=== PATIENT | female | born 1990 ===

== ENCOUNTER 2020-12-21 13:05 | Outpatient (REF) | payer OTHER, SELFPAY ==
[2020-12-21 13:54] LABS: MANUAL DIFF FLAG NO
[2020-12-21 14:05] LABS: Basophils Absolute Auto 0.1 X10*3/uL (0.0-0.2); Basophils Percent Auto 0.6 % (0-2); Eosinophils Absolute Auto 0.1 X10*3/uL (0.0-0.4); Eosinophils Percent Auto 0.5 % (0-4); Hematocrit 39.7 % (37-47); Hemoglobin 12.6 g/dl (12.0-16.0); Imm Gran Abs Auto 0.03 X10*3/uL (0.00-0.03); Imm Gran Pct Auto 0.3 % (0.0-0.4); Lymphocytes Absolute Auto 2.8 X10*3/uL (1.2-4.9); Lymphocytes Percent Auto 28.7 % (20-40); Mean Corpuscular HGB Conc 31.7 g/dl (31.0-35.0); Mean Corpuscular Hemoglobin 26.9 pg (27.0-33.0); Mean Corpuscular Volume 84.6 fL (80-98); Mean Platelet Volume 10.7 fL (9.4-12.3); Monocytes Absolute Auto 0.9 X10*3/uL (0.1-1.2); Monocytes Percent Auto 8.8 % (2-11); Neutrophils Absolute Auto 5.9 X10*3/uL (2.0-8.3); Neutrophils Percent Auto 61.1 % (45-73); Platelet Count 277 X10*3/uL (160-400); Red Blood Count 4.69 X10*6/uL (4.20-5.50); Red Cell Distribution Width 12.7 % (11.0-16.0); White Blood Count 9.6 X10*3/uL (4.8-10.8)
[2020-12-21 14:13] LABS: Estimated Average Glucose 94 mg/dL; Hemoglobin A1c % 4.9 %
[2020-12-21 14:39] LABS: Alanine Aminotransferase 14 U/L (0-31); Albumin Level 4.1 g/dL (3.5-5.0); Alkaline Phosphatase 96 U/L (39-117); Anion Gap 13 (12-20); Aspartate Amino Transferase 23 U/L (5-31); Bilirubin Direct < 0.2 mg/dL (0.0-0.5); Bilirubin Total 0.4 mg/dL (0.0-1.0); Blood Urea Nitrogen 12 mg/dL (9-16); Calcium 9.1 mg/dL (8.4-10.2); Carbon Dioxide 27 mmol/L (22-29); Chloride 104 mmol/L (96-108); Estimated Glomerular Filt Rate > 60; Glucose Random 84 mg/dL (60-115); Potassium 3.9 mmol/L (3.3-5.1); Sodium 140 mmol/L (135-145); Total Protein 7.6 g/dL (6.5-8.0)
[2020-12-21 14:46] LABS: TSH reflex Free T4 0.77 uIU/mL (0.32-4.0)
== END 2020-12-21 13:06 | disposition home or self-care (01) ==
LOC: HO.HMGCLDS 13:05
PROVIDERS: PCP Internal Medicine; Visit Provider Internal Medicine
DX: G44.89 Other headache syndrome (principal); R53.83 Other fatigue; R63.1 Polydipsia
CPT/HCPCS: 36415; 80048; 80076; 83036; 84443; 85025

== ENCOUNTER → 2021-02-23 10:54 | Outpatient (BNVA) | payer OTHER, SELFPAY | PROVIDERS: PCP Internal Medicine; Visit Provider Physician Assistant ==

== ENCOUNTER → 2021-02-24 08:12 | Outpatient (BNVA) | payer OTHER, SELFPAY | PROVIDERS: PCP Internal Medicine; Visit Provider Surgery ==

== ENCOUNTER 2021-02-25 10:37 | Outpatient (REF) | payer OTHER, SELFPAY ==
--- NOTE | ~2021-02-25 | XR_ITS ---
EXAMINATION: XR CHEST CLINICAL INFORMATION: Obesity COMPARISON: None TECHNIQUE: 2 views of the chest were obtained. FINDINGS: No significant abnormality is noted involving the heart, lungs, mediastinum, bony thorax or soft tissues. XR/XR chest 2V IMPRESSION: Unremarkable examination.
--- NOTE | 2021-02-25 10:53 | ECG_ITS ---
Test Reason : E66.01 Blood Pressure : / mmHG Vent. Rate : 080 BPM Atrial Rate : 080 BPM P-R Int : 120 ms QRS Dur : 086 ms QT Int : 374 ms P-R-T Axes : 025 060 027 degrees QTc Int : 431 ms Normal sinus rhythm Normal ECG No previous ECGs available Referred By: Winston Mcmahan Electronically Signed By:NOAH TALAVERA
[2021-02-25 11:39] LABS: MANUAL DIFF FLAG NO
[2021-02-25 11:50] LABS: Basophils Percent Auto 0.5 % (0-2); Eosinophils Absolute Auto 0.1 X10*3/uL (0.0-0.4); Eosinophils Percent Auto 1.2 % (0-4); Hemoglobin 13.1 g/dl (12.0-16.0); Imm Gran Abs Auto 0.01 X10*3/uL (0.00-0.03); Imm Gran Pct Auto 0.2 % (0.0-0.4); Lymphocytes Absolute Auto 1.2 X10*3/uL (1.2-4.9); Lymphocytes Percent Auto 19.9 % (20-40); Mean Corpuscular Hemoglobin 26.8 pg (27.0-33.0); Mean Platelet Volume 10.8 fL (9.4-12.3); Monocytes Absolute Auto 0.7 X10*3/uL (0.1-1.2); Monocytes Percent Auto 12.1 % (2-11); Neutrophils Absolute Auto 3.9 X10*3/uL (2.0-8.3); Neutrophils Percent Auto 66.1 % (45-73); Platelet Count 222 X10*3/uL (160-400); Red Blood Count 4.88 X10*6/uL (4.20-5.50); Red Cell Distribution Width 12.8 % (11.0-16.0); White Blood Count 5.9 X10*3/uL (4.8-10.8)
[2021-02-25 12:09] LABS: Estimated Average Glucose 94 mg/dL; Hemoglobin A1c % 4.9 %
[2021-02-25 12:10] LABS: Alanine Aminotransferase 11 U/L (0-31); Albumin Level 4.3 g/dL (3.5-5.0); Alkaline Phosphatase 85 U/L (39-117); Anion Gap 12 (12-20); Aspartate Amino Transferase 19 U/L (5-31); Bilirubin Total 0.5 mg/dL (0.0-1.0); Blood Urea Nitrogen 12 mg/dL (9-16); C Reactive Protein 1.28 mg/dL (< or = 0.50); Calcium 9.2 mg/dL (8.4-10.2); Carbon Dioxide 27 mmol/L (22-29); Chloride 104 mmol/L (96-108); Cholesterol 171 mg/dL; Estimated Glomerular Filt Rate > 60; Glucose Random 76 mg/dL (60-115); HDL Cholesterol 43 mg/dL; LDL Cholesterol Calculated 117 mg/dl; Potassium 4.2 mmol/L (3.3-5.1); Sodium 139 mmol/L (135-145); Total Protein 7.7 g/dL (6.5-8.0); Triglycerides 56 mg/dL
[2021-02-25 12:34] LABS: Ferritin 31 ng/mL (10-122); TSH reflex Free T4 0.35 uIU/mL (0.32-4.0); Vitamin D 25-OH Total 19.4 ng/mL (>30)
[2021-02-25 12:57] LABS: Vitamin B12 600 pg/mL (200-900)
[2021-02-26 09:52] LABS: Insulin Level Total 6.5 uIU/mL
[2021-02-26 12:16] LABS: H Pylori Breath Test NOT DETECTED (NOT DETECTED)
[2021-02-28 13:43] LABS: Calcium (PTHI) 9.3 mg/dL (8.6-10.2); PTHI 68 pg/mL (14-64)
[2021-03-01 02:21] LABS: Zinc 86 mcg/dL (60-130)
[2021-03-01 09:56] LABS: Vitamin B1 <6 nmol/L (8-30)
[2021-03-01 21:36] LABS: Vitamin A 26 mcg/dL (38-98)
== END 2021-02-25 10:38 | disposition home or self-care (01) ==
LOC: HO.LAB 10:37
PROVIDERS: Physician Assistant; PCP Internal Medicine; Visit Provider Surgery
DX: Z01.818 Encounter for other preprocedural examination (principal); E66.01 Morbid (severe) obesity due to excess calories
CPT/HCPCS: 36415; 71046; 80053; 80061; 82306; 82607; 82728; 82746; 83013; 83036; 83525; 83970; 84425; 84443; 84590; 84630; 85025; 86140; 93005; 99211

== ENCOUNTER 2021-02-28 10:25 | Outpatient (REF) | payer OTHER, SELFPAY ==
--- NOTE | ~2021-02-28 | FL_ITS ---
EXAMINATION: FL XR GI SERIES CLINICAL INFORMATION: Morbid obesity. COMPARISON: None TECHNIQUE: Air contrast upper GI examination. FINDINGS: There is normal apposition of the focal cords while saying E. There is normal elevation of the soft palate while saying candy. No nasopharyngeal reflux or tracheal aspiration was identified. There is normal esophageal motility without ulceration or persistent stricture. No gastroesophageal reflux was elicited including with water siphon test. The stomach demonstrated normal distensibility without abnormal mass or ulceration. There was no delay in gastric emptying. The duodenal bulb and sweep appeared unremarkable. FLUOROSCOPY TIME: 1.3 minutes. DOSE AREA PRODUCT: 17.342 Gy-cm2 (norma centimeter squared. FL/FL upper GI series IMPRESSION: Normal air contrast upper GI examination.
== END 2021-02-28 10:26 | disposition home or self-care (01) ==
LOC: HO.XRAY 10:25
PROVIDERS: PCP Internal Medicine; Visit Provider Surgery
DX: Z01.818 Encounter for other preprocedural examination (principal); E66.01 Morbid (severe) obesity due to excess calories; K21.9 Gastro-esophageal reflux disease without esophagitis
CPT/HCPCS: 74240

== ENCOUNTER → 2021-03-03 11:25 | Outpatient (BNVA) | payer OTHER, SELFPAY | PROVIDERS: PCP Internal Medicine; Visit Provider Physician Assistant ==

== ENCOUNTER → 2021-03-10 11:32 | Outpatient (BNVA) | payer OTHER, SELFPAY | PROVIDERS: PCP Internal Medicine; Visit Provider Physician Assistant ==

== ENCOUNTER 2021-03-14 08:47 | Outpatient (REF) | payer OTHER, SELFPAY ==
--- NOTE | ~2021-03-14 | US_ITS ---
EXAMINATION: US COMPLETE ABDOMEN WITH LIVER ELASTOGRAPHY CLINICAL INFORMATION: Obesity. COMPARISON: None. TECHNIQUE: Real-time imaging of the abdominal viscera. Noninvasive ultrasound liver fibrosis assessment is performed using Ever ElastPQ point quantification shear wave elastography (pSWE) with a C5-2 MHz transducer. Multiple elastography samples are obtained. FINDINGS: PANCREAS: Normal. The visualized pancreatic head and body are normal in appearance. The remainder of the pancreas is obscured from visualization by the overlying bowel gas. ABDOMINAL AORTA: The proximal, middle, and distal aortic segments are normal in caliber. INFERIOR VENA CAVA: Visualized portions are normal. LIVER: Echogenicity is within normal limits. No focal lesion or intrahepatic biliary duct dilatation. The right lobe measures 17.4 cm in length. The left lobe measures 13.1 cm in length. Portal flow is hepatopedal. Shear wave liver elastography median stiffness is 1.1 m/s (reference: normal median stiffness is 1.3 m/s or less). IQR/median stiffness to assess sampling precision is 0.12 (reference: good quality data set is IQR/median stiffness of 0.15 or less). GALLBLADDER: Normal. The gallbladder is physiologically distended without evidence of stones, sludge, polyps, wall thickening or pericholecystic fluid. COMMON BILE DUCT: Normal in caliber measuring 0.1 cm in diameter. RIGHT KIDNEY: Normal. No hydronephrosis. No renal calculi or focal parenchymal lesions. The kidney measures 10.8 cm in maximum dimension. LEFT KIDNEY: Normal. No hydronephrosis. No renal calculi or focal parenchymal lesions. The kidney measures 9 cm in maximum dimension. SPLEEN: Normal. The spleen measures 10.5 cm in maximum dimension. FREE FLUID: None. US/US abdomen comp w elastography IMPRESSION: 1. Hepatic parenchymal echogenicity is within normal limits. No focal lesions. No intrahepatic biliary duct dilatation. 2. Liver elastography: Median stiffness 1.1 m/s. Based on the liver stiffness thresholds, this is in range of high probability of being normal. REFERENCE: Society of Radiologists in Ultrasound Liver Stiffness Thresholds (2020): LIVER STIFFNESS THRESHOLDS: *Liver Stiffness equal or less than 1.3 m/s: High probability of being normal. *Liver Stiffness less than 1.7 m/s: In the absence of other known clinical signs, rules out compensated advanced chronic liver disease. *Liver Stiffness 1.7-2.1 m/s: Suggestive of compensated advanced chronic liver disease but need further test for confirmation. *Liver Stiffness over 2.1 m/s: Rules in compensated advanced chronic liver disease. *Liver Stiffness over 2.4 m/s: Suggestive of clinically significant portal hypertension. QUALITY OF DATA SET: *IQR/Median value equal or less than 0.15 implies a quality data set. *IQR/Median value over 0.15 implies a poor quality data set. SIGNIFICANT CHANGE FROM PRIOR EXAM: Significant change if liver stiffness measurement is 10% or greater from prior exam. OTHER CONSIDERATIONS: The stage of liver fibrosis may be overestimated in the setting of acute hepatitis, liver inflammation, elevated liver function tests, hepatic vascular congestion, obstructive cholestasis, non-fasting state, and infiltrative diseases such as amyloidosis and lymphoma. In some patients with NAFLD, the liver stiffness thresholds for compensated advanced chronic liver disease may be lower. In causes other than viral hepatitis and NAFLD, liver stiffness thresholds are not well established.
== END 2021-03-14 08:48 | disposition home or self-care (01) ==
LOC: HO.US 08:47
PROVIDERS: PCP Internal Medicine; Visit Provider Surgery
DX: Z01.818 Encounter for other preprocedural examination (principal); E66.01 Morbid (severe) obesity due to excess calories; K21.9 Gastro-esophageal reflux disease without esophagitis
CPT/HCPCS: 76705; 76981

== ENCOUNTER → 2021-03-16 14:14 | Outpatient (BNVA) | payer OTHER, SELFPAY | PROVIDERS: PCP Internal Medicine; Visit Provider Dietitian, Registered | DX: E66.01 Morbid (severe) obesity due to excess calories (principal); Z68.39 Body mass index [BMI] 39.0-39.9, adult | CPT/HCPCS: 97802 ==

== ENCOUNTER → 2021-03-17 11:18 | Outpatient (BNVA) | payer OTHER, SELFPAY | PROVIDERS: PCP Internal Medicine; Visit Provider Physician Assistant ==

== ENCOUNTER → 2021-03-21 08:21 | Outpatient (BNVA) | payer OTHER, SELFPAY | PROVIDERS: PCP Internal Medicine; Visit Provider Surgery ==

== ENCOUNTER → 2021-03-24 11:25 | Outpatient (BNVA) | payer OTHER, SELFPAY | PROVIDERS: PCP Internal Medicine; Visit Provider Physician Assistant ==

== ENCOUNTER → 2021-04-01 12:30 | Outpatient (BNVA) | payer OTHER, SELFPAY | PROVIDERS: PCP Internal Medicine; Referring Provider Internal Medicine; Visit Provider Physician Assistant ==

== ENCOUNTER → 2021-04-08 11:54 | Outpatient (BNVA) | payer OTHER, SELFPAY | PROVIDERS: PCP Internal Medicine; Visit Provider Physician Assistant ==

== ENCOUNTER → 2021-04-11 08:13 | Outpatient (BNVA) | payer OTHER, SELFPAY | PROVIDERS: PCP Internal Medicine; Visit Provider Surgery ==

== ENCOUNTER → 2021-04-14 09:48 | Outpatient (BNVA) | payer OTHER, SELFPAY | PROVIDERS: PCP Internal Medicine; Visit Provider Physician Assistant ==

== ENCOUNTER → 2021-04-22 10:36 | Outpatient (BNVA) | payer OTHER, SELFPAY | PROVIDERS: PCP Internal Medicine; Visit Provider Physician Assistant ==

== ENCOUNTER 2021-04-28 11:00 | Outpatient (RCR) | payer OTHER, SELFPAY ==
--- NOTE | 2021-03-09 18:48 | MHC.PT.EP ---
[facility] [place] Office [place] Office [place] Office [address] Eileen Saavedra [address] [phone] F: [phone] F: [phone] F: [phone] F: [phone] Physical Therapy Plan of Care Date of Evaluation: Date of Surgery: Diagnosis: LOW BACK PAIN- STRAIN OF MUSCLE, FASCIA, AND TENDON OF LB/ RIGHT SI Jt STRAIN Assessment: 30 YO FEMALE REF TO PT W LBP- SHE HAS (+) RIGHT SI Jt DYSFUNCTION, (+) DIASTASIS RECTI, ? PUBIC SYMPH SEP/ ALSO IRRIT DUE TO ASYMM PELVIS- SHE HAS A 6 MONTH OLD AND 4.5 YO CHILDREN- URINARY INCONTINENCE , WEAK ABDOMINAL/ TRUNK MM, W COMPENSATORY LUMBAR HYPERLORDOSIS WITH FULCRUM OF MOTION IN UPPER LUMBAR SPINE W HYPOMOB IN LOWER LUMB AND LS JUNCTION- GENERAL DECR POSTURE, WEAKNESS IN CORE AND PROX LEs AND Pt NOTES STRESSFUL/ BUSY HOME ENVIRONMENT Frequency and Duration: The patient will be seen 2x WK x 5 WKS Short Term Goals: Pt INDEP W PROPER DONNING AND DOFFING LS SUPPORT IN 1 WK Pt DEMON INDEP SELF CORRECT W POSTURE AND POSITIONING ( SIMUL CHILDCARE TASKS/ ) IN 2 WKS Pt'S PAIN DECR TO 3-4/10 IN 2 WKS Pt DEMON PROPER ABDOMINAL ACTIV/ NEUTRAL SPINE W THERE EXER W/O VALSALVA/ PELVIC FLOOR STRAIN / LS SUPPORT IN 2 WKS [place] Goals: Pt INDEP W HEP FOR STRENGTH AND STAB AND SELF-SX MGMT TECHN ADDRESSING HER LS REGION IN 5 WKS Pt RESUME REG ADLs W/O EXACERB OF SXS EVIDENT W IMPROVED OSWESTRY SCORE BY AT LEAST 10 POINTS (AT EVAL 25/50) IN 5 WKS Treatment Plan: Modalities to reduce pain, spasms and effusion. Manual therapy to restore motion and function. Therapeutic exercise to improve strength and flexibility. Neuromuscular re-education for posture and balance. Therapeutic activities to return to functional activities of daily living. Electronically signed by: Kirsten Ramos,PT Please sign and return to therapist. Thank you for your referral.
--- NOTE | 2021-05-19 07:25 | MHC.PT.DC ---
[facility] [place] Office [place] Office [place] Office [address] Eileen Saavedra [address] [phone] F: [phone] F: [phone] F: [phone] F: [phone] Physical Therapy Discharge Report Diagnosis: LOW BACK PAIN- STRAIN OF MUSCLE, FASCIA, AND TENDON OF LB/ RIGHT SI Jt STRAIN Date of Surgery: Date of Evaluation: 03/09/21 Date of Discharge: 05/18/21 Treatments to Date: 7 Cancellations to Date: 0 No Shows to Date: 0 Discharge Status: Improved Function Independent with HEP Visit Non-compliance Discharge Summary: Pt has responded well to PT intervention for her LBP/ SI Jt pain/ post- course. She demon improved postural correction and body mechanics awareness, w daily tasks and childcare concerns. She benefitted from frequent verbal cues and education on abdominal/pelvic floor activation. She has a thorough HEP to address strength and stability- She had decr attendance w sched appts. Electronically signed by: Kirsten Ramos,PT Please sign and return to therapist. Thank you for your referral.
== END 2021-05-19 07:27 | disposition home or self-care (01) ==
LOC: HO.PTCHIC 11:00
PROVIDERS: PCP Internal Medicine; Visit Provider Internal Medicine
DX: S39.012A Strain of muscle, fascia and tendon of lower back, initial encounter (principal)
CPT/HCPCS: 97110; 97163; 97530

== ENCOUNTER → 2021-04-29 13:03 | Outpatient (BNVA) | payer OTHER, SELFPAY | PROVIDERS: PCP Internal Medicine; Visit Provider Physician Assistant ==

== ENCOUNTER → 2021-05-04 07:59 | Outpatient (BNVA) | payer OTHER, SELFPAY | PROVIDERS: PCP Internal Medicine; Visit Provider Surgery | DX: E66.9 Obesity, unspecified (principal); Z68.35 Body mass index [BMI] 35.0-35.9, adult | CPT/HCPCS: 99212 ==

== ENCOUNTER → 2021-05-20 11:54 | Outpatient (BNVA) | payer OTHER, SELFPAY | PROVIDERS: PCP Internal Medicine; Visit Provider Physician Assistant ==

== ENCOUNTER 2021-05-25 23:48 | Inpatient (IN) | payer OTHER, SELFPAY ==
[2021-04-22 11:06] VITALS: BMI 37.3
[2021-05-20 12:36] LABS: MANUAL DIFF FLAG NO
[2021-05-20 12:47] LABS: Basophils Percent Auto 0.6 % (0-2); Eosinophils Absolute Auto 0.1 X10*3/uL (0.0-0.4); Eosinophils Percent Auto 0.9 % (0-4); Hemoglobin 12.9 g/dl (12.0-16.0); Imm Gran Abs Auto 0.02 X10*3/uL (0.00-0.03); Imm Gran Pct Auto 0.3 % (0.0-0.4); Lymphocytes Absolute Auto 1.8 X10*3/uL (1.2-4.9); Lymphocytes Percent Auto 26.7 % (20-40); Mean Corpuscular HGB Conc 32.3 g/dl (31.0-35.0); Mean Corpuscular Hemoglobin 27.4 pg (27.0-33.0); Mean Corpuscular Volume 85.1 fL (80-98); Mean Platelet Volume 11.3 fL (9.4-12.3); Monocytes Absolute Auto 0.5 X10*3/uL (0.1-1.2); Monocytes Percent Auto 8.1 % (2-11); Neutrophils Absolute Auto 4.2 X10*3/uL (2.0-8.3); Neutrophils Percent Auto 63.4 % (45-73); Platelet Count 226 X10*3/uL (160-400); Red Cell Distribution Width 13.1 % (11.0-16.0); White Blood Count 6.6 X10*3/uL (4.8-10.8)
[2021-05-20 13:01] LABS: Alanine Aminotransferase 6 U/L (0-31); Albumin Level 4.4 g/dL (3.5-5.0); Alkaline Phosphatase 67 U/L (39-117); Anion Gap 11 (12-20); Aspartate Amino Transferase 17 U/L (5-31); Bilirubin Total 0.6 mg/dL (0.0-1.0); Blood Urea Nitrogen 10 mg/dL (9-16); C Reactive Protein 0.61 mg/dL (< or = 0.50); Calcium 9.7 mg/dL (8.4-10.2); Carbon Dioxide 25 mmol/L (22-29); Chloride 107 mmol/L (96-108); Cholesterol 179 mg/dL; Estimated Glomerular Filt Rate > 60; Glucose Random 87 mg/dL (60-115); HDL Cholesterol 41 mg/dL; LDL Cholesterol Calculated 125 mg/dl; Potassium 4.2 mmol/L (3.3-5.1); Sodium 139 mmol/L (135-145); Total Protein 7.6 g/dL (6.5-8.0); Triglycerides 65 mg/dL
[2021-05-20 13:03] LABS: Estimated Average Glucose 88 mg/dL; Hemoglobin A1c % 4.7 %
[2021-05-20 13:14] LABS: INTERNATIONAL NORM RATIO 1.1 (0.9-1.1)
[2021-05-20 13:16] LABS: Partial Thromboplastin Time 36.9 SEC (24.1-38.0)
[2021-05-20 13:24] LABS: TSH reflex Free T4 0.27 uIU/mL (0.32-4.0)
[2021-05-20 14:30] LABS: Free T4 (Free Thyroxine) 0.98 ng/dL (0.71-1.85)
--- NOTE | 2021-05-25 08:40 | HO.ANESPROP2 ---
Documented by User: Stacy Angelic 05/25/21 08:42 HPI - Anesthesia Eval Consult details Narrative: 30yo F for Gastrectomy Sleeve, EGD, Poss Diaphragmatic Hernia, Poss Ventral Hernia, Poss open PMFSH Active Problems Active Problems: All Active Problems (Updated 05/04/21 @ 08:39 by Winston Mcmahan MD) BMI over 35 (Acute) BMI 37.0-37.9, adult (Acute) Large breasts (Acute) BMI 38.0-38.9,adult (Acute) Obesity (Acute) Post depression (Acute) Vitamin D deficiency (Acute) Vitamin B1 deficiency (Acute) Vitamin A deficiency (Acute) Preoperative testing (Acute) Knee pain (Acute) Depression (Acute) Low back strain (Acute) Encounter for general adult medical examination with abnormal findings (Acute) Diastasis recti (Acute) Gynecomastia, female (Acute) Morbid obesity (Acute) Tired (Acute) Excessive thirst (Acute) Difficulty concentrating (Acute) Lack of adequate sleep (Acute) Headache syndrome (Acute) Past Medical History Medical History Depression Knee pain Family History Family History Father No problems noted. 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 If so, by whom?: No Are you DNR?: No Advance Directives: No Advance Directives Information Provided: No Advance Directives on File: No Recently lost weight without trying: No How much weight loss: 2-13 pounds Nutrition Risks: No Nutritional Risk Patient : No (Periods Irreg, childbirth 5 mos ago) FDLMP: 04/16/29 - : Yes (weaning off now) Meds Allergies Allergy/AdvReac Type Severity Reaction Status Date / Time diclofenac [Voltaren] Allergy Unknown Hives/itchi Verified 05/04/21 08:08 ness lactose Allergy Diarrhea Verified 05/26/21 10:15 Exam Exam Date and Time: May 25, 2021 0840 Height,Weight and Vital Signs: Height 5 ft 5 in Weight 101.605 kg Pertinent Lab Results Pertinent Lab Results: Laboratory Tests 05/20/21 05/20/21 05/20/21 11:40 11:40 11:40 WBC 6.6 RBC 4.70 Hgb 12.9 Hct 40.0 MCV 85.1 MCH 27.4 MCHC 32.3 RDW 13.1 Plt Count 226 MPV 11.3 Immature Gran % (Auto) 0.3 Neut % (Auto) 63.4 Lymph % (Auto) 26.7 [place] % (Auto) 8.1 Eos % (Auto) 0.9 Baso % (Auto) 0.6 Lymph # (Auto) 1.8 [place] # (Auto) 0.5 Eos # (Auto) 0.1 Baso # (Auto) 0.0 Abs Immat Gran (auto) 0.02 Absolute Neuts (auto) 4.2 Absolute Nucleated RBC 0.000 Nucleated RBC % (auto) 0.0 PT 12.0 INR 1.1 APTT 36.9 Sodium 139 Potassium 4.2 Chloride 107 Carbon Dioxide 25 Anion Gap 11 L BUN 10 Creatinine 0.83 Estim Creat Clear Calc 116.0 Estimated GFR > 60 Random Glucose 87 Estimat Average Glucose Hemoglobin A1c % Calcium 9.7 Total Bilirubin 0.6 AST 17 ALT 6 Alkaline Phosphatase 67 D C-Reactive Protein 0.61 H Total Protein 7.6 Albumin 4.4 Triglycerides 65 Cholesterol 179 LDL Cholesterol, Calc 125 HDL Cholesterol 41 TSH 0.27 L Free T4 0.98 Blood Type Antibody Screen 05/20/21 05/20/21 11:40 11:40 WBC RBC Hgb Hct MCV MCH MCHC RDW Plt Count MPV Immature Gran % (Auto) Neut % (Auto) Lymph % (Auto) [place] % (Auto) Eos % (Auto) Baso % (Auto) Lymph # (Auto) [place] # (Auto) Eos # (Auto) Baso # (Auto) Abs Immat Gran (auto) Absolute Neuts (auto) Absolute Nucleated RBC Nucleated RBC % (auto) PT INR APTT Sodium Potassium Chloride Carbon Dioxide Anion Gap BUN Creatinine Estim Creat Clear Calc Estimated GFR Random Glucose Estimat Average Glucose 88 Hemoglobin A1c % 4.7 Calcium Total Bilirubin AST ALT Alkaline Phosphatase C-Reactive Protein Total Protein Albumin Triglycerides Cholesterol LDL Cholesterol, Calc HDL Cholesterol TSH Free T4 Blood Type A Positive Antibody Screen NEGATIVE Narrative Narrative: EKG 02/2021 Vent. Rate : 080 BPM Atrial Rate : 080 BPM P-R Int : 120 ms QRS Dur : 086 ms QT Int : 374 ms P-R-T Axes : 025 060 027 degrees QTc Int : 431 ms Normal sinus rhythm Normal ECG No previous ECGs available Assessment and Plan Assessment Anesthesia Assessment: Chart Reviewed Documented by User: Amy Patton 05/26/21 10:56 PMFSH Past Medical History Medical History Depression Knee pain Family History Family History Father No problems noted. 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 If so, by whom?: No Are you DNR?: No Advance Directives: No Advance Directives Information Provided: No Advance Directives on File: No Recently lost weight without trying: No How much weight loss: 2-13 pounds Nutrition Risks: No Nutritional Risk Patient : No (Periods Irreg, childbirth 5 mos ago) FDLMP: 04/16/29 - : Yes (weaning off now) Meds Allergies Allergy/AdvReac Type Severity Reaction Status Date / Time diclofenac [Voltaren] Allergy Unknown Hives/itchi Verified 05/04/21 08:08 ness lactose Allergy Diarrhea Verified 05/26/21 10:15 Exam Airway Mallampati Class: II TM Dist: >3cm Neck ROM: Full Loose/Missing/Broken Teeth: No Heart: RRR Lungs: CTA Assessment and Plan Assessment Anesthesia Assessment: Anesthesia Plan Discussed and Chart Reviewed Final Anesthetic Review NPO: Yes ASA Class: II Final Preanesthetic Review: Meds/Allgs Chart Reviewed, Consent Obtained/Reviewed and Anes Risks/Benef Reviewed Patient Risk: Low Procedure Risk: Intermediate Anesthetic Plan Anesthetic Plan: GA Disposition: Standard PACU
--- NOTE | 2021-05-25 23:46 | MHC.SHP ---
Pre-Procedural Eval Section A Date of Service: 05/25/21 The patient is an INPATIENT: Yes The History & Physical has been completed within 30 days and I have reviewed it.: Yes Section B Chief Complaint: obesity Details of Present Illness: obesity Relevant Family History (Specify if Yes): No Relevant Social History: None Present Medications: None Medical History: No relevant PMH History of Previous Operations: No relevant previous surgery Allergies: Allergies Allergy/AdvReac Type Severity Reaction Status Date / Time diclofenac [Voltaren] Allergy Unknown Hives/itchi Verified 05/04/21 08:08 ness Review of Systems Sugical H&P ROS: Negative: Constitution, Cardiovascular, Respiratory, Neurological, Psychiatric, Hem-Onc, Allergic/Immunologic, Gastrointestinal, Genitourinary, Musculoskeletal, Integumentary, Endocrine and Eyes/Ears/Nose/Throat Exam Surgical H&P Exam: Normal: HEENT, Normal: Heart, Normal: Lungs, Normal: Extremities, Normal: Abdomen, Normal: Skin and Normal: Neurological Plan Diagnosis/Plan: Unchanged I have reviewed the history and physical and performed a pertinent physical examination on my patient. No changes have occurred unless specified.
[2021-05-26] VITALS (12 sets, daily range): BP systolic 118–159; BP diastolic 78–96; PULSE 77–93; RESP 13–20; TEMP 36–36.6; O2SAT 97–100
[2021-05-26 10:43] LABS: UPreg QC Valid YES; Urine Pregnancy NEGATIVE (NEGATIVE)
[2021-05-26 11:00] LABS: COVID-19 Test Negative (Negative)
[2021-05-26] MEDS: Lactated Ringers 1,000 ML 999 ML IV (11:03)
[2021-05-26] MEDS: Lactated Ringers 1,000 ML 100 ML IVCONT (11:04)
--- NOTE | 2021-05-26 12:29 | PM.OP ---
Brief Operative Note Date of Service: 05/26/21 Pre-op diagnosis: obesity Post-op diagnosis: same Procedure: INITIAL PATIENT BMI ON PRESENTATION AT OUR OFFICE: 42.2 kg/m2 LAST BMI BEFORE SURGERY: 34.5 kg/m2 COMORBIDITIES: Depression, DJD The patient participated in an intensive weekly lifestyle intervention and exercise program during which the patient has lost between the initial office visit and the last preoperative visit 46.3lbs, or 18.24% of initial actual body weight. The patient met the BMI-criteria for bariatric surgery based on the BMI on initial presentation. The patient should not be penalized for achieving such weight loss because it is not sustainable long-term without surgical intervention and it was achieved in preparation for bariatric surgery under my direction and based on my published research ([email or web address]:/[email or web address]/Downloads/[email or web address]%20ACS%20([email or web address]).pdf and [email or web address]/article/[email or web address](53)18930-X/pdf) that a 10% preoperative weight loss improves long-term weight loss after surgery and reduces perioperative complications. Insurance carriers such as [facility] have endorsed my recommendations and have included in their policies criteria to include a 10% preoperative weight loss requirement. PROCEDURE: Esophago-gastroscopy, laparoscopic repair of incarcerated diaphragmatic hernia, laparoscopic sleeve gastrectomy and laparoscopic gastropexy INDICATIONS: This is a 30 year-old female who was electively scheduled for laparoscopic, possibly open sleeve gastrectomy. The risks and complications of the procedure were discussed with the patient in advance, particularly the possibility of ; pulmonary embolism; staple line leak; bleeding; GERD; cardiac, pulmonary, or renal complications; as well as long-term problems such as insufficient weight loss, vitamin deficiency, strictures, or ulcers. The patient understood all the risks, and was in agreement to proceed with surgery. DESCRIPTION OF PROCEDURE: After informed consent was obtained from the patient, the patient was given preoperative antibiotics, and was transferred to the operating room. After successful induction of general anesthesia, pneumatic compressive devices were placed on both lower extremities. An upper endoscopy was performed next. The oropharynx and esophagus appeared to be within normal limits. There was a diaphragmatic hernia that was not reported at the preoperative upper GI. The stomach was entered. Then after all fluid and air were suctioned and the stomach was fully decompressed, the scope was withdrawn and secured in the mid esophagus. The patient was then prepped and draped in the usual sterile manner, and abdominal access was established at the right upper quadrant with the Reuben technique. A 12 mm blunt port was inserted, and the abdomen was insufflated with CO2 to a pressure of 15 mmHg. Under direct visualization, additional ports were placed, specifically two 5 mm Versi-step ports to the left upper quadrant, and a 5 mm Versi-Step port to the right upper quadrant. 1% lidocained plan was used to infiltrate all port sites as well as all fascia defects. Following that, the patient was placed in a steep reverse Trendelenburg position. An additional 5 mm port was placed to the right flank for the Mediflex retractor that was used to retract the left lobe of the liver. The gastro-esophageal fat pad was opened with the ultrasonic device (Thunderbeat, Olympus) and the anterior esophagus and hiatus were exposed. The angle of His was opened with the ultrasonic device the fundus of the stomach from any diaphragmatic and splenic attachments. I then opened the gastrocolic ligament between the transverse colon and the greater curvature of the stomach with the ultrasonic device to enter the lesser sac and facilitate the ligation of the short gastric vessels. I started at a mid-point along the greater curvature and using the Thunderbeat, all short gastric vessels were divided all the way to the angle of His until the left beatriz was completely dissected at its entirety. I then divided the gastro-colic ligament distally to a distance of about 3-4 cm proximal to the esophagus. There was an obvious significant-sized hiatal hernia. I continued dissecting along the hiatus toward the left beatriz and the angle of His. I fully mobilized the fat pad that was incarcerated in the hernia. I then continued by dissecting even further into the posterior retro-esophageal space all the way to the angle of His. I continued to mobilize the esophagus into the mediastinum circumferentially. Both vagal nerves were seen and preserved. At that point, I was able to have at least 3 to 5 cm of esophagus into the abdomen. After I completely mobilized the esophagus from both the left and right beatriz and I had a good mobilization of the esophagus circumferentially, I closed the hernia defect with three interrupted #0 Surgidac sutures using the Endo Stitch device, two of which were placed posterior and one anterior to the esophagus. The stomach was then divided transversely with one Endo BETHANIE-45 purple and five BETHANIE-60 articulating orange loads using the AEON stapler and loads. Every effort was made that the gastric sleeve had a tubular shape and an even caliber throughout. Once the sleeve resection was completed, the staple line of the gastric sleeve was reinforced with Hemoclips. The resected stomach was retrieved without difficulty from the Reuben port. A gastropexy was then performed in order to prevent postoperative GERD and partial gastric volvulus. Several interrupted 2.0 Surgidac sutures were placed between the sleeve's staple line and the previously divided greater omentum and gastro-colic ligament using the Endo-Stitch device. An upper endoscopy was performed. There was no narrowing at the GE junction. The scope was easily advanced all the way to the pylorus which was clearly visualized. There was no narrowing anywhere and the sleeve's caliber was even throughout. The sleeve's staple line was inspected and there was no evidence of ischemia, bleeding or dehiscence. At that point the gastroscope was withdrawn from the patient?s mouth while we were decompressing the bowel and the stomach from any remaining air. I looked into the lesser sac to see how the sleeve was situating and it was situating well. There was no bleeding from the staple line, spleen, or short gastric vessels. The Mediflex retractor was removed, and the undersurface of the liver was inspected and there was no bleeding. The patient was placed in supine position. I closed the fascial defect of the 12 mm port site with a figure of eight #1 Polysorb suture. Then 100 cc 0.25 % Marcaine plain with 10 mg of Dexamethasone were used to infiltrate the fascial closure as well as all skin incisions. At this point, the abdomen was deflated, all ports were removed under direct vision, and no bleeding was noted from any of the port sites. The skin incisions were irrigated with saline and were closed with 4-0 absorbable monofilament sutures. Steri-Strips and OpSites were used to cover all incisions. The patient was extubated and was transferred in stable condition to the recovery room for further care. I was present and performed all aparicio parts of the procedure. Marc was the nurse first aid. There were no residents to assist with this case. Tc Mcmahan MD, PhD, FACS Surgeon: Winston Mcmahan MD Anesthesia: GETA, local and other (TAP block) Was an Crusher And Binder Operator used for this Procedure?: No Crusher And Binder Operator: Sandra Tran Estimated blood loss (mL): 10 IV fluids (mL): 3,000 Urine output (mL): 0 (No Gay to record) Pathology: other (Stomach) Condition: stable Disposition: PACU
--- NOTE | 2021-05-26 12:34 | PM.PNGS ---
Subjective Subjective Date of Service: 05/27/21 Interval history: Patient had mild incisional pain but was able to ambulate and use the incentive spirometer. Is tolerating phase 1 bariatric diet. Physical Exam Vital Signs: Vital Signs: Last Vital Signs Temp 97.8 F 05/26/21 10:30 Pulse 79 05/26/21 10:30 Resp 16 05/26/21 10:30 BP 134/86 05/26/21 10:30 Pulse Ox 99 05/26/21 10:30 Body Mass Index 37.3 GI: Inspection: Yes normal to inspection, Yes incision (clean, dry and intact) and Yes obesity Extrem: Right lower extremity: normal to inspection (no calf tenderness) Left lower extremity: normal to inspection (no calf tenderness) Progress Note: A&P Assessment and plan (1) Obesity: Assessment and Plan: s/p laparoscopic sleeve gastrectomy and gastropexy Doing well Will check am labs and if OK will discharge home (2) BMI 34.0-34.9,adult: (3) Depression: Status: Acute (4) Knee pain: (5) Gynecomastia, female: (6) Status post repair of paraesophageal diaphragmatic hernia: Status: Acute (7) Diaphragmatic hernia: Status: Acute (8) S/P laparoscopic sleeve gastrectomy: Status: Acute Fall Risk Details Current Medications: Current Medications Generic Name Dose Route Start Last Admin Trade Name Freq PRN Reason Stop Dose Admin Albuterol Sulfate 2.5 mg 05/26/21 10:57 Albuterol Sulfate (0.083%) 2.5 Mg/3 Ml Vial.Neb INHALE ONCE PRN Wheezing Fentanyl 50 mcg 05/26/21 10:57 Fentanyl Citrate/Pf 100 Mcg/2 Ml Vial IVPUSH Q5M PRN Pain, Severe (Pain Scale 7-10) Fentanyl 25 mcg 05/26/21 10:57 Fentanyl Citrate/Pf 100 Mcg/2 Ml Vial IVPUSH Q5M PRN Pain, Moderate (Pain Scale 4-6 Hydromorphone HCl 0.5 mg 05/26/21 10:57 Hydromorphone Hcl 0.5 Mg/0.5 Ml Syringe IVPUSH Q5M PRN Pain, Severe (Pain Scale 7-10) Hydromorphone HCl 0.25 mg 05/26/21 10:57 Hydromorphone Hcl 0.5 Mg/0.5 Ml Syringe IVPUSH Q5M PRN Pain, Severe (Pain Scale 7-10) Lactated Ringer's 1,000 mls @ 100 mls/hr 05/26/21 10:15 05/26/21 11:04 Lr IVCONT 100 mls/hr .Q10H ILIANA Administration Promethazine HCl 6.25 mg/ 50.25 mls @ 201 mls/hr 05/26/21 10:57 Sodium Chloride IV ONCE PRN Nausea and Vomiting Oxycodone HCl 10 mg 05/26/21 10:57 Oxycodone Hcl Immed Release 5 Mg Tablet PO ONCE PRN Pain, Severe (Pain Scale 7-10) Oxycodone HCl 5 mg 05/26/21 10:57 Oxycodone Hcl Immed Release 5 Mg Tablet PO ONCE PRN Pain, Severe (Pain Scale 7-10) Time Spent With Patient Time: Total time spent is greater than 50% in coordination of care (as documented) at patient's floor/unit and/or counseling patient: Time with patient: less than 15 minutes Procedures Date of Service Date of Service: 05/27/21 Quality Stroke Does the patient have a stroke diagnosis?: No VTE Prior VTE?: No VTE Risk Level:: Surgical - moderate VTE Device Contraindication: N/A - Device Ordered VTE Drug Contraindication: Treatment Not Indicated
[2021-05-26] MEDS: Famotidine/PF 20 MG/2 ML VIAL IVPUSH (15:01)
--- NOTE | 2021-05-26 15:01 | P.DS_ITS ---
DS: Providers Provider Date of Service: 05/27/21 Date of admission: 05/25/21 23:48 Primary care physician: Bobo Turner MD DS: Diagnosis Discharge Diagnosis (1) Obesity: (2) BMI 34.0-34.9,adult: (3) Depression: Status: Acute (4) Knee pain: (5) Gynecomastia, female: DS: Medications Discharge Medications Home Medications: Previous Rx's Medication Instructions Recorded ondansetron HCl 4 mg tablet 4 mg PO Q12H #20 tab 05/03/21 pantoprazole 40 mg tablet,delayed 40 mg PO DAILY #30 tab 05/03/21 release polyethylene glycol 3350 17 gram 17 g PO DAILY #14 ea 05/03/21 oral powder packet sucralfate 100 mg/mL oral 10 ml PO BID #400 ml 05/03/21 suspension DS: Summary Time Spent with Patient Time attestation: ADMITTING DIAGNOSIS: morbid obesity, diaphragmatic hernia, diastasis recti DISCHARGE DIAGNOSIS: same, s/p laparoscopic sleeve gastrectomy and repair diaphragmatic hernia PAST SURGICAL HISTORY: none PROCEDURE: upper endoscopy, laparoscopic sleeve gastrectomy and repair of diaphragmatic hernia hernia DISCHARGE SUMMARY: History of Present Illness: The patient is a 30 year-old woman with a BMI of 42.2 kg/m2 and associated co- morbidities as described above. The patient had extensive work-up,lost 29.9 lbs preoperatively and was electively scheduled for laparoscopic, possible open sleeve gastrectomy and gastropexy. Risks and complications of the surgery were discussed with the patient in advance, particularly the possibility of , pulmonary embolism, anastomotic leak, bleeding, bowel injury, GERD, cardiac, renal or pulmonary complications. The patient understood all the risks and was in agreement with the surgical plan. Hospital Course: The patient underwent an uneventful laparoscopic sleeve gastrectomy with gastropexy and repair of diaphragmatic hernia on the day of admission. Postoperatively, the patient was transferred to the surgical floor. The patient was on IV Acetaminophen and IV dilaudid for pain control. Patient was started on bariatric phase 1 diet POD #0. On postoperative day one, the patient was feeling well without nausea, vomiting, fevers, or tachycardia. The patient had some mild incisional pain. The abdomen was soft. On the morning of postoperative day one, the patient was continued on 1 ounce of water or ice every half hour. During the first day, the patient did fairly well, having some incisional pain, but able to ambulate adequately and to tolerate liquids well. Since the patient is doing well, we decided that the patient was ready to be discharged. The patient was given instructions to follow-up with me next week and to call my office for any fever over 101, persistent abdominal pain, nausea, vomiting, GERD, symptoms of DVT such as calf tenderness, or leg swelling, or pulmonary embolism such as chest pain or shortness of breath. The patient was also instructed to drink 40-60 ounces of liquids per day using the 1-ounce cups. The patient was given prescription for Tylenol for pain, Zofran prn for nausea, and pantoprazole and carafate. The patient was encouraged to ambulate and use the incentive spirometer. The patient was allowed to shower, but no baths, and encouraged to stay active at home. All of these instructions were given to the patient personally. All questions were answered and the patient understood all instructions, the instructions were also given to the patient in print. Total time spent providing and/or coordinating discharge services: 15 Discharge coordination time: Less than 30 minutes Quality: Stroke Does the patient have a stroke diagnosis?: No Physical Exam Vital Signs: Vital Signs: Last Vital Signs Temp 97.8 F 05/26/21 10:30 Pulse 79 05/26/21 10:30 Resp 16 05/26/21 10:30 BP 134/86 05/26/21 10:30 Pulse Ox 99 05/26/21 10:30 Body Mass Index 37.3 DS: Data Data Completed and Pending Pending studies at discharge: Pending at discharge 05/26/21 14:16 Surgical [PTH] Routine Labs on day of discharge: Laboratory Results - last 24 hr 05/26/21 05/26/21 10:10 10:10 Urine Test NEGATIVE COVID-19 (JANEL) Negative COVID-19 Clin Com See Note Discharge Plan Discharge Anticipated Discharge Date/Time: 05/27/21 11:57 Patient Disposition: Home, Self-Care Discharge Diagnosis: POD # 1 s/p sleeve gastrectomy Referrals: Bobo Turner MD [Primary Care Provider] - 1 Week Discharge Medications: Continued pantoprazole 40 mg tablet,delayed release (DR/EC) 40 mg PO DAILY Qty: 30 RF: 2 sucralfate 100 mg/mL suspension 10 ml PO BID Qty: 400 RF: 2 ondansetron HCl [Zofran] 4 mg tablet 4 mg PO Q12H Qty: 20 RF: 0 Discontinued polyethylene glycol 3350 [Miralax] 17 gram powder in packet 17 g PO DAILY Qty: 14 RF: 0 Discharge Orders: Discharge Order (Routine); Ordered 05/27/21 Ordered By: Winston Mcmahan Diet: other Activity on Discharge: No heavy lifting Stand Alone Forms: Patient Portal Discharge page Activity Restrictions/Additional Instructions: No tub baths, sex or returning to work until discussed at first post op appointment. No exercise, alcohol, tobacco or illegal drug use. Continue to use incentive spirometer hourly while awake. Walk in home for 5- 10 minutes every 2 hours during the first week. Continue phase 1 diet today and start phase 2 diet tomorrow morning. Follow all instructions in the bariatric handbook and call with any questions. The patient's medical history has been reviewed and they are considered low risk for post op DVT and therefore DVT prophylaxis is not considered necessary. Travel after surgery was reviewed. The patient has not disclosed any travel plans during the first 30 days after surgery and they have been advised that within the first 30 days after surgery any bus, plane, train or car travel over 2 hours in duration is contraindicated due to the possibility of developing blood clots from immobility. Any travel, needs to include periods of ambulation of 10 minutes in duration every 2 hours. The patient was instructed to discuss any plans for travel during this period with their bariatric surgeon. Care Plan Goals: weight loss Health Concerns: morbid obesity Plan of Treatment: see discharge instructions Assessment: stable, pod # 1 laparoscopic sleeve gastrectomy
[2021-05-26] MEDS: HYDROmorphone HCl 0.5 MG/0.5 ML SYRINGE IVPUSH (15:20)
[2021-05-26 15:32] LABS: Hematocrit 37.9 % (37-47); Hemoglobin 12.3 g/dl (12.0-16.0)
[2021-05-26 15:58] LABS: Anion Gap 17 (12-20); Blood Urea Nitrogen 7 mg/dL (9-16); Calcium 8.6 mg/dL (8.4-10.2); Carbon Dioxide 17 mmol/L (22-29); Chloride 107 mmol/L (96-108); Creatinine Clr Calc Pharmacy 123.4; Estimated Glomerular Filt Rate > 60; Glucose Random 84 mg/dL (60-115); Potassium 3.8 mmol/L (3.3-5.1); Sodium 137 mmol/L (135-145)
[2021-05-26] MEDS: ondansetron HCL 4 MG/2 ML VIAL IVPUSH ×2 (16:05→23:54)
--- NOTE | 2021-05-26 16:06 | PC.NURSE ---
Pt became nauseous upon transferring from PACU to E. Medicated with Zofran IV prior transfer with good relief.
[2021-05-26] MEDS: Metoclopramide HCl 10 MG/2 ML VIAL IVPUSH (17:34)
[2021-05-26] MEDS: Lactated Ringers 1,000 ML 125 ML IVCONT (17:38)
[2021-05-26] MEDS: ceFAZolin Sodium/Dextrose,Iso 2 GM/50 ML PIGGYBACK IV (18:05)
[2021-05-26] MEDS: 0.9 % Sodium Chloride Flush 3 ML SYRINGE IVFLUSH (20:50)
[2021-05-27] MEDS: Lactated Ringers 1,000 ML 125 ML IVCONT ×2 (00:49→08:35)
[2021-05-27] MEDS: Famotidine/PF 20 MG/2 ML VIAL IVPUSH ×2 (02:07→08:23)
[2021-05-27 03:56] VITALS: BP 150/99; PULSE 82; RESP 16; TEMP 36.8; O2SAT 99
[2021-05-27] MEDS: Metoclopramide HCl 10 MG/2 ML VIAL IVPUSH (04:13)
[2021-05-27 05:53] LABS: MANUAL DIFF FLAG NO
[2021-05-27 06:06] LABS: Basophils Percent Auto 0.1 % (0-2); Hematocrit 38.4 % (37-47); Hemoglobin 12.5 g/dl (12.0-16.0); Imm Gran Abs Auto 0.04 X10*3/uL (0.00-0.03); Imm Gran Pct Auto 0.3 % (0.0-0.4); Lymphocytes Percent Auto 8.7 % (20-40); Mean Corpuscular HGB Conc 32.6 g/dl (31.0-35.0); Mean Corpuscular Hemoglobin 27.4 pg (27.0-33.0); Mean Platelet Volume 10.9 fL (9.4-12.3); Monocytes Absolute Auto 0.6 X10*3/uL (0.1-1.2); Monocytes Percent Auto 4.7 % (2-11); Neutrophils Absolute Auto 10.2 X10*3/uL (2.0-8.3); Neutrophils Percent Auto 86.2 % (45-73); Platelet Count 235 X10*3/uL (160-400); Red Blood Count 4.57 X10*6/uL (4.20-5.50); Red Cell Distribution Width 12.8 % (11.0-16.0); White Blood Count 11.8 X10*3/uL (4.8-10.8)
[2021-05-27 06:50] LABS: Anion Gap 17 (12-20); Blood Urea Nitrogen 5 mg/dL (9-16); Carbon Dioxide 17 mmol/L (22-29); Chloride 106 mmol/L (96-108); Estimated Glomerular Filt Rate > 60; Glucose Random 117 mg/dL (60-115); Potassium 4.4 mmol/L (3.3-5.1); Sodium 136 mmol/L (135-145)
[2021-05-27 07:20] VITALS: BP 136/87; PULSE 70; RESP 18; TEMP 36.7; O2SAT 99
[2021-05-27] MEDS: ondansetron HCL 4 MG/2 ML VIAL IVPUSH (08:23)
[2021-05-27] MEDS: 0.9 % Sodium Chloride Flush 3 ML SYRINGE IVFLUSH (08:31)
--- NOTE | 2021-05-27 08:44 | PC.NURSE ---
Pt ambulated in perdomo. Deinies pain other than a little heartburn improved with ambulation. Denies n/v. Voiding in BR without difficulty. Abdominal dressinggs CDI and pt wearing abdominal binder
--- NOTE | 2021-05-27 10:12 | MHC.CM.PN ---
EMR REVIEWED, PT ADMITTED S/P LAP GASTRIC SLEEVE, GASTROPEXY & HERNIA REPAIR, CM MET W/PT WHO REPORTS SHE IS INDEPENDENT W/ALL CARE, NO DME AND NO HOME SERVICES, PT DENIES ANTICIPATING ANY NEEDS AFTER D/C, PT VERIFIES PCP AND HAS COMPLETED A HCP W/CM. PT ALSO WAS ALSO REQUESTING HER FOLLOW-UP W/SURGEON BE RESCHEDULED FOR LATER IN THE DAY, CM CONTACTED DR HERNANDEZ'S OFFICE AND PER [facility] [employer] [facility] THEY ARE COMPLETELY BOOKED HOWEVER PT CAN COME BETWEEN 8-8:30 INSTEAD OF 7:30AM ON DAY OF HER APPT, 06/01/2021. PT IS AWARE. D/C PLAN: HOME SELF-CARE & FOLLOW-UP W/SURGEON 06/01/2021 BETWEEN 7:30-8:30AM, FAMILY FOR TRANSPORT PCP: DOREEN BOYKIN HCP COMPLETED, PT GIVEN EDUCATION, ORIGINAL AND 3 COPIES, COPY UPLOADED TO [employer] AND PLACED IN CHART. HCP: TIFFANIE CUMMINS [phone] ALTERANTE: ROSI THOMSON [phone]
--- NOTE | 2021-05-27 10:46 | HO.POSTANES ---
Post Anesthesia Evaluation Post Anesthesia Evaluation Vital Signs: Vital Signs Temp Pulse Resp BP Pulse Ox 05/27/21 07:20 98.0 F 70 18 136/87 99 05/27/21 03:56 98.2 F 82 16 150/99 H 99 05/26/21 23:26 97 F 79 16 154/87 H 100 Anesthesia: General Endotracheal-GETA Mental Status: Awake Pain Control: Satisfactory Nausea/Vomiting: Mild Hydration: Adequate Anesthesia-Related Issues: No Anes. Related Issues
[2021-05-27 10:57] VITALS: O2SAT 97
== END 2021-05-27 11:51 | disposition home or self-care (01) | DRG 403 ==
LOC: HO.SSSA 05-26 15:00 → HO.S3 05-26 15:38
PROVIDERS: Nurse Practitioner; Physician Assistant; Admitting Provider Surgery; PCP Internal Medicine; Visit Provider Surgery
PROC: (CPT 43845; principal; 2021-05-26 11:30)
DX: E66.9 Obesity, unspecified (principal); K44.0 Diaphragmatic hernia with obstruction, without gangrene; N62 Hypertrophy of breast; F31.9 Bipolar disorder, unspecified; M19.90 Unspecified osteoarthritis, unspecified site; Z68.34 Body mass index [BMI] 34.0-34.9, adult; Z20.822 Contact with and (suspected) exposure to COVID-19; Z79.899 Other long term (current) drug therapy
CPT/HCPCS: 36415; 80048; 80053; 80061; 81025; 83036; 83525; 84439; 84443; 85014; 85018; 85025; 85610; 85730; 86140; 86850; 86900; 86901; 87635; 88307; 88342; 99024; A4649; J0131; J0690; J1100; J1170; J2250; J2405; J2550; J2765; J3010

== ENCOUNTER → 2021-06-01 08:34 | Outpatient (BNVA) | payer OTHER, SELFPAY | PROVIDERS: PCP Internal Medicine; Referring Provider Internal Medicine; Visit Provider Surgery | DX: E66.9 Obesity, unspecified (principal); Z68.32 Body mass index [BMI] 32.0-32.9, adult; Z71.3 Dietary counseling and surveillance; Z98.84 Bariatric surgery status | CPT/HCPCS: 99212 ==

== ENCOUNTER → 2021-07-15 07:20 | Outpatient (BNVA) | payer OTHER, SELFPAY | PROVIDERS: PCP Internal Medicine; Visit Provider Surgery | DX: E66.3 Overweight (principal); Z68.29 Body mass index [BMI] 29.0-29.9, adult; Z88.8 Allergy status to other drugs, medicaments and biological substances; Z91.011 Allergy to milk products | CPT/HCPCS: 99212 ==

== ENCOUNTER 2021-07-21 02:25 | Emergency (ER) | payer OTHER, SELFPAY ==
--- NOTE | ~2021-07-21 | CT_ITS ---
EXAMINATION: CT ABDOMEN AND PELVIS WITH CONTRAST CLINICAL INFORMATION: Status post sleeve gastrectomy with abdominal pain COMPARISON: None TECHNIQUE: Multidetector volumetric images were obtained from the superior aspect of the liver through the pubic symphysis following administration 85 mL of Omnipaque 350 intravenous contrast. Sagittal and coronal reformatted images were obtained on the technologist's workstation. Oral contrast: No This CT examination was performed using dose optimization techniques as appropriate, variously including the following: *Automated exposure control *Adjustment of mA and/or kV according to patient size (this includes techniques or standardized protocols for targeted exams where dose is matched to indication/reason for exam; i.e. extremities or head) *Use of iterative reconstruction technique DLP: 791 mGy-cm FINDINGS: LUNG BASES: The visualized lung bases are unremarkable. LIVER, GALLBLADDER, AND BILIARY TREE: The liver is normal in size, shape, and attenuation. No focal hepatic lesion or biliary ductal dilatation is present. The gallbladder is unremarkable with no evidence of radiopaque gallstones, gallbladder wall thickening, or obvious pericholecystic inflammatory changes. PANCREAS: Unremarkable. SPLEEN: Unremarkable. ADRENAL GLANDS: Unremarkable. KIDNEYS AND URETERS: The kidneys are normal in size, shape, and attenuation. No hydronephrosis, hydroureter, or calculi seen. No perinephric stranding. BLADDER: Unremarkable. GASTROINTESTINAL TRACT: Status post gastric surgery. No acute change of the bowel. No bowel obstruction. No bowel wall thickening or edema. Large volume of stool in the colon. The appendix is normal. ABDOMINAL WALL: No significant hernia is appreciated. LYMPH NODES: Normal. VASCULAR: Unremarkable. PELVIC VISCERA: Unremarkable. OSSEOUS STRUCTURES: Unremarkable. CT/CT abdomen pelvis w con IMPRESSION: No acute abnormality CT scan abdomen pelvis. Status post gastric surgery.
[2021-07-21 02:36] VITALS: BP 122/88; BP 134/88; PULSE 69; PULSE 78; RESP 16; TEMP 36.8; O2SAT 100; O2SAT 99; BMI 33.2
--- NOTE | 2021-07-21 02:44 | PC.NURSE ---
IN ROOM FOR EVAL.
--- NOTE | 2021-07-21 02:54 | ED_ITS ---
HPI - Abdominal Pain General Chief Complaint: Abdominal Pain Stated Complaint: abd pain, SoB Time Seen by Provider: 07/21/21 02:40 Source: patient and EMS Mode of arrival: EMS Limitations: no limitations History of Present Illness HPI narrative: 30-year-old female came in by ambulance for abdominal pain evaluation. This is a 30-year-old female who is status post sleeve gastrectomy on 05/26/[address] Mcmahan, patient been having constipation and unable to have normal bowel movement, pushed down and had a bowel movement of hard stool, then patient started to complain of upper abdominal pain and nausea started about 1 hour before arrival, pain is constant but fluctuating felt like severe squeeze inside her belly, no vomiting, no blood in the stool. No alleviating factor, no worsening factor. Patient never had similar pain in the past. When patient started to have the abdominal pain she started to breathe fast and hyperventilate, when EMS arrived put her on 2 L of nasal cannula oxygen and patient started to feel better, patient has no breathing issue at the current time, no lower extremity swelling or tenderness. Related Data Previous Rx's Medication Instructions Recorded ondansetron HCl 4 mg tablet 4 mg PO Q12H #20 tab 05/03/21 (Zofran) pantoprazole 40 mg tablet,delayed 40 mg PO DAILY #30 tab 05/03/21 release sucralfate 100 mg/mL oral 10 ml PO BID #400 ml 05/03/21 suspension Allergies Allergy/AdvReac Type Severity Reaction Status Date / Time diclofenac [Voltaren] Allergy Unknown Hives/itchi Verified 06/01/21 08:39 ness lactose Allergy Diarrhea Verified 06/01/21 08:39 Review of Systems Review of Systems All other systems are reviewed and are negative Constitutional: Reports as per HPI and Reports no additional constitutional complaints Eyes: Reports as per HPI and Reports no additional eye complaints Reports system reviewed and no additional complaints, except as documented Cardiovascular: Reports as per HPI and Reports no additional cardiovascular complaints Respiratory: Reports as per HPI and Reports no additional respiratory complaints Gastrointestinal: Reports as per HPI and Reports no additional gastrointestinal complaints Genitourinary: Reports no additional female genitourinary complaints Musculoskeletal: Reports no additional musculoskeletal complaints Skin/Breast: Reports system reviewed and no additional complaints, except as docu Psychiatric: Reports no additional psychiatric complaints Endocrine: Reports no additional endocrine complaints Hematologic/Lymphatic: Reports no additional hematologic/lymphatic complaints Allergic/Immunologic: Reports no additional allergic/immunologic complaints Reports system reviewed and no additional complaints, except as documented and Reports Abnormal speech present Physical Exam Vital Signs: Vital Signs: Last Vital Signs Temp 98.4 F 07/21/21 06:00 Pulse 60 07/21/21 06:00 Resp 16 07/21/21 06:00 BP 109/57 L 07/21/21 06:00 Pulse Ox 99 07/21/21 06:00 Body Mass Index 33.2 Vital signs have been reviewed as appeared to be correct. Blood pressure normal. Heart rate normal. Respiration rate normal. Temperature normal. Oxygen saturation normal. Appearance: Alert. Oriented X3. No acute distress. Head: Normal external exam. Normocephalic. Atraumatic. No Ramsey signs noted. No raccoon eyes noted Eyes: PERRLA. EOMI. Conjunctiva and sclera normal. Eyelids normal. ENT: TM's Normal. Pharynx normal. Uvula midline. Moist mucous membranes. No trismus noted. No drooling noted. No muffled voice noted. Neck: Normal inspection. Neck supple. FROM. No adenopathy. Thyroid Normal. No meningeal signs. No neck mass noted. CVS: Normal heart rate and rhythm. Heart sound normal. No murmurs noted. Pulses normal throughout. Respiratory: No respiratory distress. Painless inspiration. Breath sounds normal. No wheezes/rales/rhonchi noted. Chest nontender. No accessory muscle usage noted or decreased air movement noted. Abdomen: Soft, mild tenderness in the epigastric area, no guarding, no rebound tenderness. Bowel sounds normal in all 4 quadrants. No distention noted. No organomegaly noted. No visible injury noted. Back: No CVA tenderness. Full range of motion noted. Skin: Skin warm and dry. Normal skin color. Normal skin turgor. No rashes/lesions/lacerations noted. Extremities: No lower extremity edema. Extremities exhibit normal range of motion. Extremities nontender. Neuro: Oriented X 3. Cranial nerve exam: II-XII are grossly intact No motor deficit. No sensory deficit. Reflexes normal. Course Course Course Narrative: Assessment and plan. 30-year-old female status post sleeve gastrectomy 2 months ago, patient had constipation and push down for hard stool bowel movement then started to have gradual onset of abdominal pain. Patient has unremarkable labs, unremarkable CT of the abdomen and pelvis no postsurgical complication. Patient now is feeling better less abdominal pain, less nauseous and no vomiting. The case discussed with Sandra Tran who will follow-up with the patient. MDM - Abdominal Pain Lab Data Attestation: I reviewed the patient's lab results. Result diagrams: 07/21/21 03:16 07/21/21 03:16 Labs: Lab Results 07/21/21 07/21/21 07/21/21 Range/Units 03:16 03:16 03:16 WBC 7.8 (4.8-10.8) X10*3/uL RBC 4.38 (4.20-5.50) X10*6/uL Hgb 12.5 (12.0-16.0) g/dl Hct 37.9 (37-47) % MCV 86.5 (80-98) fL MCH 28.5 (27.0-33.0) pg MCHC 33.0 (31.0-35.0) g/dl RDW 13.6 (11.0-16.0) % Plt Count 232 (160-400) X10*3/uL MPV 10.9 (9.4-12.3) fL Immature Gran % (Auto) 0.1 (0.0-0.4) % Neut % (Auto) 59.1 (45-73) % Lymph % (Auto) 30.6 (20-40) % [place] % (Auto) 8.6 (2-11) % Eos % (Auto) 1.2 (0-4) % Baso % (Auto) 0.4 (0-2) % Lymph # (Auto) 2.4 (1.2-4.9) X10*3/uL [place] # (Auto) 0.7 (0.1-1.2) X10*3/uL Eos # (Auto) 0.1 (0.0-0.4) X10*3/uL Baso # (Auto) 0.0 (0.0-0.2) X10*3/uL Abs Immat Gran (auto) 0.01 (0.00-0.03) X10*3/uL Absolute Neuts (auto) 4.6 (2.0-8.3) X10*3/uL Absolute Nucleated RBC 0.000 (0.0-0.012) X10*3/uL Nucleated RBC % (auto) 0.0 (0.0-0.2) /100WBC Sodium 138 (135-145) mmol/L Potassium 3.9 (3.3-5.1) mmol/L Chloride 103 (96-108) mmol/L Carbon Dioxide 26 (22-29) mmol/L Anion Gap 13 (12-20) BUN 13 D (9-16) mg/dL Creatinine 0.75 (0.5-1.4) mg/dL Estim Creat Clear Calc 112.2 Estimated GFR > 60 Random Glucose 94 (60-115) mg/dL Calcium 9.8 D (8.4-10.2) mg/dL Total Bilirubin 0.4 (0.0-1.0) mg/dL Direct Bilirubin 0.2 (0.0-0.5) mg/dL AST 20 (5-31) U/L ALT 9 (0-31) U/L Alkaline Phosphatase 56 (39-117) U/L Total Protein 7.2 (6.5-8.0) g/dL Albumin 4.4 (3.5-5.0) g/dL Lipase 48 (8-78) U/L Urine Color STRAW Urine Appearance CLEAR Urine pH 7.0 (5.0-8.0) Ur Specific [place] <= 1.005 (1.005-1.025) Urine Protein NEG (NEG-TRACE) MG/DL Urine Glucose (UA) NEG (NEG) MG/DL Urine Ketones NEG (NEG) MG/DL Urine Blood NEG (NEG) Urine Nitrite NEG (NEG) Ur Leukocyte Esterase NEG (NEG) Imaging Data CT scan - abdomen: Radiologist's impression: No acute abnormality CT scan abdomen pelvis. Status post gastric surgery. Discharge Plan Discharge Clinical Impression: Abdominal pain Patient Disposition: Home, Self-Care Instructions: Acute Abdominal Pain (ED) Prescriptions: No Action pantoprazole 40 mg tablet,delayed release (DR/EC) 40 mg PO DAILY Qty: 30 RF: 2 sucralfate 100 mg/mL suspension 10 ml PO BID Qty: 400 RF: 2 ondansetron HCl [Zofran] 4 mg tablet 4 mg PO Q12H Qty: 20 RF: 0 Referrals: Winston Mcmahan MD [Physician] - 2 days [facility] Past Medical History Source: old records reviewed Medical History BMI 34.0-34.9,adult BMI 37.0-37.9, adult BMI 38.0-38.9,adult BMI over 35 Depression Difficulty concentrating Encounter for general adult medical examination with abnormal findings Excessive thirst Gynecomastia, female Headache syndrome Knee pain Lack of adequate sleep Large breasts Low back strain Obesity Post depression Preoperative testing Tired Vitamin A deficiency Vitamin B1 deficiency Vitamin D deficiency Surgical History History of eye surgery Family History Family History Father No problems noted. Mother Fibromyalgia Asthma Anxiety High cholesterol Social History Social History Are you a primary direct care counselor to a significant other at home: Yes Do you presently have visiting nurse or other home services: No Alcohol intake: never Patient Tobacco Use Status: Never used Tobacco Advance Directives: Yes Advance Directives on File: Yes Advance Directives Date on File: 05/30/21 service: No Current occupational status: employed
[2021-07-21 03:10] VITALS: RESP 18
[2021-07-21] MEDS: Morphine Sulfate 2 MG/ML CARTRIDGE 1 MG IVPUSH (03:10)
[2021-07-21] MEDS: ondansetron HCL 4 MG/2 ML VIAL IVPUSH ×2 (03:11→05:54)
[2021-07-21] MEDS: 0.9 % Sodium Chloride 1,000 ML 999 ML IVCONT (03:12)
[2021-07-21 03:24] LABS: Basophils Percent Auto 0.4 % (0-2); Eosinophils Absolute Auto 0.1 X10*3/uL (0.0-0.4); Eosinophils Percent Auto 1.2 % (0-4); Hematocrit 37.9 % (37-47); Hemoglobin 12.5 g/dl (12.0-16.0); Imm Gran Abs Auto 0.01 X10*3/uL (0.00-0.03); Imm Gran Pct Auto 0.1 % (0.0-0.4); Lymphocytes Absolute Auto 2.4 X10*3/uL (1.2-4.9); Lymphocytes Percent Auto 30.6 % (20-40); MANUAL DIFF FLAG NO; Mean Corpuscular Hemoglobin 28.5 pg (27.0-33.0); Mean Corpuscular Volume 86.5 fL (80-98); Mean Platelet Volume 10.9 fL (9.4-12.3); Monocytes Absolute Auto 0.7 X10*3/uL (0.1-1.2); Monocytes Percent Auto 8.6 % (2-11); Neutrophils Absolute Auto 4.6 X10*3/uL (2.0-8.3); Neutrophils Percent Auto 59.1 % (45-73); Platelet Count 232 X10*3/uL (160-400); Red Blood Count 4.38 X10*6/uL (4.20-5.50); Red Cell Distribution Width 13.6 % (11.0-16.0); White Blood Count 7.8 X10*3/uL (4.8-10.8)
[2021-07-21 03:25] LABS: Glucose Urine UA NEG (NEG); Leukocyte Esterase Urine NEG (NEG); Nitrite Urine NEG (NEG); Specific Gravity - Urine <= 1.005 (1.005-1.025); Urine Blood NEG (NEG); Urine Ketones NEG (NEG); Urine Protein NEG (NEG-TRACE)
[2021-07-21 03:26] LABS: Appearance Urine CLEAR; Color Urine STRAW; UACC Culture Trigger NO
--- NOTE | 2021-07-21 03:31 | PC.NURSE ---
IV PLACED TO LAC, LABS DRAWN TO LAB, PT MEDICATED FOR PAIN AND NAUSEA. PT UP TO RESTROOM FOR URINE SAMPLE.
[2021-07-21 03:39] LABS: Alanine Aminotransferase 9 U/L (0-31); Albumin Level 4.4 g/dL (3.5-5.0); Alkaline Phosphatase 56 U/L (39-117); Anion Gap 13 (12-20); Aspartate Amino Transferase 20 U/L (5-31); Bilirubin Direct 0.2 mg/dL (0.0-0.5); Bilirubin Total 0.4 mg/dL (0.0-1.0); Blood Urea Nitrogen 13 mg/dL (9-16); Calcium 9.8 mg/dL (8.4-10.2); Carbon Dioxide 26 mmol/L (22-29); Chloride 103 mmol/L (96-108); Creatinine Clr Calc Pharmacy 112.2; Estimated Glomerular Filt Rate > 60; Glucose Random 94 mg/dL (60-115); Lipase 48 U/L (8-78); Potassium 3.9 mmol/L (3.3-5.1); Sodium 138 mmol/L (135-145); Total Protein 7.2 g/dL (6.5-8.0)
--- NOTE | 2021-07-21 03:50 | PC.NURSE ---
pt drinking CT contrast as per orders.
[2021-07-21] MEDS: iohexoL 350 MG/ML 100 ML INFUS..BTL 85 ML IV (04:51)
--- NOTE | 2021-07-21 05:08 | PC.NURSE ---
PT UP TO RESTROOM W/O DIFFICULTY. PT C/O NAUSEA AFTER DRINKING PO CONTRAST. MD AWARE. WILL CONTINUE TO MONITOR PT.
[2021-07-21 05:38] VITALS: BP 128/84; PULSE 81; RESP 16
[2021-07-21 06:00] VITALS: BP 109/57; PULSE 60; RESP 16; TEMP 36.9; O2SAT 99
== END 2021-07-21 06:51 | disposition home or self-care (01) ==
PROVIDERS: Emergency Provider Emergency Medicine
DX: R10.9 Unspecified abdominal pain (principal); Z98.84 Bariatric surgery status
CPT/HCPCS: 36415; 74177; 80048; 80076; 81003; 83690; 85025; 96361; 96374; 96375; 96376; 99283; 99284; J2270; J2405; Q9967

== ENCOUNTER → 2021-08-18 08:06 | Outpatient (BNVA) | payer OTHER, SELFPAY | PROVIDERS: PCP Internal Medicine; Visit Provider Surgery | DX: E66.3 Overweight (principal) | CPT/HCPCS: 99212 ==

== ENCOUNTER 2021-08-24 14:48 | Emergency (ER) | payer OTHER, SELFPAY ==
[2021-08-24 14:53] VITALS: BP 150/70; PULSE 92; O2SAT 98
[2021-08-24 16:09] VITALS: BP 126/72; PULSE 67; RESP 18; TEMP 36.4; O2SAT 100; BMI 29.5
== END 2021-08-24 20:12 | disposition left against medical advice (07) ==
PROVIDERS: Emergency Provider Emergency Medicine
DX: R10.9 Unspecified abdominal pain (principal)
CPT/HCPCS: 99281; 99282

== ENCOUNTER → 2021-09-19 08:07 | Outpatient (BNVA) | payer OTHER, SELFPAY | PROVIDERS: PCP Internal Medicine; Visit Provider Surgery ==

== ENCOUNTER → 2021-10-21 07:20 | Outpatient (BNVA) | payer OTHER, SELFPAY | PROVIDERS: PCP Internal Medicine; Visit Provider Surgery ==

== ENCOUNTER → 2021-11-16 13:45 | Outpatient (BNVA) | payer OTHER, SELFPAY | PROVIDERS: PCP Internal Medicine; Visit Provider Physician Assistant ==

== ENCOUNTER 2021-11-27 17:33 | Emergency (ER) | payer OTHER, SELFPAY ==
--- NOTE | ~2021-11-27 | XR_ITS ---
EXAMINATION: XR CHEST CLINICAL INFORMATION: Cough COMPARISON: 02/25/2021 TECHNIQUE: Frontal view of the chest was obtained. FINDINGS: No significant abnormality is noted involving the heart, lungs, mediastinum, bony thorax or soft tissues. Surgical clips are noted in the left upper quadrant status post gastric surgery, new since the prior chest radiograph. XR/XR chest 1V IMPRESSION: No acute intrathoracic disease.
[2021-11-27 18:12] VITALS: BP 121/59; PULSE 110; RESP 16; TEMP 37.8; O2SAT 98; BMI 25.0
[2021-11-27 21:14] VITALS: BP 114/62; PULSE 109; RESP 18; TEMP 37.4; O2SAT 98
--- NOTE | 2021-11-27 21:19 | ED_ITS ---
HPI - URI/Sore Throat General Chief Complaint: Upper Respiratory Symptoms Stated Complaint: covid symptoms Time Seen by Provider: 11/27/21 21:18 Source: patient Mode of arrival: EMS History of Present Illness HPI Narrative: 31-year-old female status post gastric sleeve who presents with viral symptoms for 5 days and reports being unvaccinated for COVID-19. Specifically, she reports nausea without vomiting and has had a few episodes of nonbloody diarrhea as well as a dry cough, body aches, and chills. She states that due to her inability to adequately hydrate she has become increasingly dehydrated. Related Data Previous Rx's Medication Instructions Recorded ondansetron HCl 4 mg tablet 4 mg PO Q12H #20 tab 05/03/21 (Zofran) pantoprazole 40 mg tablet,delayed 40 mg PO DAILY #30 tab 05/03/21 release sucralfate 100 mg/mL oral 10 ml PO BID #400 ml 05/03/21 suspension pantoprazole 40 mg tablet,delayed 40 mg PO DAILY #30 tab 08/18/21 release ondansetron 4 mg disintegrating 4 mg PO Q6H PRN #10 tab 11/27/21 tablet Allergies Allergy/AdvReac Type Severity Reaction Status Date / Time diclofenac [Voltaren] Allergy Unknown Hives/itchi Verified 06/01/21 08:39 ness lactose Allergy Diarrhea Verified 06/01/21 08:39 Review of Systems Review of Systems: Pertinent positives and negatives as stated in HPI 10 point review of systems is otherwise negative. PMFSH Past Medical History Source: nursing notes reviewed Medical History BMI 34.0-34.9,adult BMI 37.0-37.9, adult BMI 38.0-38.9,adult BMI over 35 Depression Difficulty concentrating Encounter for general adult medical examination with abnormal findings Excessive thirst Gynecomastia, female Headache syndrome Knee pain Lack of adequate sleep Large breasts Low back strain Obesity Post depression Preoperative testing Tired Vitamin A deficiency Vitamin B1 deficiency Vitamin D deficiency Surgical History History of eye surgery Family History Family History Father No problems noted. Mother Fibromyalgia Asthma Anxiety High cholesterol Social History Social History Are you a primary acute care occupational therapist to a significant other at home: Yes Do you presently have visiting nurse or other home services: No Alcohol intake: never Patient Tobacco Use Status: Never used Tobacco Advance Directives: Yes Advance Directives on File: Yes Advance Directives Date on File: 05/30/21 Patient : No service: No Current occupational status: employed Physical Exam Vital Signs: Vital Signs: Last Vital Signs Temp 99.3 F 11/27/21 21:14 Pulse 89 11/28/21 00:06 Resp 17 11/28/21 00:06 BP 112/65 11/28/21 00:06 Pulse Ox 97 11/28/21 00:06 BMI result Body Mass Index 25.0 VITAL SIGNS: Reviewed. GENERAL: Well developed, well nourished, in no acute distress. HEAD: Normocephalic/atraumatic EYES: PERRLA, EOMI EARS: Ext canals without abnormality, TMs non-bulging and non-erythematous NOSE: Nares patent bilateral OROPHARYNX: no oral lesions noted, posterior pharynx clear and non-erythematous without noted tonsillar enlargement/erythema/exudates, tacky mucosa NECK: Supple, no adenopathy LUNGS: Normal breath sounds. No adventitious sounds or accessory muscle use. SpO2<98> CARDIOVASCULAR: Regular rate and rhythm without noted murmurs ABDOMEN: Soft, non-tender, non-distended with bowel sounds. SKIN: Inspection of the skin reveals no rashes NEUROLOGIC: Alert and oriented x 4. Strength and sensation to light touch were grossly intact x 4. Course Course Course Narrative: 31-year-old female with history and clinical presentation consistent with viral syndrome and on review investigations noted to be COVID-19 positive and will receive IV fluids for mild dehydration. On re-evaluation patient is feeling much better, improved nausea control and will be discharged home in stable condition. MDM - URI/Sore Throat Lab Data Labs: Lab Results 11/27/21 11/27/21 Range/Units 21:18 22:13 Urine Color YELLOW Urine Appearance CLEAR Urine pH 6.0 (5.0-8.0) Ur Specific [place] 1.010 (1.005-1.025) Urine Protein NEG (NEG-TRACE) MG/DL Urine Glucose (UA) NEG (NEG) MG/DL Urine Ketones 15 (NEG) MG/DL Urine Blood NEG (NEG) Urine Nitrite NEG (NEG) Ur Leukocyte Esterase NEG (NEG) COVID-19 (JANEL) Positive A (Negative) COVID-19 Clin Com See Note Discharge Plan Discharge Clinical Impression: Viral syndrome, Lab test positive for detection of COVID-19 virus, Dehydration Patient Disposition: Home, Self-Care Instructions: Dehydration (ED), Viral Syndrome (ED), COVID-19 (Coronavirus Disease 2019) (ED) Additional Instructions: 1. Recommend [id number] Tylenol with occasional ibuprofen as needed for body aches, headaches, temperatures greater than 100.4. 2. You have been provided with a prescription for antinausea medication. 3. Increase fluid hydration, especially with water. You may need to continually sip water all day long. You must isolate for 14 days and follow all state and Federal guidelines regarding COVID-19 positive. Return to the ER for worsening symptoms. Prescriptions: New ondansetron 4 mg tablet,disintegrating 4 mg PO Q6H PRN (Reason: nausea and vomiting) Qty: 10 RF: 0 No Action pantoprazole 40 mg tablet,delayed release (DR/EC) 40 mg PO DAILY Qty: 30 RF: 2 sucralfate 100 mg/mL suspension 10 ml PO BID Qty: 400 RF: 2 ondansetron HCl [Zofran] 4 mg tablet 4 mg PO Q12H Qty: 20 RF: 0 pantoprazole 40 mg tablet,delayed release (DR/EC) 40 mg PO DAILY Qty: 30 RF: 2
[2021-11-27 21:40] LABS: COVID-19 Test Positive (Negative)
[2021-11-27] MEDS: 0.9 % Sodium Chloride 1,000 ML 999 ML IV (22:25)
[2021-11-27 22:32] LABS: Appearance Urine CLEAR; Color Urine YELLOW; Glucose Urine UA NEG (NEG); Leukocyte Esterase Urine NEG (NEG); Nitrite Urine NEG (NEG); Urine Blood NEG (NEG); Urine Ketones 15 MG/DL (NEG); Urine Protein NEG (NEG-TRACE)
[2021-11-27] MEDS: Acetaminophen 325 MG TABLET 975 MG PO (22:59)
[2021-11-27] MEDS: ondansetron HCL 4 MG/2 ML VIAL IVPUSH (22:59)
[2021-11-28 00:06] VITALS: BP 112/65; PULSE 89; RESP 17; O2SAT 97
== END 2021-11-28 00:18 | disposition home or self-care (01) ==
PROVIDERS: Emergency Provider Student in an Organized Health Care Education/Training Program
DX: U07.1 COVID-19 (principal); B34.9 Viral infection, unspecified; E86.0 Dehydration; R11.2 Nausea with vomiting, unspecified; Z98.84 Bariatric surgery status
CPT/HCPCS: 71045; 81003; 87635; 96361; 96374; 99283; 99284; J2405

== ENCOUNTER → 2021-12-19 08:05 | Outpatient (BNVA) | payer OTHER, SELFPAY | PROVIDERS: PCP Internal Medicine; Visit Provider Physician Assistant ==

== ENCOUNTER → 2022-01-20 08:14 | Outpatient (BNVA) | payer OTHER, SELFPAY | PROVIDERS: PCP Internal Medicine; Visit Provider Physician Assistant ==

== ENCOUNTER 2022-01-27 08:43 | Emergency (ER) | payer OTHER, SELFPAY ==
--- NOTE | ~2022-01-27 | CT_ITS ---
EXAMINATION: CT ABDOMEN AND PELVIS WITH CONTRAST CLINICAL INFORMATION: Upper abdominal pain. History of gastric sleeve procedure COMPARISON: Previous CT of the abdomen and pelvis July 2021 and abdominal ultrasound TECHNIQUE: Multidetector volumetric images were obtained from the superior aspect of the liver through the pubic symphysis following administration 85 mL of Omnipaque 350 intravenous contrast. Sagittal and coronal reformatted images were obtained on the technologist's workstation. Oral contrast: Yes This CT examination was performed using dose optimization techniques as appropriate, variously including the following: *Automated exposure control *Adjustment of mA and/or kV according to patient size (this includes techniques or standardized protocols for targeted exams where dose is matched to indication/reason for exam; i.e. extremities or head) *Use of iterative reconstruction technique DLP: 453 mGy-cm FINDINGS: LUNG BASES: The visualized lung bases are unremarkable. LIVER, GALLBLADDER, AND BILIARY TREE: The liver is normal in size, shape, and attenuation. No focal hepatic lesion or biliary ductal dilatation is present. The gallbladder is unremarkable with no evidence of radiopaque gallstones, gallbladder wall thickening, or obvious pericholecystic inflammatory changes. PANCREAS: Unremarkable. SPLEEN: Unremarkable. ADRENAL GLANDS: Unremarkable. KIDNEYS AND URETERS: There is a 5 mm low-attenuation lesion in the midpole of the left kidney probably representing a cyst. No imaging follow-up needed. Kidneys are otherwise unremarkable. BLADDER: Unremarkable. GASTROINTESTINAL TRACT: There are postsurgical changes from gastric sleeve procedure. There is a supraumbilical hernia containing the cecum, terminal ileum and some of the appendix. There is no evidence of obstruction. Small and large bowel is otherwise unremarkable. ABDOMINAL WALL: A supraumbilical hernia as above. No other hernia is seen. LYMPH NODES: Normal. VASCULAR: Unremarkable. PELVIC VISCERA: The uterus and adnexa are unremarkable. There is a small amount of fluid in the pelvis. OSSEOUS STRUCTURES: Unremarkable. CT/CT abdomen pelvis w con IMPRESSION: Supraumbilical hernia containing the cecum, terminal ileum and some of the appendix. No evidence of obstruction. Postsurgical changes from gastric sleeve procedure. Small amount of fluid in the pelvis. Small probable left renal cyst. Fleischner guidelines were followed.
--- NOTE | ~2022-01-27 | NM_ITS ---
EXAMINATION: NM BILIARY TRACT WITH ORAL FATTY MEAL CLINICAL INFORMATION: Upper abdominal pain. COMPARISON: No previous biliary scan is available for comparison. The diagnostic CT scan of the abdomen and pelvis, dated 01/27/2022, the same date as this bone scan, is available for comparison. Abdominal ultrasound, also dated 01/27/2022 is available for comparison. TECHNIQUE: Serial gamma scintillation camera images were obtained over the abdomen for a total observation period of 135 minutes following the intravenous administration of mCi Tc-99m Mebrofenin. FINDINGS: There is good concentration of activity in the liver by 5 minutes post injection. Biliary activity is visualized by 15 minutes and the gallbladder is well visualized by 25 minutes. Bowel activity is well visualized by 55 minutes. At 60 minutes post Mebrofenin injection, 8 ounces of Ensure-plus Brand was administered orally and an additional 60 minutes of images were obtained. There is only minimal emptying of the gallbladder following ingestion of the fatty meal. At the end of the study there is abnormal retention of activity in the gallbladder but almost complete clearance of activity from the liver and visualization of diffuse small bowel activity. The calculated gallbladder ejection fraction is 22% (normal gallbladder ejection fraction using Ensure supplement orally is greater than 33%). NM/NM hepatobiliary wo pharm IMPRESSION: 1. Visualization of the gallbladder is evidence of a patent cystic duct and strong evidence against the diagnosis of acute cholecystitis. The common bile duct is patent. Liver function appears normal. 2. Poor gallbladder emptying and a low gallbladder ejection fraction are evidence of impaired gallbladder contractility and most likely due to chronic cholecystitis.
--- NOTE | ~2022-01-27 | US_ITS ---
EXAMINATION: US ABDOMEN COMPLETE CLINICAL INFORMATION: Nausea. Epigastric pain.. COMPARISON: None TECHNIQUE: Real-time imaging of the abdominal viscera. FINDINGS: PANCREAS: Normal. ABDOMINAL AORTA: The proximal, mid, and distal segments are normal in caliber. INFERIOR VENA CAVA: Visualized portions are normal. LIVER: Normal. The liver is normal in size. The liver contour is normal. Parenchymal echogenicity is normal. No focal hepatic lesion. There is no intrahepatic biliary duct dilatation seen. GALLBLADDER: Gallbladder is normal in size. There is a small gallstone in the gallbladder measuring 3 x 4 mm. The gallbladder wall is normal. There is no pericholecystic fluid. COMMON BILE DUCT: Normal in caliber measuring 0.3 cm in diameter. RIGHT KIDNEY: Normal. No hydronephrosis. No renal calculi or focal parenchymal lesions. The kidney measures 10.6 cm in maximum dimension. LEFT KIDNEY: Normal. No hydronephrosis. No renal calculi or focal parenchymal lesions. The kidney measures 9.7 cm in maximum dimension. SPLEEN: Normal. The spleen measures 10.4 cm in maximum dimension. FREE FLUID: None. US/US abdomen complete IMPRESSION: Small gallstone in the gallbladder. Otherwise unremarkable exam.
[2022-01-27 08:59] VITALS: BP 115/78; PULSE 84; RESP 16; TEMP 36.9; O2SAT 99; BMI 23.5
[2022-01-27 09:13] LABS: MANUAL DIFF FLAG NO
[2022-01-27 09:16] LABS: Basophils Percent Auto 0.3 % (0-2); Eosinophils Percent Auto 0.1 % (0-4); Hematocrit 39.1 % (37.0-47.0); Hemoglobin 12.7 g/dl (12.0-16.0); Imm Gran Abs Auto 0.02 X10*3/uL (0.00-0.03); Imm Gran Pct Auto 0.2 % (0.0-0.4); Lymphocytes Absolute Auto 1.7 X10*3/uL (1.2-4.9); Lymphocytes Percent Auto 17.5 % (20-40); Mean Corpuscular HGB Conc 32.5 g/dl (31.0-35.0); Mean Corpuscular Volume 86.1 fL (80.0-98.0); Mean Platelet Volume 9.8 fL (9.4-12.3); Monocytes Absolute Auto 0.6 X10*3/uL (0.1-1.2); Monocytes Percent Auto 6.1 % (2-11); Neutrophils Absolute Auto 7.4 x10*3/uL (2.0-8.3); Neutrophils Percent Auto 75.8 % (45-73); Platelet Count 223 X10*3/uL (160-400); Red Blood Count 4.54 X10*6/uL (4.20-5.50); Red Cell Distribution Width 12.3 % (11.0-16.0); White Blood Count 9.7 X10*3/uL (4.8-10.8)
[2022-01-27 09:36] LABS: Alanine Aminotransferase 34 U/L (0-31); Albumin Level 4.4 g/dL (3.5-5.0); Alkaline Phosphatase 68 U/L (39-117); Anion Gap 12 (12-20); Aspartate Amino Transferase 117 U/L (5-31); Bilirubin Total 1.4 mg/dL (0.0-1.0); Blood Urea Nitrogen 13 mg/dL (9-16); Calcium 9.7 mg/dL (8.4-10.2); Carbon Dioxide 24 mmol/L (22-29); Chloride 106 mmol/L (96-108); Estimated Glomerular Filt Rate > 60; Glucose Random 83 mg/dL (60-115); Lipase 21 U/L (8-78); Potassium 4.1 mmol/L (3.3-5.1); Sodium 138 mmol/L (135-145); Total Protein 7.8 g/dL (6.5-8.0)
[2022-01-27 10:34] LABS: HCG Quantitative < 2 mIU/mL
[2022-01-27] MEDS: Morphine Sulfate 2 MG/ML CARTRIDGE IVPUSH (10:39)
[2022-01-27] MEDS: ondansetron HCL 4 MG/2 ML VIAL IVPUSH (10:40)
--- NOTE | 2022-01-27 10:47 | PC.NURSE ---
Patient is aleryt and oriented 3, anxious, pacing, holding her abdomen. she reports current level of pain is 10/10-potable ultrasound is being done. Patient is medicated with Zofran and Morophine prior to ultrasound. MAURI Willson aware.
[2022-01-27 10:52] LABS: Appearance Urine HAZY; Color Urine YELLOW; Glucose Urine UA NEG (NEG); Leukocyte Esterase Urine NEG (NEG); Nitrite Urine NEG (NEG); PH 7.5 (5.0-8.0); Specific Gravity - Urine 1.015 (1.005-1.025); Urine Blood NEG (NEG); Urine Ketones NEG (NEG); Urine Protein NEG (NEG-TRACE)
[2022-01-27 10:57] LABS: UPreg QC Valid YES; Urine Pregnancy NEGATIVE (NEGATIVE)
--- NOTE | 2022-01-27 10:59 | ED_ITS ---
HPI - Abdominal Pain General Chief Complaint: Abdominal Pain Stated Complaint: ABD PAIN Time Seen by Provider: 01/27/22 09:56 Source: patient and family Mode of arrival: ambulatory Limitations: no limitations History of Present Illness HPI narrative: 31-year-old female with a past medical history of sleeve gastrectomy on 05/26/[address] Mcmahan presenting to the ED with complaints of sudden onset of epigastric abdominal pain with associated nausea that woke her up out of her sleep at approximately 04:00 prior to arrival. She reports that the pain is sharp. She reports it is worse if she lays down or palpate her abdomen. She reports that the pain radiates down to her lower abdomen. She denies any damián sured fevers, chills, dizziness, headaches, neck pain/stiffness, trouble swallowing breathing, sore throat, cough, chest pain or shortness of breath, dyspnea on exertion, orthopnea, back pain, rashes, dysuria, hematuria abnormal vaginal discharge, diarrhea constipation, black or bloody stools, recent travel or sick contacts, recent hospitalization or any antibiotic usage or any possible bad food exposure, recent injury or falls or any other symptoms complaints or concerns at this time. MD elicited complaint: abdominal pain Pertinent past history: other (History of gastric sleeve [address] Harrington) Onset (ago): hour(s) (Since 04:00 prior to arrival) Pain Consistency: constant Location: epigastric Severity: severe Pain scale (0-10): 10 Quality: aching and sharp Radiation: other (Lower abdomen) Exacerbating factors: other (Laying down or palpation of the abdomen) Relieving factors: nothing Associated symptoms: nausea Related Data Home Medications Medication Instructions Recorded Confirmed calcium citrate 315 mg-vitamin D3 1 tab PO BID tab 12/19/21 12/19/21 5 mcg (200 unit) tablet (Calcium Citrate + D) [id number] 45 mg-folic cap PO DAILY cap 12/19/21 12/19/21 acid 800 mcg-vit K 120 mcg capsule (Bariatric Multivitamins) Previous Rx's Medication Instructions Recorded pantoprazole 40 mg tablet,delayed 40 mg PO DAILY #30 tab 05/03/21 release acetaminophen 500 mg capsule 1,000 mg PO Q6H PRN #14 cap 01/27/22 ondansetron 4 mg disintegrating 4 mg PO Q6-8H PRN #14 tab 01/27/22 tablet sucralfate 100 mg/mL oral 10 ml PO BID 7 Days #140 ml 01/27/22 suspension Allergies Allergy/AdvReac Type Severity Reaction Status Date / Time diclofenac [Voltaren] Allergy Unknown Hives/itchi Verified 01/27/22 08:59 ness lactose Allergy Diarrhea Verified 01/27/22 08:59 Review of Systems Review of Systems Constitutional : No Fever, No Chills, No Night Sweats, No Fatigue, No Malaise Cardiovascular : No Chest Pain, No SOB Respiratory : No Cough, No Sputum, No Wheezing, No Dyspnea Gastrointestinal : + Nausea, No Vomiting, No Diarrhea, + abdominal Pain, No Hematochezia, No Melena Genitourinary : No irregular bleeding, No Dysuria, No Urinary Frequency, No Hematuria,No Urinary Incontinence, No Urgency, No Flank Pain Musculoskeletal : No joint pain, No Myalgias, No Joint Swelling Skin : No Skin Lesions, No rash Neuro : No Weakness, No Numbness, No Paresthesias, No Loss of Consciousness, No Dizziness, No Headache Heme/Lymph: No Lymphadenopathy Endocrine : No Temperature Intolerance Yes all other systems are reviewed and are negative [facility] Past Medical History Attestation statement: The following information was validated with the patient. Medical History BMI 34.0-34.9,adult BMI 37.0-37.9, adult BMI 38.0-38.9,adult BMI over 35 Depression Difficulty concentrating Encounter for general adult medical examination with abnormal findings Excessive thirst Gynecomastia, female Headache syndrome Knee pain Lack of adequate sleep Large breasts Low back strain Obesity Post depression Preoperative testing Tired Vitamin A deficiency Vitamin B1 deficiency Vitamin D deficiency Surgical History History of eye surgery Family History Family History Father No problems noted. Mother Fibromyalgia Asthma Anxiety High cholesterol Social History Social History Are you a primary resident care assistant to a significant other at home: Yes Do you presently have visiting nurse or other home services: No Alcohol intake: never Patient Tobacco Use Status: Never used Tobacco Advance Directives: Yes Advance Directives on File: Yes Advance Directives Date on File: 05/30/21 service: No Current occupational status: employed Physical Exam ED Vital Signs: Vital Signs - 24 hr 01/27/22 08:59 01/27/22 13:30 Temperature 98.4 F 99.3 F Pulse Rate 84 64 Respiratory Rate 16 16 Blood Pressure 115/78 115/72 Pulse Oximetry 99 100 BMI result Body Mass Index 23.5 Vital signs have been reviewed and all within normal limits Appearance: Alert. Oriented X3. No acute distress. Head: Normal external exam. Normocephalic. Eyes: PERRLA. EOMI. Conjunctiva and sclera normal. Eyelids normal. ENT: Pharynx normal. Uvula midline. Moist mucous membranes. No trismus noted. No drooling noted. No muffled voice noted. Neck: Normal inspection. Neck supple. FROM. No adenopathy. No meningeal signs. CVS: Normal heart rate and rhythm. Heart sound normal. No murmurs noted. Pulses normal throughout. Respiratory: No respiratory distress. Painless inspiration. Breath sounds normal. No wheezes/rales/rhonchi noted. Chest nontender. No accessory muscle usage noted or decreased air movement noted. Abdomen: Soft and moderate tenderness all patients to the epigastric/upper abdomen area. With guarding. Nondistended. No rigidity. Bowel sounds normal in all 4 quadrants. No distention noted. No organomegaly noted. No visible injury noted. No rebound tenderness. Negative Rovsing sign. Negative obturator's sign. Negative psoas sign. Positive Pereira sign. Back: No CVA tenderness. Full range of motion noted. Skin: Skin warm and dry. Normal skin color. Normal skin turgor. No rashes/les ions/lacerations noted. Extremities: Extremities exhibit normal range of motion. Extremities nontender. Neuro: Oriented X 3. No motor deficit. No sensory deficit. Reflexes normal. Normal steady gait. CN's II-XII intact bilaterally? Vascular: +2 radial pulses bilaterally, +2 distal pedal pulses bilaterally. No cyanosis noted to upper lower extremity. Course Course Course Narrative: 10am - 31-year-old female with a past medical history of sleeve gastrectomy on 05/26/[address] Mcmahan presenting to the ED with complaints of sudden onset of epigastric abdominal pain with associated nausea that woke her up out of her sleep at approximately 04:00 prior to arrival. She reports that the pain is sharp. She reports it is worse if she lays down or palpate her abdomen. She reports that the pain radiates down to her lower abdomen. Plan: Labs were obtained while the patient was in the waiting room and patient's total bilirubin 1.4. AST 117. ALT 34. Otherwise all other labs are within normal limits. UA within normal limits no evidence of UTI. CG negative for . Therefore at this time will provide 4 mg of Zofran, 2 mg of morphine due to the patient is in severe pain and I consulted with who is on-call and reported that there is no contraindications to give morphine and the patient is in severe pain then we should treat her pain along with an abdominal ultrasound and re-evaluate. Reevaluation(s) Reevaluation #1: - abdominal ultrasound revealed small gallstones otherwise not consistent with acute cholecystitis. - therefore will order a CT scan abdomen pelvis with IV and p.o. contrast - Cesar Shrestha PA-C came down and discussed this patient with me and he reports that he will also speak to Dr. Dennis the general surgeon to obtain a consult and he is agreeable to the CT scan abdomen pelvis with p.o. and IV contrast patient updated at this time and she understands agrees with this plan. Time: 12:05 Reevaluation #2: - Cesar shrestha PA-C spoke to Dr. Dennis from General surgery and he recomme nded ordering a HIDA scan without CCK will continue to monitor. Time: 12:47 Reevaluation #3: - CT scan abdomen and pelvis with p.o. and IV contrast revealed supraumbilical hernia containing the cecum terminal ileum and some of the appendix otherwise no evidence of obstruction. She also has postsurgical changes from the gastric sleeve procedure. Otherwise no other acute processes were noted. - HIDA scan revealed gallstones in the gallbladder although no evidence of acute cholecystitis. Therefore I discussed this with Dr. Dennis and he reported that the patient can be discharged and she can call him for outpatient elective cholecystectomy. Therefore I discussed this with the patient and she understands agrees with the plan. Will DC home with Zofran Tylenol and instructions to follow-up with her gastric surgeon along with Dr. Dennis in her PCP instructions return if any new or worsening symptoms. Patient arturo sexton agrees with this plan. Time: 17:01 [facility] - Abdominal Pain Medical Records Attestation: I reviewed the patient's medical records. Lab Data Attestation: I reviewed the patient's lab results. Result diagrams: 01/27/22 09:10 01/27/22 09:10 Labs: Lab Results 01/27/22 01/27/22 01/27/22 Range/Units 09:10 09:10 10:32 WBC 9.7 (4.8-10.8) X10*3/uL RBC 4.54 (4.20-5.50) X10*6/uL Hgb 12.7 (12.0-16.0) g/dl Hct 39.1 (37.0-47.0) % MCV 86.1 (80.0-98.0) fL MCH 28.0 (27.0-33.0) pg MCHC 32.5 (31.0-35.0) g/dl RDW 12.3 (11.0-16.0) % Plt Count 223 (160-400) X10*3/uL MPV 9.8 (9.4-12.3) fL Immature Gran % (Auto) 0.2 (0.0-0.4) % Neut % (Auto) 75.8 H (45-73) % Lymph % (Auto) 17.5 L (20-40) % [place] % (Auto) 6.1 (2-11) % Eos % (Auto) 0.1 (0-4) % Baso % (Auto) 0.3 (0-2) % Lymph # (Auto) 1.7 (1.2-4.9) X10*3/uL [place] # (Auto) 0.6 (0.1-1.2) X10*3/uL Eos # (Auto) 0.0 (0.0-0.4) X10*3/uL Baso # (Auto) 0.0 (0.0-0.2) X10*3/uL Abs Immat Gran (auto) 0.02 (0.00-0.03) X10*3/uL Absolute Neuts (auto) 7.4 (2.0-8.3) x10*3/uL Absolute Nucleated RBC 0.000 (0.0-0.012) X10*3/uL Nucleated RBC % (auto) 0.0 (0.0-0.2) /100WBC Sodium 138 (135-145) mmol/L Potassium 4.1 (3.3-5.1) mmol/L Chloride 106 (96-108) mmol/L Carbon Dioxide 24 (22-29) mmol/L Anion Gap 12 (12-20) BUN 13 (9-16) mg/dL Creatinine 0.77 (0.5-1.4) mg/dL Estim Creat Clear Calc 102.0 Estimated GFR > 60 Random Glucose 83 (60-115) mg/dL Calcium 9.7 (8.4-10.2) mg/dL Total Bilirubin 1.4 H (0.0-1.0) mg/dL AST 117 H (5-31) U/L ALT 34 H (0-31) U/L Alkaline Phosphatase 68 D (39-117) U/L Total Protein 7.8 (6.5-8.0) g/dL Albumin 4.4 (3.5-5.0) g/dL Lipase 21 (8-78) U/L Beta HCG, Quant < 2 mIU/mL Urine Color Urine Appearance Urine pH (5.0-8.0) Ur Specific Spangle (1.005-1.025) Urine Protein (NEG-TRACE) MG/DL Urine Glucose (UA) (NEG) MG/DL Urine Ketones (NEG) MG/DL Urine Blood (NEG) Urine Nitrite (NEG) Ur Leukocyte Esterase (NEG) Urine Test (NEGATIVE) COVID-19 (JANEL) (Negative) COVID-19 Clin Com Influenza Type A (KISHAN) Negative (Negative) Influenza Type B (KISHAN) Negative (Negative) Influenza A & B Note See Note 01/27/22 01/27/22 01/27/22 Range/Units 10:32 10:38 10:38 WBC (4.8-10.8) X10*3/uL RBC (4.20-5.50) X10*6/uL Hgb (12.0-16.0) g/dl Hct (37.0-47.0) % MCV (80.0-98.0) fL MCH (27.0-33.0) pg MCHC (31.0-35.0) g/dl RDW (11.0-16.0) % Plt Count (160-400) X10*3/uL MPV (9.4-12.3) fL Immature Gran % (Auto) (0.0-0.4) % Neut % (Auto) (45-73) % Lymph % (Auto) (20-40) % Marinette % (Auto) (2-11) % Eos % (Auto) (0-4) % Baso % (Auto) (0-2) % Lymph # (Auto) (1.2-4.9) X10*3/uL [place]ette # (Auto) (0.1-1.2) X10*3/uL Eos # (Auto) (0.0-0.4) X10*3/uL Baso # (Auto) (0.0-0.2) X10*3/uL Abs Immat Gran (auto) (0.00-0.03) X10*3/uL Absolute Neuts (auto) (2.0-8.3) x10*3/uL Absolute Nucleated RBC (0.0-0.012) X10*3/uL Nucleated RBC % (auto) (0.0-0.2) /100WBC Sodium (135-145) mmol/L Potassium (3.3-5.1) mmol/L Chloride (96-108) mmol/L Carbon Dioxide (22-29) mmol/L Anion Gap (12-20) BUN (9-16) mg/dL Creatinine (0.5-1.4) mg/dL Estim Creat Clear Calc Estimated GFR Random Glucose (60-115) mg/dL Calcium (8.4-10.2) mg/dL Total Bilirubin (0.0-1.0) mg/dL AST (5-31) U/L ALT (0-31) U/L Alkaline Phosphatase (39-117) U/L Total Protein (6.5-8.0) g/dL Albumin (3.5-5.0) g/dL Lipase (8-78) U/L Beta HCG, Quant mIU/mL Urine Color YELLOW Urine Appearance HAZY Urine pH 7.5 (5.0-8.0) Ur Specific Spangle 1.015 (1.005-1.025) Urine Protein NEG (NEG-TRACE) MG/DL Urine Glucose (UA) NEG (NEG) MG/DL Urine Ketones NEG (NEG) MG/DL Urine Blood NEG (NEG) Urine Nitrite NEG (NEG) Ur Leukocyte Esterase NEG (NEG) Urine Test NEGATIVE (NEGATIVE) COVID-19 (JANEL) Negative (Negative) COVID-19 Clin Com See Note Influenza Type A (KISHAN) (Negative) Influenza Type B (KISHAN) (Negative) Influenza A & B Note Imaging Data Abdominal ultrasound: Attestation: I personally reviewed and interpreted this imaging study as follows: Radiologist's impression: FINDINGS: PANCREAS: Normal. ABDOMINAL AORTA: The proximal, mid, and distal segments are normal in caliber. INFERIOR VENA CAVA: Visualized portions are normal. LIVER: Normal. The liver is normal in size. The liver contour is normal. Parenchymal echogenicity is normal. No focal hepatic lesion. There is no intrahepatic biliary duct dilatation seen. GALLBLADDER: Gallbladder is normal in size. There is a small gallstone in the gallbladder measuring 3 x 4 mm. The gallbladder wall is normal. There is no pericholecystic fluid. COMMON BILE DUCT: Normal in caliber measuring 0.3 cm in diameter. RIGHT KIDNEY: Normal. No hydronephrosis. No renal calculi or focal parenchymal lesions. The kidney measures 10.6 cm in maximum dimension. LEFT KIDNEY: Normal. No hydronephrosis. No renal calculi or focal parenchymal lesions. The kidney measures 9.7 cm in maximum dimension. SPLEEN: Normal. The spleen measures 10.4 cm in maximum dimension. FREE FLUID: None. US/US abdomen complete IMPRESSION: Small gallstone in the gallbladder. Otherwise unremarkable exam. CT scan abdomen pelvis with IV and p.o. contrast: Attestation: I personally reviewed and interpreted this imaging study as follows: Radiologist's impression: FINDINGS: LUNG BASES: The visualized lung bases are unremarkable.? LIVER, GALLBLADDER, AND BILIARY TREE: The liver is normal in size, shape, and attenuation. No focal hepatic lesion or biliary ductal dilatation is present. The gallbladder is unremarkable with no evidence of radiopaque gallstones, gallbladder wall thickening, or obvious pericholecystic inflammatory changes.? PANCREAS: Unremarkable.? SPLEEN: Unremarkable.? ADRENAL GLANDS: Unremarkable.? KIDNEYS AND URETERS: There is a 5 mm low-attenuation lesion in the midpole of the left kidney probably representing a cyst. No imaging follow-up needed. Kidneys are otherwise unremarkable.? BLADDER: Unremarkable.? GASTROINTESTINAL TRACT: There are postsurgical changes from gastric sleeve procedure. There is a supraumbilical hernia containing the cecum, terminal ileum and some of the appendix. There is no evidence of obstruction. Small and large bowel is otherwise unremarkable. ABDOMINAL WALL: A supraumbilical hernia as above. No other hernia is seen.? LYMPH NODES: Normal. VASCULAR: Unremarkable. PELVIC VISCERA: The uterus and adnexa are unremarkable. There is a small amount of fluid in the pelvis.? OSSEOUS STRUCTURES: Unremarkable.? CT/CT abdomen pelvis w con IMPRESSION: Supraumbilical hernia containing the cecum, terminal ileum and some of the appendix. No evidence of obstruction. Postsurgical changes from gastric sleeve procedure. Small amount of fluid in the pelvis. Small probable left renal cyst.? ? Fleischner guidelines were followed. HIDA scan: Attestation: I personally reviewed and interpreted this imaging study as follows: Radiologist's impression: FINDINGS: There is good concentration of activity in the liver by 5 minutes post injection. Biliary activity is visualized by 15 minutes and the gallbladder is well visualized by 25 minutes. Bowel activity is well visualized by 55 minutes. At 60 minutes post Mebrofenin injection, 8 ounces of Ensure-plus Brand was administered orally and an additional 60 minutes of images were obtained. There is only minimal emptying of the gallbladder following ingestion of the fatty meal. At the end of the study there is abnormal retention of activity in the gallbladder but almost complete clearance of activity from the liver and visualization of diffuse small bowel activity. The calculated gallbladder ejection fraction is 22% (normal gallbladder ejection fraction using Ensure supplement orally is greater than 33%). NM/NM hepatobiliary wo pharm IMPRESSION: 1. Visualization of the gallbladder is evidence of a patent cystic duct and strong evidence against the diagnosis of acute cholecystitis. The common bile duct is patent. Liver function appears normal. ? 2. Poor gallbladder emptying and a low gallbladder ejection fraction are evidence of impaired gallbladder contractility and most likely due to chronic cholecystitis. ? Critical Care Time Critical Care Time Critical Care Time: Yes Total Critical Care Time: 60 Attestation: I personally attest to this time spent taking care of the patient Discharge Plan Discharge Clinical Impression: S/P laparoscopic sleeve gastrectomy, Cholecystitis, chronic Patient Disposition: Home, Self-Care Instructions: Cholecystitis (ED), Laparoscopic Cholecystectomy (DC), Open Cholecystectomy (DC) Additional Instructions: Pt was seen by Gen Surg and is going to be scheduled for elective CCY in the setting of chronic cholysystits and biliary dyskinesia Prescriptions: New ondansetron 4 mg tablet,disintegrating 4 mg PO Q6-8H PRN (Reason: nausea and vomiting) Qty: 14 0RF acetaminophen 500 mg capsule 1,000 mg PO Q6H PRN (Reason: fever or pain) Qty: 14 0RF No Action sucralfate 100 mg/mL suspension 10 ml PO BID 7 Days Qty: 140 0RF pantoprazole 40 mg tablet,delayed release (DR/EC) 40 mg PO DAILY Qty: 30 2RF Bariatric Multivitamins 45 mg iron- 800 mcg-120 mcg capsule PO DAILY 0RF calcium citrate-vitamin D3 [Calcium Citrate + D] 315 mg-5 mcg (200 unit) tablet 1 tab PO BID 0RF Referrals: Cristhian Dennis MD [Physician] - 2 days (Call for an outpatient elective gallbladder removal) Print Language: Tajik
[2022-01-27] MEDS: Lidocaine HCl 1 % MPF 5 ML VIAL SUBCUT (11:00)
[2022-01-27 11:14] LABS: COVID-19 Test Negative (Negative)
[2022-01-27 11:17] LABS: Influenza A Negative (Negative); Influenza B2 Negative (Negative)
--- NOTE | 2022-01-27 12:27 | ED.ABDPAIN ---
HPI - Abdominal Pain General Chief Complaint: Abdominal Pain Stated Complaint: ABD PAIN Time Seen by Provider: 01/27/22 09:56 Source: patient Mode of arrival: ambulatory Limitations: no limitations History of Present Illness HPI narrative: Pt with complaint of abdominal pain that awoke her at 0420 hrs this morning. Hx of multiple similar sx since [facility] [place]. Had pos normal BM this morning and yesterday. No assoc N,V, D, fevers or recent sick contacts. Pain worsened over the next 4 hours and I recc she go to the ER. MD elicited complaint: abdominal pain Onset (ago): hour(s) Pain Consistency: intermittent and colicky Location: epigastric Severity: severe Quality: cramping, aching and sharp Radiation: RUQ and epigastric Exacerbating factors: nothing and other (Laying down or palpation of the abdomen) Relieving factors: nothing Associated symptoms: nausea Related Data Home Medications Medication Instructions Recorded Confirmed calcium citrate 315 mg-vitamin D3 1 tab PO BID tab 12/19/21 12/19/21 5 mcg (200 unit) tablet (Calcium Citrate + D) [id number] 45 mg-folic cap PO DAILY cap 12/19/21 12/19/21 acid 800 mcg-vit K 120 mcg capsule (Bariatric Multivitamins) Previous Rx's Medication Instructions Recorded pantoprazole 40 mg tablet,delayed 40 mg PO DAILY #30 tab 05/03/21 release sucralfate 100 mg/mL oral 10 ml PO BID 7 Days #140 ml 01/27/22 suspension Allergies Allergy/AdvReac Type Severity Reaction Status Date / Time diclofenac [Voltaren] Allergy Unknown Hives/itchi Verified 01/27/22 08:59 ness lactose Allergy Diarrhea Verified 01/27/22 08:59 [facility] Past Medical History [facility] Narrative: [facility] [place] 05/26[place], uneventful Medical History BMI 34.0-34.9,adult BMI 37.0-37.9, adult BMI 38.0-38.9,adult BMI over 35 Depression Difficulty concentrating Encounter for general adult medical examination with abnormal findings Excessive thirst Gynecomastia, female Headache syndrome Knee pain Lack of adequate sleep Large breasts Low back strain Obesity Post depression Preoperative testing Tired Vitamin A deficiency Vitamin B1 deficiency Vitamin D deficiency Surgical History History of eye surgery Family History Family History Father No problems noted. 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 Lower abdomen muscle separation although soft. Pos RUQ pain without rebound, no rigidity, mild guarding, pos Pereira's sign. Pos epigastric pain ( of note recent MSO4 given) Course Reevaluation(s) Reevaluation #1: Abdominal pain: Discussed with Dr Mcmahan, given mild transaminitis and stone on U/S without evidence of pericholecyctic fluid, will have general surgery eval. Discusssed case with Gen Surg counter sales person Dr Dennis who will see the pt. Pt has been following bariatric meal plan and eating and drinking slowly and this recurrent abdominal pain does not appear to be related to bariatric surgical intervention. MDM - Abdominal Pain Lab Data Result diagrams: 01/27/22 09:10 01/27/22 09:10 Labs: Lab Results 01/27/22 01/27/22 01/27/22 Range/Units 09:10 09:10 10:32 WBC 9.7 (4.8-10.8) X10*3/uL RBC 4.54 (4.20-5.50) X10*6/uL Hgb 12.7 (12.0-16.0) g/dl Hct 39.1 (37.0-47.0) % MCV 86.1 (80.0-98.0) fL MCH 28.0 (27.0-33.0) pg MCHC 32.5 (31.0-35.0) g/dl RDW 12.3 (11.0-16.0) % Plt Count 223 (160-400) X10*3/uL MPV 9.8 (9.4-12.3) fL Immature Gran % (Auto) 0.2 (0.0-0.4) % Neut % (Auto) 75.8 H (45-73) % Lymph % (Auto) 17.5 L (20-40) % [place] % (Auto) 6.1 (2-11) % Eos % (Auto) 0.1 (0-4) % Baso % (Auto) 0.3 (0-2) % Lymph # (Auto) 1.7 (1.2-4.9) X10*3/uL [place] # (Auto) 0.6 (0.1-1.2) X10*3/uL Eos # (Auto) 0.0 (0.0-0.4) X10*3/uL Baso # (Auto) 0.0 (0.0-0.2) X10*3/uL Abs Immat Gran (auto) 0.02 (0.00-0.03) X10*3/uL Absolute Neuts (auto) 7.4 (2.0-8.3) x10*3/uL Absolute Nucleated RBC 0.000 (0.0-0.012) X10*3/uL Nucleated RBC % (auto) 0.0 (0.0-0.2) /100WBC Sodium 138 (135-145) mmol/L Potassium 4.1 (3.3-5.1) mmol/L Chloride 106 (96-108) mmol/L Carbon Dioxide 24 (22-29) mmol/L Anion Gap 12 (12-20) BUN 13 (9-16) mg/dL Creatinine 0.77 (0.5-1.4) mg/dL Estim Creat Clear Calc 102.0 Estimated GFR > 60 Random Glucose 83 (60-115) mg/dL Calcium 9.7 (8.4-10.2) mg/dL Total Bilirubin 1.4 H (0.0-1.0) mg/dL AST 117 H (5-31) U/L ALT 34 H (0-31) U/L Alkaline Phosphatase 68 D (39-117) U/L Total Protein 7.8 (6.5-8.0) g/dL Albumin 4.4 (3.5-5.0) g/dL Lipase 21 (8-78) U/L Beta HCG, Quant < 2 mIU/mL Urine Color Urine Appearance Urine pH (5.0-8.0) Ur Specific [place] (1.005-1.025) Urine Protein (NEG-TRACE) MG/DL Urine Glucose (UA) (NEG) MG/DL Urine Ketones (NEG) MG/DL Urine Blood (NEG) Urine Nitrite (NEG) Ur Leukocyte Esterase (NEG) Urine Test (NEGATIVE) COVID-19 (JANEL) (Negative) COVID-19 Clin Com Influenza Type A (KISHAN) Negative (Negative) Influenza Type B (KISHAN) Negative (Negative) Influenza A & B Note See Note 01/27/22 01/27/22 01/27/22 Range/Units 10:32 10:38 10:38 WBC (4.8-10.8) X10*3/uL RBC (4.20-5.50) X10*6/uL Hgb (12.0-16.0) g/dl Hct (37.0-47.0) % MCV (80.0-98.0) fL MCH (27.0-33.0) pg MCHC (31.0-35.0) g/dl RDW (11.0-16.0) % Plt Count (160-400) X10*3/uL MPV (9.4-12.3) fL Immature Gran % (Auto) (0.0-0.4) % Neut % (Auto) (45-73) % Lymph % (Auto) (20-40) % [place] % (Auto) (2-11) % Eos % (Auto) (0-4) % Baso % (Auto) (0-2) % Lymph # (Auto) (1.2-4.9) X10*3/uL [place] # (Auto) (0.1-1.2) X10*3/uL Eos # (Auto) (0.0-0.4) X10*3/uL Baso # (Auto) (0.0-0.2) X10*3/uL Abs Immat Gran (auto) (0.00-0.03) X10*3/uL Absolute Neuts (auto) (2.0-8.3) x10*3/uL Absolute Nucleated RBC (0.0-0.012) X10*3/uL Nucleated RBC % (auto) (0.0-0.2) /100WBC Sodium (135-145) mmol/L Potassium (3.3-5.1) mmol/L Chloride (96-108) mmol/L Carbon Dioxide (22-29) mmol/L Anion Gap (12-20) BUN (9-16) mg/dL Creatinine (0.5-1.4) mg/dL Estim Creat Clear Calc Estimated GFR Random Glucose (60-115) mg/dL Calcium (8.4-10.2) mg/dL Total Bilirubin (0.0-1.0) mg/dL AST (5-31) U/L ALT (0-31) U/L Alkaline Phosphatase (39-117) U/L Total Protein (6.5-8.0) g/dL Albumin (3.5-5.0) g/dL Lipase (8-78) U/L Beta HCG, Quant mIU/mL Urine Color YELLOW Urine Appearance HAZY Urine pH 7.5 (5.0-8.0) Ur Specific [place] 1.015 (1.005-1.025) Urine Protein NEG (NEG-TRACE) MG/DL Urine Glucose (UA) NEG (NEG) MG/DL Urine Ketones NEG (NEG) MG/DL Urine Blood NEG (NEG) Urine Nitrite NEG (NEG) Ur Leukocyte Esterase NEG (NEG) Urine Test NEGATIVE (NEGATIVE) COVID-19 (JANEL) Negative (Negative) COVID-19 Clin Com See Note Influenza Type A (KISHAN) (Negative) Influenza Type B (KISHAN) (Negative) Influenza A & B Note Discharge Plan Discharge Clinical Impression: S/P laparoscopic sleeve gastrectomy, Cholecystitis, chronic Patient Disposition: Home, Self-Care Instructions: Cholecystitis (ED), Laparoscopic Cholecystectomy (DC), Open Cholecystectomy (DC) Additional Instructions: Pt was seen by Gen Surg and is going to be scheduled for elective CCY in the setting of chronic cholysystits and biliary dyskinesia Prescriptions: No Action sucralfate 100 mg/mL suspension 10 ml PO BID 7 Days Qty: 140 0RF pantoprazole 40 mg tablet,delayed release (DR/EC) 40 mg PO DAILY Qty: 30 2RF Bariatric Multivitamins 45 mg iron- 800 mcg-120 mcg capsule PO DAILY 0RF calcium citrate-vitamin D3 [Calcium Citrate + D] 315 mg-5 mcg (200 unit) tablet 1 tab PO BID 0RF Referrals: Cristhian Dennis MD [Physician] - 2 days (Call for an outpatient elective gallbladder removal) Print Language: Thai
[2022-01-27] MEDS: iohexoL 350 MG/ML 100 ML INFUS..BTL IV (12:44)
[2022-01-27] MEDS: 0.9 % Sodium Chloride 1,000 ML 999 ML IVCONT (12:52)
[2022-01-27 13:30] VITALS: BP 115/72; PULSE 64; RESP 16; TEMP 37.4; O2SAT 100
--- NOTE | 2022-01-27 14:35 | PM.CNGS ---
History of Present Illness Consult details Consult date: 01/27/22 Reason for consult: abdominal pain Requesting physician: Anamika Ponce Narrative: 31-year-old female patient presenting with complaints of epigastric and right upper quadrant abdominal pain. Patient has a prior history of a gastric sleeve gastrectomy which she tolerated well. The abdominal pain has occurred intermittently is occasionally quite severe but does resolve spontaneously until the current episode which was very severe, and associated with nausea and vomiting. She reports eating chicken and lentils with avocado and sunflower oil the evening prior to the onset of abdominal pain. The pain woke her up from sleep at approximately 04:00. She was subsequently presented to the emergency department for further evaluation. In the emergency department she was noted to be tender in the epigastrium and right upper quadrant. Laboratories revealed normal WBC but mildly elevated transaminases and bilirubin, but normal alkaline phosphatase. Ultrasound of the abdomen revealed a small gallstone within the gallbladder with no wall thickening or pericholecystic fluid. Common bile duct was normal at 0.[address] of the abdomen and pelvis revealed no gallbladder wall thickening or secondary signs of cholecystitis. A supraumbilical hernia is identified containing cecum. The patient is aware of the hernia and denies pain in this location. Review of Systems Constitutional: Constitutional: Denies chills, Denies fever(s), Denies headache(s) and Denies poor appetite ENT: Denies dizziness and Denies headache(s) Cardiovascular: Cardiovascular: Denies chest pain, Denies rapid heart rate, Denies palpitations and Denies slow heart rate Respiratory: Respiratory: Denies chest congestion, Denies cough, Denies pain on inspiration and Denies wheezing Gastrointestinal: Gastrointestinal: Reports abdominal pain, Denies bloating, Denies change in stool character, Denies constipation, Denies diarrhea, Reports nausea, Reports vomiting and Denies hematemesis Musculoskeletal: Musculoskeletal: Denies back pain, Denies arthralgias, Denies joint swelling and Denies numbness Integumentary/Breasts: Skin/Breast: Denies change in pigmentation, Denies erythema and Denies rash Neurologic: Denies dizziness, Denies headache(s) and Denies numbness Psychiatric: Psychiatric: Denies anxiety and Denies depression Endocrine: Endocrine: Denies palpitations Hematologic/Lymphatic: Hematologic/Lymphatic: Denies easy bleeding, Denies easy bruising and Denies lymphadenopathy Allergic/Immunologic: Allergic/Immunologic: Denies wheezing PMFSH Past Medical History Medical History BMI 34.0-34.9,adult BMI 37.0-37.9, adult BMI 38.0-38.9,adult BMI over 35 Depression Difficulty concentrating Encounter for general adult medical examination with abnormal findings Excessive thirst Gynecomastia, female Headache syndrome Knee pain Lack of adequate sleep Large breasts Low back strain Obesity Post depression Preoperative testing Tired Vitamin A deficiency Vitamin B1 deficiency Vitamin D deficiency Family History Family History Father No problems noted. 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 to a significant other at home: Yes Do you presently have visiting nurse or other home services: No Alcohol intake: never Patient Tobacco Use Status: Never used Tobacco Advance Directives: Yes Advance Directives on File: Yes Advance Directives Date on File: 05/30/21 service: No Current occupational status: employed Meds Allergies Allergy/AdvReac Type Severity Reaction Status Date / Time diclofenac [Voltaren] Allergy Unknown Hives/itchi Verified 01/27/22 08:59 ness lactose Allergy Diarrhea Verified 01/27/22 08:59 Home Medications Medication Instructions Recorded Confirmed Last Taken Type calcium citrate 315 mg-vitamin D3 1 tab PO BID tab 12/19/21 12/19/21 Unknown History 5 mcg (200 unit) tablet (Calcium Citrate + D) [id number] 45 mg-folic cap PO DAILY cap 12/19/21 12/19/21 Unknown History acid 800 mcg-vit K 120 mcg capsule (Bariatric Multivitamins) Physical Exam Vital Signs: Vital Signs: Last Vital Signs Temp 99.3 F 01/27/22 13:30 Pulse 64 01/27/22 13:30 Resp 16 01/27/22 13:30 BP 115/72 01/27/22 13:30 Pulse Ox 100 01/27/22 13:30 BMI result Body Mass Index 23.5 Const: General: cooperative, comfortable and well developed Nutritional Appearance: well nourished Orientation/consciousness: patient oriented x3 Eyes: Sclerae: sclerae normal EOM: EOMs intact bilaterally Neck: Neck: Yes normal visual inspection Resp: Effort & Inspection: normal respiratory effort, no cough, no respiratory distress and no stridor Cardio: Jugular venous distension: no JVD GI: Inspection: Yes normal to inspection Palpation (GI): Soft to palpation, Tenderness to palpation present (GI) in the RUQ; Negative for Pereira's sign negative and with no rebound tenderness, no guarding and not rigid Percussion: Yes normal to percussion Auscultation: normal bowel sounds Rectal Exam - Female: deferred Skin: General skin exam: dry skin Rashes: no rashes Neuro: General: patient oriented x3 and no focal motor deficits Extrem: General: Yes full ROM and Yes no clubbing, cyanosis or edema Psych: Appearance: grossly normal Results Labs Result diagrams: 01/27/22 09:10 01/27/22 09:10 Labs: Abnormal lab results 01/27/22 01/27/22 Range/Units 09:10 09:10 Neut % (Auto) 75.8 H (45-73) % Lymph % (Auto) 17.5 L (20-40) % Total Bilirubin 1.4 H (0.0-1.0) mg/dL AST 117 H (5-31) U/L ALT 34 H (0-31) U/L Short CBC 01/27/22 Range/Units 09:10 WBC 9.7 (4.8-10.8) X10*3/uL Hgb 12.7 (12.0-16.0) g/dl Hct 39.1 (37.0-47.0) % Plt Count 223 (160-400) X10*3/uL BMP 01/27/22 09:10 Sodium 138 Potassium 4.1 Chloride 106 Carbon Dioxide 24 BUN 13 Creatinine 0.77 Calcium 9.7 Liver Function 01/27/22 Range/Units 09:10 Total Bilirubin 1.4 H (0.0-1.0) mg/dL AST 117 H (5-31) U/L ALT 34 H (0-31) U/L Alkaline Phosphatase 68 D (39-117) U/L Albumin 4.4 (3.5-5.0) g/dL Urine 01/27/22 01/27/22 Range/Units 10:38 10:38 Urine Color YELLOW Urine Appearance HAZY Urine pH 7.5 (5.0-8.0) Ur Specific [place] 1.015 (1.005-1.025) Urine Protein NEG (NEG-TRACE) MG/DL Urine Glucose (UA) NEG (NEG) MG/DL Urine Test NEGATIVE (NEGATIVE) All other labs normal. Assessment and Plan (1) Right upper quadrant abdominal pain: Status: Acute (2) Cholelithiasis: Status: Acute Plan 31-year-old female patient presenting with complaints of epigastric and right upper quadrant abdominal pain associated with nausea and vomiting. The pain woke the patient up during the night and has recurred several times in the past. The current episode is the most severe. Previous workup was negative for any suspicious findings. Workup today does reveal a small gallstone within the gallbladder. Patient is also found to have a adela umbilical hernia and diastasis recti. Her symptoms not be appear to be associated with the hernia. I recommended further evaluation of the gallbladder with a HIDA scan. There is nonvisualization of the gallbladder, acute cholecystitis will of been confirmed. I reviewed the examination with the patient her family and she agrees with the plan. Procedures Date of Service Date of Service: 01/27/22
== END 2022-01-27 17:48 | disposition home or self-care (01) ==
PROVIDERS: Physician Assistant Medical; Emergency Provider Emergency Medicine
DX: K81.1 Chronic cholecystitis (principal); Z98.84 Bariatric surgery status; Z20.822 Contact with and (suspected) exposure to COVID-19
CPT/HCPCS: 36415; 74177; 76700; 78226; 80053; 81003; 81025; 83690; 84702; 85025; 87502; 87635; 96361; 96374; 96375; 99284; 99291; A9537; J2270; J2405; Q9967

== ENCOUNTER 2022-01-31 12:32 | Outpatient (REF) | payer OTHER, SELFPAY ==
[2022-01-31 13:16] LABS: MANUAL DIFF FLAG NO
[2022-01-31 13:29] LABS: Basophils Absolute Auto 0.1 X10*3/uL (0.0-0.2); Basophils Percent Auto 0.8 % (0-2); Eosinophils Absolute Auto 0.1 X10*3/uL (0.0-0.4); Hematocrit 41.2 % (37.0-47.0); Imm Gran Abs Auto 0.02 X10*3/uL (0.00-0.03); Imm Gran Pct Auto 0.3 % (0.0-0.4); Lymphocytes Absolute Auto 2.4 X10*3/uL (1.2-4.9); Lymphocytes Percent Auto 37.8 % (20-40); Mean Corpuscular HGB Conc 31.6 g/dl (31.0-35.0); Mean Corpuscular Hemoglobin 27.3 pg (27.0-33.0); Mean Corpuscular Volume 86.4 fL (80.0-98.0); Mean Platelet Volume 10.4 fL (9.4-12.3); Monocytes Absolute Auto 0.5 X10*3/uL (0.1-1.2); Monocytes Percent Auto 7.5 % (2-11); Neutrophils Absolute Auto 3.3 x10*3/uL (2.0-8.3); Neutrophils Percent Auto 52.6 % (45-73); Platelet Count 242 X10*3/uL (160-400); Red Blood Count 4.77 X10*6/uL (4.20-5.50); Red Cell Distribution Width 12.2 % (11.0-16.0); White Blood Count 6.3 X10*3/uL (4.8-10.8)
[2022-01-31 13:55] LABS: Alanine Aminotransferase 22 U/L (0-31); Albumin Level 4.5 g/dL (3.5-5.0); Alkaline Phosphatase 67 U/L (39-117); Anion Gap 12 (12-20); Aspartate Amino Transferase 21 U/L (5-31); Bilirubin Total 0.5 mg/dL (0.0-1.0); Blood Urea Nitrogen 12 mg/dL (9-16); C Reactive Protein 0.05 mg/dL (< or = 0.50); Calcium 9.9 mg/dL (8.4-10.2); Carbon Dioxide 25 mmol/L (22-29); Chloride 104 mmol/L (96-108); Cholesterol 165 mg/dL; Estimated Glomerular Filt Rate > 60; Glucose Random 86 mg/dL (60-115); HDL Cholesterol 52 mg/dL; Iron 98 mcg/dL (30-160); LDL Cholesterol Calculated 101 mg/dl; Potassium 4.4 mmol/L (3.3-5.1); Sodium 137 mmol/L (135-145); Total Protein 7.8 g/dL (6.5-8.0); Triglycerides 61 mg/dL
[2022-01-31 14:01] LABS: Estimated Average Glucose 85 mg/dL; Hemoglobin A1c % 4.6 %
[2022-01-31 14:08] LABS: Percent Iron Saturation 30 % (15-50); Total Iron Binding Capacity 329 mcg/dL (228-428); Unsaturated Iron Binding 231 ug/dL
[2022-01-31 14:18] LABS: Ferritin 71 ng/mL (10-122); TSH reflex Free T4 0.34 uIU/mL (0.32-4.0); Vitamin D 25-OH Total 36.1 ng/mL (>30)
[2022-01-31 14:46] LABS: Insulin 8 uU/mL (2-29)
[2022-01-31 14:48] LABS: Folate 18.4 ng/mL (> or = 4.0); Vitamin B12 749 pg/mL (200-900)
[2022-02-02 12:51] LABS: Calcium (PTHI) 9.5 mg/dL (8.6-10.2); PTHI 94 pg/mL (16-77)
[2022-02-03 13:15] LABS: Zinc 69 mcg/dL (60-130)
[2022-02-04 12:42] LABS: Vitamin B1 9 nmol/L (8-30)
[2022-02-06 13:55] LABS: Vitamin A 39 mcg/dL (38-98)
== END 2022-01-31 12:33 | disposition home or self-care (01) ==
LOC: HO.LAB 12:32
PROVIDERS: PCP Internal Medicine; Visit Provider Surgery
DX: K91.2 Postsurgical malabsorption, not elsewhere classified (principal); Z90.3 Acquired absence of stomach [part of]
CPT/HCPCS: 36415; 80053; 80061; 82306; 82607; 82728; 82746; 83036; 83525; 83540; 83970; 84425; 84443; 84590; 84630; 85025; 86140

== ENCOUNTER 2022-02-01 11:08 | Day surgery (SDC) | payer OTHER, SELFPAY ==
--- NOTE | 2022-01-31 09:21 | HO.ANESPROP2 ---
Documented by User: Stacy Atwood NP 01/31/22 09:25 HPI - Anesthesia Eval Consult details Narrative: 31yo F for Cholecystectomy Laparoscopic s/p gastric sleeve 05/2021 [facility] Active Problems Active Problems: All Active Problems (Updated 01/28/22 @ 00:02 by Background Daemon) Cholelithiasis (Acute) Right upper quadrant abdominal pain (Acute) Postgastrectomy malabsorption (Acute) GERD (gastroesophageal reflux disease) (Acute) Overweight (Acute) BMI 32.0-32.9,adult (Acute) Obesity (Acute) Status post repair of paraesophageal diaphragmatic hernia (Acute) Diaphragmatic hernia (Acute) S/P laparoscopic sleeve gastrectomy (Acute) Depression (Acute) Diastasis recti (Acute) Morbid obesity (Acute) Past Medical History Medical History (Updated 01/28/22 @ 00:02 by Background Daemon) BMI 34.0-34.9,adult BMI 37.0-37.9, adult BMI 38.0-38.9,adult BMI over 35 Depression Difficulty concentrating Encounter for general adult medical examination with abnormal findings Excessive thirst Gynecomastia, female Headache syndrome Knee pain Lack of adequate sleep Large breasts Low back strain Obesity Post depression Preoperative testing Tired Vitamin A deficiency Vitamin B1 deficiency Vitamin D deficiency Family History Family History Father No problems noted. 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 critical care paramedic to a significant other at home: Yes Do you presently have visiting nurse or other home services: No Alcohol intake: never Patient Tobacco Use Status: Never used Tobacco Use of substances other than those prescribed or required for medical reasons: No Are you DNR?: No Advance Directives: No Advance Directives Information Provided: Yes Advance Directives Date on File: 05/30/21 Recently lost weight without trying: No Nutrition Risks: No Nutritional Risk Patient : No service: No Current occupational status: employed Meds Allergies Allergy/AdvReac Type Severity Reaction Status Date / Time diclofenac [Voltaren] Allergy Unknown Hives/itchi Verified 01/27/22 08:59 ness lactose Allergy Diarrhea Verified 01/27/22 08:59 Home Medications Medication Instructions Recorded Confirmed Last Taken Type calcium citrate 315 mg-vitamin D3 1 tab PO BID tab 12/19/21 12/19/21 Unknown History 5 mcg (200 unit) tablet (Calcium Citrate + D) [id number] 45 mg-folic cap PO DAILY cap 12/19/21 12/19/21 Unknown History acid 800 mcg-vit K 120 mcg capsule (Bariatric Multivitamins) Exam Exam Date and Time: January 31, 2022920 Pertinent Lab Results Pertinent Lab Results: Laboratory Tests 01/27/22 01/27/22 09:10 09:10 WBC 9.7 Hgb 12.7 Hct 39.1 Plt Count 223 Sodium 138 Potassium 4.1 Chloride 106 Carbon Dioxide 24 BUN 13 Creatinine 0.77 Narrative Narrative: EKG 02/2021 Vent. Rate : 080 BPM ? ? Atrial Rate : 080 BPM ?? P-R Int : 120 ms? QRS Dur : 086 ms ? ? QT Int : 374 ms ? ? ? P-R-T Axes : 025 060 027 degrees ?? QTc Int : 431 ms ? Normal sinus rhythm Normal ECG No previous ECGs available Assessment and Plan Assessment Anesthesia Assessment: Chart Reviewed Documented by User: Mandy Black MD 02/01/22 12:02 [facility] Past Medical History Medical History (Updated 01/28/22 @ 00:02 by Tomas Ahuja) BMI 34.0-34.9,adult BMI 37.0-37.9, adult BMI 38.0-38.9,adult BMI over 35 Depression Difficulty concentrating Encounter for general adult medical examination with abnormal findings Excessive thirst Gynecomastia, female Headache syndrome Knee pain Lack of adequate sleep Large breasts Low back strain Obesity Post depression Preoperative testing Tired Vitamin A deficiency Vitamin B1 deficiency Vitamin D deficiency Family History Family History Father No problems noted. Mother Fibromyalgia Asthma Anxiety High cholesterol Family history of problems with anesthesia: No Surgical History Surgical History (Updated 01/31/22 @ 09:23 by Stacy Atwood NP) History of eye surgery S/P laparoscopic sleeve gastrectomy (~05/2021) History of Problems with Anesthesia: No Social History Social History Are you a primary critical care paramedic to a significant other at home: Yes Do you presently have visiting nurse or other home services: No Alcohol intake: never Patient Tobacco Use Status: Never used Tobacco Use of substances other than those prescribed or required for medical reasons: No Are you DNR?: No Advance Directives: No Advance Directives Information Provided: Yes Advance Directives Date on File: 05/30/21 Recently lost weight without trying: No Nutrition Risks: No Nutritional Risk Patient : No service: No Current occupational status: employed Meds Allergies Allergy/AdvReac Type Severity Reaction Status Date / Time diclofenac [Voltaren] Allergy Unknown Hives/itchi Verified 01/27/22 08:59 ness lactose Allergy Diarrhea Verified 01/27/22 08:59 Home Medications Medication Instructions Recorded Confirmed Last Taken Type calcium citrate 315 mg-vitamin D3 1 tab PO BID tab 12/19/21 12/19/21 Unknown History 5 mcg (200 unit) tablet (Calcium Citrate + D) [id number]-weuw 45 mg-folic cap PO DAILY cap 12/19/21 12/19/21 Unknown History acid 800 mcg-vit K 120 mcg capsule (Bariatric Multivitamins) Exam Airway Mallampati Class: II TM Dist: >3cm Neck ROM: Full Heart: rrr Lungs: cta Assessment and Plan Assessment Anesthesia Assessment: Anesthesia Plan Discussed and Chart Reviewed Final Anesthetic Review Family History of Problems with Anesthesia: No History of Problems with Anesthesia: No NPO: Yes ASA Class: II Final Preanesthetic Review: No Changes in Pt Med Stat, Meds/Allgs Chart Reviewed and Consent Obtained/Reviewed Patient Risk: Intermediate Procedure Risk: Intermediate Anesthetic Plan Anesthetic Plan: GA Disposition: Standard PACU
[2022-01-31 13:14] LABS: COVID-19 Test Negative (Negative)
[2022-02-01] VITALS (14 sets, daily range): BP systolic 111–127; BP diastolic 62–85; PULSE 65–98; RESP 14–18; TEMP 36.8–37.6; O2SAT 97–100; BMI 23.7
[2022-02-01 11:31] LABS: UPreg QC Valid YES; Urine Pregnancy NEGATIVE (NEGATIVE)
[2022-02-01] MEDS: Lactated Ringers 1,000 ML 100 ML IVCONT (11:43)
--- NOTE | 2022-02-01 13:18 | MHC.SHP ---
Pre-Procedural Eval Section A Date of Service: 02/01/22 The patient is an INPATIENT: No The History & Physical has been completed within 30 days and I have reviewed it.: Yes Section B Chief Complaint: cholecystitis Relevant Family History (Specify if Yes): No Relevant Social History: None Present Medications: None Medical History: No relevant PMH History of Previous Operations: No relevant previous surgery Allergies: Allergies Allergy/AdvReac Type Severity Reaction Status Date / Time diclofenac [Voltaren] Allergy Unknown Hives/itchi Verified 01/27/22 08:59 ness lactose Allergy Diarrhea Verified 01/27/22 08:59 Review of Systems Sugical H&P ROS: Negative: Constitution, Cardiovascular, Respiratory, Neurological, Psychiatric, Hem-Onc, Allergic/Immunologic, Genitourinary, Musculoskeletal, Integumentary, Endocrine and Eyes/Ears/Nose/Throat and Yes, Specify: Gastrointestinal (abdominal pain) Exam Surgical H&P Exam: Normal: HEENT, Normal: Heart, Normal: Lungs, Normal: Extremities, Normal: Abdomen, Normal: Skin and Normal: Neurological Plan Diagnosis/Plan: Unchanged (L:ap minh due to symptomatic cholelithiasis and gallbladder dysfunction. Risks and complications were discussed with the patient in detail.) I have reviewed the history and physical and performed a pertinent physical examination on my patient. No changes have occurred unless specified.
--- NOTE | 2022-02-01 13:33 | P.BOP_ITS ---
Brief Operative Note Date of Service: 02/01/22 Pre-op diagnosis: Symptomatic cholelithiasis Post-op diagnosis: same Procedure: PROCEDURE DATE: 02/01/2022 PREOPERATIVE DIAGNOSIS: Symptomatic cholelithiasis, biliary dyskinesia POSTOPERATIVE DIAGNOSIS: Same as above. PROCEDURE: Laparoscopic cholecystectomy Surgeon: Tc Mcmahan M.D., Ph.D. Record Label Internship: Sandra Tran PA-C Anesthesia: General endotracheal anesthesia Estimated blood loss: Minimal FINDINGS AND PROCEDURE: OPERATIVE INDICATIONS: The patient is a 31 year old female known to me who underwent sleeve gastrectomy with excellent result reaching a normal BMI. The patient was doing well until last weekend when she experienced a severe episode of right upper quadrant abdominal pain which occurred at night about 2 hours after dinner. She did report two other similar episodes in the recent past but of lesser severity. At the ER, abdominal U/S showed a gallstone and a HIDA scan was consistent with biliary dyskinesia. I recommended cholecystectomy. Risks and complications of the surgery were discussed with the patient in advance, particularly the postoperative bleeding, infection, DVT or PE, bile leak, major bile duct injury that may require additional surgical intervention, cardiac, pulmonary or renal complications among others. The patient understood the risks and was in agreement with the plan. PROCEDURE: After informed consent was obtained by the patient, the patient was transferred to the Operating Room and was placed in the supine position. The patient was given preoperative antibiotics and after successful induction of general anesthesia a Gay catheter and pneumatic compression devices were placed. The patient was then prepped and draped in the usual sterile manner and abdominal access was established with the Reuben technique. The abdomen was insufflated with C02 to a pressure of 15 mmHg. A 5 mm Versi-step port was placed, slightly to the right and superior from the umbilicus. The 5 mm camera was introduced. We inspected the area where the port had been placed and there was no injury. The patient was then placed initially in a steep reverse Trendelenburg position and three additional ports were placed, specifically a 12 mm Versi-step port just to the right of the midline below the xiphoid process and two 5 mm Versi-step ports at the right upper quadrant and right flank. At that point the patient was placed in a steep reverse Trendelenburg position tilted to the left side. The gallbladder was retracted cephalad and laterally. There were adhesions between the omentum and the gallbladder wall that were taken down. The peritoneal attachments of the gallbladder at the triangle of Calot posteriorly and anteriorly were taken down. The cystic duct and artery were both seen. They were completely dissected free, skeletonized all the way to the infundibulum of the gallbladder. There was an additional small vein and an accessory artery originating from the falciform ligament. Those were also dissected and clipped with one clip proximally and one distally. In a similar fashion we also cleaned the liver bed just behind the cystic artery to make sure there was no additional structures in this area. Once we confirmed that both structures were entering into the gallbladder and there were no other structures in the area, they were both clipped with two clips proximally, one distally and were cut in-between. We then using the electrocautery we slowly took down the gallbladder from the liver bed. Small areas of bleeding from the liver parenchyma were controlled with the cautery. After the gallbladder was completely detached from the liver bed, it was placed in an EndoCatch bag and was removed without difficulty from the xiphoid port. We then inspected the c lips at the cystic duct and artery and were both in place. There was no active bleeding from the liver bed. We thoroughly irrigated the right upper quadrant and we removed all fluid until clear. At that point the patient was placed in supine position, we deflated the abdomen and we removed all ports under direct vision and no bleeding was noted from any of the port sites. The fascia of the 12 mm port was closed using a #1 Polysorb suture. 60cc 0.25% Marcaine and 10% Dexamethasone were used to infiltrate the fascial closure as well as all skin incisions. The wounds were irrigated with saline mixed with antibiotic solution and then the skin was closed with 4-0 Monocryl subcuticular sutures antibiotic- coated. Steri-strips and OpSites were used to cover all incisions. The patient extubated and was transferred in stable condition to the Recovery Room for further care. I was present and performed all steps of the procedure. Ms. Sandra Tran was the 1st grooming assistant. There were no residents to assist with this case. Tc Mcmahan M.D., Ph.D., F.A.C.S. Surgeon: Winston Mcmahan MD Anesthesia: GETA, local and other (TAP block) Was an Record Label Internship used for this Procedure?: No Record Label Internship: Sandra Tran Estimated blood loss (mL): 10 IV fluids (mL): 1,000 Urine output (mL): 0 (No Gay to record) Pathology: other (Gallbladder) Condition: stable Disposition: PACU
--- NOTE | 2022-02-01 18:00 | PC.NURSE ---
1800 yaya pacheco, and dr. mendez sent notification patient remains in pacu review ongoing drowsiness, right shoulder discomfort and previous nausea. attempt made to ambulate patient.
== END 2022-02-01 19:39 | disposition home or self-care (01) ==
PROVIDERS: Nurse Practitioner; Visit Provider Surgery
PROC: 0FT44ZZ Resection of Gallbladder, Percutaneous Endoscopic Approach (ICD-10-PCS; CPT 47562; principal; 2022-02-01 12:50)
DX: K81.9 Cholecystitis, unspecified (principal); K81.1 Chronic cholecystitis; K82.8 Other specified diseases of gallbladder; F32.9 Major depressive disorder, single episode, unspecified; R53.83 Other fatigue; E50.9 Vitamin A deficiency, unspecified; E51.9 Thiamine deficiency, unspecified; E55.9 Vitamin D deficiency, unspecified; Z98.84 Bariatric surgery status; Z20.822 Contact with and (suspected) exposure to COVID-19
CPT/HCPCS: 47562; 81025; 87635; 88304; J0131; J0690; J1100; J1170; J2250; J2405; J2550; J3010

== ENCOUNTER → 2022-02-07 13:28 | Outpatient (BNVA) | payer OTHER, SELFPAY | PROVIDERS: Visit Provider Physician Assistant | DX: Z48.815 Encounter for surgical aftercare following surgery on the digestive system (principal); M62.08 Separation of muscle (nontraumatic), other site; L98.7 Excessive and redundant skin and subcutaneous tissue; Z90.49 Acquired absence of other specified parts of digestive tract | CPT/HCPCS: 99212 ==

== ENCOUNTER 2022-03-06 21:51 | Emergency (ER) | payer OTHER, SELFPAY ==
--- NOTE | ~2022-03-06 | XR_ITS ---
EXAMINATION: XR CHEST CLINICAL INFORMATION: Chest pain COMPARISON: 11/27/2021 TECHNIQUE: Frontal view of the chest was obtained. FINDINGS: The lungs are well expanded. There is no focal consolidation, edema, or effusion. No pneumothorax. The cardiomediastinal silhouette is within normal limits. No acute osseous abnormality. XR/XR chest 1V IMPRESSION: Clear lungs.
--- NOTE | ~2022-03-06 | CT_ITS ---
EXAMINATION: CTA CHEST and ABDOMEN AND PELVIS WITH CONTRAST CLINICAL INFORMATION: epigastric pain, cholecystectomy x 1 month COMPARISON: CT abdomen 03/29/2022 TECHNIQUE: Multidetector volumetric imaging was performed from the thoracic inlet through the pubic symphysis following administration of 85 mL of Omnipaque 350. Sagittal and coronal reformatted images were obtained on the technologist's workstation. This CT examination was performed using dose optimization techniques as appropriate, variously including the following: *Automated exposure control *Adjustment of mA and/or kV according to patient size (this includes techniques or standardized protocols for targeted exams where dose is matched to indication/reason for exam; i.e. extremities or head) *Use of iterative reconstruction technique DLP: 839 mGy-cm FINDINGS: CHEST: Lung: The lungs are clear without focal opacity or nodule. Mediastinum: The mediastinum is normal. No hilar or mediastinal lymphadenopathy. Vascular: The thoracic aorta appears normal. A three-vessel branching pattern is seen. The great vessels are widely patent. No aortic aneurysm dissection or intramural hematoma. Although not carried out for evaluation of the pulmonary arteries or pulmonary veins, no abnormality is seen. Pericardium/Pleura: No significant effusion. No pleural mass or thickening. Chest Wall/Axilla: Unremarkable ABDOMEN/PELVIS: Peritoneal Space: No significant free air or free fluid identified. Liver, Gallbladder, Biliary Tree: The liver is normal in size, shape, and attenuation. No focal hepatic lesion or biliary ductal dilatation is present. Some mild periportal edema is present. Status post cholecystectomy. Pancreas: Unremarkable Spleen: Unremarkable Adrenal Glands: Unremarkable Kidneys and Ureters: The kidneys are normal in size, shape, and attenuation. No hydronephrosis, hydroureter, or calculi seen. No perinephric stranding. Bladder: Bladder is underfilled with a symmetrically thickened wall. Gastrointestinal Tract: Patient has undergone gastric bypass. The small and large bowel are unremarkable. The appendix is unremarkable. Abdominal Wall: No significant hernia is appreciated. There is some mild diastases of the rectus muscles with some forward bulging. Lymph Nodes: No lymphadenopathy. Vascular: The aorta appears normal.. The IVC appears unremarkable. PELVIC VISCERA: Unremarkable. A small amount of free intraperitoneal fluid is present sac. OSSEUS STRUCTURES: Mild degenerative changes are noted in the spine. No bony destructive lesions are seen. CT/CT abdomen pelvis w con IMPRESSION: 1. CTA of the chest is unremarkable. 2. A cause for the patient's epigastric pain has not been found. 3. Incidental findings as described above. Fleischner guidelines were followed.
--- NOTE | 2022-03-06 22:05 | ECG_ITS ---
Test Reason : CHEST PAIN Blood Pressure : / mmHG Vent. Rate : 072 BPM Atrial Rate : 072 BPM P-R Int : 158 ms QRS Dur : 090 ms QT Int : 400 ms P-R-T Axes : 055 067 033 degrees QTc Int : 438 ms Sinus rhythm with occasional Premature ventricular complexes Otherwise normal ECG When compared with ECG of 25-FEB-2021 10:59, Premature ventricular complexes are now Present Referred By: Santiago Max Electronically Signed By:EDMAR BROWN MD
--- NOTE | 2022-03-06 22:14 | ED_ITS ---
HPI - Chest Pain General Chief Complaint: Abdominal Pain Stated Complaint: ABD AND CHEST PAIN, NEAR SYNCOPE Time Seen by Provider: 03/06/22 22:05 Source: patient and EMS Mode of arrival: EMS Limitations: no limitations History of Present Illness HPI narrative: This is a 31-year-old female past medical history significant for GERD, status post sleeve gastrectomy 9 months ago, status post cholecystectomy 4 weeks ago presenting to the emergency department with an episode of severe chest pain radiating to her back accompanied with shortness of breath. Patient tells me this started just prior to her arrival. She tells me this pain started when she was sitting, playing with her children. She tells me that she started experiencing a severe chest pain that radiated to her back she tells me the pain is stabbing, severe 10/10. She also tells me she had 1 episode of vomiting and she is currently experiencing nausea. She is also experiencing severe epigastric pain. She is still experiencing the chest pain. She has no cardiac history. No significant family history. Patient has no concern for , she is not on control pills. She denies long travel. She denies fevers, chills, nausea, constipation, weakness, headache MD complaint: chest pain Onset (ago): minute(s) (30) Timing of current episode: constant and still present Prior episodes: No Onset: during rest Pain location: substernal Pain radiation: none Severity: severe Quality: sharp Relieving factors: nothing Exacerbating factors: nothing Context: recent surgery Associated symptoms: nausea, vomiting, diaphoresis and dyspnea Treatment prior to arrival: none Related Data Home Medications Medication Instructions Recorded Confirmed calcium citrate 315 mg-vitamin D3 1 tab PO BID tab 12/19/21 12/19/21 5 mcg (200 unit) tablet (Calcium Citrate + D) [id number] 45 mg-folic cap PO DAILY cap 12/19/21 12/19/21 acid 800 mcg-vit K 120 mcg capsule (Bariatric Multivitamins) Previous Rx's Medication Instructions Recorded pantoprazole 40 mg tablet,delayed 40 mg PO DAILY #30 tab 05/03/21 release acetaminophen 500 mg capsule 1,000 mg PO Q6H PRN #14 cap 01/27/22 ondansetron 4 mg disintegrating 4 mg PO Q6-8H PRN #14 tab 01/27/22 tablet sucralfate 100 mg/mL oral 10 ml PO BID 7 Days #140 ml 01/27/22 suspension ondansetron 4 mg disintegrating 4 mg PO ONCE PRN #10 tab 03/07/22 tablet pantoprazole 20 mg tablet,delayed 20 mg PO DAILY #30 tab 03/07/22 release Allergies Allergy/AdvReac Type Severity Reaction Status Date / Time diclofenac [Voltaren] Allergy Unknown Hives/itchi Verified 02/07/22 13:37 ness lactose Allergy Diarrhea Verified 02/07/22 13:37 Review of Systems Review of Systems: Constitutional : No Weight loss, No Fever, No Chills, No Fatigue, No Malaise ENT/Mouth : No sore throat, No Rhinorrhea Eyes: No Eye Pain, No Swelling, No Redness Cardiovascular : + Chest Pain, + SOB, No Dyspnea on Exertion, No Orthopnea, No Edema, No Palpitations Respiratory : No Cough, No Sputum, No Wheezing Gastrointestinal : + Nausea, + Vomiting, No Diarrhea, No Constipation, + abdominal Pain, No Hematochezia, No Melena Genitourinary : No Dysuria, No Urinary Frequency, No Hematuria, Musculoskeletal : No joint pain, No Myalgias, No Joint Swelling Skin : No Skin Lesions, No rash Neuro : No Weakness, No Numbness, No Dizziness, No Headache Psych : No Anxiety/Panic, No Depression All other systems reviewed and are negative Yes all other systems are reviewed and are negative [facility] Past Medical History Attestation statement: The following information was validated with the patient. Source: old records reviewed and nursing notes reviewed Medical History BMI 34.0-34.9,adult BMI 37.0-37.9, adult BMI 38.0-38.9,adult BMI over 35 Depression Difficulty concentrating Encounter for general adult medical examination with abnormal findings Excessive thirst Gynecomastia, female Headache syndrome Knee pain Lack of adequate sleep Large breasts Low back strain Obesity Post depression Preoperative testing Tired Vitamin A deficiency Vitamin B1 deficiency Vitamin D deficiency Surgical History History of eye surgery S/P laparoscopic sleeve gastrectomy (~05/2021) Family History Family History Father No problems noted. 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 Oriented X3.? No acute distress.? Head: Normocephalic, atraumatic, no step-offs or deformities Eyes: Pupils equal, round and reactive to light.? ENT: Pharynx normal.? Neck: Normal inspection.? Neck supple.? CVS: Normal heart rate and rhythm.? Pulses normal.? Respiratory: No respiratory distress.? Breath sounds normal.? Abdomen: Soft and severe pain with palpation of epigastric region. Skin: Skin warm and dry.? Normal skin color.? Normal skin turgor.? Extremities: No lower extremity edema.? No calf ttp. 5/5 strength to bilateral upper and lower extremities Back: No midline tenderness, no C-spine tenderness, full range of motion, no CVA tenderness bilaterally Neuro: Oriented X 3.? No motor deficit.? No sensory deficit. CN 2-12 intact Course Reevaluation(s) Reevaluation #1: CBC appears to be around patient's baseline. No acute electrolyte abnormalities requiring intervention. Transaminases are noted to be elevated. negative, EKG nonischemic unlikely ACS. D-dimer negative, patient PERC negative unlikely PE. Urine clean. COVID negative. Time: 00:17 Reevaluation #2: CTA of the chest is unremarkable no signs of dissection. Cause for the patient's epigastric pain could not be seen on scan. No acute finding of on CT scan. Time: 01:16 Reevaluation #3: Patient received a GI cocktail and reports nausea. Second troponin neagtive. At this time patient's symptoms likely secondary to GERD or gastritis. Unlikely ACS, PE, dissection. Patient tells me she was taking pantoprazole however she stop taking it. She reports significant improvement in pain after GI cocktail. She will be discharged home on pantoprazole 20 mg once a day. At this time I feel comfortable discharge home. I gave her strict return precautions and advised her to return with new or worsening symptoms. Comfortable discharge home. She will also go home on Zofran as needed for nausea or vomiting. A discharge patient feeling better, abdominal pain resolved. No chest pain or shortness of breath Time: 02:12 MDM - Chest Pain MDM Narrative Medical decision making narrative: 2214 31 yo f presents w/ severe chest pain radiating to back w/ associated nausea, vomiting eppisode started just prior to her arrival PE w/ a severely tender epigastric region. RRR. lungs clear. Neuro non focal Plan- imaging, labs, ekg, cardiac monitoring, ua. will rule out disection, pe, acs. martha kolb GERD Medical Records Data Attestation: I reviewed the patient's medical records. Lab Data Attestation: I reviewed the patient's lab results. Result diagrams: 03/06/22 22:55 03/06/22 22:55 Labs: Lab Results 03/06/22 03/06/22 03/06/22 Range/Units 22:55 22:55 22:55 WBC 7.6 (4.8-10.8) X10*3/uL RBC 4.09 L (4.20-5.50) X10*6/uL Hgb 11.3 L (12.0-16.0) g/dl Hct 35.2 L (37.0-47.0) % MCV 86.1 (80.0-98.0) fL MCH 27.6 (27.0-33.0) pg MCHC 32.1 (31.0-35.0) g/dl RDW 12.4 (11.0-16.0) % Plt Count 201 (160-400) X10*3/uL MPV 10.1 (9.4-12.3) fL Immature Gran % (Auto) 0.3 (0.0-0.4) % Neut % (Auto) 59.8 (45-73) % Lymph % (Auto) 30.4 (20-40) % Bates % (Auto) 8.1 (2-11) % Eos % (Auto) 1.0 (0-4) % Baso % (Auto) 0.4 (0-2) % Lymph # (Auto) 2.3 (1.2-4.9) X10*3/uL Bates # (Auto) 0.6 (0.1-1.2) X10*3/uL Eos # (Auto) 0.1 (0.0-0.4) X10*3/uL Baso # (Auto) 0.0 (0.0-0.2) X10*3/uL Abs Immat Gran (auto) 0.02 (0.00-0.03) X10*3/uL Absolute Neuts (auto) 4.6 (2.0-8.3) x10*3/uL Absolute Nucleated RBC 0.000 (0.0-0.012) X10*3/uL Nucleated RBC % (auto) 0.0 (0.0-0.2) /100WBC D-Dimer High Sensitivty NG/ML Sodium 138 (135-145) mmol/L Potassium 3.9 (3.3-5.1) mmol/L Chloride 108 (96-108) mmol/L Carbon Dioxide 24 (22-29) mmol/L Anion Gap 10 L (12-20) BUN 14 (9-16) mg/dL Creatinine 0.80 (0.5-1.4) mg/dL Estim Creat Clear Calc 106.5 Estimated GFR > 60 Random Glucose 94 (60-115) mg/dL Calcium 8.7 D (8.4-10.2) mg/dL Magnesium 1.8 (1.6-2.6) mg/dL Total Bilirubin 0.5 (0.0-1.0) mg/dL AST 244 H (5-31) U/L ALT 51 H (0-31) U/L Alkaline Phosphatase 75 (39-117) U/L Troponin I High Sens < 3.5 (<3.5-17.0) ng/L Total Protein 6.5 (6.5-8.0) g/dL Albumin 3.7 (3.5-5.0) g/dL Lipase 45 (8-78) U/L Urine Color Urine Appearance Urine pH (5.0-8.0) Ur Specific Mcintyre (1.005-1.025) Urine Protein (NEG-TRACE) MG/DL Urine Glucose (UA) (NEG) MG/DL Urine Ketones (NEG) MG/DL Urine Blood (NEG) Urine Nitrite (NEG) Ur Leukocyte Esterase (NEG) COVID-19 (JANEL) (Negative) COVID-19 Clin Com 03/06/22 03/06/22 03/06/22 Range/Units 22:55 22:55 23:45 WBC (4.8-10.8) X10*3/uL RBC (4.20-5.50) X10*6/uL Hgb (12.0-16.0) g/dl Hct (37.0-47.0) % MCV (80.0-98.0) fL MCH (27.0-33.0) pg MCHC (31.0-35.0) g/dl RDW (11.0-16.0) % Plt Count (160-400) X10*3/uL MPV (9.4-12.3) fL Immature Gran % (Auto) (0.0-0.4) % Neut % (Auto) (45-73) % Lymph % (Auto) (20-40) % Bates % (Auto) (2-11) % Eos % (Auto) (0-4) % Baso % (Auto) (0-2) % Lymph # (Auto) (1.2-4.9) X10*3/uL Bates # (Auto) (0.1-1.2) X10*3/uL Eos # (Auto) (0.0-0.4) X10*3/uL Baso # (Auto) (0.0-0.2) X10*3/uL Abs Immat Gran (auto) (0.00-0.03) X10*3/uL Absolute Neuts (auto) (2.0-8.3) x10*3/uL Absolute Nucleated RBC (0.0-0.012) X10*3/uL Nucleated RBC % (auto) (0.0-0.2) /100WBC D-Dimer High Sensitivty 173 NG/ML Sodium (135-145) mmol/L Potassium (3.3-5.1) mmol/L Chloride (96-108) mmol/L Carbon Dioxide (22-29) mmol/L Anion Gap (12-20) BUN (9-16) mg/dL Creatinine (0.5-1.4) mg/dL Estim Creat Clear Calc Estimated GFR Random Glucose (60-115) mg/dL Calcium (8.4-10.2) mg/dL Magnesium (1.6-2.6) mg/dL Total Bilirubin (0.0-1.0) mg/dL AST (5-31) U/L ALT (0-31) U/L Alkaline Phosphatase (39-117) U/L Troponin I High Sens (<3.5-17.0) ng/L Total Protein (6.5-8.0) g/dL Albumin (3.5-5.0) g/dL Lipase (8-78) U/L Urine Color YELLOW Urine Appearance CLEAR Urine pH 6.0 (5.0-8.0) Ur Specific Mcintyre 1.015 (1.005-1.025) Urine Protein NEG (NEG-TRACE) MG/DL Urine Glucose (UA) NEG (NEG) MG/DL Urine Ketones NEG (NEG) MG/DL Urine Blood NEG (NEG) Urine Nitrite NEG (NEG) Ur Leukocyte Esterase NEG (NEG) COVID-19 (JANEL) Negative (Negative) COVID-19 Clin Com See Note ECG Data ECG #1: Attestation: I personally reviewed and interpreted this ECG as follows: ECG interpretation date: 03/07/22 ECG interpretation time: 01:14 Prior ECG tracings: available for review Interpretation: Ventricular rate of 72 TX normal, QRS normal, QT/QTC normal. EKG shows normal sinus rhythm with PVCs, no ST elevations or inversions concerning for acute ischemia. When compared to previous EKG from February 2021 there are now PVCs present. However no acute ischemia noted. Critical Care Time Critical Care Time Critical Care Time: No Discharge Plan Discharge Clinical Impression: Chest pain not due to acute coronary syndrome, Epigastric abdominal pain, Nausea & vomiting Patient Disposition: Home, Self-Care Instructions: Chest Pain (ED), Acute Nausea and Vomiting (ED), Acute Abdominal Pain (ED), Epigastric Pain (ED) Additional Instructions: Take your medications as prescribed. If you were prescribed antibiotics today, it is important that you take your medication to their entirety, do not skip any doses, do not finish them early. Follow-up with your primary care provider this week. Return to the emergency department with new or worsening symptoms. Such as fevers, chills, chest pain, shortness of breath, nausea, vomiting, dizziness, headache, vision changes, lethargy In case of emergency call 911 Your labs were reassuring, urine clean, covid negative, your CT scans showed no acute findings. Your EKG looked good, no signs of acute ischemia. I suspect your symptoms are likely GERD. Pantoprazole has been sent to your pharmacy please take this daily, before breakfast. I have sent yopu home on Zofran a medication for nausea and vomiting please take this is needed. Return with new or worsening symptoms Prescriptions: New ondansetron 4 mg tablet,disintegrating 4 mg PO ONCE PRN (Reason: nausea and vomiting) Qty: 10 0RF pantoprazole 20 mg tablet,delayed release (DR/EC) 20 mg PO DAILY Qty: 30 0RF No Action sucralfate 100 mg/mL suspension 10 ml PO BID 7 Days Qty: 140 0RF ondansetron 4 mg tablet,disintegrating 4 mg PO Q6-8H PRN (Reason: nausea and vomiting) Qty: 14 0RF acetaminophen 500 mg capsule 1,000 mg PO Q6H PRN (Reason: fever or pain) Qty: 14 0RF pantoprazole 40 mg tablet,delayed release (DR/EC) 40 mg PO DAILY Qty: 30 2RF Bariatric Multivitamins 45 mg iron- 800 mcg-120 mcg capsule PO DAILY 0RF calcium citrate-vitamin D3 [Calcium Citrate + D] 315 mg-5 mcg (200 unit) tablet 1 tab PO BID 0RF Referrals: Physician,Unknown J [Primary Care Provider] - 2 days Stand Alone Forms: Work/School Release
[2022-03-06 22:38] VITALS: BP 144/91; PULSE 86; RESP 22; O2SAT 100; BMI 29.9
[2022-03-06 23:01] LABS: MANUAL DIFF FLAG NO
[2022-03-06 23:02] LABS: Basophils Percent Auto 0.4 % (0-2); Eosinophils Absolute Auto 0.1 X10*3/uL (0.0-0.4); Hematocrit 35.2 % (37.0-47.0); Hemoglobin 11.3 g/dl (12.0-16.0); Imm Gran Abs Auto 0.02 X10*3/uL (0.00-0.03); Imm Gran Pct Auto 0.3 % (0.0-0.4); Lymphocytes Absolute Auto 2.3 X10*3/uL (1.2-4.9); Lymphocytes Percent Auto 30.4 % (20-40); Mean Corpuscular HGB Conc 32.1 g/dl (31.0-35.0); Mean Corpuscular Hemoglobin 27.6 pg (27.0-33.0); Mean Corpuscular Volume 86.1 fL (80.0-98.0); Mean Platelet Volume 10.1 fL (9.4-12.3); Monocytes Absolute Auto 0.6 X10*3/uL (0.1-1.2); Monocytes Percent Auto 8.1 % (2-11); Neutrophils Absolute Auto 4.6 x10*3/uL (2.0-8.3); Neutrophils Percent Auto 59.8 % (45-73); Platelet Count 201 X10*3/uL (160-400); Red Blood Count 4.09 X10*6/uL (4.20-5.50); Red Cell Distribution Width 12.4 % (11.0-16.0); White Blood Count 7.6 X10*3/uL (4.8-10.8)
[2022-03-06 23:09] LABS: D Dimer High Sensitivity 173 NG/ML
[2022-03-06 23:22] LABS: Alanine Aminotransferase 51 U/L (0-31); Albumin Level 3.7 g/dL (3.5-5.0); Alkaline Phosphatase 75 U/L (39-117); Anion Gap 10 (12-20); Aspartate Amino Transferase 244 U/L (5-31); Bilirubin Total 0.5 mg/dL (0.0-1.0); Blood Urea Nitrogen 14 mg/dL (9-16); Calcium 8.7 mg/dL (8.4-10.2); Carbon Dioxide 24 mmol/L (22-29); Chloride 108 mmol/L (96-108); Creatinine Clr Calc Pharmacy 106.5; Estimated Glomerular Filt Rate > 60; Glucose Random 94 mg/dL (60-115); Lipase 45 U/L (8-78); Magnesium 1.8 mg/dL (1.6-2.6); Potassium 3.9 mmol/L (3.3-5.1); Sodium 138 mmol/L (135-145); Total Protein 6.5 g/dL (6.5-8.0)
[2022-03-06 23:23] LABS: Troponin-I High Sensitivity < 3.5 ng/L (<3.5-17.0)
[2022-03-06 23:25] LABS: COVID-19 Test Negative (Negative)
[2022-03-06] MEDS: Morphine Sulfate 2 MG/ML CARTRIDGE IVPUSH (23:45)
[2022-03-06 23:51] LABS: Appearance Urine CLEAR; Color Urine YELLOW; Glucose Urine UA NEG (NEG); Leukocyte Esterase Urine NEG (NEG); Nitrite Urine NEG (NEG); Specific Gravity - Urine 1.015 (1.005-1.025); Urine Blood NEG (NEG); Urine Ketones NEG (NEG); Urine Protein NEG (NEG-TRACE)
[2022-03-07] MEDS: iohexoL 350 MG/ML 100 ML INFUS..BTL 85 ML IV (00:28)
[2022-03-07] MEDS: PHENobarb/Hyoscy/Atropine/Scop 10 ML ELIXIR PO (01:23)
[2022-03-07] MEDS: Magnesium Hydrox/Alum Hydrox 30 ML ORAL.SUSP PO (01:23)
[2022-03-07] MEDS: 0.9 % Sodium Chloride 1,000 ML 999 ML IV (01:24)
[2022-03-07 01:39] VITALS: BP 106/67; PULSE 66; RESP 16; TEMP 36.6; O2SAT 98
[2022-03-07 02:10] LABS: Troponin-I High Sensitivity < 3.5 ng/L (<3.5-17.0)
--- NOTE | 2022-03-07 02:27 | PC.NURSE ---
i assumed care of this pt upon her arrival to bed 19 via EMS. On arrival the pt would not speak to me in anything louder than a whisper. It required asking her repeatedly to speak up. She did not speak up. i needed to put my head directly next to her face in order to hear what she was saying. She arrived for evaluation of epigastric pain, sudden onset at home thirty minutes prior to arrival. + flat affect. respirations non-labored. no cyanosis. room air sat's 95% or better. + nausea on arrival. no vomiting. IV access was obtained prior to arrival and the pt was administered morphine and IVF's. later during her ER visit she was administered a GI cocktail and admitted to total relief of the pain she presented with. pts family remained at the bedside throughout her ER visit. pts mother phoned there ER a total of four times and was extremely rude with staff on the phone. I asked the pts to speak with the pts mom and he requestd I just tell her we'resleeping. I attempted to notify the pts mother of this but sshe became agitated and began yelling at me on the phone. Therefore I hung up on her. Pt discharged at this time, She ambulate out of the ED independently and with [id number] gait.
== END 2022-03-07 02:19 | disposition home or self-care (01) ==
PROVIDERS: Physician Assistant; Emergency Provider Internal Medicine
DX: R07.89 Other chest pain (principal); R10.13 Epigastric pain; R11.2 Nausea with vomiting, unspecified; Z20.822 Contact with and (suspected) exposure to COVID-19; Z79.899 Other long term (current) drug therapy
CPT/HCPCS: 36415; 71045; 71275; 74177; 80053; 81003; 83690; 83735; 84484; 85025; 85379; 87635; 93005; 96361; 96374; 96376; 99284; J2270; Q9967

== ENCOUNTER → 2022-03-09 10:28 | Outpatient (BNVA) | payer OTHER, SELFPAY | PROVIDERS: Visit Provider Physician Assistant | DX: Z13.89 Encounter for screening for other disorder (principal) ==

== ENCOUNTER 2022-03-12 23:06 | Emergency (ER) | payer OTHER, SELFPAY ==
[2022-03-12 23:10] VITALS: BP 130/60; PULSE 106; O2SAT 98
[2022-03-12 23:50] VITALS: BP 109/66; PULSE 100; RESP 16; TEMP 36.9; O2SAT 99; BMI 24.1
--- NOTE | 2022-03-12 23:57 | ED_ITS ---
HPI - Abdominal Pain General Chief Complaint: Abdominal Pain Stated Complaint: Abd Pain,N/V Time Seen by Provider: 03/12/22 23:57 Source: patient Mode of arrival: ambulatory Limitations: no limitations History of Present Illness HPI narrative: Patient is status post gastric sleeve surgery been having this abdominal issues with bloating nausea diarrhea for last 9 months. Patient drinking almond milk and mostly whenever she drinks milk within half an hour or so does have bowel movement never had to wake up in the night for diarrhea also has nausea and diffuse abdominal cramps no fever no chills no blood in the stool diarrhea is 6- 10 times a day no recent antibiotic use or recent travel no other family members sick Related Data Home Medications Medication Instructions Recorded Confirmed calcium citrate 315 mg-vitamin D3 1 tab PO BID tab 12/19/21 03/07/22 5 mcg (200 unit) tablet (Calcium Citrate + D) [id number] 45 mg-folic cap PO DAILY cap 12/19/21 03/07/22 acid 800 mcg-vit K 120 mcg capsule (Bariatric Multivitamins) Previous Rx's Medication Instructions Recorded acetaminophen 500 mg capsule 1,000 mg PO Q6H PRN #14 cap 01/27/22 escitalopram oxalate 5 mg tablet 5 mg PO DAILY 90 Days #90 tab 03/07/22 ondansetron 4 mg disintegrating 4 mg PO ONCE PRN #10 tab 03/07/22 tablet pantoprazole 20 mg tablet,delayed 20 mg PO DAILY #30 tab 03/07/22 release dicyclomine 20 mg tablet 20 mg PO QID PRN #20 tab 03/13/22 Allergies Allergy/AdvReac Type Severity Reaction Status Date / Time diclofenac [Voltaren] Allergy Unknown Hives/itchi Verified 03/07/22 12:39 ness lactose Allergy Diarrhea Verified 03/07/22 12:39 Review of Systems Review of Systems Yes all other systems are reviewed and are negative PMFSH Past Medical History Medical History BMI 34.0-34.9,adult BMI 37.0-37.9, adult BMI 38.0-38.9,adult BMI over 35 Depression Difficulty concentrating Encounter for general adult medical examination with abnormal findings Excessive thirst Gynecomastia, female Headache syndrome Knee pain Lack of adequate sleep Large breasts Low back strain Obesity Post depression Preoperative testing Tired Vitamin A deficiency Vitamin B1 deficiency Vitamin D deficiency Surgical History History of eye surgery S/P laparoscopic sleeve gastrectomy (~05/2021) Family History Family History Father No problems noted. 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 Do you presently have visiting nurse or other home services: No Alcohol intake: never Patient Tobacco Use Status: Never used Tobacco Use of substances other than those prescribed or required for medical reasons: No Advance Directives: Yes Advance Directives Date on File: 05/30/21 Patient : No service: No Current occupational status: employed Cognitive needs: No Hearing needs: No Vision needs: No Physical Exam ED Vital Signs: Vital Signs - 24 hr 03/12/22 23:50 03/13/22 00:08 Temperature 98.4 F Pulse Rate 100 89 Respiratory Rate 16 16 Blood Pressure 109/66 102/62 Pulse Oximetry 99 100 BMI result Body Mass Index 24.1 Appearance: Alert. Oriented X3. No acute distress. Eyes: No pallor/ icterus ENT: Pharynx normal. Oral Mucosa moist Neck: Normal inspection. Neck supple. CVS: Normal heart rate and rhythm. Pulses normal. Respiratory: No respiratory distress. Equal air entry bilateral, no wh eezing/rales/rhonchi Abdomen: Soft diffuse abdominal tenderness Bowel sounds are present, no mass p alpable, no CVA tenderness Skin: Skin warm and dry. Normal skin color. Normal skin turgor. Extremities: No lower extremity edema. No calf tenderness Neuro: Oriented X 3. MDM - Abdominal Pain MDM Narrative Medical decision making narrative: Patient with diarrhea secondary to likely almond milk/functional labs are stable patient advised to stop not to drink almond milk for now and follow up with oven heater Lab Data Attestation: I reviewed the patient's lab results. Result diagrams: 03/13/22 00:20 03/13/22 00:20 Labs: Lab Results 04/25/22 04/25/22 Range/Units 00:20 00:20 WBC 8.0 (4.8-10.8) X10*3/uL RBC 4.65 (4.20-5.50) X10*6/uL Hgb 12.8 (12.0-16.0) g/dl Hct 39.6 (37.0-47.0) % MCV 85.2 (80.0-98.0) fL MCH 27.5 (27.0-33.0) pg MCHC 32.3 (31.0-35.0) g/dl RDW 12.4 (11.0-16.0) % Plt Count 195 (160-400) X10*3/uL MPV 9.9 (9.4-12.3) fL Immature Gran % (Auto) 0.2 (0.0-0.4) % Neut % (Auto) 76.1 H (45-73) % Lymph % (Auto) 17.9 L (20-40) % [place] % (Auto) 5.1 (2-11) % Eos % (Auto) 0.5 (0-4) % Baso % (Auto) 0.2 (0-2) % Lymph # (Auto) 1.4 (1.2-4.9) X10*3/uL [place] # (Auto) 0.4 (0.1-1.2) X10*3/uL Eos # (Auto) 0.0 (0.0-0.4) X10*3/uL Baso # (Auto) 0.0 (0.0-0.2) X10*3/uL Abs Immat Gran (auto) 0.02 (0.00-0.03) X10*3/uL Absolute Neuts (auto) 6.1 (2.0-8.3) x10*3/uL Absolute Nucleated RBC 0.000 (0.0-0.012) X10*3/uL Nucleated RBC % (auto) 0.0 (0.0-0.2) /100WBC Sodium 135 (135-145) mmol/L Potassium 3.8 (3.3-5.1) mmol/L Chloride 105 (96-108) mmol/L Carbon Dioxide 23 (22-29) mmol/L Anion Gap 11 L (12-20) BUN 15 (9-16) mg/dL Creatinine 0.75 (0.5-1.4) mg/dL Estim Creat Clear Calc 96.9 Estimated GFR > 60 Random Glucose 84 (60-115) mg/dL Calcium 8.7 (8.4-10.2) mg/dL Total Bilirubin 0.5 (0.0-1.0) mg/dL AST 41 H D (5-31) U/L ALT 59 H (0-31) U/L Alkaline Phosphatase 94 D (39-117) U/L Total Protein 7.2 (6.5-8.0) g/dL Albumin 4.0 (3.5-5.0) g/dL Discharge Plan Discharge Clinical Impression: Diarrhea Patient Disposition: Home, Self-Care Instructions: Acute Diarrhea (ED) Additional Instructions: Drink plenty of fluid Avoid almond milk Dicyclomine for abdominal cramping Follow with oven heater Prescriptions: New dicyclomine 20 mg tablet 20 mg PO QID PRN (Reason: abdominal pain) Qty: 20 0RF No Action acetaminophen 500 mg capsule 1,000 mg PO Q6H PRN (Reason: fever or pain) Qty: 14 0RF ondansetron 4 mg tablet,disintegrating 4 mg PO ONCE PRN (Reason: nausea and vomiting) Qty: 10 0RF pantoprazole 20 mg tablet,delayed release (DR/EC) 20 mg PO DAILY Qty: 30 0RF escitalopram oxalate 5 mg tablet 5 mg PO DAILY 90 Days Qty: 90 0RF Bariatric Multivitamins 45 mg iron- 800 mcg-120 mcg capsule PO DAILY 0RF calcium citrate-vitamin D3 [Calcium Citrate + D] 315 mg-5 mcg (200 unit) tablet 1 tab PO BID 0RF Referrals: Concha Hoffman MD [Physician] - 1 week
[2022-03-13 00:08] VITALS: BP 102/62; PULSE 89; RESP 16; O2SAT 100
[2022-03-13] MEDS: Dicyclomine HCl 10 MG CAPSULE 20 MG PO (00:24)
[2022-03-13] MEDS: 0.9 % Sodium Chloride 1,000 ML 999 ML IV (00:24)
[2022-03-13] MEDS: ondansetron HCL 4 MG/2 ML VIAL IVPUSH (00:24)
[2022-03-13 00:25] LABS: MANUAL DIFF FLAG NO
[2022-03-13 00:26] LABS: Basophils Percent Auto 0.2 % (0-2); Eosinophils Percent Auto 0.5 % (0-4); Hematocrit 39.6 % (37.0-47.0); Hemoglobin 12.8 g/dl (12.0-16.0); Imm Gran Abs Auto 0.02 X10*3/uL (0.00-0.03); Imm Gran Pct Auto 0.2 % (0.0-0.4); Lymphocytes Absolute Auto 1.4 X10*3/uL (1.2-4.9); Lymphocytes Percent Auto 17.9 % (20-40); Mean Corpuscular HGB Conc 32.3 g/dl (31.0-35.0); Mean Corpuscular Hemoglobin 27.5 pg (27.0-33.0); Mean Corpuscular Volume 85.2 fL (80.0-98.0); Mean Platelet Volume 9.9 fL (9.4-12.3); Monocytes Absolute Auto 0.4 X10*3/uL (0.1-1.2); Monocytes Percent Auto 5.1 % (2-11); Neutrophils Absolute Auto 6.1 x10*3/uL (2.0-8.3); Neutrophils Percent Auto 76.1 % (45-73); Platelet Count 195 X10*3/uL (160-400); Red Blood Count 4.65 X10*6/uL (4.20-5.50); Red Cell Distribution Width 12.4 % (11.0-16.0)
[2022-03-13 00:52] LABS: Alanine Aminotransferase 59 U/L (0-31); Alkaline Phosphatase 94 U/L (39-117); Anion Gap 11 (12-20); Aspartate Amino Transferase 41 U/L (5-31); Bilirubin Total 0.5 mg/dL (0.0-1.0); Blood Urea Nitrogen 15 mg/dL (9-16); Calcium 8.7 mg/dL (8.4-10.2); Carbon Dioxide 23 mmol/L (22-29); Chloride 105 mmol/L (96-108); Creatinine Clr Calc Pharmacy 96.9; Estimated Glomerular Filt Rate > 60; Glucose Random 84 mg/dL (60-115); Potassium 3.8 mmol/L (3.3-5.1); Sodium 135 mmol/L (135-145); Total Protein 7.2 g/dL (6.5-8.0)
[2022-03-13 01:47] VITALS: BP 108/63; PULSE 95; RESP 18; TEMP 37; O2SAT 99
== END 2022-03-13 02:07 | disposition home or self-care (01) ==
PROVIDERS: Emergency Provider Internal Medicine; PCP Internal Medicine
DX: R11.0 Nausea (principal); R10.9 Unspecified abdominal pain; Z79.899 Other long term (current) drug therapy
CPT/HCPCS: 36415; 80053; 85025; 96361; 96374; 99284; 99285; J2405

== ENCOUNTER → 2022-03-23 09:03 | Outpatient (BNVA) | payer OTHER, SELFPAY | PROVIDERS: PCP Internal Medicine; Referring Provider Internal Medicine; Visit Provider Nurse Practitioner | DX: K21.9 Gastro-esophageal reflux disease without esophagitis (principal); K91.5 Postcholecystectomy syndrome; E66.01 Morbid (severe) obesity due to excess calories; Z68.24 Body mass index [BMI] 24.0-24.9, adult | CPT/HCPCS: 99212 ==

== ENCOUNTER → 2022-04-10 08:23 | Outpatient (BNVA) | payer OTHER, SELFPAY | PROVIDERS: PCP Internal Medicine; Referring Provider Surgery; Visit Provider Physician Assistant | DX: Z13.89 Encounter for screening for other disorder (principal) ==

== ENCOUNTER → 2022-04-18 15:38 | Outpatient (BNVA) | payer OTHER, SELFPAY | PROVIDERS: PCP Internal Medicine; Referring Provider Internal Medicine; Visit Provider Nurse Practitioner | DX: K91.5 Postcholecystectomy syndrome (principal); K21.9 Gastro-esophageal reflux disease without esophagitis | CPT/HCPCS: 99212 ==

== ENCOUNTER → 2022-05-01 16:41 | Outpatient (BNVA) | payer OTHER, SELFPAY | PROVIDERS: PCP Internal Medicine; Visit Provider Nurse Practitioner | DX: K91.5 Postcholecystectomy syndrome (principal); K21.9 Gastro-esophageal reflux disease without esophagitis; Z79.899 Other long term (current) drug therapy | CPT/HCPCS: 99212 ==

== ENCOUNTER 2022-05-29 14:30 | Outpatient (REF) | payer OTHER, SELFPAY ==
[2022-05-29 16:49] LABS: Alanine Aminotransferase 25 U/L (0-31); Albumin Level 4.3 g/dL (3.5-5.0); Alkaline Phosphatase 60 U/L (39-117); Anion Gap 13 (12-20); Aspartate Amino Transferase 35 U/L (5-31); Bilirubin Total 0.5 mg/dL (0.0-1.0); Blood Urea Nitrogen 10 mg/dL (9-16); Calcium 9.1 mg/dL (8.4-10.2); Carbon Dioxide 22 mmol/L (22-29); Chloride 105 mmol/L (96-108); Estimated Glomerular Filt Rate > 60; Glucose Random 76 mg/dL (60-115); Phosphorus 3.8 mg/dL (2.7-4.5); Potassium 3.9 mmol/L (3.3-5.1); Sodium 136 mmol/L (135-145); Total Protein 7.4 g/dL (6.5-8.0)
[2022-05-29 17:10] LABS: Free T4 (Free Thyroxine) 0.93 ng/dL (0.71-1.85); Thyroid Stimulating Hormone 0.47 uIU/mL (0.32-4.0); Vitamin D 25-OH Total 27.3 ng/mL (>30)
[2022-05-30 16:07] LABS: Calcium (PTHI) 9.3 mg/dL (8.6-10.2); PTHI 105 pg/mL (16-77)
== END 2022-05-29 14:31 | disposition home or self-care (01) ==
LOC: HO.LAB 14:30
PROVIDERS: PCP Internal Medicine; Visit Provider Internal Medicine
DX: E34.9 Endocrine disorder, unspecified (principal); E55.9 Vitamin D deficiency, unspecified
CPT/HCPCS: 36415; 80053; 82306; 83970; 84100; 84439; 84443

== ENCOUNTER 2022-05-31 13:17 | Outpatient (REF) | payer OTHER, SELFPAY ==
[2022-05-31 14:21] LABS: Creatinine, mg/dL 80.34
[2022-05-31 14:45] LABS: Creatinine, 24Hr Urine 1.4 G/Day (1.0-2.0); Total Volume 24 Hour Urine 1800 mL
[2022-06-03 17:17] LABS: Calcium, 24 Hr Urine 45 mg/24 h; Calcium/Creatinine Ratio 31 mg/g creat (30-275); Creatinine 24Hr Urine 1.44 g/24 h (0.50-2.15)
== END 2022-05-31 13:18 | disposition home or self-care (01) ==
LOC: HO.LNP 13:17
PROVIDERS: Visit Provider Internal Medicine
DX: E34.9 Endocrine disorder, unspecified (principal)
CPT/HCPCS: 82340; 82570

== ENCOUNTER 2022-05-31 13:34 | Outpatient (REF) | payer OTHER, SELFPAY ==
[2022-05-31 14:54] LABS: Syphilis Screen Nonreactive (Nonreactive)
[2022-05-31 23:59] LABS: CT PCR NOT DETECTED (Not Detect.); NG PCR NOT DETECTED (Not Detect.)
[2022-06-01 08:28] LABS: HBc Num1 0.09 S/CO (0.00-0.79); HIV AB/AG Nonreactive (Nonreactive); HIV Num 1 0.06 S/CO (0.00-0.99); Hepatitis B Core Antibody Nonreactive (Nonreactive); ~HepC Num1 0.14 S/CO (0.00-0.79); ~Hepatitis C Antibody Nonreactive (Nonreactive)
[2022-06-01 09:26] LABS: BV Int Neg Control Negative (Negative); BV Int Pos Control Positive (Positive)
[2022-06-06 01:06] LABS: HPV mRNA E6/E7 rflx Not Detected (Not Detected)
== END 2022-05-31 13:35 | disposition home or self-care (01) ==
LOC: HO.LAB 13:34
PROVIDERS: PCP Internal Medicine; Visit Provider Advanced Practice Midwife
DX: Z01.419 Encounter for gynecological examination (general) (routine) without abnormal findings (principal); Z11.51 Encounter for screening for human papillomavirus (HPV); Z11.4 Encounter for screening for human immunodeficiency virus [HIV]; N89.8 Other specified noninflammatory disorders of vagina; Z20.2 Contact with and (suspected) exposure to infections with a predominantly sexual mode of transmission
CPT/HCPCS: 36415; 86704; 86780; 86803; 87389; 87480; 87491; 87510; 87591; 87624; 87660; 88142

== ENCOUNTER → 2022-06-07 16:44 | Outpatient (BNVA) | payer OTHER, SELFPAY | PROVIDERS: PCP Internal Medicine; Visit Provider Nurse Practitioner | DX: K58.0 Irritable bowel syndrome with diarrhea (principal); K91.5 Postcholecystectomy syndrome; K21.9 Gastro-esophageal reflux disease without esophagitis | CPT/HCPCS: 99212 ==

== ENCOUNTER 2022-06-09 13:06 | Outpatient (REF) | payer OTHER, SELFPAY ==
[2022-06-09 16:38] LABS: C Reactive Protein 0.05 mg/dL (< or = 0.50)
[2022-06-14 12:22] LABS: Transglutaminase Ab IgG <1.0 U/mL; Transglutaminase IgA <1.0 U/mL
== END 2022-06-09 13:07 | disposition home or self-care (01) ==
LOC: HO.HMGCLDS 13:06
PROVIDERS: PCP Internal Medicine; Visit Provider Nurse Practitioner
DX: K58.0 Irritable bowel syndrome with diarrhea (principal); T78.1XXD Other adverse food reactions, not elsewhere classified, subsequent encounter
CPT/HCPCS: 36415; 86003; 86140; 86364

== ENCOUNTER 2022-06-13 13:19 | Outpatient (REF) | payer OTHER, SELFPAY ==
[2022-06-13 15:04] LABS: Leukocytes Stool Qualitative NEGATIVE (NEGATIVE)
[2022-06-13 16:00] LABS: MANUAL DIFF FLAG NO
[2022-06-13 16:27] LABS: Basophils Absolute Auto 0.1 X10*3/uL (0.0-0.2); Basophils Percent Auto 0.7 % (0-2); Eosinophils Percent Auto 0.5 % (0-4); Hematocrit 40.4 % (37.0-47.0); Hemoglobin 12.8 g/dl (12.0-16.0); Imm Gran Abs Auto 0.02 X10*3/uL (0.00-0.03); Imm Gran Pct Auto 0.3 % (0.0-0.4); Lymphocytes Absolute Auto 2.5 X10*3/uL (1.2-4.9); Lymphocytes Percent Auto 34.1 % (20-40); Mean Corpuscular HGB Conc 31.7 g/dl (31.0-35.0); Mean Corpuscular Hemoglobin 27.2 pg (27.0-33.0); Mean Corpuscular Volume 85.8 fL (80.0-98.0); Mean Platelet Volume 10.2 fL (9.4-12.3); Monocytes Absolute Auto 0.5 X10*3/uL (0.1-1.2); Monocytes Percent Auto 7.1 % (2-11); Neutrophils Absolute Auto 4.2 x10*3/uL (2.0-8.3); Neutrophils Percent Auto 57.3 % (45-73); Platelet Count 240 X10*3/uL (160-400); Red Blood Count 4.71 X10*6/uL (4.20-5.50); Red Cell Distribution Width 12.5 % (11.0-16.0); White Blood Count 7.4 X10*3/uL (4.8-10.8)
[2022-06-13 16:53] LABS: Cholesterol 167 mg/dL; HDL Cholesterol 63 mg/dL; LDL Cholesterol Calculated 94 mg/dl; Triglycerides 53 mg/dL
[2022-06-13 17:29] LABS: Folate 13.6 ng/mL (> or = 4.0); Vitamin B12 603 pg/mL (200-900)
[2022-06-17 13:41] LABS: Zinc 71 mcg/dL (60-130)
[2022-06-20 16:52] LABS: Vitamin A 29 mcg/dL (38-98)
[2022-06-20 18:41] LABS: Pancreatic Elastase-1 >500 mcg/g
[2022-06-21 07:46] LABS: Vitamin B1 11 nmol/L (8-30)
== END 2022-06-13 13:20 | disposition home or self-care (01) ==
LOC: HO.LAB 13:19
PROVIDERS: Absent Provider Physician Assistant; PCP Internal Medicine; Visit Provider Nurse Practitioner
DX: K58.0 Irritable bowel syndrome with diarrhea (principal); E66.9 Obesity, unspecified; M62.08 Separation of muscle (nontraumatic), other site; M79.3 Panniculitis, unspecified; Z98.84 Bariatric surgery status; Z90.3 Acquired absence of stomach [part of]
CPT/HCPCS: 36415; 80061; 82607; 82656; 82746; 84425; 84590; 84630; 85025; 89055; 99212

== ENCOUNTER → 2022-07-13 16:19 | Outpatient (BNVA) | payer OTHER, SELFPAY | PROVIDERS: PCP Internal Medicine; Referring Provider Physician Assistant; Visit Provider Dietitian, Registered | DX: E66.9 Obesity, unspecified (principal); Z98.84 Bariatric surgery status; Z90.3 Acquired absence of stomach [part of]; Z71.3 Dietary counseling and surveillance | CPT/HCPCS: 97803 ==

== ENCOUNTER 2022-08-30 12:09 | Outpatient (REF) | payer OTHER, SELFPAY ==
[2022-08-30 13:07] LABS: MANUAL DIFF FLAG NO
[2022-08-30 13:59] LABS: Basophils Absolute Auto 0.1 X10*3/uL (0.0-0.2); Eosinophils Absolute Auto 0.1 X10*3/uL (0.0-0.4); Eosinophils Percent Auto 1.3 % (0-4); Hematocrit 35.5 % (37.0-47.0); Hemoglobin 11.6 g/dl (12.0-16.0); Imm Gran Abs Auto 0.02 X10*3/uL (0.00-0.03); Imm Gran Pct Auto 0.3 % (0.0-0.4); Lymphocytes Absolute Auto 2.3 X10*3/uL (1.2-4.9); Lymphocytes Percent Auto 38.8 % (20-40); Mean Corpuscular HGB Conc 32.7 g/dl (31.0-35.0); Mean Corpuscular Hemoglobin 27.6 pg (27.0-33.0); Mean Corpuscular Volume 84.3 fL (80.0-98.0); Mean Platelet Volume 10.5 fL (9.4-12.3); Monocytes Absolute Auto 0.5 X10*3/uL (0.1-1.2); Monocytes Percent Auto 8.4 % (2-11); Neutrophils Percent Auto 50.2 % (45-73); Platelet Count 216 X10*3/uL (160-400); Red Blood Count 4.21 X10*6/uL (4.20-5.50); Red Cell Distribution Width 12.2 % (11.0-16.0)
[2022-08-30 14:01] LABS: INTERNATIONAL NORM RATIO 1.1 (0.9-1.1); Prothrombin Time 12.1 SEC (10.0-13.1)
[2022-08-30 14:04] LABS: Partial Thromboplastin Time 33.5 SEC (26.0-36.4)
[2022-08-30 14:11] LABS: Estimated Average Glucose 85 mg/dL; Hemoglobin A1c % 4.6 %
== END 2022-08-30 12:10 | disposition home or self-care (01) ==
LOC: HO.HMGCLDS 12:09
PROVIDERS: PCP Internal Medicine; Visit Provider Surgery
DX: K91.2 Postsurgical malabsorption, not elsewhere classified (principal); Z90.3 Acquired absence of stomach [part of]; Z98.84 Bariatric surgery status
CPT/HCPCS: 36415; 83036; 85025; 85610; 85730; 86850; 86900; 86901

== ENCOUNTER 2022-09-07 06:05 | Day surgery (SDC) | payer OTHER, SELFPAY ==
[2022-08-23 15:32] VITALS: BMI 24.3
--- NOTE | 2022-09-02 11:38 | P.HPSUR_ITS ---
Pre-Procedural Eval Section A Date of Service: 09/02/22 The patient is an INPATIENT: No The History & Physical has been completed within 30 days and I have reviewed it.: Yes Section B Chief Complaint: Separation of muscle Relevant Family History (Specify if Yes): No Relevant Social History: None Present Medications: None Medical History: No relevant PMH History of Previous Operations: Relevant previous surgery/procedure and date(s) (Lap sleeve gastrectomy) Allergies: Allergies Allergy/AdvReac Type Severity Reaction Status Date / Time lactose Allergy Severe Diarrhea Verified 08/23/22 15:21 diclofenac [Voltaren] Allergy Intermediate Hives/itchi Verified 08/23/22 15:21 ness almond milk Allergy Intermediate Hives, Uncoded 08/23/22 15:21 diarrhea, headache Review of Systems Sugical H&P ROS: Negative: Constitution, Cardiovascular, Respiratory, Neurological, Psychiatric, Hem-Onc, Allergic/Immunologic, Gastrointestinal, Genitourinary, Musculoskeletal, Integumentary, Endocrine and Eyes /Ears/Nose/Throat Exam Surgical H&P Exam: Normal: HEENT, Normal: Heart, Normal: Lungs, Normal: Extremities, Normal: Abdomen, Normal: Skin and Normal: Neurological Plan Diagnosis/Plan: Unchanged I have reviewed the history and physical and performed a pertinent physical examination on my patient. No changes have occurred unless specified.
[2022-09-06 09:21] LABS: COVID-19 Test Negative (Negative); IDNOW Serial# 16C4AD1C
--- NOTE | 2022-09-06 10:22 | P.CONAN_ITS ---
Documented by User: Stacy Atwood NP 09/06/22 10:23 HPI - Anesthesia Eval Consult details Narrative: 31yo F for Panniculectomy s/p gastric sleeve 05/2021 [facility] Active Problems Active Problems: All Active Problems (Updated 08/23/22 @ 15:48 by Mei Templeton, GHISLAINE) Morbid obesity (Acute) Diastasis recti (Acute) Encounter for general adult medical examination with abnormal findings (Acute) Diaphragmatic hernia (Acute) Status post repair of paraesophageal diaphragmatic hernia (Acute) Obesity (Acute) BMI 32.0-32.9,adult (Acute) Overweight (Acute) GERD (gastroesophageal reflux disease) (Acute) Postgastrectomy malabsorption (Acute) Right upper quadrant abdominal pain (Acute) Cholelithiasis (Acute) S/P laparoscopic cholecystectomy (Acute) Excess skin (Acute) Anxiety, generalized (Acute) Major depression, recurrent (Acute) Hyperparathyroidism (Acute) Encounter for routine gynecological examination (Acute) Disorder of ear, right (Acute) Gastritis (Acute) Diarrhea (Acute) Post-cholecystectomy syndrome (Acute) Panniculitis (Acute) Excess skin (Acute) Elevated parathyroid hormone (Acute) Vitamin D deficiency (Acute) Irritable bowel syndrome with diarrhea (Acute) Abrasion (Acute) S/P laparoscopic sleeve gastrectomy (Acute ~05/2021) Depression (Acute) Past Medical History Medical History Abrasion Confusion, postoperative Depression Difficulty concentrating Difficulty swallowing pills Dizziness, nonspecific Excessive thirst Gynecomastia, female Headache syndrome Knee pain Lack of adequate sleep Large breasts Low back strain Obesity Post depression Preoperative testing Tired Vitamin A deficiency Vitamin B1 deficiency Vitamin D deficiency Family History Family History Father No problems noted. 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 ocular care aide to a significant other at home: Yes (children ages 2 and 6) Do you presently have visiting nurse or other home services: No Alcohol intake: never Patient Tobacco Use Status: Never used Tobacco Advance Directives Date on File: 05/30/21 service: No Current occupational status: employed Sexual orientation: Straight/Heterosexual Gender identity: Female Cognitive needs: No Hearing needs: No Vision needs: No Meds Allergies Allergy/AdvReac Type Severity Reaction Status Date / Time lactose Allergy Severe Diarrhea Verified 09/07/22 07:14 diclofenac [Voltaren] Allergy Intermediate Hives/itchi Verified 09/07/22 07:14 ness almond milk AdvReac Intermediate Hives, Uncoded 09/07/22 07:14 diarrhea, headache Home Medications Medication Instructions Recorded Confirmed Last Taken Type calcium citrate 315 mg-vitamin D3 1 tab PO BID 12/19/21 08/23/22 Unknown History 5 mcg (200 unit) tablet (Calcium Citrate + D) [id number] 45 mg-folic 1 cap PO BID 12/19/21 08/23/22 Unknown History acid 800 mcg-vit K 120 mcg capsule (Bariatric Multivitamins) fluocinonide 0.05 % topical 1 appl topical BID 05/01/22 06/23/22 Unknown History ointment Exam Exam Date and Time: September 06, 2022 1022 Height,Weight and Vital Signs: Height 5 ft 5 in Weight 66.224 kg Pertinent Lab Results Pertinent Lab Results: Laboratory Tests 09/06/22 08:50 COVID-19 (JANEL) Negative COVID-19 Clin Com See Note Laboratory Tests 05/29/22 08/30/22 14:57 13:04 WBC 6.0 Hgb 11.6 L Hct 35.5 L Plt Count 216 Sodium 136 Potassium 3.9 Chloride 105 Carbon Dioxide 22 BUN 10 Creatinine 0.79 Narrative Narrative: EKG 02/2022 Vent. Rate : 072 BPM ? ? Atrial Rate : 072 BPM ?? P-R Int : 158 ms? QRS Dur : 090 ms ? ? QT Int : 400 ms ? ? ? P-R-T Axes : 055 067 033 degrees ?? QTc Int : 438 ms ? Sinus rhythm with occasional Premature ventricular complexes Otherwise normal ECG When compared with ECG of 25-FEB-2021 10:59, Premature ventricular complexes are now Present Assessment and Plan Assessment Anesthesia Assessment: Chart Reviewed Final Anesthetic Review Family History of Problems with Anesthesia: No History of Problems with Anesthesia: No Documented by User: Humberto Chong MD 09/07/22 17:25 HPI - Anesthesia Eval Consult details Narrative: 31yo F for Panniculectomy Patient with history of memory loss and confusion . As per patient , started after the gastric sleeve . s/p gastric sleeve 05/2021 PMF Past Medical History Medical History Abrasion Confusion, postoperative Depression Difficulty concentrating Difficulty swallowing pills Dizziness, nonspecific Excessive thirst Gynecomastia, female Headache syndrome Knee pain Lack of adequate sleep Large breasts Low back strain Obesity Post depression Preoperative testing Tired Vitamin A deficiency Vitamin B1 deficiency Vitamin D deficiency Family History Family History Father No problems noted. Mother Fibromyalgia Asthma Anxiety High cholesterol Other Mental health disorder Surgical History Surgical History History of cholecystectomy History of esophagogastroduodenoscopy (EGD) History of eye surgery S/P laparoscopic sleeve gastrectomy (~05/2021) Social History Social History Housing: Apartment Are you a primary ocular care aide to a significant other at home: Yes (children ages 2 and 6) Do you presently have visiting nurse or other home services: No Alcohol intake: never Patient Tobacco Use Status: Never used Tobacco Advance Directives Date on File: 05/30/21 service: No Current occupational status: employed Sexual orientation: Straight/Heterosexual Gender identity: Female Cognitive needs: No Hearing needs: No Vision needs: No Meds Allergies Allergy/AdvReac Type Severity Reaction Status Date / Time lactose Allergy Severe Diarrhea Verified 09/07/22 07:14 diclofenac [Voltaren] Allergy Intermediate Hives/itchi Verified 09/07/22 07:14 ness almond milk AdvReac Intermediate Hives, Uncoded 09/07/22 07:14 diarrhea, headache Home Medications Medication Instructions Recorded Confirmed Last Taken Type calcium citrate 315 mg-vitamin D3 1 tab PO BID 12/19/21 08/23/22 Unknown History 5 mcg (200 unit) tablet (Calcium Citrate + D) [id number] 45 mg-folic 1 cap PO BID 12/19/21 08/23/22 Unknown His tory acid 800 mcg-vit K 120 mcg capsule (Bariatric Multivitamins) fluocinonide 0.05 % topical 1 appl topical BID 05/01/22 06/23/22 Unknown History ointment Exam Airway Mallampati Class: III TM Dist: >3cm Neck ROM: Full Loose/Missing/Broken Teeth: Yes (Fillings , crowns) Heart: S1,S2 Lungs: b/l breath sounds Assessment and Plan Assessment Anesthesia Assessment: Anesthesia Plan Discussed Final Anesthetic Review NPO: Yes ASA Class: II Final Preanesthetic Review: Meds/Allgs Chart Reviewed, Consent Obtained/Reviewed and Anes Risks/Benef Reviewed Patient Risk: Intermediate Procedure Risk: Intermediate Anesthetic Plan Anesthetic Plan: GA Disposition: Standard PACU
[2022-09-07] VITALS (17 sets, daily range): BP systolic 112–141; BP diastolic 70–95; PULSE 64–95; RESP 10–19; TEMP 36.1–37; O2SAT 97–100
[2022-09-07 06:30] LABS: UPreg QC Valid YES; Urine Pregnancy NEGATIVE (NEGATIVE)
[2022-09-07] MEDS: Lactated Ringers 1,000 ML 100 ML IVCONT (06:35)
[2022-09-07] MEDS: Lactated Ringers 1,000 ML 80 ML IVCONT (06:36)
--- NOTE | 2022-09-07 08:01 | P.BOP_ITS ---
Brief Operative Note Date of Service: 09/07/22 Pre-op diagnosis: Panniculitis and ventral hernia Post-op diagnosis: same Procedure: PROCEDURE: Panniculectomy with umbilical transposition and bilateral subcutaneous fat flaps and incisional ventral hernia repair INDICATION: This a 31 year old female who underwent laparoscopic sleeve gastrectomy on 05/26/2021. She had an excellent result achieving a BMI of 24.3 kg/m2 with a total weight loss of 107.9lbs, or 42.5% of her TBWL. As a result, she has developed panniculitis which has not resolved despite continuous use of clotrimazole ointment as well as skin irritation. On exam she has extreme skin laxity due to massive weight loss, with the abdominal pannus completely hanging 4cm below the pubis. Panniculectomy was recommended. We discussed the two options for the panniculectomy of using a combined vertical and horizontal incisions or just a horizontal (bikini) incision. It was my recommendation to do only horizontal incision based on her body habitus and skin laxity. The patient agreed with this. Risks and complications were discussed with the patient including bleeding, infection, umbilical loss, flap necrosis, asymmetry, dehiscence, seroma, VTE. The patient understood the risks and was in agreement to proceed with surgery. PROCEDURE: The incisions were appropriately marked at the preop area with the patient standing and laying down. After induction of general anesthesia a Gay catheter and pneumatic compression devices were placed. The patient was prepped and draped in the usual sterile manner and the incisions were marked again and confirmed. The skin was infiltrated with lidocaine and epinephrine. The #10 blade scalpel was used for the large incisions and the #15 blade scalpel for the umbilicus. Cautery was used to divide the subcutaneous tissues until the fascia was identified. Then I used the cautery to separate the pannus from the fascia. The inferior incision was made initially and I mobilized the flap for a several centimeters cephalad to the umbilicus. The umbilicus was incised circumferentially and detached from the surrounding tissues all the way to the fascia while its stalk was preserved. With the patient in reflex position I confirmed that the skin flaps were appropriate and would allow for the tissues to come together with reasonable tension. At that point a horizontal incision was made 4 cm above the umbilicus. #10 blade was used for the skin, cautery for the dermis and the remaining tissues. A subcutaneous fat flap was raised from the upper skin flap in order to fill the space under the skin and support the closure of the two flaps. In addition the inferior flap was mobilized caudally for a few centimeters to create a space for the subcutaneous fat flap as well as relieve tension from the closure. A circumferential incision was made at the area where the umbilicus would be re-implanted. The umbilicus was appropriately oriented and was delivered through the defect and was secured in place with a Constantia. There was a significant fascial defect superior and inferior to the umbilicus. The defect was closed with 15 interrupted 0 Ethibond sutures. No bleeding was noted anywhere. One AMISHA drain was placed from the left corner of the horizontal incision across the wound and was secured in place with a silk suture. A total of 14ml of Zynrelef was applied on top of the fascia and under the subcutaneous fat flaps. The subcutaneous fat flap was secured under the inferior flap with several interrupted 3.0 Monocryl sutures. The two flaps were brought together and were attached at the midline of the horizontal incision with a #3.0 Monocryl suture. At that point the umbilicus was properly oriented and was re-approximated to the skin with 8 interrupted 3.0 Monocryl sutures. In a similar fashion the skin flaps were re-approximated with multiple 3.0 Monocryl sutures. The skin was closed in all incisions and umbilicus with 4.0 Monocryl sutures. Steri-strips, xeroform gauzes and gauzes were used to cover the incisions. An abdominal binder was also placed. The was awaken and was transferred to the recover room in a stable condition. I was present and performed the entire procedure. Gilbert Tran was the staffing assistant. Tc Mcmahan MD, PhD, FACS Surgeon: Winston Mcmahan MD Surgeon: Winston Mcmahan MD Anesthesia: GETA, local and other (Zynrelef 14ml) Was an Sounding Device Operator used for this Procedure?: No Sounding Device Operator: Sandra Tran Estimated blood loss (mL): 10 IV fluids (mL): 2,000 Pathology: other (Abdominal pannus) Condition: stable Disposition: PACU
--- NOTE | 2022-09-07 11:54 | W.MHC.F2F ---
Service Date Service Date: 09/07/22 Encounter Date of encounter: 09/07/22 Reasons for Services Signs and symptoms assessed: s/p panniculectomy and abdominoplasty on 09/07/22 Reason for jail: wound care (for 2 weeks, daily dressing changes) and other (drain care) Homebound: Leaving the home is medically contraindicated at this time without the asist of a device and/or another person due th the listed conditions above and below. Reason homebound: other (unable to sit upright) Certification: Based on the above findings, I certify that this patient is confined to the home and needs intermittent jail care, physical therapy and/or speech therapy, or continues to need occupational therapy. The patient is under my care, and I have initiated the establishment of the plan of care. The patient will be followed by a physician who will periodically review the plan of care.
--- NOTE | 2022-09-07 17:36 | PC.NURSE ---
patient out of chair to dress at bedside able to take a few steps steady gait from recliner to wheelchair and transfer to car safely.
== END 2022-09-07 17:30 | disposition home or self-care (01) ==
PROVIDERS: Nurse Practitioner; Physician Assistant Surgical; PCP Internal Medicine; Visit Provider Surgery
PROC: 0JB80ZZ Excision of Abdomen Subcutaneous Tissue and Fascia, Open Approach (ICD-10-PCS; CPT 15830; principal; 2022-09-07 07:30)
DX: M79.3 Panniculitis, unspecified (principal); M62.08 Separation of muscle (nontraumatic), other site; K91.2 Postsurgical malabsorption, not elsewhere classified; E65 Localized adiposity; Z90.3 Acquired absence of stomach [part of]; K43.2 Incisional hernia without obstruction or gangrene; Z98.84 Bariatric surgery status; F32.A Depression, unspecified; Z79.899 Other long term (current) drug therapy; Z88.8 Allergy status to other drugs, medicaments and biological substances; Z90.49 Acquired absence of other specified parts of digestive tract; Z20.822 Contact with and (suspected) exposure to COVID-19
CPT/HCPCS: 15830; 15847; 81025; 86850; 86900; 86901; 87635; 88304; C9088; J0131; J0690; J1100; J1170; J2250; J2405; J2550; J3010; J3370

== ENCOUNTER → 2022-11-22 16:00 | Outpatient (BNVA) | payer OTHER, SELFPAY | PROVIDERS: PCP Internal Medicine; Visit Provider Physician Assistant | DX: Z13.89 Encounter for screening for other disorder (principal) ==

== ENCOUNTER 2022-11-29 12:44 | Outpatient (REF) | payer OTHER, SELFPAY ==
[2022-11-29 13:11] LABS: MANUAL DIFF FLAG NO
[2022-11-29 14:27] LABS: Basophils Absolute Auto 0.1 X10*3/uL (0.0-0.2); Basophils Percent Auto 1.1 % (0-2); Eosinophils Percent Auto 0.5 % (0-4); Hematocrit 39.1 % (37.0-47.0); Hemoglobin 12.6 g/dl (12.0-16.0); Lymphocytes Absolute Auto 2.2 X10*3/uL (1.2-4.9); Lymphocytes Percent Auto 38.7 % (20-40); Mean Corpuscular HGB Conc 32.2 g/dl (31.0-35.0); Mean Corpuscular Hemoglobin 27.5 pg (27.0-33.0); Mean Corpuscular Volume 85.4 fL (80.0-98.0); Mean Platelet Volume 10.5 fL (9.4-12.3); Monocytes Absolute Auto 0.4 X10*3/uL (0.1-1.2); Monocytes Percent Auto 7.7 % (2-11); Neutrophils Absolute Auto 2.9 x10*3/uL (2.0-8.3); Platelet Count 245 X10*3/uL (160-400); Red Blood Count 4.58 X10*6/uL (4.20-5.50); Red Cell Distribution Width 12.4 % (11.0-16.0); White Blood Count 5.6 X10*3/uL (4.8-10.8)
[2022-11-29 14:43] LABS: Estimated Average Glucose 85 mg/dL; Hemoglobin A1c % 4.6 %
[2022-11-29 15:05] LABS: Alanine Aminotransferase 13 U/L (0-31); Albumin Level 4.3 g/dL (3.5-5.0); Alkaline Phosphatase 53 U/L (39-117); Anion Gap 11 (12-20); Aspartate Amino Transferase 19 U/L (5-31); Bilirubin Total 0.6 mg/dL (0.0-1.0); Blood Urea Nitrogen 16 mg/dL (9-16); C Reactive Protein < 0.10 mg/dL (< or = 0.50); Calcium 9.4 mg/dL (8.4-10.2); Carbon Dioxide 26 mmol/L (22-29); Chloride 106 mmol/L (96-108); Cholesterol 167 mg/dL; Estimated Glomerular Filt Rate > 60; Glucose Random 77 mg/dL (60-115); HDL Cholesterol 58 mg/dL; Iron 141 mcg/dL (30-160); LDL Cholesterol Calculated 101 mg/dl; Percent Iron Saturation 42 % (15-50); Potassium 3.9 mmol/L (3.3-5.1); Sodium 139 mmol/L (135-145); Total Iron Binding Capacity 339 mcg/dL (228-428); Total Protein 7.3 g/dL (6.5-8.0); Triglycerides 43 mg/dL; Unsaturated Iron Binding 198 ug/dL
[2022-11-29 15:16] LABS: Ferritin 19 ng/mL (10-122); Insulin 8 uU/mL (2-29); Vitamin D 25-OH Total 27.5 ng/mL (>30)
[2022-11-29 15:35] LABS: Folate 12.9 ng/mL (> or = 4.0); Vitamin B12 774 pg/mL (200-900)
[2022-11-29 15:47] LABS: Free T4 (Free Thyroxine) 1.05 ng/dL (0.71-1.85)
[2022-11-30 13:44] LABS: Calcium (PTHI) 9.5 mg/dL (8.6-10.2); PTHI 89 pg/mL (16-77)
[2022-12-04 07:23] LABS: Vitamin B1 13 nmol/L (8-30)
[2022-12-04 19:08] LABS: Vitamin A 36 mcg/dL (38-98)
[2022-12-04 22:33] LABS: Zinc 65 mcg/dL (60-130)
== END 2022-11-29 12:45 | disposition home or self-care (01) ==
LOC: HO.LAB 12:44
PROVIDERS: PCP Internal Medicine; Visit Provider Physician Assistant
DX: E66.3 Overweight (principal); Z98.84 Bariatric surgery status
CPT/HCPCS: 36415; 80053; 80061; 82306; 82607; 82728; 82746; 83036; 83525; 83540; 83970; 84425; 84439; 84443; 84590; 84630; 85025; 86140

== ENCOUNTER 2022-12-13 14:20 | Outpatient (REF) | payer OTHER, SELFPAY ==
[2022-12-13 17:13] LABS: Alanine Aminotransferase 13 U/L (0-31); Alkaline Phosphatase 53 U/L (39-117); Anion Gap 12 (12-20); Aspartate Amino Transferase 24 U/L (5-31); Bilirubin Total 0.4 mg/dL (0.0-1.0); Blood Urea Nitrogen 11 mg/dL (9-16); Carbon Dioxide 24 mmol/L (22-29); Chloride 107 mmol/L (96-108); Estimated Glomerular Filt Rate > 60; Glucose Random 68 mg/dL (60-115); Phosphorus 3.2 mg/dL (2.7-4.5); Potassium 4.1 mmol/L (3.3-5.1); Sodium 139 mmol/L (135-145); Total Protein 6.8 g/dL (6.5-8.0)
[2022-12-13 17:28] LABS: Free T4 (Free Thyroxine) 0.96 ng/dL (0.71-1.85); Thyroid Stimulating Hormone 0.32 uIU/mL (0.32-4.0); Vitamin D 25-OH Total 24.8 ng/mL (>30)
[2022-12-14 15:39] LABS: Calcium (PTHI) 9.2 mg/dL (8.6-10.2); PTHI 96 pg/mL (16-77)
[2022-12-15 02:33] LABS: Triiodothyronine T3 Total 87 ng/dL (76-181)
[2022-12-18 08:36] LABS: Thyroglobulin Antibody <1 IU/mL (<=1); Thyroglobulin Level 7.6 ng/mL
[2022-12-18 12:14] LABS: Thyroid Peroxidase Antibodies 1 IU/mL (<9)
[2022-12-18 16:58] LABS: Thyrotropin Receptor Antibody <1.00 IU/L (<=2.00)
[2022-12-19 15:22] LABS: Thyroid Stimulating Immunoglob <89 % baseline (<140)
== END 2022-12-13 14:21 | disposition home or self-care (01) ==
LOC: HO.LAB 14:20
PROVIDERS: PCP Internal Medicine; Visit Provider Internal Medicine
DX: E05.90 Thyrotoxicosis, unspecified without thyrotoxic crisis or storm (principal); E34.9 Endocrine disorder, unspecified; E55.9 Vitamin D deficiency, unspecified; E21.3 Hyperparathyroidism, unspecified
CPT/HCPCS: 36415; 80053; 82306; 83520; 83970; 84100; 84432; 84439; 84443; 84445; 84480; 86376; 86800; 99212

== ENCOUNTER 2022-12-15 12:25 | Outpatient (REF) | payer OTHER, SELFPAY ==
[2022-12-15 15:26] LABS: Creatinine, mg/dL 116.84
[2022-12-15 15:44] LABS: Creatinine, 24Hr Urine 1.2 G/Day (1.0-2.0); Total Volume 24 Hour Urine 1050 mL
[2022-12-18 19:38] LABS: Calcium, 24 Hr Urine 75 mg/24 h; Calcium/Creatinine Ratio 52 mg/g creat (30-275); Creatinine 24Hr Urine 1.44 g/24 h (0.50-2.15)
== END 2022-12-15 12:26 | disposition home or self-care (01) ==
LOC: HO.HMGCLNP 12:25
PROVIDERS: Visit Provider Internal Medicine
DX: E34.9 Endocrine disorder, unspecified (principal)
CPT/HCPCS: 82340; 82570

== ENCOUNTER → 2023-02-19 13:33 | Outpatient (BNVA) | payer OTHER, SELFPAY | PROVIDERS: PCP Internal Medicine; Visit Provider Physician Assistant | DX: E66.3 Overweight (principal); Z98.84 Bariatric surgery status; Z98.890 Other specified postprocedural states; Z68.25 Body mass index [BMI] 25.0-25.9, adult | CPT/HCPCS: 99212 ==

== ENCOUNTER → 2023-03-14 09:33 | Outpatient (BNVA) | payer OTHER, SELFPAY | PROVIDERS: PCP Internal Medicine; Visit Provider Internal Medicine | DX: E34.9 Endocrine disorder, unspecified (principal); E55.9 Vitamin D deficiency, unspecified | CPT/HCPCS: 99212 ==

== ENCOUNTER 2023-03-14 10:23 | Outpatient (REF) | payer OTHER, SELFPAY ==
[2023-03-14 12:00] LABS: Alanine Aminotransferase 12 U/L (0-31); Albumin Level 4.2 g/dL (3.5-5.0); Alkaline Phosphatase 51 U/L (39-117); Anion Gap 11 (12-20); Aspartate Amino Transferase 25 U/L (5-31); Bilirubin Total 0.6 mg/dL (0.0-1.0); Blood Urea Nitrogen 9 mg/dL (9-16); Calcium 9.2 mg/dL (8.4-10.2); Carbon Dioxide 27 mmol/L (22-29); Chloride 106 mmol/L (96-108); Cholesterol 170 mg/dL; Estimated Glomerular Filt Rate > 60; Glucose Fasting 82 mg/dL (60-99); HDL Cholesterol 55 mg/dL; LDL Cholesterol Calculated 107 mg/dl; Potassium 4.1 mmol/L (3.3-5.1); Sodium 140 mmol/L (135-145); Total Protein 7.2 g/dL (6.5-8.0); Triglycerides 43 mg/dL
== END 2023-03-14 10:24 | disposition home or self-care (01) ==
LOC: HO.HMGCLDS 10:23
PROVIDERS: PCP Internal Medicine; Visit Provider Internal Medicine
DX: Z00.01 Encounter for general adult medical examination with abnormal findings (principal); E66.9 Obesity, unspecified; E21.3 Hyperparathyroidism, unspecified; R59.1 Generalized enlarged lymph nodes
CPT/HCPCS: 36415; 80053; 80061

== ENCOUNTER 2023-04-06 09:46 | Outpatient (REF) | payer OTHER, SELFPAY ==
--- NOTE | ~2023-04-06 | CT_ITS ---
EXAMINATION: CT SOFT TISSUE NECK WITH CONTRAST CLINICAL INFORMATION: Generalized enlarged lymph nodes COMPARISON: None. TECHNIQUE: Following the administration of 60 mL of Omnipaque 350 intravenous contrast, helical imaging was performed in the axial plane with generation of coronal and sagittal reformatted images. This CT examination was performed using dose optimization techniques as appropriate, variously including the following: *Automated exposure control. *Adjustment of mA and/or kV according to patient size (this includes techniques or standardized protocols for targeted exams where dose is matched to indication/reason for exam; i.e. extremities or head). *Use of iterative reconstruction technique. DLP: 279.71 mGy-cm FINDINGS: A metallic skin marker is noted along the left submandibular region. No adjacent soft tissue abnormality. Nasopharynx/skull base: The fat planes of the skull base and soft tissues of the nasopharynx are unremarkable. The paranasal sinuses and mastoid air cells are well aerated. The temporomandibular joints are normal. Suprahyoid neck: The oropharynx, oral cavity, and bilateral salivary gland tissues are unremarkable. Infrahyoid neck: The hypopharynx and larynx are unremarkable. No aerodigestive tract mass. Thyroid: The thyroid gland is normal. Lymph nodes: There is no cervical chain lymphadenopathy. There is a mildly prominent but nonpathologically enlarged level 2 cervical lymph nodes. Lung apices: The partially visualized lung apices are clear. Vascular structures: No hemodynamically significant stenosis, dissection, or occlusion. Osseous structures: The osseous structures are intact without suspicious focal lesion. Other: The imaged portions of the brain parenchyma are unremarkable. CT/CT soft tissue neck w IV con IMPRESSION: Normal CT of the neck.
[2023-04-06] MEDS: iohexoL 350 MG/ML 75 ML INFUS..BTL 60 ML IV (10:29)
== END 2023-04-06 09:47 | disposition home or self-care (01) ==
LOC: HO.CT 09:46
PROVIDERS: PCP Internal Medicine; Visit Provider Internal Medicine
DX: R59.1 Generalized enlarged lymph nodes (principal)
CPT/HCPCS: 70491; Q9967

== ENCOUNTER 2023-04-23 14:23 | Emergency (ER) | payer OTHER, SELFPAY ==
--- NOTE | ~2023-04-23 | CT_ITS ---
EXAMINATION: CT HEAD WITHOUT CONTRAST CLINICAL INFORMATION: Headaches and syncope. COMPARISON: None. TECHNIQUE: Contiguous axial imaging was performed from the skullbase to vertex without intravenous administration of contrast. This CT examination was performed using dose optimization techniques as appropriate, variously including the following: *Automated exposure control *Adjustment of mA and/or kV according to patient size (this includes techniques or standardized protocols for targeted exams where dose is matched to indication/reason for exam; i.e. extremities or head) *Use of iterative reconstruction technique DLP: 570 mGy-cm. FINDINGS: There is no evidence of acute intracranial hemorrhage or territorial infarction. No abnormal mass effect or midline shift is seen. Laurent to white matter differentiation is well preserved. No extra-axial fluid collections are identified. The ventricles are normal in size. There is no abnormal attenuation within the brain parenchyma. The osseous structures and soft tissues are normal. The mastoid air cells and visualized portions of the paranasal sinuses are well aerated. CT/CT head/brain wo IV con IMPRESSION: No acute intracranial pathology.
[2023-04-23 16:13] VITALS: BP 114/82; BP 142/110; PULSE 72; PULSE 75; RESP 20; TEMP 36.8; O2SAT 100; O2SAT 96; BMI 4274.2
--- NOTE | 2023-04-23 16:26 | ED_ITS ---
HPI - General Adult General Chief complaint: General Medical Stated complaint: WEAK,DIZZY,NAUSEA,LOW BS 73 PER EMS Related Data Home Medications Medication Instructions Recorded Confirmed ascorbate calcium (vitamin C) 500 1 g PO Q6H 03/13/23 03/14/23 mg tablet esomeprazole magnesium 20 mg 20 mg PO DAILY 03/13/23 03/14/23 capsule,delayed release spironolactone 50 mg tablet 50 mg PO BID 04/23/23 Previous Rx's Medication Instructions Recorded calcium citrate 315 mg 1 tab PO BID 30 days #60 tabs 03/14/23 calcium-vitamin D3 6.25 mcg (250 unit) tablet cholecalciferol (vitamin D3) 25 25 mcg PO DAILY 30 days #30 caps 03/14/23 mcg (1,000 unit) capsule Allergies Allergy/AdvReac Type Severity Reaction Status Date / Time lactose Allergy Severe Diarrhea Verified 04/23/23 12:44 diclofenac [Voltaren] Allergy Intermediate Hives/itchi Verified 04/23/23 12:44 ness caffeine Allergy Mild Headache Verified 04/23/23 12:44 almond milk AdvReac Intermediate Hives, Uncoded 04/23/23 12:44 diarrhea, headache PMFSH Past Medical History Medical History Abrasion Confusion, postoperative Depression Difficulty concentrating Difficulty swallowing pills Dizziness, nonspecific Excessive thirst Gynecomastia, female Headache syndrome Knee pain Lack of adequate sleep Large breasts Low back strain Obesity Post depression Preoperative testing Tired Vitamin A deficiency Vitamin B1 deficiency Vitamin D deficiency Surgical History History of cholecystectomy History of esophagogastroduodenoscopy (EGD) History of eye surgery S/P laparoscopic sleeve gastrectomy (~05/2021) S/P panniculectomy Family History Family History Father No problems noted. Mother Fibromyalgia Asthma Anxiety High cholesterol Other Mental health disorder Social History Social History Housing: Apartment Are you a primary human services care specialist to a significant other at home: Yes (children ages 2 and 6) Do you presently have visiting nurse or other home services: No Alcohol intake: never Patient Tobacco Use Status: Never used Tobacco Advance Directives Date on File: 05/30/21 service: No Current occupational status: employed Sexual orientation: Straight/Heterosexual Gender identity: Female Cognitive needs: No Hearing needs: No Vision needs: No Physical Exam ED Vital Signs: Vital Signs - 24 hr 04/23/23 16:13 Temperature 98.3 F Pulse Rate 75 Respiratory Rate 20 Blood Pressure 114/82 Pulse Oximetry 100 Oxygen Delivery Method Room Air BMI result Body Mass Index 4274.2 Course Course Course Narrative: Patient brought by EMS for syncopal episode, for the past 2 weeks she has had a headache off and on and several episodes of dizziness and 2 episodes of fainting, she did have preceding dizziness EMS checked her sugar which was 70 but they also gave her an amp of glucose She denies chest pain abdominal pain or shortness of breath, at this point there is no obvious neurologic deficit Labs EKG and head CT are ordered This is rapid medical exam in triage, pending full evaluation will be done by ER provider in the department Discharge Plan Discharge Prescriptions: No Action ascorbate calcium (vitamin C) 500 mg tablet 1 g PO Q6H esomeprazole magnesium 20 mg capsule,delayed release(DR/EC) 20 mg PO DAILY spironolactone 50 mg tablet 50 mg PO BID cholecalciferol (vitamin D3) 25 mcg (1,000 unit) capsule 25 mcg PO DAILY 30 Days Qty: 30 11RF calcium citrate-vitamin D3 315 mg-6.25 mcg (250 unit) tablet 1 tab PO BID 30 Days Qty: 60 11RF
[2023-04-23 17:32] VITALS: BP 118/78; PULSE 89; RESP 18; TEMP 37.1; O2SAT 98
[2023-04-23 17:32] LABS: MANUAL DIFF FLAG NO
--- NOTE | 2023-04-23 17:32 | MHC.EDTECH ---
PT BLOOD DRAWN AND SENT TO LAB ,VITALS SIGN RE CHECK PT SAID SHE IS UNABLE TO GIVE URINE SAMPLE BECAUSE SHE IS DEHYDRATED .
[2023-04-23 17:33] LABS: Basophils Absolute Auto 0.1 X10*3/uL (0.0-0.2); Basophils Percent Auto 0.7 % (0-2); Eosinophils Percent Auto 0.5 % (0-4); Hematocrit 40.8 % (37.0-47.0); Hemoglobin 13.3 g/dl (12.0-16.0); Imm Gran Abs Auto 0.02 X10*3/uL (0.00-0.03); Imm Gran Pct Auto 0.3 % (0.0-0.4); Lymphocytes Absolute Auto 2.5 X10*3/uL (1.2-4.9); Lymphocytes Percent Auto 33.9 % (20-40); Mean Corpuscular HGB Conc 32.6 g/dl (31.0-35.0); Mean Corpuscular Hemoglobin 28.2 pg (27.0-33.0); Mean Corpuscular Volume 86.6 fL (80.0-98.0); Mean Platelet Volume 10.1 fL (9.4-12.3); Monocytes Absolute Auto 0.6 X10*3/uL (0.1-1.2); Monocytes Percent Auto 8.5 % (2-11); Neutrophils Absolute Auto 4.1 x10*3/uL (2.0-8.3); Neutrophils Percent Auto 56.1 % (45-73); Platelet Count 229 X10*3/uL (160-400); Red Blood Count 4.71 X10*6/uL (4.20-5.50); Red Cell Distribution Width 12.2 % (11.0-16.0); White Blood Count 7.3 X10*3/uL (4.8-10.8)
[2023-04-23 17:50] LABS: Alanine Aminotransferase 15 U/L (0-31); Albumin Level 4.5 g/dL (3.5-5.0); Alkaline Phosphatase 57 U/L (39-117); Anion Gap 14 (12-20); Aspartate Amino Transferase 23 U/L (5-31); Bilirubin Direct 0.2 mg/dL (0.0-0.5); Bilirubin Total 0.7 mg/dL (0.0-1.0); Blood Urea Nitrogen 13 mg/dL (9-16); Calcium 9.3 mg/dL (8.4-10.2); Carbon Dioxide 23 mmol/L (22-29); Chloride 106 mmol/L (96-108); Creatinine Clr Calc Pharmacy -32.7; Estimated Glomerular Filt Rate > 60; Glucose Random 80 mg/dL (60-115); Potassium 3.9 mmol/L (3.3-5.1); Sodium 139 mmol/L (135-145)
[2023-04-23 23:02] VITALS: BP 135/77; PULSE 87; RESP 16; TEMP 36.7; O2SAT 98
--- NOTE | 2023-04-23 23:07 | MHC.EDTECH ---
PT URINE SAMPLE COLLECTED AND SENT TO LAB ,VITALS SIGN RE CHECK .
[2023-04-23 23:19] LABS: Appearance Urine Clear; Color Urine Dark Yellow; Glucose Urine UA Negative (Negative); Leukocyte Esterase Urine Small (1+) (Negative); Nitrite Urine Negative (Negative); PH 5.5 (5.0-9.0); Specific Gravity - Urine 1.025 (1.005-1.025); UMIC TRIGGER UACC YES; Urine Blood Negative (Negative); Urine Ketones Trace mg/dL (Negative); Urine Protein Negative (Neg-Trace)
[2023-04-23 23:24] LABS: UPreg QC Valid YES; Urine Pregnancy NEGATIVE (NEGATIVE)
--- NOTE | 2023-04-23 23:28 | ECG_ITS ---
Test Reason : WEAKNESS Blood Pressure : / mmHG Vent. Rate : 087 BPM Atrial Rate : 087 BPM P-R Int : 140 ms QRS Dur : 080 ms QT Int : 376 ms P-R-T Axes : 056 036 031 degrees QTc Int : 452 ms Normal sinus rhythm with sinus arrhythmia Normal ECG When compared with ECG of 06-MAR-2022 23:25, Premature ventricular complexes are no longer Present Referred By: Michelle Flanagan Electronically Signed By:Jamel Membreno
--- NOTE | 2023-04-23 23:33 | ED.GENADULT ---
HPI - General Adult General Chief complaint: General Medical Stated complaint: WEAK,DIZZY,NAUSEA,LOW BS 73 PER EMS Time Seen by Provider: 04/23/23 23:12 History of Present Illness HPI narrative: Patient is a 32-year-old female presents today with having dizziness. Not feeling well. Patient claims that the symptom has been ongoing for few weeks. She denies any changes in diet. No nausea no vomiting. Positive headache in the back of her head. Positive lightheadedness. There is no fever no chills. No diaphoresis. Patient from home. She is status post gastric sleeve surgery history of depression history of hyperthyroid history of acne. Currently on vitamin-C on calcium citrate on Nexium. Patient not taking the spironolactone for the last 3 weeks. Took some Tylenol with moderate relief Related Data Home Medications Medication Instructions Recorded Confirmed ascorbate calcium (vitamin C) 500 1 g PO Q6H 03/13/23 03/14/23 mg tablet esomeprazole magnesium 20 mg 20 mg PO DAILY 03/13/23 03/14/23 capsule,delayed release spironolactone 50 mg tablet 50 mg PO BID 04/23/23 Previous Rx's Medication Instructions Recorded calcium citrate 315 mg 1 tab PO BID 30 days #60 tabs 03/14/23 calcium-vitamin D3 6.25 mcg (250 unit) tablet cholecalciferol (vitamin D3) 25 25 mcg PO DAILY 30 days #30 caps 03/14/23 mcg (1,000 unit) capsule Allergies Allergy/AdvReac Type Severity Reaction Status Date / Time lactose Allergy Severe Diarrhea Verified 04/23/23 12:44 diclofenac [Voltaren] Allergy Intermediate Hives/itchi Verified 04/23/23 12:44 ness caffeine Allergy Mild Headache Verified 04/23/23 12:44 almond milk AdvReac Intermediate Hives, Uncoded 04/23/23 12:44 diarrhea, headache Review of Systems Review of Systems: Positive lightheadedness positive pain to the back of the head Yes all other systems are reviewed and are negative PMFSH Past Medical History Attestation statement: The following information was validated with the patient. Medical History Abrasion Confusion, postoperative Depression Difficulty concentrating Difficulty swallowing pills Dizziness, nonspecific Excessive thirst Gynecomastia, female Headache syndrome Knee pain Lack of adequate sleep Large breasts Low back strain Obesity Post depression Preoperative testing Tired Vitamin A deficiency Vitamin B1 deficiency Vitamin D deficiency Surgical History History of cholecystectomy History of esophagogastroduodenoscopy (EGD) History of eye surgery S/P laparoscopic sleeve gastrectomy (~05/2021) S/P panniculectomy Family History Family History Father No problems noted. Mother Fibromyalgia Asthma Anxiety High cholesterol Other Mental health disorder Social History Social History Housing: Apartment Are you a primary career coach to a significant other at home: Yes (children ages 2 and 6) Do you presently have visiting nurse or other home services: No Alcohol intake: never Patient Tobacco Use Status: Never used Tobacco Smoked in Last 30 Days: No Use of substances other than those prescribed or required for medical reasons: No Advance Directives: Yes Advance Directives on File: Yes Advance Directives Date on File: 05/30/21 Patient : No service: No Current occupational status: employed Sexual orientation: Straight/Heterosexual Gender identity: Female Cognitive needs: No Hearing needs: No Vision needs: No Physical Exam ED Vital Signs: Vital Signs - 24 hr 04/23/23 16:13 04/23/23 17:32 04/23/23 23:02 Temperature 98.3 F 98.7 F 98.0 F Pulse Rate 75 89 87 Respiratory Rate 20 18 16 Blood Pressure 114/82 118/78 135/77 Pulse Oximetry 100 98 98 Oxygen Delivery Method Room Air Room Air Room Air BMI result Body Mass Index 4274.2 Appearance: Alert. Oriented X3. No acute distress. Eyes: Pupils equal, round and reactive to light. ENT: Pharynx normal. Neck: Normal inspection. Neck supple. No lymph nodes noted. No crepitus CVS: Normal heart rate and rhythm. Pulses normal. Normal S1 and S2 Respiratory: No respiratory distress. Breath sounds normal. No Wheezing. No rales Abdomen: Soft and nontender. No rigidity. No distention. good BS x4 Skin: Skin warm and dry. Normal skin color. Normal skin turgor. Extremities: No lower extremity edema. Neurovascular intact to all extremities. No Lacerations. No Rash Neuro: Oriented X 3. No motor deficit. No sensory deficit. Moving all extermities. No slurred speech. Cranial nerves 2-12 intact. Ambulating with normal gait. Medical Decision Making Medical Decision Making [facility] Narrative: Patient well appearing no acute distress. Patient's sugar was normal there is no evidence for hypoglycemia. My interpretation of patient's EKG showed a sinus rhythm heart rate is 90 IN QRS QT within normal limits there is no acute ST segment elevation. Patient's hemoglobin is normal there is no evidence for anemia. Patient's electrolytes were unremarkable. No evidence for hypernatremia no evidence for hyperkalemia. Kidney function is normal. Her test was negative. CT scan of the head was grossly negative for any acute evidence of bleeding. No evidence of mass. Patient's urine showed no signs of infection Differential Diagnosis Differential Diagnoses: The differential diagnosis associated with the presentation includes related urinary tract infection, arrhythmia, intracranial bleed/mass Lab Data [facility] Lab Attestation statement: I reviewed the patient's lab results. 04/23/23 17:27 04/23/23 17:27 Labs: Lab Results 04/23/23 04/23/23 04/23/23 Range/Units 17:27 17:27 23:06 WBC 7.3 (4.8-10.8) X10*3/uL RBC 4.71 (4.20-5.50) X10*6/uL Hgb 13.3 (12.0-16.0) g/dl Hct 40.8 (37.0-47.0) % MCV 86.6 (80.0-98.0) fL MCH 28.2 (27.0-33.0) pg MCHC 32.6 (31.0-35.0) g/dl RDW 12.2 (11.0-16.0) % Plt Count 229 (160-400) X10*3/uL MPV 10.1 (9.4-12.3) fL Immature Gran % (Auto) 0.3 (0.0-0.4) % Neut % (Auto) 56.1 (45-73) % Lymph % (Auto) 33.9 (20-40) % [place] % (Auto) 8.5 (2-11) % Eos % (Auto) 0.5 (0-4) % Baso % (Auto) 0.7 (0-2) % Lymph # (Auto) 2.5 (1.2-4.9) X10*3/uL [place] # (Auto) 0.6 (0.1-1.2) X10*3/uL Eos # (Auto) 0.0 (0.0-0.4) X10*3/uL Baso # (Auto) 0.1 (0.0-0.2) X10*3/uL Abs Immat Gran (auto) 0.02 (0.00-0.03) X10*3/uL Absolute Neuts (auto) 4.1 (2.0-8.3) x10*3/uL Absolute Nucleated RBC 0.000 (0.0-0.012) X10*3/uL Nucleated RBC % (auto) 0.0 (0.0-0.2) /100WBC Sodium 139 (135-145) mmol/L Potassium 3.9 (3.3-5.1) mmol/L Chloride 106 (96-108) mmol/L Carbon Dioxide 23 (22-29) mmol/L Anion Gap 14 (12-20) BUN 13 (9-16) mg/dL Creatinine 0.81 (0.5-1.4) mg/dL Estim Creat Clear Calc -32.7 Estimated GFR > 60 Random Glucose 80 (60-115) mg/dL Calcium 9.3 (8.4-10.2) mg/dL Total Bilirubin 0.7 (0.0-1.0) mg/dL Direct Bilirubin 0.2 (0.0-0.5) mg/dL AST 23 (5-31) U/L ALT 15 (0-31) U/L Alkaline Phosphatase 57 (39-117) U/L Total Protein 8.0 (6.5-8.0) g/dL Albumin 4.5 (3.5-5.0) g/dL Urine Color Dark Yellow Urine Appearance Clear Urine pH 5.5 (5.0-9.0) Ur Specific [place] 1.025 (1.005-1.025) Urine Protein Negative (Neg-Trace) mg/dL Urine Glucose (UA) Negative (Negative) mg/dL Urine Ketones Trace (Negative) mg/dL Urine Blood Negative (Negative) Urine Nitrite Negative (Negative) Ur Leukocyte Esterase Small (1+) H (Negative) Urine Test (NEGATIVE) 04/23/23 Range/Units 23:06 WBC (4.8-10.8) X10*3/uL RBC (4.20-5.50) X10*6/uL Hgb (12.0-16.0) g/dl Hct (37.0-47.0) % MCV (80.0-98.0) fL MCH (27.0-33.0) pg MCHC (31.0-35.0) g/dl RDW (11.0-16.0) % Plt Count (160-400) X10*3/uL MPV (9.4-12.3) fL Immature Gran % (Auto) (0.0-0.4) % Neut % (Auto) (45-73) % Lymph % (Auto) (20-40) % [place] % (Auto) (2-11) % Eos % (Auto) (0-4) % Baso % (Auto) (0-2) % Lymph # (Auto) (1.2-4.9) X10*3/uL [place] # (Auto) (0.1-1.2) X10*3/uL Eos # (Auto) (0.0-0.4) X10*3/uL Baso # (Auto) (0.0-0.2) X10*3/uL Abs Immat Gran (auto) (0.00-0.03) X10*3/uL Absolute Neuts (auto) (2.0-8.3) x10*3/uL Absolute Nucleated RBC (0.0-0.012) X10*3/uL Nucleated RBC % (auto) (0.0-0.2) /100WBC Sodium (135-145) mmol/L Potassium (3.3-5.1) mmol/L Chloride (96-108) mmol/L Carbon Dioxide (22-29) mmol/L Anion Gap (12-20) BUN (9-16) mg/dL Creatinine (0.5-1.4) mg/dL Estim Creat Clear Calc Estimated GFR Random Glucose (60-115) mg/dL Calcium (8.4-10.2) mg/dL Total Bilirubin (0.0-1.0) mg/dL Direct Bilirubin (0.0-0.5) mg/dL AST (5-31) U/L ALT (0-31) U/L Alkaline Phosphatase (39-117) U/L Total Protein (6.5-8.0) g/dL Albumin (3.5-5.0) g/dL Urine Color Urine Appearance Urine pH (5.0-9.0) Ur Specific [place] (1.005-1.025) Urine Protein (Neg-Trace) mg/dL Urine Glucose (UA) (Negative) mg/dL Urine Ketones (Negative) mg/dL Urine Blood (Negative) Urine Nitrite (Negative) Ur Leukocyte Esterase (Negative) Urine Test NEGATIVE (NEGATIVE) Independent Interpretation I performed an independent interpretation of an: EKG Interpretation: My interpretation patient's EKG showed a sinus rhythm heart rate is 90 IN QRS QT within normal limits there is no acute ST segment elevation noted. Chronic Conditions Status post gastric sleeve Discharge Plan Discharge Clinical Impression: Dizziness, Headache Patient Disposition: Home, Self-Care Instructions: Acute Headache (ED), Dizziness (ED) Prescriptions: No Action ascorbate calcium (vitamin C) 500 mg tablet 1 g PO Q6H esomeprazole magnesium 20 mg capsule,delayed release(DR/EC) 20 mg PO DAILY spironolactone 50 mg tablet 50 mg PO BID cholecalciferol (vitamin D3) 25 mcg (1,000 unit) capsule 25 mcg PO DAILY 30 Days Qty: 30 11RF calcium citrate-vitamin D3 315 mg-6.25 mcg (250 unit) tablet 1 tab PO BID 30 Days Qty: 60 11RF Referrals: Gloria Turner MD [Physician] - 04/25/23
[2023-04-24 00:06] LABS: Bacteria Urine 1+ (None Seen); Hyaline Casts Urine 0-2 /LPF (0-2); UACC Culture Trigger YES
[2023-04-24] MEDS: Acetaminophen 325 MG TABLET 650 MG PO (00:07)
== END 2023-04-24 00:14 | disposition home or self-care (01) ==
PROVIDERS: Physician Assistant Medical; Emergency Provider Emergency Medicine Emergency Medical Services
DX: R42 Dizziness and giddiness (principal); R51.9 Headache, unspecified; Z79.899 Other long term (current) drug therapy
CPT/HCPCS: 36415; 70450; 80048; 80076; 81001; 81025; 85025; 87086; 93005; 99284; 99285

== ENCOUNTER 2023-06-05 15:29 | Outpatient (AMB) | payer OTHER, SELFPAY ==
--- NOTE | 2023-06-05 15:33 | MHC.OFFVISWM ---
Intake VS Expanded 06/05/23 15:37 Height 5 ft 5 in Weight 155 lb 3.2 oz BMI 25.8 BP 138/74 Blood Pressure Location Rt brachial Blood Pressure Position Sitting Pulse 69 Pulse Source Pulse Oximeter Temp 97.8 F Temperature Source Temporal Artery Scan Pulse Oximetry 98 Oxygen Delivery Method Room Air Body Fat 60.0 Body Fat Percentage 38.7 Free Fat Mass 95.0 Muscle Mass 90.2 Visceral Mass 7.0 Water Mass 68.4 BMR 1,344 Intake Visit Reasons: VIDEO PO LSG 05/26/21 Allergies lactose Allergy (Severe, Verified 05/26/23 14:10) Diarrhea diclofenac [Voltaren] Allergy (Intermediate, Verified 05/26/23 14:10) Hives/itchiness caffeine Allergy (Mild, Verified 05/26/23 14:10) Headache almond milk Adverse Reaction (Intermediate, Uncoded 05/26/23 14:10) Hives, diarrhea, headache HPI HPI Comments History of Present Illness Details Pt is now 2 years s/p LSG and 9 mos s/p abdominoplasty. She denies n/v/abd pain or nausea. CBC, CMP and lipids were drawn within last 3 months - will order vitamin labs and TSH today. [employer] weight of 253 lbs - TBWL of 97.8 lbs or 38.7%. Meal plan: 10 am - yogurt - 3/4 container 11 am - 1 slice www bread with 1/2 avocado 3 - 4pm - 4 forks and 5 forks broccoli mostly 8:30 pm - same as lunch shake (25 grams) for last 5 days mixed with coconut milk Exerccise - 4d cross obedience trainer for 3 hours!!! hall 800 calories Post op complications: none JONATHAN: never DM: never HTN: never Hyperlipidemia: never GERD: 0 Satisfaction with present condition - satisfied [facility] Medical History Abrasion Confusion, postoperative Depression Difficulty concentrating Difficulty swallowing pills Dizziness, nonspecific Excessive thirst Gynecomastia, female Headache syndrome Knee pain Lack of adequate sleep Large breasts Low back strain Obesity Post depression Preoperative testing Tired Vitamin A deficiency Vitamin B1 deficiency Vitamin D deficiency Surgical History History of cholecystectomy History of esophagogastroduodenoscopy (EGD) History of eye surgery S/P laparoscopic sleeve gastrectomy (~05/2021) S/P panniculectomy Family History Father No problems noted. Mother Fibromyalgia Asthma Anxiety High cholesterol Other Mental health disorder Social History Housing: Apartment Are you a primary critical care educator to a significant other at home: Yes (children ages 2 and 6) Do you presently have visiting nurse or other home services: No Alcohol intake: never Patient Tobacco Use Status: Never used Tobacco e-Cigarette/Vaping Use: Never Used Advance Directives Date on File: 05/30/21 service: No Current occupational status: employed Sexual orientation: Straight/Heterosexual Gender identity: Female Cognitive needs: No Hearing needs: No Vision needs: No Physical Exam Vital Signs: Last Vital Signs Temp 97.8 F 06/05/23 15:37 Pulse 69 06/05/23 15:37 BP 138/74 06/05/23 15:37 Pulse Ox 98 06/05/23 15:37 Oxygen Delivery Method Room Air 06/05/23 15:37 BMI result Body Mass Index 30.3 Assessment & Plan Assessment & Plan (1) S/P laparoscopic sleeve gastrectomy: Onset Date: ~05/2021 Code(s): Z98.84 - Bariatric surgery status Plan: 2 years post op and 9 mos s/p abdominoplasty - lots of weight fluctuations.Wants to speak with provider regarding obsessive thoughts about food and exercise. She is very afraid of gaining weight. Needs 75 grams protien per day - wants mostly liquids 10 am - 1 slice ww bread with 3 TBL cc and 1/2 avocado 1pm - shake - 25 gram shake - unsweetened almond milk or soy milk 4pm - 6 f proten and 6 forks vegetable 8pm - yogurt or same meal as lunch 1 serving fruit per day. Cross obedience trainer 4d - 450 calories - 45 minutes only. Talked about not weighing herself weekly anymore and relying on how she feels. Me Apolinar constantino, [place] 3 months and appt now. I spent 30 minutes in total with patient reviewing/updating records, examining the patient and counseling the patient on weight management as detailed above. Orders: Orders Vitamin B12 and Folate Today E34.9 - Endocrine disorder, unspecified, E55.9 - Vitamin D deficiency, unspecified, Z98.84 - Bariatric surgery status PTHI Today E34.9 - Endocrine disorder, unspecified, E55.9 - Vitamin D deficiency, unspecified, Z98.84 - Bariatric surgery status TSH reflex Free T4 Today E34.9 - Endocrine disorder, unspecified, E55.9 - Vitamin D deficiency, unspecified, Z98.84 - Bariatric surgery status Vitamin A Today E34.9 - Endocrine disorder, unspecified, E55.9 - Vitamin D deficiency, unspecified, Z98.84 - Bariatric surgery status Vitamin B1 Today E34.9 - Endocrine disorder, unspecified, E55.9 - Vitamin D deficiency, unspecified, Z98.84 - Bariatric surgery status Vitamin D 25-OH Total Today E34.9 - Endocrine disorder, unspecified, E55.9 - Vitamin D deficiency, unspecified, Z98.84 - Bariatric surgery status Zinc Today E34.9 - Endocrine disorder, unspecified, E55.9 - Vitamin D deficiency, unspecified, Z98.84 - Bariatric surgery status Coding Level of Care Code Est Pt Level 4 (64575) Diagnoses S/P laparoscopic sleeve gastrectomy Z98.84
[2023-06-05 15:37] VITALS: BP 138/74; PULSE 69; TEMP 36.6; O2SAT 98; BMI 25.8
== END 2023-06-05 16:10 | disposition home or self-care (01) ==
PROVIDERS: PCP Internal Medicine; Visit Provider Physician Assistant
DX: E66.3 Overweight (principal); Z68.25 Body mass index [BMI] 25.0-25.9, adult; Z90.3 Acquired absence of stomach [part of]; Z98.84 Bariatric surgery status
CPT/HCPCS: 99214

== ENCOUNTER 2023-06-05 15:29 | Outpatient (REF) | payer OTHER, SELFPAY ==
[2023-06-05 19:01] LABS: TSH reflex Free T4 0.35 uIU/mL (0.32-4.0)
[2023-06-05 19:17] LABS: Folate 12.8 ng/mL (> or = 4.0); Vitamin B12 790 pg/mL (200-900)
[2023-06-09 05:43] LABS: Calcium (PTHI) 9.5 mg/dL (8.6-10.2); PTHI 285 pg/mL (16-77)
[2023-06-12 06:33] LABS: Zinc 94 mcg/dL (60-130)
[2023-06-12 11:08] LABS: Vitamin B1 8 nmol/L (8-30)
[2023-06-13 16:38] LABS: Vitamin A 42 mcg/dL (38-98)
== END 2023-06-05 15:30 | disposition home or self-care (01) ==
LOC: HO.LAB 15:29
PROVIDERS: PCP Internal Medicine; Visit Provider Physician Assistant
DX: E34.9 Endocrine disorder, unspecified (principal); E55.9 Vitamin D deficiency, unspecified; Z98.84 Bariatric surgery status
CPT/HCPCS: 36415; 82306; 82607; 82746; 83970; 84425; 84443; 84590; 84630; 99212

== ENCOUNTER 2023-06-12 13:30 | Outpatient (AMB) | payer OTHER, SELFPAY ==
--- NOTE | 2023-06-12 14:00 | A.OFFWM_ITS ---
Intake Intake Visit Reasons: VIDEO PO LSG 05/26/21 Allergies lactose Allergy (Severe, Verified 05/26/23 14:10) Diarrhea diclofenac [Voltaren] Allergy (Intermediate, Verified 05/26/23 14:10) Hives/itchiness caffeine Allergy (Mild, Verified 05/26/23 14:10) Headache almond milk Adverse Reaction (Intermediate, Uncoded 05/26/23 14:10) Hives, diarrhea, headache PFSH Medical History Abrasion Confusion, postoperative Depression Difficulty concentrating Difficulty swallowing pills Dizziness, nonspecific Excessive thirst Gynecomastia, female Headache syndrome Knee pain Lack of adequate sleep Large breasts Low back strain Obesity Post depression Preoperative testing Tired Vitamin A deficiency Vitamin B1 deficiency Vitamin D deficiency Surgical History History of cholecystectomy History of esophagogastroduodenoscopy (EGD) History of eye surgery S/P laparoscopic sleeve gastrectomy (~05/2021) S/P panniculectomy Family History Father No problems noted. Mother Fibromyalgia Asthma Anxiety High cholesterol Other Mental health disorder Social History Housing: Apartment Are you a primary healthcare administrator to a significant other at home: Yes (children ages 2 and 6) Do you presently have visiting nurse or other home services: No Alcohol intake: never Patient Tobacco Use Status: Never used Tobacco e-Cigarette/Vaping Use: Never Used Advance Directives Date on File: 05/30/21 service: No Current occupational status: employed Sexual orientation: Straight/Heterosexual Gender identity: Female Cognitive needs: No Hearing needs: No Vision needs: No Behavioral Health Assessment Weight Management Therapy Therapy Notes Details Pt is seeking support two years post weight loss surgery. She is currently in therapy for anxiety and obsessive thoughts. She reported previously having OCD with cleaning and now that has transferred over to diet and exercise. She reported having trauma over how she looked and was treated starting at age 7 when she had a large chest and bottom. She lost friends and also had wrong attention. History and currently has self and body image issues as well as depression and suicidal ideation. She denied ever being admitted to psychiatric facility. Presenting Concerns Referral Source provider/self Reason for referral OCD/anxiety Precipitating Event weight gain, food obsession Living Situation Current Living Situation Own At risk of losing current housing? No Satisfied with current living situation? Yes Comments Pt lives with her , her two children ages 7 and 3 years old. Food/Weight/Diet Expectations of change weight loss and maintenance. Reduction in obsessive thoughts and behaviors. History/Relationship with weight Patient stated that she has always been curvy but thin prior to children. During her first she went from 138lbs to 200lbs and could never get back down. History/Relationship with dieting Pt had surgery two years ago for weight loss and was around 143lbs at her lowest. She recently gained 12 lbs and has been having obsessive thoughts. Social History Family history and relationship Patient was born and raised in [facility]. She has two small children with her who is often not home due to his business. 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 Developmental history and status no issues known. Social support mother Legal Involvement and History Current or historical involvement with the legal system? none known Employment Employment Status Other Wants help to find employment? 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 Financial Situation Describe current financial situation Comfortable Financial assistance? None Service Service? No Mental Health and Addiction Treatment Current/Past substance abuse? No Pain Screening Current pain? No Pain in the last few months? No Medications Is the patient compliant with medications? Yes Does the patient have Dhillon Guardian in place? Not applicable Trauma/Abuse History History of trauma? No Assessment & Plan Assessment & Plan (1) Anxiety, generalized: Code(s): F41.1 - Generalized anxiety disorder (2) S/P laparoscopic sleeve gastrectomy: Onset Date: ~05/2021 Code(s): Z98.84 - Bariatric surgery status Plan Patient has a long history of body image and poor self image struggles. She recently reports having symptoms of OCD and will have obsessive thoughts constantly about her weight and her body, she often looses sleep over this. We discussed EMDR to address symptoms. Telehealth Telehealth Location of provider rendering services: other Location of patient: address on file Patient Identification confirmed using: Name, : Yes Telehealth method: video Patient verbally consented to treatment: Yes Patient verbally consented to billing insurance company: Yes Patient informed of any privacy concerns related to visit: Yes Minutes spent on Phone/Video with Pt.: 45 Coding Level of Care Code Tele Psy Diag Eval ([id number]) Diagnoses Anxiety, generalized F41.1 S/P laparoscopic sleeve gastrectomy Z98.84 Time Spent (min) 45
== END 2023-06-12 15:43 | disposition home or self-care (01) ==
LOC: HO.HBST 14:47
PROVIDERS: PCP Internal Medicine; Visit Provider Counselor Mental Health
DX: F41.1 Generalized anxiety disorder (principal); Z98.84 Bariatric surgery status
CPT/HCPCS: 90791

== ENCOUNTER → 2023-06-12 13:30 | Outpatient (BNVA) | payer OTHER, SELFPAY | PROVIDERS: PCP Internal Medicine; Visit Provider Counselor Mental Health ==

== ENCOUNTER 2023-06-25 14:02 | Outpatient (AMB) | payer OTHER, SELFPAY ==
--- NOTE | 2023-06-25 14:15 | MHC.WMTHER ---
Intake Intake Visit Reasons: (OV) PO LSG 05/26/21 Allergies lactose Allergy (Severe, Verified 05/26/23 14:10) Diarrhea diclofenac [Voltaren] Allergy (Intermediate, Verified 05/26/23 14:10) Hives/itchiness caffeine Allergy (Mild, Verified 05/26/23 14:10) Headache almond milk Adverse Reaction (Intermediate, Uncoded 05/26/23 14:10) Hives, diarrhea, headache PFSH Medical History Abrasion Confusion, postoperative Depression Difficulty concentrating Difficulty swallowing pills Dizziness, nonspecific Excessive thirst Gynecomastia, female Headache syndrome Knee pain Lack of adequate sleep Large breasts Low back strain Obesity Post depression Preoperative testing Tired Vitamin A deficiency Vitamin B1 deficiency Vitamin D deficiency Surgical History History of cholecystectomy History of esophagogastroduodenoscopy (EGD) History of eye surgery S/P laparoscopic sleeve gastrectomy (~05/2021) S/P panniculectomy Family History Father No problems noted. Mother Fibromyalgia Asthma Anxiety High cholesterol Other Mental health disorder Social History Housing: Apartment Are you a primary healthcare recruiter to a significant other at home: Yes (children ages 2 and 6) Do you presently have visiting nurse or other home services: No Alcohol intake: never Patient Tobacco Use Status: Never used Tobacco e-Cigarette/Vaping Use: Never Used Advance Directives Date on File: 05/30/21 service: No Current occupational status: employed Sexual orientation: Straight/Heterosexual Gender identity: Female Cognitive needs: No Hearing needs: No Vision needs: No Behavioral Health Assessment Weight Management Therapy Therapy Notes Details Today patient spoke in detail about how she was raised by her mother who was always dieting and talking about weight, food, and being overly critical of her sister who was overweight. She spoke about the cultural she grew up in and how important it is to look a certain way, focus was always on looks. She wants to stop thinking about these things, and be happy with who she is. but does not know how to do that. Pt is seeking support two years post weight loss surgery. She is currently in therapy for anxiety and obsessive thoughts. She reported previously having OCD with cleaning and now that has transferred over to diet and exercise. She reported having trauma over how she looked and was treated starting at age 7 when she had a large chest and bottom. She lost friends and also had wrong attention. History and currently has self and body image issues as well as depression and suicidal ideation. She denied ever being admitted to psychiatric facility. Presenting Concerns Referral Source provider/self Reason for referral OCD/anxiety Precipitating Event weight gain, food obsession Living Situation Current Living Situation Own At risk of losing current housing? No Satisfied with current living situation? Yes Comments Pt lives with her , her two children ages 7 and 3 years old. Food/Weight/Diet Expectations of change weight loss and maintenance. Reduction in obsessive thoughts and behaviors. History/Relationship with weight Patient stated that she has always been curvy but thin prior to children. During her first she went from 138lbs to 200lbs and could never get back down. History/Relationship with dieting Pt had surgery two years ago for weight loss and was around 143lbs at her lowest. She recently gained 12 lbs and has been having obsessive thoughts. Social History Family history and relationship Patient was born and raised in [facility]. She has two small children with her who is often not home due to his business. 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 Developmental history and status no issues known. Social support mother Cultural/Ethnic information [place], [place] Legal Involvement and History Current or historical involvement with the legal system? none known Employment Employment Status Other Wants help to find employment? 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 Financial Situation Describe current financial situation Comfortable Financial assistance? None Service Service? No Mental Health and Addiction Treatment Current/Past substance abuse? No Pain Screening Current pain? No Pain in the last few months? No Medications Is the patient compliant with medications? Yes Does the patient have Dhillon Guardian in place? Not applicable Trauma/Abuse History History of trauma? No Assessment & Plan Assessment & Plan (1) Anxiety, generalized: Code(s): F41.1 - Generalized anxiety disorder (2) S/P laparoscopic sleeve gastrectomy: Onset Date: ~05/2021 Code(s): Z98.84 - Bariatric surgery status Plan Patient has a long history of body image and poor self image struggles. She recently reports having symptoms of OCD and will have obsessive thoughts constantly about her weight and her body, she often looses sleep over this. We discussed EMDR to address symptoms. Coding Level of Care Code Psytx 45 mins (66334) Diagnoses Anxiety, generalized F41.1 S/P laparoscopic sleeve gastrectomy Z98.84 Time Spent (min) 50
== END 2023-06-25 15:20 | disposition home or self-care (01) ==
PROVIDERS: PCP Internal Medicine; Visit Provider Counselor Mental Health
DX: F41.1 Generalized anxiety disorder (principal); Z98.84 Bariatric surgery status
CPT/HCPCS: 90834

== ENCOUNTER → 2023-06-25 14:02 | Outpatient (BNVA) | payer OTHER, SELFPAY | PROVIDERS: PCP Internal Medicine; Visit Provider Counselor Mental Health ==

== ENCOUNTER 2023-06-28 13:59 | Outpatient (AMB) | payer OTHER, SELFPAY ==
--- NOTE | 2023-06-28 14:00 | MHC.OFFVIS ---
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 Scribed for AGATHA Hallman by Myah Avila medical research assistant, on 06/28/2023 at 2:21 pm EST. Ordnance Officer Required: No Information Interpreted: non-clinical & clinical Senior Product Development Engineer: Senior Product Development Engineer Present (Alisson) Allergies lactose Allergy (Severe, Verified 05/26/23 14:10) Diarrhea diclofenac [Voltaren] Allergy (Intermediate, Verified 05/26/23 14:10) Hives/itchiness Is last menstrual period known: Yes Last menstrual period: 06/24/23 Post menopausal: No Patient : No HPI HPI Comments History of Present Illness Details She is a premenopausal woman presenting for annual exam. She admits to eating healthy and tries to stay active with exercise. Reports hot flashes from November - January and weight gain which she believes its due to poor diet in the past. Denies hirsutism but admits to acne the three months of hot flashes. Armature Balancer recently diagnosed her with hyperthyroidism and given her Vitamin D Rx. She reports her last menses was only spotting for 5 days (light last few cycles). Currently sexually active and is using condoms. She is not interested in BC due to past experiences with Mirena of hormonal imbalance. Admits vaginal itching and irritation with menses. She uses menstrual pads, changes regularly and cleans with water and no soap. STD screening offered; she accepts. Denies family hx of breast, colon and ovarian cancer. Last pap smear 05/31/22. [facility] Medical History Abrasion Confusion, postoperative Depression Difficulty concentrating Difficulty swallowing pills Dizziness, nonspecific Excessive thirst Gynecomastia, female Headache syndrome Hot flashes Irregular menses Knee pain Lack of adequate sleep Large breasts Low back strain Obesity Oligomenorrhea Post depression Preoperative testing Tired Vitamin A deficiency Vitamin B1 deficiency Vitamin D deficiency Surgical History History of cholecystectomy History of esophagogastroduodenoscopy (EGD) History of eye surgery S/P laparoscopic sleeve gastrectomy (~05/2021) S/P panniculectomy Family History Father No problems noted. Mother Fibromyalgia Asthma Anxiety High cholesterol FH: HTN (hypertension) Other Mental health disorder Social History Housing: Apartment Are you a primary career and transition teacher to a significant other at home: Yes (children ages 2 and 6) Do you presently have visiting nurse or other home services: No Alcohol intake: never Patient Tobacco Use Status: Never used Tobacco e-Cigarette/Vaping Use: Never Used Advance Directives Date on File: 05/30/21 service: No Current occupational status: employed Sexual orientation: Straight/Heterosexual Gender identity: Female Cognitive needs: No Hearing needs: No Vision needs: No Female Reproductive History Menstrual Duration of menses: 3-5 days Date of last menstrual period: 06/24/23 control method: none Total pregnancies: 2 Full term: 2 Number of Living Children: 2 Date of last pap smear: 05/31/22 (neg pap and hpv) Physical Exam Vital Signs: Last Vital Signs BP 100/60 06/28/23 14:01 BMI result Body Mass Index 27.0 Const General: cooperative, healthy appearing, no acute distress, well developed and alert Orientation/consciousness: patient oriented x3 HEENT Head: Yes normal to inspection Eyes General: appearance normal, both eyes and all related structures Neck Neck: Yes normal visual inspection Thyroid: Thyroid normal Chest Other: pendulous breast Chest palpation & inspection: normal inspection of the chest Breast/axilla inspection: normal inspection of the breasts (no puckering, dimpling, peau de orange, retraction, discharge, masses) Breast/axilla palpation: normal palpation of the breasts Resp Effort & Inspection: normal respiratory effort GI Other: not able to view due to patient wearing her abdominal binder Rectal Exam - Female: deferred General: Yes bladder normal to inspection External Female Exam: normal external appearance and normal appearance of the urethra Speculum Exam - Vagina: normal appearance of the vagina, normal palpation and normal vaginal discharge Speculum Exam - Cervix: normal appearance of the cervix and normal palpation Bimanual exam- vagina & uterus: normal palpation and normal palpation Bimanual Exam- Adnexa, other: normal adnexae and no masses Skin General skin exam: no rashes or lesions noted Neuro General: patient oriented x3 Cognition (Neuro): normal cognition Extrem General: Yes normal to inspection Psych Attitude: cooperative Thought process: Normal thought process present Assessment & Plan Assessment & Plan (1) Encounter for well woman exam: Code(s): Z01.419 - Encounter for gynecological examination (general) (routine) without abnormal findings Plan: Discussed: Current recommendations for pap smears per ASCCP guidelines Breast awareness and periodic self breast exams. Maintaining a healthy lifestyle including a well balanced diet and routine exercise. Encouraged to use condoms for STD and prevention. Monitor menses and if missed menses take at home test. All of her questions and concerns were addressed to the best of my ability. RTO in one year for AG. (2) Hyperthyroidism: Code(s): E05.90 - Thyrotoxicosis, unspecified without thyrotoxic crisis or storm Plan: Follow up with Armature Balancer regarding hyperthyroidism. Discussed hyperthyroidism and effects to body such jacquie fatigue, hair loss and effects to menses. Contact department to schedule a follow up and find a new Endocrine. (3) Vaginal irritation: Code(s): N89.8 - Other specified noninflammatory disorders of vagina Plan: Advised to not shaving area, clean with water only, no soaps to the area, dry well, avoid wearing Always pads during menses and wear cotton underwear. BV testing and GC/CT panel done today. Await results and treat accordingly. (4) Oligomenorrhea: Code(s): N91.5 - Oligomenorrhea, unspecified Plan: Lab work (5) Acne: Code(s): L70.9 - Acne, unspecified Plan: PCOS abs ordered today. Will await results and treat accordingly. Return in 2 weeks for test results. (6) Hot flashes: Code(s): R23.2 - Flushing Orders: Orders Bacterial Vaginosis Panel Today N89.8 - Other specified noninflammatory disorders of vagina CT NG by PCR Today N89.8 - Other specified noninflammatory disorders of vagina 17 Hydroxyprogesterone Today L70.9 - Acne, unspecified, N91.5 - Oligomenorrhea, unspecified DHEA Sulfate Today L70.9 - Acne, unspecified, N91.5 - Oligomenorrhea, unspecified HCG Quantitative Today N91.5 - Oligomenorrhea, unspecified Prolactin Today L70.9 - Acne, unspecified, N91.5 - Oligomenorrhea, unspecified Testosterone, Free/Total Today L70.9 - Acne, unspecified, N91.5 - Oligomenorrhea, unspecified Follicle Stimulating Hormone Today R23.2 - Flushing Coding Level of Care Code Est Pt Prev Care 18-39y(70410) Diagnoses Encounter for well woman exam Z01.419 Hyperthyroidism E05.90 Vaginal irritation N89.8 Oligomenorrhea N91.5 Acne L70.9 Hot flashes R23.2
[2023-06-28 14:01] VITALS: BP 100/60; BMI 27.0
== END 2023-06-28 15:06 | disposition home or self-care (01) ==
LOC: HO.HWS 13:59
PROVIDERS: PCP Internal Medicine; Visit Provider Advanced Practice Midwife
DX: Z01.419 Encounter for gynecological examination (general) (routine) without abnormal findings (principal); E05.90 Thyrotoxicosis, unspecified without thyrotoxic crisis or storm; N89.8 Other specified noninflammatory disorders of vagina; N91.5 Oligomenorrhea, unspecified; L70.9 Acne, unspecified; R23.2 Flushing
CPT/HCPCS: 99395

== ENCOUNTER 2023-06-28 13:59 | Outpatient (REF) | payer OTHER, SELFPAY | END 2023-06-28 14:00 | disposition home or self-care (01) | LOC: HO.LAB 13:59 | PROVIDERS: PCP Internal Medicine; Visit Provider Advanced Practice Midwife | DX: Z13.89 Encounter for screening for other disorder (principal) ==

== ENCOUNTER 2023-06-28 14:35 | Outpatient (REF) | payer OTHER, SELFPAY | END 2023-06-28 14:36 | disposition home or self-care (01) | LOC: HO.LNP 14:35 | PROVIDERS: Visit Provider Advanced Practice Midwife | DX: Z13.89 Encounter for screening for other disorder (principal) ==

== ENCOUNTER 2023-06-28 14:58 | Outpatient (REF) | payer OTHER, SELFPAY ==
[2023-06-28 22:14] LABS: HCG Quantitative < 2 mIU/mL
[2023-06-29 05:07] LABS: CT PCR NOT DETECTED (Not Detect.); NG PCR NOT DETECTED (Not Detect.)
[2023-06-29 11:47] LABS: BV Int Neg Control Negative (Negative); BV Int Pos Control Positive (Positive)
[2023-06-30 05:53] LABS: Prolactin 4.4 ng/mL
[2023-06-30 21:53] LABS: DHEA Sulfate 136 mcg/dL (19-237)
[2023-07-09 14:59] LABS: Testosterone, Free 2.9 pg/mL (0.1-6.4); Testosterone, Total 37 ng/dL (2-45)
== END 2023-06-28 14:59 | disposition home or self-care (01) ==
LOC: HO.LAB 14:58
PROVIDERS: Visit Provider Advanced Practice Midwife
DX: L70.9 Acne, unspecified (principal); N91.5 Oligomenorrhea, unspecified; N89.8 Other specified noninflammatory disorders of vagina
CPT/HCPCS: 0353U; 82627; 83498; 84146; 84402; 84403; 84702; 87480; 87510; 87660

== ENCOUNTER 2023-07-05 13:22 | Outpatient (AMB) | payer OTHER, SELFPAY ==
--- NOTE | 2023-07-05 13:40 | MHC.WMTHER ---
Intake Intake Visit Reasons: VIDEO PO LSG 05/26/21 Allergies lactose Allergy (Severe, Verified 05/26/23 14:10) Diarrhea diclofenac [Voltaren] Allergy (Intermediate, Verified 05/26/23 14:10) Hives/itchiness [facility] Medical History Abrasion Confusion, postoperative Depression Difficulty concentrating Difficulty swallowing pills Dizziness, nonspecific Excessive thirst Gynecomastia, female Headache syndrome Hot flashes Irregular menses Knee pain Lack of adequate sleep Large breasts Low back strain Obesity Oligomenorrhea Post depression Preoperative testing Tired Vitamin A deficiency Vitamin B1 deficiency Vitamin D deficiency Surgical History History of cholecystectomy History of esophagogastroduodenoscopy (EGD) History of eye surgery S/P laparoscopic sleeve gastrectomy (~05/2021) S/P panniculectomy Family History Father No problems noted. Mother Fibromyalgia Asthma Anxiety High cholesterol FH: HTN (hypertension) Other Mental health disorder Social History Housing: Apartment Are you a primary career technical education teacher to a significant other at home: Yes (children ages 2 and 6) Do you presently have visiting nurse or other home services: No Alcohol intake: never Patient Tobacco Use Status: Never used Tobacco e-Cigarette/Vaping Use: Never Used Advance Directives Date on File: 05/30/21 service: No Current occupational status: employed Sexual orientation: Straight/Heterosexual Gender identity: Female Cognitive needs: No Hearing needs: No Vision needs: No Behavioral Health Assessment Weight Management Therapy Therapy Notes Details Discussed parenting struggles, how to raise daughters with love their bodies and not see their mother always talk about dieting, food, body image issues. Patient spoke in detail about how she was raised by her mother who was always dieting and talking about weight, food, and being overly critical of her sister who was overweight. She spoke about the cultural she grew up in and how important it is to look a certain way, focus was always on looks. She wants to stop thinking about these things, and be happy with who she is. but does not know how to do that. Pt is seeking support two years post weight loss surgery. She is currently in therapy for anxiety and obsessive thoughts. She reported previously having OCD with cleaning and now that has transferred over to diet and exercise. She reported having trauma over how she looked and was treated starting at age 7 when she had a large chest and bottom. She lost friends and also had wrong attention. History and currently has self and body image issues as well as depression and suicidal ideation. She denied ever being admitted to psychiatric facility. Presenting Concerns Referral Source provider/self Reason for referral OCD/anxiety Precipitating Event weight gain, food obsession Living Situation Current Living Situation Own At risk of losing current housing? No Satisfied with current living situation? Yes Comments Pt lives with her , her two children ages 7 and 3 years old. Food/Weight/Diet Expectations of change weight loss and maintenance. Reduction in obsessive thoughts and behaviors. History/Relationship with weight Patient stated that she has always been curvy but thin prior to children. During her first she went from 138lbs to 200lbs and could never get back down. History/Relationship with dieting Pt had surgery two years ago for weight loss and was around 143lbs at her lowest. She recently gained 12 lbs and has been having obsessive thoughts. Social History Family history and relationship Patient was born and raised in [facility]. She has two small children with her who is often not home due to his business. 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 Developmental history and status no issues known. Social support mother Cultural/Ethnic information [place], [place] Legal Involvement and History Current or historical involvement with the legal system? none known Employment Employment Status Other Wants help to find employment? 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 Financial Situation Describe current financial situation Comfortable Financial assistance? None Service Service? No Mental Health and Addiction Treatment Current/Past substance abuse? No Pain Screening Current pain? No Pain in the last few months? No Medications Is the patient compliant with medications? Yes Does the patient have Dhillon Guardian in place? Not applicable Trauma/Abuse History History of trauma? No Assessment & Plan Assessment & Plan (1) Anxiety, generalized: Code(s): F41.1 - Generalized anxiety disorder (2) S/P laparoscopic sleeve gastrectomy: Onset Date: ~05/2021 Code(s): Z98.84 - Bariatric surgery status Plan Patient has a long history of body image and poor self image struggles. She recently reports having symptoms of OCD and will have obsessive thoughts constantly about her weight and her body, she often looses sleep over this. We discussed EMDR to address symptoms. Telehealth Telehealth Location of provider rendering services: other Location of patient: other Patient Identification confirmed using: Name, : Yes Telehealth method: voice only Patient verbally consented to treatment: Yes Patient verbally consented to billing insurance company: Yes Patient informed of any privacy concerns related to visit: Yes Minutes spent on Phone/Video with Pt.: 43 Coding Level of Care Code Tele Psytx 30 mins (07221) Diagnoses Anxiety, generalized F41.1 S/P laparoscopic sleeve gastrectomy Z98.84 Time Spent (min) 30
== END 2023-07-05 13:40 | disposition home or self-care (01) ==
LOC: HO.HBST 13:22
PROVIDERS: PCP Internal Medicine; Visit Provider Counselor Mental Health
DX: F41.1 Generalized anxiety disorder (principal); Z98.84 Bariatric surgery status
CPT/HCPCS: 90832

== ENCOUNTER → 2023-07-05 13:22 | Outpatient (BNVA) | payer OTHER, SELFPAY | PROVIDERS: PCP Internal Medicine; Visit Provider Counselor Mental Health ==

== ENCOUNTER → 2023-07-16 14:52 | Outpatient (BNVA) | payer OTHER, SELFPAY | PROVIDERS: PCP Internal Medicine; Visit Provider Dietitian, Registered | DX: Z98.84 Bariatric surgery status (principal); Z71.3 Dietary counseling and surveillance | CPT/HCPCS: 97803 ==

== ENCOUNTER 2023-07-30 12:06 | Outpatient (AMB) | payer OTHER, SELFPAY ==
[2023-07-30 13:13] VITALS: BP 110/60; PULSE 93; TEMP 36.4; O2SAT 100; BMI 26.9
--- NOTE | 2023-07-30 13:13 | MHC.OFFWIV ---
Intake Vital Signs 07/30/23 13:13 Height 5 ft 5 in Weight 161 lb 6 oz BMI 26.9 BP 110/60 Blood Pressure Location Rt brachial Position Sitting Pulse 93 Pulse Source Pulse Oximeter Temp 97.5 F Temp Source Temporal Artery Scan Pulse Oximetry (%) 100 Oxygen Delivery Method Room Air Intake Visit Reasons: Cough Intake Note: Pt is here c/o constant headache, cold symptoms and ear pain. Pt also states she has a bad cough and is having body sweats all night. Pt states she has been feeling this way for 9 days and otc medication are not helping her. Patient Tobacco Use Status: Never used Tobacco Allergies lactose Allergy (Severe, Verified 07/30/23 13:26) Diarrhea diclofenac [Voltaren] Allergy (Intermediate, Verified 07/30/23 13:26) Hives/itchiness Medication List - Last Reconciled 07/30/23 by Madi Hastings MD ascorbate calcium (vitamin C) 1 g PO Q6H azithromycin take 500 mg today (day 1), then 250 mg for 4 days (days 2-5) PO calcium citrate-vitamin D3 315 mg-6.25 mcg (250 unit) 1 tab PO BID 30 days cholecalciferol (vitamin D3) 25 mcg PO DAILY 30 days vitamin A 2,400 mcg PO DAILY vitamin E acetate 134 mg PO DAILY HPI HPI Comments History of Present Illness Details Patient presents for a sick visit. Reporting symptoms of sinus congestion, sore throat and difficulty swallowing. Low-grade fever. No family member is sick. No recent travel. Patient reports symptoms of malaise and fatigue. [facility] Medical History Abrasion Confusion, postoperative Depression Difficulty concentrating Difficulty swallowing pills Dizziness, nonspecific Excessive thirst Gynecomastia, female Headache syndrome Hot flashes Irregular menses Knee pain Lack of adequate sleep Large breasts Low back strain Obesity Oligomenorrhea Post depression Preoperative testing Tired Vitamin A deficiency Vitamin B1 deficiency Vitamin D deficiency Surgical History History of cholecystectomy History of esophagogastroduodenoscopy (EGD) History of eye surgery S/P laparoscopic sleeve gastrectomy (~05/2021) S/P panniculectomy Family History Father No problems noted. Mother Fibromyalgia Asthma Anxiety High cholesterol FH: HTN (hypertension) Other Mental health disorder Social History Housing: Apartment Are you a primary managed care coordinator to a significant other at home: Yes (children ages 2 and 6) Do you presently have visiting nurse or other home services: No Alcohol intake: never Patient Tobacco Use Status: Never used Tobacco e-Cigarette/Vaping Use: Never Used Advance Directives Date on File: 05/30/21 service: No Current occupational status: employed Sexual orientation: Straight/Heterosexual Gender identity: Female Cognitive needs: No Hearing needs: No Vision needs: No Physical Exam Vital Signs: Last Vital Signs Temp 97.5 F 07/30/23 13:13 Pulse 93 07/30/23 13:13 BP 110/60 07/30/23 13:13 Pulse Ox 100 07/30/23 13:13 Oxygen Delivery Method Room Air 07/30/23 13:13 BMI result Body Mass Index 26.9 Const General: cooperative and healthy appearing Nutritional Appearance: well nourished Orientation/consciousness: patient oriented x3 Limitations: no limitations HEENT Head: Yes normal to inspection Eyes General: appearance normal, both eyes and all related structures Neck Neck: Yes normal visual inspection Chest Chest palpation & inspection: normal palpation of entire chest wall Resp Effort & Inspection: normal respiratory effort Neuro General: patient oriented x3 Results AMB Rapid Strep AMB Rapid Strep Negative Last Edit by Roopa Kelsey CMA on 07/30/23 13:18 Results Reviewed Results Reviewed: Laboratory Last Values Strep Scn Rapid Clinic Negative 07/30/23 13:18 Assessment & Plan Assessment & Plan (1) Upper respiratory tract infection: Code(s): J06.9 - Acute upper respiratory infection, unspecified Plan: Antibiotics ordered. Increase fluid intake. Tylenol for aches and pains. If symptoms worsen, follow-up here for a recheck. Orders: Orders AMB Rapid Strep Screen Today Z13.9 - Encounter for screening, unspecified Medications: New azithromycin take 500 mg today (day 1), then 250 mg for 4 days (days 2-5) PO 6 tabs 0RF Coding Level of Care Code Est Pt Level 3 (96112) Diagnoses Upper respiratory tract infection J06.9
== END 2023-07-30 13:55 | disposition home or self-care (01) ==
PROVIDERS: PCP Internal Medicine; Visit Provider Internal Medicine
DX: J06.9 Acute upper respiratory infection, unspecified (principal); J02.9 Acute pharyngitis, unspecified
CPT/HCPCS: 87880; 99213

== ENCOUNTER → 2023-08-06 11:11 | Outpatient (BNVA) | payer OTHER, SELFPAY | PROVIDERS: PCP Internal Medicine; Visit Provider Dietitian, Registered | DX: Z98.84 Bariatric surgery status (principal) | CPT/HCPCS: 97803 ==

== ENCOUNTER 2023-10-23 08:39 | Outpatient (REF) | payer OTHER, SELFPAY ==
[2023-10-23 10:23] LABS: Alanine Aminotransferase 22 U/L (0-31); Albumin Level 4.2 g/dL (3.5-5.0); Alkaline Phosphatase 58 U/L (39-117); Anion Gap 10 (12-20); Aspartate Amino Transferase 94 U/L (5-31); Bilirubin Total 0.5 mg/dL (0.0-1.0); Blood Urea Nitrogen 13 mg/dL (9-16); Calcium 9.2 mg/dL (8.4-10.2); Carbon Dioxide 25 mmol/L (22-29); Chloride 105 mmol/L (96-108); Estimated Glomerular Filt Rate > 60; Glucose Random 91 mg/dL (60-115); Phosphorus 2.7 mg/dL (2.7-4.5); Potassium 4.1 mmol/L (3.3-5.1); Sodium 136 mmol/L (135-145); Total Protein 7.8 g/dL (6.5-8.0)
[2023-10-23 10:40] LABS: Free T4 (Free Thyroxine) 0.91 ng/dL (0.71-1.85); Thyroid Stimulating Hormone 0.45 uIU/mL (0.32-4.0); Vitamin D 25-OH Total 28.6 ng/mL (>30)
[2023-10-25 00:53] LABS: Triiodothyronine T3 Total 109 ng/dL (76-181)
== END 2023-10-23 08:40 | disposition home or self-care (01) ==
LOC: HO.LAB 08:39
PROVIDERS: PCP Internal Medicine; Visit Provider Internal Medicine
DX: E05.90 Thyrotoxicosis, unspecified without thyrotoxic crisis or storm (principal); E34.9 Endocrine disorder, unspecified; E55.9 Vitamin D deficiency, unspecified
CPT/HCPCS: 36415; 80053; 82306; 84100; 84439; 84443; 84480

== ENCOUNTER 2023-10-31 15:45 | Outpatient (AMB) | payer OTHER, SELFPAY ==
[2023-10-31 15:46] VITALS: BP 102/60; PULSE 95; BMI 27.1
--- NOTE | 2023-10-31 15:46 | A.OFFVIS_ITS ---
Intake Vital Signs 10/31/23 15:46 Height 5 ft 5 in Weight 162 lb 14.746 oz BMI 27.1 BP 102/60 Blood Pressure Location Lt brachial Position Sitting Pulse 95 Pulse Source Pulse Oximeter Intake Visit Reasons: hyperparathyroidism-CONFIRMED Intake Note: Patient present today for Hyperparathyroidism follow up visit. Administrative Liaison Required: No Accompanied by: Self / Same As Patient Allergies lactose Allergy (Severe, Verified 10/31/23 15:51) Diarrhea diclofenac [Voltaren] Allergy (Intermediate, Verified 10/31/23 15:51) Hives/itchiness Medication List - Last Reconciled 10/31/23 by Raffy Jaimes MD ascorbate calcium (vitamin C) 1 g PO Q6H calcium citrate-vitamin D3 315 mg-6.25 mcg (250 unit) 1 tab PO BID 30 days cholecalciferol (vitamin D3) 25 mcg PO DAILY 30 days multivitamin (Daily Multi-Vitamin tablet) 1 tab PO DAILY HPI HPI Comments History of Present Illness Details 32 YO Female with a PMHx of obesity s/p VSG 05/26/2021 who is seen in F/U for hyperthyroidism and elevated PTH levels. The patient last saw Dr. Malone on 03/14/2023 She was previously followed by mi for hyperthyroidism that was found to be due to assay interference by her biotin supplement. She was discharged back to the care of her PCP shortly after. She had routine labs assessed which revealed elevated PTH levels. Vitamin D and Calcium were both WNL. She has intermittently been on Biotin, but denies taking this in the recent past. Currently not taking Calcium or Vitamin D. She reports feeling well and has no complaints. She denies any history of nephrolithiasis or bone fracture. She has very little dairy in her diet. Labs: Laboratory Tests 12/13/22 12/13/22 12/15/22 15:28 15:28 Unknown Albumin 4.0 25-OH Vitamin D To jorge luis 24.8 TSH 0.32 Free T4 0.96 PTH Intact 96 H Calcium (PTH Intac t) 9.2 Ur 24 Hour Volume Ur Creatinine 24 H our 1.44 Ur Calcium 24 Hr 75 12/15/22 Unknown Albumin 25-OH Vitamin D To jorge luis TSH Free T4 PTH Intact Calcium (PTH Intac t) Ur 24 Hour Volume 1050 Ur Creatinine 24 H our Ur Calcium 24 Hr Hx of bariatric surgery [id number] [facility] Medical History Abrasion Confusion, postoperative Depression Difficulty concentrating Difficulty swallowing pills Dizziness, nonspecific Excessive thirst Gynecomastia, female Headache syndrome Hot flashes Irregular menses Knee pain Lack of adequate sleep Large breasts Low back strain Obesity Oligomenorrhea Post depression Preoperative testing Tired Vitamin A deficiency Vitamin B1 deficiency Vitamin D deficiency Surgical History History of cholecystectomy History of esophagogastroduodenoscopy (EGD) History of eye surgery S/P laparoscopic sleeve gastrectomy (~05/2021) S/P panniculectomy Family History Father No problems noted. Mother Fibromyalgia Asthma Anxiety High cholesterol FH: HTN (hypertension) Other Mental health disorder Social History Housing: Apartment Are you a primary neonatal intensive care unit nurse to a significant other at home: Yes (children ages 2 and 6) Do you presently have visiting nurse or other home services: No Alcohol intake: never Comment: medicated for pain, see MAR Patient Tobacco Use Status: Never used Tobacco e-Cigarette/Vaping Use: Never Used Advance Directives Date on File: 05/30/21 service: No Current occupational status: employed Sexual orientation: Straight/Heterosexual Gender identity: Female Cognitive needs: No Hearing needs: No Vision needs: No Physical Exam Vital Signs: Last Vital Signs Pulse 95 10/31/23 15:46 BP 102/60 10/31/23 15:46 BMI result Body Mass Index 27.1 Const Other: Thyroid gland is normal size weighs about 15 g . No thyroid nodules palpated Assessment & Plan Assessment & Plan (1) Elevated parathyroid hormone: Code(s): E34.9 - Endocrine disorder, unspecified Plan: This is a 32-year-old female with a history of elevated PTH now on calcium and vitamin-D supplementation. 25 hydroxy vitamin-D is slightly low. 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 Will also resume the 1000 IU per day of vitamin D3 . Will recheck calcium, albumin, PTH, 25 hydroxy vitamin-D, 24 hour urine for calcium and creatinine in 10 weeks Orders: Orders Parathyroid Hormone Intact 10 Weeks E34.9 - Endocrine disorder, unspecified Calcium 10 Weeks E34.9 - Endocrine disorder, unspecified Vitamin D 25-OH Total 10 Weeks E34.9 - Endocrine disorder, unspecified Calcium, 24 Hr Ur 10 Weeks E34.9 - Endocrine disorder, unspecified Albumin Level 10 Weeks E34. - Endocrine disorder, unspecified Creatinine, 24 Hr Group 10 Weeks E34.9 - Endocrine disorder, unspecified Medications: Changed From calcium citrate-vitamin D3 315 mg-6.25 mcg (250 unit) 1 tab PO BID 30 days 60 tabs 11RF To calcium citrate-vitamin D3 315 mg-6.25 mcg (250 unit) 2 tabs PO BID 30 days 120 tabs 11RF Refilled cholecalciferol (vitamin D3) 25 mcg PO DAILY 30 days 30 caps 11RF E55.9 - Vitamin D deficiency, unspecified Coding Level of Care Code Est Pt Level 3 (03201) Diagnoses Elevated parathyroid hormone E34.9
== END 2023-10-31 16:16 | disposition home or self-care (01) ==
PROVIDERS: PCP Internal Medicine; Visit Provider Internal Medicine Endocrinology, Diabetes & Metabolism
DX: E34.9 Endocrine disorder, unspecified (principal)
CPT/HCPCS: 99213

== ENCOUNTER → 2023-10-31 15:45 | Outpatient (BNVA) | payer OTHER, SELFPAY | PROVIDERS: Visit Provider Internal Medicine Endocrinology, Diabetes & Metabolism | DX: E34.9 Endocrine disorder, unspecified (principal) | CPT/HCPCS: 99212 ==

== ENCOUNTER 2023-12-07 10:30 | Outpatient (AMB) | payer OTHER, SELFPAY ==
--- NOTE | 2023-12-07 09:41 | A.OFFVIS_ITS ---
Intake VS Expanded 12/07/23 10:35 Height 5 ft 5 in Weight 161 lb BMI 26.8 Intake Visit Reasons: VIDEO PO LSG 05/26/21 Allergies lactose Allergy (Severe, Verified 10/31/23 15:51) Diarrhea diclofenac [Voltaren] Allergy (Intermediate, Verified 10/31/23 15:51) Hives/itchiness Medication List - Last Reconciled 12/07/23 by Sandra Tran PA-C ascorbate calcium (vitamin C) 1 g PO Q6H calcium citrate-vitamin D3 315 mg-6.25 mcg (250 unit) 2 tabs PO BID 30 days cholecalciferol (vitamin D3) 25 mcg PO DAILY 30 days multivitamin (Daily Multi-Vitamin tablet) 1 tab PO DAILY HPI HPI Comments History of Present Illness Details Pt is now 2.5 years s/p LSG, [employer] weight of 253 lbs. TBWL is 92 lbs. She had been having issues of diarrhea and intolerance to foods and started digestive enzymes per Ca and these symptoms have now resolved. She is s/p panniculectomy and abdominal hernia repair. Now having some constipation issues. Annual labs were done in April 2023. She feels very comfortable at this weight. Meal plan: 7am 10am - 40 gram shake 4pm - chicken soup with vegetables, 8 fo rks of each protein and veg -- then feels chilled and dizzy -- eats an apple and 2 dates and then feels better. 8pm - chicken soup again Exercise - 1 - 1.5 hours 5 d/ week. [facility] Medical History (Updated 12/07/23 @ 09:45 by Sandra Tran PA-C) Excess skin Cholelithiasis Right upper quadrant abdominal pain GERD (gastroesophageal reflux disease) Obesity Diastasis recti Morbid obesity Oligomenorrhea Hot flashes Irregular menses Confusion, postoperative Dizziness, nonspecific Difficulty swallowing pills Abrasion Large breasts Obesity Post depression Vitamin D deficiency Vitamin B1 deficiency Vitamin A deficiency Preoperative testing Knee pain Depression Low back strain Gynecomastia, female Tired Excessive thirst Difficulty concentrating Lack of adequate sleep Headache syndrome Surgical History (Updated 12/07/23 @ 09:45 by Sandra Tran PA-C) S/P laparoscopic cholecystectomy S/P panniculectomy History of esophagogastroduodenoscopy (EGD) History of cholecystectomy S/P laparoscopic sleeve gastrectomy (~05/2021) History of eye surgery Family History Father No problems noted. Mother Fibromyalgia Asthma Anxiety High cholesterol FH: HTN (hypertension) Other Mental health disorder Social History Housing: Apartment Are you a primary care transition coordinator to a significant other at home: Yes (children ages 2 and 6) Do you presently have visiting nurse or other home services: No Alcohol intake: never Comment: medicated for pain, see MAR Patient Tobacco Use Status: Never used Tobacco e-Cigarette/Vaping Use: Never Used Advance Directives Date on File: 05/30/21 service: No Current occupational status: employed Sexual orientation: Straight/Heterosexual Gender identity: Female Cognitive needs: No Hearing needs: No Vision needs: No Assessment & Plan Assessment & Plan (1) Overweight: Code(s): E66.3 - Overweight Plan: Pt seems to have found a healthy stable weight of around 160 lbs. Low blood sugar mid afternoon - waits 6 hours between meals. Take bariatric MVI at with water or tea and it makes her nauseated. Told to take with her dinner meal. Meal plan- divide her nutriton better throughout the day 9am - 20 grams of protien shake 12:30 - 20 grams pf protien shake 4pm - 8 forks each 8pm- 8 forks each Exercises at about 10:30 am - for 500 - 800 calories 5d/ week. Asking about electrolyte drinks- told her to try half serving on the days that she has intense workouts. Has some nutrition questions that she will ask Ca. Next appt with me at 3 years post op in May. I spent 30 minutes in total speaking with the patient via video conference counseling , reviewing records and charting in patients chart. . (2) S/P laparoscopic sleeve gastrectomy: Onset Date: ~05/2021 Code(s): Z98.84 - Bariatric surgery status Plan: see above Telehealth Telehealth Location of provider rendering services: practice address Patient Identification confirmed using: Name, : Yes Telehealth method: video Patient verbally consented to treatment: Yes Patient verbally consented to billing insurance company: Yes Patient informed of any privacy concerns related to visit: Yes Coding Level of Care Code Tele Est Pt Level 4 (07579) Diagnoses Overweight E66.3 S/P laparoscopic sleeve gastrectomy Z98.84
[2023-12-07 10:35] VITALS: BMI 26.8
== END 2023-12-07 11:05 | disposition home or self-care (01) ==
LOC: HO.HBS 11:01
PROVIDERS: PCP Internal Medicine; Visit Provider Physician Assistant
DX: E66.3 Overweight (principal); Z98.84 Bariatric surgery status
CPT/HCPCS: 99214

== ENCOUNTER → 2023-12-07 10:30 | Outpatient (BNVA) | payer OTHER, SELFPAY | PROVIDERS: PCP Internal Medicine; Visit Provider Physician Assistant | DX: Z98.84 Bariatric surgery status (principal); E34.9 Endocrine disorder, unspecified; E55.9 Vitamin D deficiency, unspecified ==

== ENCOUNTER 2023-12-12 13:39 | Outpatient (AMB) | payer OTHER, SELFPAY ==
--- NOTE | 2023-12-12 13:25 | MHC.AMNUTRGE ---
Intake Intake Visit Reasons: VIDEO PO LSG 05/26/21 Allergies lactose Allergy (Severe, Verified 10/31/23 15:51) Diarrhea diclofenac [Voltaren] Allergy (Intermediate, Verified 10/31/23 15:51) Hives/itchiness HPI Nutrition Presentation Details now over 2 years s/p LSG DOS 05/26/21 s/p abdominoplasty 09/07/22 [employer] weight of 253 lbs - TBWL of 97.8 lbs Current weight 161# Her goal is to lose weight Reason for consult elevated BMI Diet Assmnt Details Last appt had complained of watery diarrhea lasts almost all day immediately after eating. was not even able to leave her house. Was mostly eating high carb foods to help counteract the symptoms. Last appt I recommended digestive enzymes and she states its a miracle - can eat meats, healthy fats, vegetables, fruits, etc without issues. She is interested in taking creatine, this was OK'ed Bariatric MVI but not tolerating. gave her additional recommendations Exercise: when she was battling her GI issues and ongoing diarrhea for nearly a year, was afraid to workout. Prior to this, she was doing 2 hours per day fasted and really enjoying it. felt great. Prefers fasted workouts. Dietary counseling reduction Monitoring/Goals Nutrition problem monitoring total energy intake, level of knowledge/skill, total PRO intake, total CHO intake and weight Outcome progress progressing Learning/Education Readiness to learn excellent Stages of change action Educational materials provided Yes Most Recent Diabetes Results: Creatinine 0.81 mg/dL (0.5-1.4) 10/23/23 Blood Urea Nitrogen 13 mg/dL (9-16) 10/23/23 Sodium 136 mmol/L (135-145) 10/23/23 Potassium 4.1 mmol/L (3.3-5.1) 10/23/23 Chloride 105 mmol/L (96-108) 10/23/23 Carbon Dioxide 25 mmol/L (22-29) 10/23/23 Calcium 9.2 mg/dL (8.4-10.2) 10/23/23 AST 94 U/L (5-31) H 10/23/23 ALT 22 U/L (0-31) 10/23/23 Total Protein 7.8 g/dL (6.5-8.0) 12/05/23 Albumin 4.2 g/dL (3.5-5.0) 10/23/23 [facility] Medical History (Updated 12/07/23 @ 09:45 by Sandra Tran PA-C) Excess skin Cholelithiasis Right upper quadrant abdominal pain GERD (gastroesophageal reflux disease) Obesity Diastasis recti Morbid obesity Oligomenorrhea Hot flashes Irregular menses Confusion, postoperative Dizziness, nonspecific Difficulty swallowing pills Abrasion Large breasts Obesity Post depression Vitamin D deficiency Vitamin B1 deficiency Vitamin A deficiency Preoperative testing Knee pain Depression Low back strain Gynecomastia, female Tired Excessive thirst Difficulty concentrating Lack of adequate sleep Headache syndrome Surgical History (Updated 12/07/23 @ 09:45 by Sandra Tran PA-C) S/P laparoscopic cholecystectomy S/P panniculectomy History of esophagogastroduodenoscopy (EGD) History of cholecystectomy S/P laparoscopic sleeve gastrectomy (~05/2021) History of eye surgery Family History Father No problems noted. Mother Fibromyalgia Asthma Anxiety High cholesterol FH: HTN (hypertension) Other Mental health disorder Social History Housing: Apartment Are you a primary personal care aid to a significant other at home: Yes (children ages 2 and 6) Do you presently have visiting nurse or other home services: No Alcohol intake: never Comment: medicated for pain, see MAR Patient Tobacco Use Status: Never used Tobacco e-Cigarette/Vaping Use: Never Used Advance Directives Date on File: 05/30/21 service: No Current occupational status: employed Sexual orientation: Straight/Heterosexual Gender identity: Female Cognitive needs: No Hearing needs: No Vision needs: No Assessment & Plan Assessment & Plan (1) History of sleeve gastrectomy: Code(s): Z90.3 - Acquired absence of stomach [part of] Plan she will follow up as needed, but has appt with Sandra in may. Sent vitamin recommendations for alternative forms Telehealth Telehealth Location of provider rendering services: practice address Location of patient: address on file Patient Identification confirmed using: Name, : Yes Telehealth method: voice only Patient verbally consented to treatment: Yes Patient verbally consented to billing insurance company: Yes Patient informed of any privacy concerns related to visit: Yes Minutes spent on Phone/Video with Pt.: 15 Coding Level of Care Code Nutr Indiv Subseq ([id number]) Diagnoses History of sleeve gastrectomy Z90.3 Time Spent (min) 15
== END 2023-12-12 13:54 | disposition home or self-care (01) ==
LOC: HO.HBS 13:39
PROVIDERS: PCP Internal Medicine; Visit Provider Dietitian, Registered
DX: Z90.3 Acquired absence of stomach [part of] (principal)

== ENCOUNTER → 2023-12-12 13:39 | Outpatient (BNVA) | payer OTHER, SELFPAY | PROVIDERS: PCP Internal Medicine; Visit Provider Dietitian, Registered | DX: Z90.3 Acquired absence of stomach [part of] (principal) | CPT/HCPCS: 97803 ==

== ENCOUNTER 2024-03-21 10:57 | Outpatient (AMB) | payer OTHER, SELFPAY ==
--- NOTE | 2024-03-21 10:59 | A.OFFPC_ITS ---
Vital Signs 3 03/21/24 11:01 Height 5 ft 5 in Weight 159 lb 6 oz BMI 26.5 BP 106/72 Blood Pressure Location Rt brachial Position Sitting Pulse 89 Pulse Source Pulse Oximeter Pulse Oximetry (%) 99 Oxygen Delivery Method Room Air Intake Visit Reasons: PE Allergies lactose Allergy (Severe, Verified 10/31/23 15:51) Diarrhea diclofenac [Voltaren] Allergy (Intermediate, Verified 10/31/23 15:51) Hives/itchiness Medication List - Last Reconciled 03/21/24 by Bobo Turner MD ascorbate calcium (vitamin C) 1 g PO Q6H calcium citrate-vitamin D3 315 mg-6.25 mcg (250 unit) 2 tabs PO BID 30 days multivitamin (Daily Multi-Vitamin tablet) 1 tab PO DAILY Tobacco use date assessed: 03/21/24 Dental Screening Dental Screen Date: 03/21/24 Did you have a dental visit in the last 12 months?: Yes Did you have a dental problem in the last 6 months where you did not have access to dental care?: No Was dental information given to patient?: Patient has dentist HPI PE 2 HPI0 Details Patient is a 33 year female came in today for physical examination Patient is getting recurrent boils, requesting consultation Dermatology Last time she had labs in October 19 of her liver enzyme was slightly elevated, we will be repeating labs again fasting Patient OBGYN last visit was June of last year , patient is taking no prescription medications [facility] Medical History Excess skin Cholelithiasis Right upper quadrant abdominal pain GERD (gastroesophageal reflux disease) Obesity Diastasis recti Morbid obesity Oligomenorrhea Hot flashes Irregular menses Confusion, postoperative Dizziness, nonspecific Difficulty swallowing pills Abrasion Large breasts Obesity Post depression Vitamin D deficiency Vitamin B1 deficiency Vitamin A deficiency Preoperative testing Knee pain Depression Low back strain Gynecomastia, female Tired Excessive thirst Difficulty concentrating Lack of adequate sleep Headache syndrome Surgical History S/P laparoscopic cholecystectomy S/P panniculectomy History of esophagogastroduodenoscopy (EGD) History of cholecystectomy S/P laparoscopic sleeve gastrectomy (~05/2021) History of eye surgery Family History Father No problems noted. 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 1. Little interest or pleasure in doing things: more than half the days 2. Feeling down, depressed, or hopeless: not at all 3. Trouble falling or staying asleep, or sleeping too much: nearly every day 4. Feeling tired or having little energy: more than half the days 5. Poor appetite or overeating: not at all 6. Feeling bad about yourself - or that you are a failure or have let yourself or your family down: not at all 7. Trouble concentrating on things, such as reading the newspaper or watching television: nearly every day 8. Moving or speaking so slowly that other people could have noticed. Or the opposite - being so fidgety or restless that you have been moving around a lot more than usual: not at all 9. Thoughts that you would be better off or of hurting yourself in some way: not at all Total score: 10 Depression Screening Interpretation: Positive Depression Screening Follow-up: Declines treatment Depression Screening Done: Yes 27787 - PHQ-9 Billing: Yes Source: Developed by Drs. Raffy Madrid, Cyndi Thompson, Leopoldo Schulte and colleagues, with an educational jr from [employer]. Thrive Questionnaire Date Thrive assessed: 03/21/24 I am a: Patient What is your living situation today?: I have a steady place to live Within the past 12 months, did the food you bought not last and you didn't have the money to get more?: Never true Within the past 12 months, did you worry whether your food would run out before you got money to buy more?: Never true Do you have trouble paying for medicines?: No Do you have trouble getting transportation to medical appointments?: No Do you have trouble paying your heating and electricity bill?: No Do you have trouble taking care of your child, family member or friend?: No Do you have trouble with day-to-day activities such as bathing, preparing meals, shopping, managing finances, etc.?: No Are you currently unemployed and looking for a job?: No Are you interested in more education?: No Please select the resources that you would like help with: None Currently or been in a relationship where the following occur: no concerns reported THRIVE Score: 0 AUDIT C Alcohol Use Questionnaire (AUDIT-C) 1. How often do you have a drink containing alcohol?: Never 3. How often do you have six or more drinks on one occasion?: Never Total Score: 0 Score Reviewed/Action Taken: Yes BRYCE-7 AMB Questionnaire BRYCE-7 Date BRYCE - 7 assessed: 03/21/24 Feeling nervous, anxious, or on edge: 0 = Not at all Not being able to stop or control worryin = Not at all Worrying too much about different things: 0 = Not at all Trouble relaxin = Nearly every day Being so restless that it is hard to sit still: 0 = Not at all Becoming easily annoyed or irritable: 1 = Several days Feeling afraid as if something awful might happen: 2 = More than half the days Total BRYCE-7 score (0-4 normal; 5-9 mild; 10-14 moderate; 15-21 severe): 6 Source: Developed by Drs. Raffy Madrid, Cyndi Thompson, Leopoldo Schulte and colleagues, with an educational jr from [employer]. BRYCE-7 Assessment Billing BRYCE-7 Assessment Tool: BRYCE-7 Assessment 11479 Review of Systems Const Denies chills, Denies fever(s) and Denies headache(s) Eyes Denies blurry vision ENT Denies headache(s), Denies nasal discharge, Denies nasal obstruction, Denies odynophagia and Denies sinus pain Card Denies chest pain at rest and Denies chest pain with activity Resp Denies cough and Denies hemoptysis GI Denies diarrhea, Denies odynophagia, Denies vomiting and Denies hematemesis Reports as per HPI Musc Denies abnormal gait Skin/Breast Reports as per HPI Neuro Denies Neuro-related abnormal movements, Denies Abnormal speech present, Denies abnormal gait, Denies headache(s) and Denies Sensory deficit (Neuro) Psych Denies mood swings and Denies paranoia Endo Reports as per HPI Esau/Lymph Reports as per HPI Aller/Immun Reports as per HPI Physical exam (Primary Care) Vital Signs: Last Vital Signs Pulse 89 03/21/24 11:01 BP 106/72 03/21/24 11:01 Pulse Ox 99 03/21/24 11:01 Oxygen Delivery Method Room Air 03/21/24 11:01 BMI result Body Mass Index 26.5 Tobacco/Smoking Status: Tobacco use Status Tobacco use date assessed 03/21/24 03/21/24 11:06 Patient Tobacco Use Status Never used Tobacco 03/21/24 11:00 e-Cigarette/Vaping Use Never Used 03/21/24 11:00 PHQ-9: PHQ-9 Score PHQ-9: Total score 10 03/21/24 11:34 Depression Screening Interpretation: Positive Depression Screening Follow-up: Declines treatment Thrive Assessment: Date of Thrive Assessment Date Thrive assessed 03/21/24 03/21/24 11:34 Currently or been in a relationship where the following occur: no concerns reported Const General: cooperative, comfortable and no acute distress Orientation/consciousness: patient oriented x3 HENMT Head: Yes normocephalic and Yes atraumatic Eyes General: appearance normal, both eyes and all related structures Pupils: Equal, round and reactive pupils present EOM: EOMs intact bilaterally Neck Neck: Yes supple and No lymphadenopathy Thyroid: Thyroid normal Lymphatic: no lymphadenopathy noted Resp Effort & Inspection: normal respiratory effort and able to speak in complete sentences Auscultation: clear to auscultation bilaterally Cardio Heart sounds: S1 normal heart sound present and S2 normal heart sound present GI Palpation (GI): Soft to palpation and nontender Auscultation: normal bowel sounds General: Yes no CVA tenderness Back/Spine/Pelvis Back: no CVA tenderness Skin General skin exam: elasticity normal and turgor normal Full body images: 2 1. Healing boil Neuro General: patient oriented x3 and gait normal Cranial nerves: Yes Equal, round and reactive pupils present Speech: No Abnormal speech present Sensory Exam: No Sensory deficit (Neuro) Coordination: tandem gait normal and Romberg test negative Extrem General: Yes normal exam except as noted and No edema Assessment and Plan Assessment & Plan (1) Encounter for general adult medical examination with abnormal findings: Code(s): Z00.01 - Encounter for general adult medical examination with abnormal findings (2) Recurrent boils: Code(s): L02.92 - Furuncle, unspecified (3) LFT elevation: Code(s): R79.89 - Other specified abnormal findings of blood chemistry Plan Patient is a 33 year female came in today for physical examination Patient is getting recurrent boils, requesting consultation Dermatology Last time she had labs in October 19 of her liver enzyme was slightly elevated, we will be repeating labs again fasting Patient OBGYN last visit was June of last year , patient is taking no prescription medications Orders: Orders 2 Complete Blood Count Auto Diff Today L02.92 - Furuncle, unspecified, R79.89 - Other specified abnormal findings of blood chemistry, Z00.01 - Encounter for general adult medical examination with abnormal findings Comprehensive [place]. Panel Fast Today L02.92 - Furuncle, unspecified, R79.89 - Other specified abnormal findings of blood chemistry, Z00.01 - Encounter for general adult medical examination with abnormal findings Lipid Panel Today L02.92 - Furuncle, unspecified, R79.89 - Other specified abnormal findings of blood chemistry, Z00.01 - Encounter for general adult medical examination with abnormal findings Hemoglobin A1c Today L02.92 - Furuncle, unspecified, R79.89 - Other specified abnormal findings of blood chemistry, Z00.01 - Encounter for general adult medical examination with abnormal findings TSH reflex Free T4 Today L02.92 - Furuncle, unspecified, R79.89 - Other specified abnormal findings of blood chemistry, Z00.01 - Encounter for general adult medical examination with abnormal findings Referrals 2 Dermatology Referral L02.92 - Furuncle, unspecified Coding Level of Care Code Est Pt Prev Care 18-39y(06885) Diagnoses Encounter for general adult medical examination with abnormal findings Z00.01 Recurrent boils L02.92 LFT elevation R79.89 Additional Codes BRYCE-7 Assessment Billing - BRYCE-7 Assessment Tool: BRYCE-7 Assessment 80543 ([id number])
[2024-03-21 11:01] VITALS: BP 106/72; PULSE 89; O2SAT 99; BMI 26.5
== END 2024-03-21 11:29 | disposition home or self-care (01) ==
PROVIDERS: Visit Provider Internal Medicine
DX: Z00.00 Encounter for general adult medical examination without abnormal findings (principal); L02.92 Furuncle, unspecified; R79.89 Other specified abnormal findings of blood chemistry
CPT/HCPCS: 99395

== ENCOUNTER 2024-03-28 08:56 | Outpatient (REF) | payer OTHER, SELFPAY ==
[2024-03-28 10:26] LABS: MANUAL DIFF FLAG NO
[2024-03-28 10:49] LABS: Basophils Absolute Auto 0.1 X10*3/uL (0.0-0.2); Basophils Percent Auto 1.1 % (0-2); Eosinophils Percent Auto 0.6 % (0-4); Hematocrit 36.1 % (37.0-47.0); Hemoglobin 11.7 g/dl (12.0-16.0); Imm Gran Abs Auto 0.01 X10*3/uL (0.00-0.03); Imm Gran Pct Auto 0.2 % (0.0-0.4); Lymphocytes Absolute Auto 1.5 X10*3/uL (1.2-4.9); Lymphocytes Percent Auto 31.4 % (20-40); Mean Corpuscular HGB Conc 32.4 g/dl (31.0-35.0); Mean Corpuscular Hemoglobin 27.5 pg (27.0-33.0); Mean Corpuscular Volume 84.7 fL (80.0-98.0); Mean Platelet Volume 10.5 fL (9.4-12.3); Monocytes Absolute Auto 0.5 X10*3/uL (0.1-1.2); Monocytes Percent Auto 10.8 % (2-11); Neutrophils Absolute Auto 2.6 x10*3/uL (2.0-8.3); Neutrophils Percent Auto 55.9 % (45-73); Platelet Count 260 X10*3/uL (160-400); Red Blood Count 4.26 X10*6/uL (4.20-5.50); Red Cell Distribution Width 13.1 % (11.0-16.0); White Blood Count 4.7 X10*3/uL (4.8-10.8)
[2024-03-28 10:59] LABS: Estimated Average Glucose 91 mg/dL; Hemoglobin A1c % 4.8 % (<6.0)
[2024-03-28 11:13] LABS: Alanine Aminotransferase 14 U/L (0-31); Alkaline Phosphatase 57 U/L (39-117); Anion Gap 11 (12-20); Aspartate Amino Transferase 25 U/L (5-31); Bilirubin Total 0.3 mg/dL (0.0-1.0); Blood Urea Nitrogen 8 mg/dL (9-16); Carbon Dioxide 23 mmol/L (22-29); Chloride 108 mmol/L (96-108); Cholesterol 165 mg/dL (<200); Estimated Glomerular Filt Rate > 60; Glucose Fasting 92 mg/dL (60-99); HDL Cholesterol 62 mg/dL (>40); LDL Cholesterol Calculated 95 mg/dL (<100); Sodium 138 mmol/L (135-145); Total Protein 7.4 g/dL (6.5-8.0); Triglycerides 41 mg/dL (<150)
[2024-03-28 11:25] LABS: TSH reflex Free T4 0.37 uIU/mL (0.32-4.0)
[2024-03-28 11:31] LABS: Vitamin D 25-OH Total 43.3 ng/mL (>30)
[2024-03-28 11:58] LABS: Parathyroid Hormone Intact 118.3 pg/mL (8.7-77.1)
== END 2024-03-28 08:57 | disposition home or self-care (01) ==
LOC: HO.HMGCLDS 08:56
PROVIDERS: PCP Internal Medicine; Referring Provider Internal Medicine Endocrinology, Diabetes & Metabolism; Visit Provider Internal Medicine
DX: Z00.01 Encounter for general adult medical examination with abnormal findings (principal); E34.9 Endocrine disorder, unspecified; L02.92 Furuncle, unspecified; R79.89 Other specified abnormal findings of blood chemistry
CPT/HCPCS: 36415; 80053; 80061; 82306; 83036; 83970; 84443; 85025

== ENCOUNTER 2024-04-02 14:30 | Outpatient (REF) | payer OTHER, SELFPAY ==
[2024-04-03 11:35] LABS: Creatinine, mg/dL 75.41
[2024-04-03 11:44] LABS: Creatinine, 24Hr Urine 0.7 G/Day (1.0-2.0); Total Volume 24 Hour Urine 975 mL
[2024-04-04 19:09] LABS: Calcium, 24 Hr Urine 62 mg/24 h; Calcium/Creatinine Ratio 86 mg/g creat (30-275); Creatinine 24Hr Urine 0.72 g/24 h (0.50-2.15)
== END 2024-04-02 14:31 | disposition home or self-care (01) ==
LOC: HO.HMGCLNP 14:30
PROVIDERS: PCP Internal Medicine; Visit Provider Internal Medicine Endocrinology, Diabetes & Metabolism
DX: E34.9 Endocrine disorder, unspecified (principal)
CPT/HCPCS: 82340; 82570

== ENCOUNTER 2024-04-10 11:44 | Outpatient (AMB) | payer OTHER, SELFPAY ==
[2024-04-10 11:47] VITALS: BP 94/68; PULSE 84; BMI 26.2
--- NOTE | 2024-04-10 11:47 | MHC.OFFVIS ---
Vital Signs 04/10/24 11:47 Height 5 ft 5 in Weight 157 lb 6.561 oz BMI 26.2 BP 94/68 Blood Pressure Location Lt brachial Position Sitting Pulse 84 Pulse Source Pulse Oximeter Intake Visit Reasons: f/u hyperparathyroidism-confirmed Intake Note: Patient present today for Hyperparathyroidism follow up visit. Hospital Education Coordinator Required: No Accompanied by: Self / Same As Patient Allergies lactose Allergy (Severe, Verified 04/10/24 11:51) Diarrhea diclofenac [Voltaren] Allergy (Intermediate, Verified 04/10/24 11:51) Hives/itchiness HPI Comments Details: 33 YO Female with a PMHx of obesity s/p VSG 05/26/2021 who is seen in F/U for hyperthyroidism and elevated PTH levels. She was previously followed by me for hyperthyroidism that was found to be due to assay interference by her biotin supplement. She was discharged back to the care of her PCP shortly after. She had routine labs assessed which revealed elevated PTH levels. Vitamin D and Calcium were both WNL. She has intermittently been on Biotin, but denies taking this in the recent past. Currently taking Calcium or Vitamin D. She reports feeling well and has no complaints. She denies any history of nephrolithiasis or bone fracture. She has very little dairy in her diet. Labs: Laboratory Tests 12/13/22 12/13/22 12/15/22 15:28 15:28 Unknown Albumin 4.0 25-OH Vitamin D Total 24.8 TSH 0.32 Free T4 0.96 PTH Intact 96 H Calcium (PTH Intact) 9.2 Ur 24 Hour Volume Ur Creatinine 24 Hour 1.44 Ur Calcium 24 Hr 75 12/15/22 Unknown Albumin 25-OH Vitamin D Total TSH Free T4 PTH Intact Calcium (PTH Intact) Ur 24 Hour Volume 1050 Ur Creatinine 24 Hour Ur Calcium 24 Hr Hx of bariatric surgery [id number] . Currently on calcium citrate-vitamin D3 315 mg/6.25 mcg 3 tabs twice a day PFSH Medical History Excess skin Cholelithiasis Right upper quadrant abdominal pain GERD (gastroesophageal reflux disease) Obesity Diastasis recti Morbid obesity Oligomenorrhea Hot flashes Irregular menses Confusion, postoperative Dizziness, nonspecific Difficulty swallowing pills Abrasion Large breasts Obesity Post depression Vitamin D deficiency Vitamin B1 deficiency Vitamin A deficiency Preoperative testing Knee pain Depression Low back strain Gynecomastia, female Tired Excessive thirst Difficulty concentrating Lack of adequate sleep Headache syndrome Surgical History S/P laparoscopic cholecystectomy S/P panniculectomy History of esophagogastroduodenoscopy (EGD) History of cholecystectomy S/P laparoscopic sleeve gastrectomy (~05/2021) History of eye surgery Family History Father No problems noted. 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 (children ages 2 and 6) Do you presently have visiting nurse or other home services: No Alcohol intake: never Comment: medicated for pain, see MAR Patient Tobacco Use Status: Never used Tobacco e-Cigarette/Vaping Use: Never Used Advance Directives Date on File: 05/30/21 service: No Current occupational status: employed Sexual orientation: Straight/Heterosexual Gender identity: Female Cognitive needs: No Hearing needs: No Vision needs: No Assessment & Plan Assessment & Plan (1) Elevated parathyroid hormone: Code(s): E34.9 - Endocrine disorder, unspecified Category: Medical Plan: This is a 33-year-old female with a history of elevated PTH now on calcium and vitamin-D supplementation. 25 hydroxy vitamin-D is low normal. She had a low urine calcium the past suggesting malabsorption after bariatric surgery and secondary hyperparathyroidism Plan is to increase the calcium citrate /vitamin-D to 3 tablets twice a day. Will also resume the 1000 IU per day of vitamin D3 . Will recheck calcium, albumin, PTH, 25 hydroxy vitamin-D, 24 hour urine for calcium and creatinine in 10 weeks Orders: Orders Parathyroid Hormone Intact 10 Weeks E34.9 - Endocrine disorder, unspecified Creatinine, 24 Hr Group 10 Weeks E34.9 - Endocrine disorder, unspecified Vitamin D 25-OH Total 10 Weeks E34.9 - Endocrine disorder, unspecified Calcium, 24 Hr Ur 10 Weeks E34.9 - Endocrine disorder, unspecified Referrals Nutrition/Dietitian Referral E34.9 - Endocrine disorder, unspecified Coding Level of Care Code Est Pt Level 3 (24791) Diagnoses Elevated parathyroid hormone E34.9
== END 2024-04-10 12:08 | disposition home or self-care (01) ==
PROVIDERS: PCP Internal Medicine; Visit Provider Internal Medicine Endocrinology, Diabetes & Metabolism
DX: E34.9 Endocrine disorder, unspecified (principal)
CPT/HCPCS: 99213

== ENCOUNTER → 2024-04-10 11:44 | Outpatient (BNVA) | payer OTHER, SELFPAY | PROVIDERS: PCP Internal Medicine; Visit Provider Internal Medicine Endocrinology, Diabetes & Metabolism | DX: E34.9 Endocrine disorder, unspecified (principal) | CPT/HCPCS: 99212 ==

== ENCOUNTER 2024-06-17 15:38 | Outpatient (AMB) | payer OTHER, SELFPAY ==
--- NOTE | 2024-06-17 15:28 | MHC.OFFVISWM ---
Intake Visit Reasons: TV PO LSG 05/26/21 Allergies lactose Allergy (Severe, Verified 04/10/24 11:51) Diarrhea diclofenac [Voltaren] Allergy (Intermediate, Verified 04/10/24 11:51) Hives/itchiness Medication List - Last Reconciled 06/17/24 by ROSANA Navarro ascorbate calcium (vitamin C) 1 g PO Q6H calcium citrate-vitamin D3 315 mg-6.25 mcg (250 unit) 2 tabs PO BID 30 days magnesium citrate,mag oxide mg PO multivitamin (Daily Multi-Vitamin tablet) 1 tab PO DAILY HPI Comments Details: This?is a?33?yo female who is s/p LSG 05/26/2021. Presents for 3 year post op visit. Weight at last visit on 12/12/2023 was 161 pounds; weight today is 1 pounds, representing a [] pound weight loss with a BMI today of [].? No complaints of nausea, emesis, abdominal pain or reflux, or constipation. 'It's been a [address] since last visit. Has tried probiotics/prebiotics which do help but she had stopped taking them thinking the issues had resolved; then diarrhea restarted. Has tried many types of protein shakes but they all cause diarrhea. Busy with studying, working, kids. Takes magnesium but not daily. She has also tried many other supplements off and on. Was supposed to have an appt with GI but had to cancel due to being sick. No hx diabetes prior to surgery. Present meal plan includes: tries to avoid eating all day as she does not want to be out and have an episode of diarrhea uses yogurt for protein in AM which does not give as many issues chicken or salmon for dinner, avoids beef except beef organ started protein water a few days ago which she is tolerating was taking digestive enzymes to help with diarrhea Was given recs by Ca at last visit for natalie BHAT Exercise: 4-5d/week [facility] Medical History Excess skin Cholelithiasis Right upper quadrant abdominal pain GERD (gastroesophageal reflux disease) Obesity Diastasis recti Morbid obesity Oligomenorrhea Hot flashes Irregular menses Confusion, postoperative Dizziness, nonspecific Difficulty swallowing pills Abrasion Large breasts Obesity Post depression Vitamin D deficiency Vitamin B1 deficiency Vitamin A deficiency Preoperative testing Knee pain Depression Low back strain Gynecomastia, female Tired Excessive thirst Difficulty concentrating Lack of adequate sleep Headache syndrome Surgical History S/P laparoscopic cholecystectomy S/P panniculectomy History of esophagogastroduodenoscopy (EGD) History of cholecystectomy S/P laparoscopic sleeve gastrectomy (~05/2021) History of eye surgery Family History Father No problems noted. 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 (children ages 2 and 6) Do you presently have visiting nurse or other home services: No Alcohol intake: never Comment: medicated for pain, see MAR Patient Tobacco Use Status: Never used Tobacco e-Cigarette/Vaping Use: Never Used Advance Directives Date on File: 05/30/21 service: No Current occupational status: employed Sexual orientation: Straight/Heterosexual Gender identity: Female Cognitive needs: No Hearing needs: No Vision needs: No Telehealth Telehealth Telehealth Platform: Telephone Location of provider rendering services: practice address Location of patient: address on file Patient Identification confirmed using: Name, : Yes Telehealth method: voice only Patient verbally consented to treatment: Yes Patient verbally consented to billing insurance company: Yes Patient informed of any privacy concerns related to visit: Yes Minutes spent on Phone/Video with Pt.: 22 Assessment & Plan Assessment & Plan (1) Overweight: Code(s): E66.3 - Overweight Category: Medical (2) Postgastrectomy malabsorption: Code(s): K91.2 - Postsurgical malabsorption, not elsewhere classified; Z90.3 - Acquired absence of stomach [part of] Category: Medical (3) S/P laparoscopic sleeve gastrectomy: Onset Date: ~05/2021 Code(s): Z98.84 - Bariatric surgery status Category: Medical Plan Pt has ongoing diarrhea which improved with probiotics. She reports it may take several months for her diarrhea to improve now that she has restarted. In the meant julieta I recommended eating yogurts and drinking protein sabillon during the day as those do not seem to cause diarrhea. She is admittedly low on overall protein intake and this is causing a stall in weight loss. Eating more frequently during the day will likely help avoid her feelings of low blood sugars in evenings which she typically treats with carbs to quickly correct and feel better. She was going long periods of the day without eating. Also discussed that taking magnesium citrate may be worsening her diarrhea and that her high PTH level may be contributing, possibly- this is currently being treated. Encouraged her to reschedule with GI and consider testing for SIBO. RTC 3 months. I spent a total of 30 minutes reviewing/updating records, examining the patient and counseling the patient on weight management as detailed above. Orders: Orders Zinc Today Z98.84 - Bariatric surgery status Vitamin A Today Z98.84 - Bariatric surgery status Vitamin D 25-OH Total Today Z98.84 - Bariatric surgery status Vitamin B1 Today Z98.84 - Bariatric surgery status Vitamin B12 and Folate Today Z98.84 - Bariatric surgery status
== END 2024-06-17 16:01 | disposition home or self-care (01) ==
LOC: HO.HBS 15:38
PROVIDERS: PCP Internal Medicine; Visit Provider Physician Assistant Surgical
DX: E66.3 Overweight (principal); Z68.26 Body mass index [BMI] 26.0-26.9, adult; K91.2 Postsurgical malabsorption, not elsewhere classified; Z90.3 Acquired absence of stomach [part of]; Z98.84 Bariatric surgery status
CPT/HCPCS: 99214; G2211

== ENCOUNTER → 2024-06-17 15:38 | Outpatient (BNVA) | payer OTHER, SELFPAY | PROVIDERS: PCP Internal Medicine; Visit Provider Physician Assistant Surgical | DX: E66.3 Overweight (principal); K91.2 Postsurgical malabsorption, not elsewhere classified; Z98.84 Bariatric surgery status | CPT/HCPCS: 99212 ==

== ENCOUNTER 2024-09-18 08:52 | Outpatient (REF) | payer OTHER, SELFPAY ==
[2024-09-18 10:40] LABS: Albumin Level 4.1 g/dL (3.5-5.0); Calcium 9.8 mg/dL (8.4-10.2)
[2024-09-18 10:56] LABS: Vitamin D 25-OH Total 32.2 ng/mL (>30)
[2024-09-18 11:05] LABS: Folate 5.9 ng/mL (> or = 4.0); Vitamin B12 596 pg/mL (200-900)
[2024-09-21 23:04] LABS: Zinc 71 mcg/dL (60-130)
== END 2024-09-18 08:53 | disposition home or self-care (01) ==
LOC: HO.LAB 08:52
PROVIDERS: Absent Provider Physician Assistant Surgical; PCP Internal Medicine; Visit Provider Internal Medicine Endocrinology, Diabetes & Metabolism
DX: E34.9 Endocrine disorder, unspecified (principal); Z98.84 Bariatric surgery status
CPT/HCPCS: 36415; 82040; 82306; 82310; 82607; 82746; 83970; 84630

== ENCOUNTER 2024-09-22 08:49 | Outpatient (REF) | payer OTHER, SELFPAY ==
[2024-09-27 08:43] LABS: Vitamin B1 <6 nmol/L (8-30)
[2024-09-29 17:28] LABS: Vitamin A 42 mcg/dL (38-98)
== END 2024-09-22 08:50 | disposition home or self-care (01) ==
LOC: HO.HMGCLDS 08:49
PROVIDERS: PCP Internal Medicine; Visit Provider Physician Assistant Surgical
DX: Z98.84 Bariatric surgery status (principal)
CPT/HCPCS: 36415; 84425; 84590

== ENCOUNTER 2024-10-01 14:10 | Outpatient (AMB) | payer OTHER, SELFPAY ==
--- NOTE | 2024-10-01 13:56 | MHC.OFFVISWM ---
Intake Visit Reasons: TELEPHONE PO LSG 05/26/21 Allergies lactose Allergy (Severe, Verified 04/10/24 11:51) Diarrhea diclofenac [Voltaren] Allergy (Intermediate, Verified 04/10/24 11:51) Hives/itchiness HPI Comments Details: This?is a?33?yo female who is s/p LSG 05/26/2021. At last visit on 06/17/2024: Pt has ongoing diarrhea which improved with probiotics. She reports it may take several months for her diarrhea to improve now that she has restarted. In the meant julieta I recommended eating yogurts and drinking protein sabillon during the day as those do not seem to cause diarrhea. She is admittedly low on overall protein intake and this is causing a stall in weight loss. Eating more frequently during the day will likely help avoid her feelings of low blood sugars in evenings which she typically treats with carbs to quickly correct and feel better. She was going long periods of the day without eating. Also discussed that taking magnesium citrate may be worsening her diarrhea and that her high PTH level may be contributing, possibly- this is currently being treated. Encouraged her to reschedule with GI Today- [facility] Medical History Excess skin Cholelithiasis Right upper quadrant abdominal pain GERD (gastroesophageal reflux disease) Obesity Diastasis recti Morbid obesity Oligomenorrhea Hot flashes Irregular menses Confusion, postoperative Dizziness, nonspecific Difficulty swallowing pills Abrasion Large breasts Obesity Post depression Vitamin D deficiency Vitamin B1 deficiency Vitamin A deficiency Preoperative testing Knee pain Depression Low back strain Gynecomastia, female Tired Excessive thirst Difficulty concentrating Lack of adequate sleep Headache syndrome Surgical History S/P laparoscopic cholecystectomy S/P panniculectomy History of esophagogastroduodenoscopy (EGD) History of cholecystectomy S/P laparoscopic sleeve gastrectomy (~05/2021) History of eye surgery Family History Father No problems noted. 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
--- NOTE | 2024-10-01 14:07 | MHC.OFFVISWM ---
VS Expanded 10/01/24 14:09 Height 5 ft 5 in Weight 158 lb BMI 26.3 Intake Visit Reasons: TELEPHONE PO LSG 05/26/21 Allergies lactose Allergy (Severe, Verified 04/10/24 11:51) Diarrhea diclofenac [Voltaren] Allergy (Intermediate, Verified 04/10/24 11:51) Hives/itchiness Medication List - Last Reconciled 10/01/24 by ROSANA Navarro ascorbate calcium (vitamin C) 1 g PO Q6H calcium citrate-vitamin D3 315 mg-6.25 mcg (250 unit) 2 tabs PO BID 30 days magnesium citrate,mag oxide mg PO multivitamin (Daily Multi-Vitamin tablet) 1 tab PO DAILY HPI Comments Details: Pt is s/p LSG 05/26/2021. At last visit: Pt has ongoing diarrhea which improved with probiotics. She reports it may take several months for her diarrhea to improve now that she has restarted. In the meant julieta I recommended eating yogurts and drinking protein sabillon during the day as those do not seem to cause diarrhea. She is admittedly low on overall protein intake and this is causing a stall in weight loss. Eating more frequently during the day will likely help avoid her feelings of low blood sugars in evenings which she typically treats with carbs to quickly correct and feel better. She was going long periods of the day without eating. Also discussed that taking magnesium citrate may be worsening her diarrhea and that her high PTH level may be contributing, possibly- this is currently being treated. Encouraged her to reschedule with GI Today- pt reports her diarrhea has stopped. Found a good probiotic/prebiotic. Weight has not changed- 158lbs. Works out 5x/week. Thinks she is having issues with dairy/yogurt now, milk products. Was taking flaxseed oil but realized this was also causing diarrhea. Protein intake comes from meat mostly. Has not seen GI. [facility] Medical History Excess skin Cholelithiasis Right upper quadrant abdominal pain GERD (gastroesophageal reflux disease) Obesity Diastasis recti Morbid obesity Oligomenorrhea Hot flashes Irregular menses Confusion, postoperative Dizziness, nonspecific Difficulty swallowing pills Abrasion Large breasts Obesity Post depression Vitamin D deficiency Vitamin B1 deficiency Vitamin A deficiency Preoperative testing Knee pain Depression Low back strain Gynecomastia, female Tired Excessive thirst Difficulty concentrating Lack of adequate sleep Headache syndrome Surgical History S/P laparoscopic cholecystectomy S/P panniculectomy History of esophagogastroduodenoscopy (EGD) History of cholecystectomy S/P laparoscopic sleeve gastrectomy (~05/2021) History of eye surgery Family History Father No problems noted. 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 other at home: Yes (children ages 2 and 6) Do you presently have visiting nurse or other home services: No Alcohol intake: never Comment: medicated for pain, see MAR Patient Tobacco Use Status: Never used Tobacco e-Cigarette/Vaping Use: Never Used Advance Directives Date on File: 05/30/21 service: No Current occupational status: employed Sexual orientation: Straight/Heterosexual Gender identity: Female Cognitive needs: No Hearing needs: No Vision needs: No Telehealth Telehealth Telehealth Platform: Telephone Location of provider rendering services: other Location of patient: address on file Patient Identification confirmed using: Name, : Yes Telehealth method: voice only Patient verbally consented to treatment: Yes Patient verbally consented to billing insurance company: Yes Patient informed of any privacy concerns related to visit: Yes Minutes spent on Phone/Video with Pt.: 20 Assessment & Plan Assessment & Plan (1) S/P laparoscopic sleeve gastrectomy: Onset Date: ~05/2021 Code(s): Z98.84 - Bariatric surgery status Category: Surgical Plan Pt has a lot of preferences/aversions which limit her options. She claims intolerance to dairy, vegetables, artificial sweeteners, plant based shakes, aversion to the foam of Isopure protein powders. I went through multiple protein supplement options with her and while she does not have problems with protein bars, she got sick of them and doesn't want to take them often. I am not sure what is causing her frequent diarrhea but I do not think it is related directly to her sleeve. I do think her symptoms of dumping syndrome are in part related to her not eating all day and then eating some higher carb foods because she gets hungry. I encouraged her to follow up with GI. May be worthwile to test for SIBO. RTC 6 months. I spent a total of 30 minutes reviewing/updating records, examining the patient and counseling the patient on weight management as detailed above.
[2024-10-01 14:09] VITALS: BMI 26.3
== END 2024-10-01 14:35 | disposition home or self-care (01) ==
LOC: HO.HBS 14:10
PROVIDERS: PCP Internal Medicine; Visit Provider Physician Assistant Surgical
DX: E66.3 Overweight (principal); Z68.26 Body mass index [BMI] 26.0-26.9, adult; Z90.3 Acquired absence of stomach [part of]; Z98.84 Bariatric surgery status
CPT/HCPCS: 99214; G2211

== ENCOUNTER 2024-10-03 09:02 | Outpatient (REF) | payer OTHER, SELFPAY ==
[2024-10-04 12:26] LABS: Bacterial Vaginosis PCR NEGATIVE (Negative); Candida Group PCR NOT DETECTED (Not Detect); Candida glab krusei PCR NOT DETECTED (Not Detect); Trichomonas vaginalis PCR NOT DETECTED (Not Detect)
[2024-10-04 13:41] LABS: CT PCR NOT DETECTED (Not Detect.); NG PCR NOT DETECTED (Not Detect.)
== END 2024-10-03 09:03 | disposition home or self-care (01) ==
LOC: HO.LAB 09:02
PROVIDERS: PCP Internal Medicine; Visit Provider Advanced Practice Midwife
DX: Z01.419 Encounter for gynecological examination (general) (routine) without abnormal findings (principal)
CPT/HCPCS: 0352U; 87491; 87591; 99395

== ENCOUNTER 2024-10-03 09:02 | Outpatient (AMB) | payer OTHER, SELFPAY ==
--- NOTE | 2024-10-03 09:04 | MHC.OFFVIS ---
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 Doing well with no concerns. Regular monthly menses x4-5d. Currently is sexually active, uses condoms. Plans a future next year. She denies vaginal itching and irritation. STI screening offered; she accepts. She tries to eat healthy and stays active with exercise. Denies family history of breast, ovarian or colon cancer. Last pap smear 2021, negative. [facility] Medical History Excess skin Cholelithiasis Right upper quadrant abdominal pain GERD (gastroesophageal reflux disease) Obesity Diastasis recti Morbid obesity Oligomenorrhea Hot flashes Irregular menses Confusion, postoperative Dizziness, nonspecific Difficulty swallowing pills Abrasion Large breasts Obesity Post depression Vitamin D deficiency Vitamin B1 deficiency Vitamin A deficiency Preoperative testing Knee pain Depression Low back strain Gynecomastia, female Tired Excessive thirst Difficulty concentrating Lack of adequate sleep Headache syndrome Surgical History S/P laparoscopic cholecystectomy S/P panniculectomy History of esophagogastroduodenoscopy (EGD) History of cholecystectomy S/P laparoscopic sleeve gastrectomy (~05/2021) History of eye surgery Family History Father No problems noted. Mother Fibromyalgia Asthma Anxiety High cholesterol FH: HTN (hypertension) Other Mental health disorder Social History Housing: Apartment Are you a primary resident care technician to a significant other at home: Yes Do you presently have visiting nurse or other home services: No Alcohol intake: never Comment: medicated for pain, see MAR Patient Tobacco Use Status: Never used Tobacco e-Cigarette/Vaping Use: Never Used Advance Directives Date on File: 05/30/21 service: No Current occupational status: employed Sexual orientation: Straight/Heterosexual Gender identity: Female Cognitive needs: No Hearing needs: No Vision needs: No Female Reproductive History Menstrual Duration of menses: 3-5 days Date of last menstrual period: 09/18/24 Total pregnancies: 2 Full term: 2 Date of last pap smear: 05/31/22 (negative pap smear, negative hpv) Review of Systems Const All systems reviewed & are unremarkable except as noted in HPI and below Reports as per HPI Eyes Reports no additional complaints ENT Reports no additional complaints Card Reports no additional complaints Resp Reports no additional complaints GI Reports as per HPI and Reports no additional complaints Reports as per HPI Musc Reports no additional complaints Skin/Breast Reports as per HPI Neuro Reports no additional complaints Psych Reports no additional complaints Endo Reports no additional complaints Esau/Lymph Reports no additional complaints Aller/Immun Reports no additional complaints Physical Exam Vital Signs: Last Vital Signs BP 116/70 10/03/24 09:11 BMI result Body Mass Index 27.0 Const General: cooperative, healthy appearing, no acute distress, well developed and alert Orientation/consciousness: patient oriented x3 HEENT Head: Yes normal to inspection Eyes General: appearance normal, both eyes and all related structures Neck Neck: Yes normal visual inspection Thyroid: Thyroid normal Chest Chest palpation & inspection: normal inspection of the chest and other (no puckering, dimpling, peau de orange, retraction, discharge, masses) Breast/axilla inspection: normal inspection of the breasts and Other (Pendulous) Breast/axilla palpation: normal palpation of the breasts Resp Effort & Inspection: normal respiratory effort GI Other: Snug abdominal binder worn limiting abdominal exam and inspection Inspection: Yes normal to inspection Palpation (GI): Soft to palpation Rectal Exam - Female: deferred General: Yes bladder normal to palpation External Female Exam: normal external appearance and normal appearance of the urethra Speculum Exam - Vagina: normal appearance of the vagina, normal palpation and normal vaginal discharge Speculum Exam - Cervix: normal appearance of the cervix and normal palpation Bimanual exam- vagina & uterus: normal bimanual exam, normal palpation, uterine size normal, bladder normal to palpation, normal palpation and non-tender Bimanual Exam- Adnexa, other: no masses Skin General skin exam: no rashes or lesions noted Rashes: no rashes Neuro General: patient oriented x3 Cognition (Neuro): normal cognition Extrem General: Yes normal to inspection Psych Attitude: cooperative Thought process: Normal thought process present Assessment & Plan Assessment & Plan (1) Encounter for well woman exam with routine gynecological exam: Code(s): Z01.419 - Encounter for gynecological examination (general) (routine) without abnormal findings Category: Medical Plan Discussed: Current recommendations for pap smears per ASCCP guidelines. Breast awareness and periodic breast exams. Maintain a healthy lifestyle including a well balanced diet and routine exercise. Reviewed multiple questions regarding future planning. Advised folic acid for the benefit of prevention of neural tube defects, Rx for vitamins sent in. Patient verbalizes understanding and agrees to the plan of care. She was given opportunity to ask questions and all questions were answered to the best of my ability. RTO in one year for annual head golf professional examination. This note is constructed using voice recognition software. While every effort has been made to ensure accuracy, lieutenant governor errors may have been included. Orders: Orders AMB Urinalysis Dipstick Today Z01.419 - Encounter for gynecological examination (general) (routine) without abnormal findings CT NG by PCR Today Z01.419 - Encounter for gynecological examination (general) (routine) without abnormal findings Bacterial Vaginosis Panel Today Z01.419 - Encounter for gynecological examination (general) (routine) without abnormal findings Medications: New PNV,calcium 51-fkkn-cdyup acid 27 mg iron- 1 mg ( Vitamins Plus Low Iron) 1 tab PO DAILY 90 tabs 4RF Coding Level of Care Code Est Pt Prev Care 18-39y(36999) Diagnoses Encounter for well woman exam with routine gynecological exam Z01.419
[2024-10-03 09:11] VITALS: BP 116/70; BMI 27.0
== END 2024-10-03 09:44 | disposition home or self-care (01) ==
PROVIDERS: PCP Internal Medicine; Visit Provider Advanced Practice Midwife
DX: Z01.419 Encounter for gynecological examination (general) (routine) without abnormal findings (principal)
CPT/HCPCS: 99395

== ENCOUNTER 2024-10-03 09:40 | Outpatient (REF) | payer OTHER, SELFPAY | END 2024-10-03 09:41 | disposition home or self-care (01) | LOC: HO.LNP 09:40 | PROVIDERS: Visit Provider Advanced Practice Midwife | DX: Z13.89 Encounter for screening for other disorder (principal) ==

== ENCOUNTER 2025-02-20 10:42 | Outpatient (AMB) | payer OTHER, SELFPAY ==
[2025-02-20 10:44] VITALS: BP 98/68; PULSE 84; O2SAT 97; BMI 25.2
--- NOTE | 2025-02-20 10:44 | MHC.PC.OV ---
Vital Signs 02/20/25 10:44 Height 5 ft 5 in Weight 151 lb 4 oz BMI 25.2 BP 98/68 Blood Pressure Location Rt brachial Position Sitting Pulse 84 Pulse Source Pulse Oximeter Pulse Oximetry (%) 97 Oxygen Delivery Method Room Air Intake Visit Reasons: Breathing Problems Allergies lactose Allergy (Severe, Verified 02/20/25 10:50) Diarrhea diclofenac [Voltaren] Allergy (Intermediate, Verified 02/20/25 10:50) Hives/itchiness Medication List - Last Reconciled 02/20/25 by Bobo Turner MD thiamine HCl (vitamin B1) 100 mg PO DAILY Tobacco use date assessed: 02/20/25 Dental Screening Dental Screen Date: 02/20/25 Did you have a dental visit in the last 12 months?: Yes Did you have a dental problem in the last 6 months where you did not have access to dental care?: No Was dental information given to patient?: Patient has dentist HPI Breathing Problems HPI Details History - The patient is a 34-year-old female presenting with chronic diarrhea. And hospital discharge follow-up from last month - She underwent a gastric sleeve surgery in 2020, followed by a cholecystectomy approximately eight months later, after which chronic diarrhea began. Patient has already been evaluated by Gastroenterology - The diarrhea persists daily, described as watery and non-bloody, with a frequency that varies from twice to several times a day. - The patient identifies foods like fatty meals and green vegetables as aggravating factors. - She experiences associated symptoms of nausea and lightheadedness, but denies abdominal pain or vomiting. - The patient has sought emergency medical care on several occasions, the most recent being in January for IV fluid administration. At [facility] - Attempts to manage the condition with prescribed medications, including Imodium, have provided limited relief. - Chronic diarrhea has affected her hydration, contributing to lightheadedness and dizziness. Medications - Imodium for chronic diarrhea, limited effectiveness reported. Problem List - Chronic Diarrhea following Cholecystectomy - Status post-Gastric Sleeve Surgery - low blood pressure with dizziness Diagnostic results - Labs: Hemoglobin at 14.3, ; creatinine within normal limits. Patient Instructions - Start taking cholestyramine as directed on the prescription. - Hydrate adequately by drinking at least six to seven glasses of water daily. - Prepare and consume lemonade with a bit of salt to address low blood pressure during episodes of dizziness. - Consume Gatorade during diarrhea episodes to maintain hydration and electrolyte balance. - Avoid fatty meals and monitor diet to identify other potential aggravating foods. Review of Systems General: No fever no chills neurological: No headaches no dizziness ear nose throat: No sore throat no hearing difficulty no ear pain cardiovascular: No syncope, no chest pain, no palpitations endocrine: No polyuria polydipsia no heat intolerance genitourinary: No dysuria skin: No new complaints Physical Exam general: No acute distress HEENT: No acute findings neck: Supple respiratory system: Able to talk in full sentences, no audible wheeze no stridor cardiovascular: S1-S2 regular in rate and rhythm gastrointestinal: No pain, exam is benign extremities: No new findings STUDENT RECORDS SPECIALIST: Alert awake oriented x3 motor sensory intact skin: Normal turgor [facility] Medical History (Updated 02/20/25 @ 14:05 by Bobo Turner MD) Excess skin Cholelithiasis Right upper quadrant abdominal pain GERD (gastroesophageal reflux disease) Obesity Diastasis recti Morbid obesity Oligomenorrhea Hot flashes Irregular menses Confusion, postoperative Dizziness, nonspecific Difficulty swallowing pills Abrasion Large breasts Obesity Post depression Vitamin D deficiency Vitamin B1 deficiency Vitamin A deficiency Preoperative testing Knee pain Depression Low back strain Gynecomastia, female Tired Excessive thirst Difficulty concentrating Lack of adequate sleep Headache syndrome Surgical History (Updated 02/20/25 @ 14:04 by Bobo Turner MD) S/P laparoscopic cholecystectomy S/P panniculectomy History of esophagogastroduodenoscopy (EGD) History of cholecystectomy S/P laparoscopic sleeve gastrectomy (~05/2021) History of eye surgery Family History Father No problems noted. Mother Fibromyalgia Asthma Anxiety High cholesterol FH: HTN (hypertension) Other Mental health disorder Social History Housing: Apartment Are you a primary care aid to a significant other at home: Yes (children ages 2 and 6) Do you presently have visiting nurse or other home services: No Alcohol intake: never Comment: medicated for pain, see MAR Patient Tobacco Use Status: Never used Tobacco e-Cigarette/Vaping Use: Never Used Advance Directives Date on File: 05/30/21 service: No Current occupational status: employed Sexual orientation: Straight/Heterosexual Gender identity: Female Cognitive needs: No Hearing needs: No Vision needs: No Questionnaire PHQ-9 Over the last 2 weeks, how often have you been bothered by any of the following problems? 1. Little interest or pleasure in doing things: more than half the days 2. Feeling down, depressed, or hopeless: not at all 3. Trouble falling or staying asleep, or sleeping too much: not at all 4. Feeling tired or having little energy: not at all 5. Poor appetite or overeating: not at all 6. Feeling bad about yourself - or that you are a failure or have let yourself or your family down: not at all 7. Trouble concentrating on things, such as reading the newspaper or watching television: not at all 8. Moving or speaking so slowly that other people could have noticed. Or the opposite - being so fidgety or restless that you have been moving around a lot more than usual: not at all 9. Thoughts that you would be better off or of hurting yourself in some way: not at all Total score: 2 Depression Screening Interpretation: Negative Depression Screening Done: Yes 80016 - PHQ-9 Billing: Yes Source: Developed by Drs. Raffy Madrid, Cyndi Thompson, Leopoldo Schulte and colleagues, with an educational jr from [employer]. Thrive Questionnaire Date Thrive assessed: 02/20/25 I am a: Patient What is your living situation today?: I have a steady place to live Within the past 12 months, did the food you bought not last and you didn't have the money to get more?: Never true Within the past 12 months, did you worry whether your food would run out before you got money to buy more?: Never true Do you have trouble paying for medicines?: No Do you have trouble getting transportation to medical appointments?: No Do you have trouble paying your heating and electricity bill?: No Do you have trouble taking care of your child, family member or friend?: No Do you have trouble with day-to-day activities such as bathing, preparing meals, shopping, managing finances, etc.?: No Are you currently unemployed and looking for a job?: No Are you interested in more education?: No Please select the resources that you would like help with: None Currently or been in a relationship where the following occur: No concerns reported THRIVE Score: 0 AUDIT C Alcohol Use Questionnaire (AUDIT-C) 1. How often do you have a drink containing alcohol?: Never 3. How often do you have six or more drinks on one occasion?: Never Total Score: 0 Score Reviewed/Action Taken: Yes BRYCE-7 AMB Questionnaire BRYCE-7 Date BRYCE - 7 assessed: 02/20/25 Feeling nervous, anxious, or on edge: 1 = Several days Not being able to stop or control worryin = Several days Worrying too much about different things: 1 = Several days Trouble relaxin = Several days Being so restless that it is hard to sit still: 1 = Several days Becoming easily annoyed or irritable: 2 = More than half the days Feeling afraid as if something awful might happen: 1 = Several days Total BRYCE-7 score (0-4 normal; 5-9 mild; 10-14 moderate; 15-21 severe): 8 Source: Developed by Drs. Raffy Madrid, Cyndi Thompson, Leopoldo Schulte and colleagues, with an educational jr from [employer]. BRYCE-7 Assessment Billing BRYCE-7 Assessment Tool: BRYCE-7 Assessment 31157 Physical exam (Primary Care) Vital Signs: Last Vital Signs Pulse 84 02/20/25 10:44 BP 98/68 02/20/25 10:44 Pulse Ox 97 02/20/25 10:44 Oxygen Delivery Method Room Air 02/20/25 10:44 BMI result Body Mass Index 25.2 Tobacco/Smoking Status: Tobacco use Status Tobacco use date assessed 02/20/25 02/20/25 10:45 Patient Tobacco Use Status Never used Tobacco 02/20/25 10:45 e-Cigarette/Vaping Use Never Used 02/20/25 10:45 PHQ-9: PHQ-9 Score PHQ-9: Total score 2 02/20/25 11:05 Depression Screening Interpretation: Negative Thrive Assessment: Date of Thrive Assessment Date Thrive assessed 02/20/25 02/20/25 10:45 Currently or been in a relationship where the following occur: No concerns reported Coding Level of Care Code Est Pt Level 4 (17696) Diagnoses Chronic diarrhea K52.9 Other specified hypotension I95.89 Hypotension type: other hypotension type Dizziness R42 S/P laparoscopic sleeve gastrectomy Z98.84 History of cholecystectomy Z90.49 Additional Codes BRYCE-7 Assessment Billing - BRYCE-7 Assessment Tool: BRYCE-7 Assessment 87336 ([id number]) PHQ-9 - 40053 - PHQ-9 Billing: Yes ([id number]) Assessment & Plan Assessment & Plan (1) Chronic diarrhea: Code(s): K52.9 - Noninfective gastroenteritis and colitis, unspecified Category: Medical (2) Low blood pressure: Code(s): I95.9 - Hypotension, unspecified Category: Medical Qualifiers: Hypotension type: other hypotension type Qualified Code(s): I95.89 - Other hypotension (3) Dizziness: Code(s): R42 - Dizziness and giddiness Category: Medical (4) S/P laparoscopic sleeve gastrectomy: Onset Date: ~05/2021 Code(s): Z98.84 - Bariatric surgery status Category: Surgical (5) History of cholecystectomy: Code(s): Z90.49 - Acquired absence of other specified parts of digestive tract Category: Surgical Plan History - The patient is a 34-year-old female presenting with chronic diarrhea. And hospital discharge follow-up from last month - She underwent a gastric sleeve surgery in 2020, followed by a cholecystectomy approximately eight months later, after which chronic diarrhea began. Patient has already been evaluated by Gastroenterology - The diarrhea persists daily, described as watery and non-bloody, with a frequency that varies from twice to several times a day. - The patient identifies foods like fatty meals and green vegetables as aggravating factors. - She experiences associated symptoms of nausea and lightheadedness, but denies abdominal pain or vomiting. - The patient has sought emergency medical care on several occasions, the most recent being in January for IV fluid administration. At [facility] - Attempts to manage the condition with prescribed medications, including Imodium, have provided limited relief. - Chronic diarrhea has affected her hydration, contributing to lightheadedness and dizziness. Medications - Imodium for chronic diarrhea, limited effectiveness reported. Problem List - Chronic Diarrhea following Cholecystectomy - Status post-Gastric Sleeve Surgery - low blood pressure with dizziness Diagnostic results - Labs: Hemoglobin at 14.3, ; creatinine within normal limits. Patient Instructions - Start taking cholestyramine as directed on the prescription. - Hydrate adequately by drinking at least six to seven glasses of water daily. - Prepare and consume lemonade with a bit of salt to address low blood pressure during episodes of dizziness. - Consume Gatorade during diarrhea episodes to maintain hydration and electrolyte balance. - Avoid fatty meals and monitor diet to identify other potential aggravating foods. Medications: New cholestyramine (with sugar) 4 gram administer w/meal; avoid other meds within 1hr before or 4-6hr after dose 4 grams PO TID 30 days 378 grams 0RF Diarrhea
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
--- OUTSIDE RECORDS SUMMARY | 2025-02-20 12:18 | XMS_ITS | Encounter Summary ---
Author Organization [facility] Address [address] [place] [address] Care Team Providers Care Healthcare Administrative Assistant Name Role Phone Gina Sousa DENIS Primary Care Provider [phone] Encounter Details Date Type Department Care Team (Late st Contact Info) Description 03/22/2022 Dental Interim Note [facility]aring [facility] Dental [address] [place] [phone] Lolita Vaz, JORGE [address] [place] [address] Social History Tobacco Use Types Packs/Day Years Used Date Smoking Tobacco: Never Alcohol Use Standard Drinks/Week Comments No 0 (1 standard drink = 0.6 oz pur e alcohol) Social Connections Answer Date Recorded Social Connections and Isolation 0 03/22/2022 Financial Resource Strain Answer Date R ecorded Financial Resource Strain 0 2021 Stress Answer Date Recorded Stress 0 03/22/2022 Physical Activity Answer Date Recorded Physical Activity 0 03/22/2022 Food Insecurity Answer Date Recorded Food 0 03/22/2022 Transportation Needs Answer Date Record ed Transportation 0 03/22/2022 Housing Stability Answer Date Recorded Housing 0 03/22/2022 Safety and Environment Answer Date Vincenzo rded Safety 0 03/22/2022 Utilities Answer Date Recorded Utilities 0 03/22/2022 Employment Answer Date Recorded Employment 0 03/22/2022 Comments Unknown Sex and Gender Information Value Date Recorded Sex Assigned at Female 03/25/2022 8:57 AM PDT Legal Sex Female 9:25 AM PDT Gender Identity Female 03/25/2022 8:57 AM PDT Sexual Orientation Straight 03/25/2022 8: 57 AM PDT COVID-19 Exposure Response Date Recorded In the last 10 days, have yo u been in contact with someone who was confirmed or suspected to have Coronavirus/COVID-19? No / Unsure 03/25/2022 9:03 AM EDT documented as of this encounter Plan of Treatment Not on file documented as of this encounter Procedures Procedure Name Priority Date/Time Associated Diagnosis Comments 19 ROOT CANAL - WISDOM (NO BILLABLE) Routine 03/22/2022 12:00 AM EDT 32 MO COMPOSITE - WISDOM (NON BILLABLE) Routine 03/22/2022 12:00 AM EDT 30 MOD COMPOSITE - WISDOM (NON BILLABLE) Routine 03/22/2022 12:00 AM EDT 29 MOD COMPOSITE - WISDOM (NON BILLABLE) Routine 03/22/2022 12:00 AM EDT 28 DO COMPOSITE - WISDOM (NON BILLABLE) Routine 03/22/2022 12:00 AM EDT 20 O COMPOSITE - WISDOM (NON BILLABLE) Routine 03/22/2022 12:00 AM EDT 15 MO COMPOSITE - WISDOM (NON BILLABLE) Routine 03/22/2022 12:00 AM EDT 14 MODB COMPOSITE - WISDOM (NON BILLABLE) Routine 03/22/2022 12:00 AM EDT 13 MOD COMPOSITE - WISDOM (NON BILLABLE) Routine 03/22/2022 12:00 AM EDT 10 M COMPOSITE - WISDOM (NON BILLABLE) Routine 03/22/2022 12:00 AM EDT 7 M COMPOSITE - WISDOM (NON BILLABLE) Routine 03/22/2022 12:00 AM EDT 5 DO COMPOSITE - WISDOM (NON BILLABLE) Routine 03/22/2022 12:00 AM EDT 4 MOD COMPOSITE - WISDOM (NON BILLABLE) Routine 03/22/2022 12:00 AM EDT 3 MOD COMPOSITE - WISDOM (NON BILLABLE) Routine 03/22/2022 12:00 AM EDT 2 MOD COMPOSITE - WISDOM (NON BILLABLE) Routine 03/22/2022 12:00 AM EDT documented in this encounter Visit Diagnoses Not on filedocumented in this encounter Care Teams Healthcare Administrative Assistant Relationship Specialty Start Date End Date Gina Sousa FNP [address] [place] [address] PCP - General 12/21/19 06/11/22 documented as of this encounter
--- OUTSIDE RECORDS SUMMARY | 2025-02-20 12:18 | XMS_ITS | Encounter Summary ---
Author Organization [facility] Address [address] [place] [address] Care Team Providers Care Gang Bore Operator Name Role Phone Unavailable Primary Care Provider Unavailabl e Encounter Details Date Type Department Care Team ([facility] st Contact Info) Description 06/21/2023 Dental Interim Note Caring [facility] Dental [address] [place] [phone] Quintin Biggs [address] [place] [address] Social History Tobacco Use Types Packs/Day Years [...] Orientation Straight 03/25/2022 8: 57 AM PDT documented as of this encounter Plan of Treatment Not on file documented as of this encounter Visit Diagnoses Not on filedocumented in this encounter
--- OUTSIDE RECORDS SUMMARY | 2025-02-20 12:18 | XMS_ITS | Clinical Summary ---
Author Organization [facility] ity Address [address] [place] [address] Care Team Providers Care Child Neurologist Name Role Phone Unavailable Primary Care Provider Unavailabl e Social History Tobacco Use Types Packs/Day Years Used Date Smoking Tobacco: Never Assessed Comments Unknown Sex and Gender Information Value Date Recorded Sex Assigned at Not on file Legal Sex Female 12:47 AM EST Gender Identity Not on file Sexual Orientation Not on file Plan of Treatment Health Maintenance Due Date Last Done Comments DTaP,Tdap,and Td Vaccines (1 - Tdap) 2008 Hepatitis B Vaccines (1 of 3 - 19+ 3-dose series) 2008 Cervical Cancer Screening: P ap Smear 2010 COVID-19 Vaccine ( - 2023-2 5 season) 2024 Influenza Vaccine (#1) 2024 HIB Vaccines Aged Out No longer eligi ble based on patient's age to complete this topic HPV Vaccines Aged Out No longer eligi ble based on patient's age to complete this topic Hepatitis A Vaccines Aged Out No long er eligible based on patient's age to complete this topic IPV Vaccines Aged Out No longer eligi ble based on patient's age to complete this topic MMR Vaccines Aged Out No longer eligi ble based on patient's age to complete this topic Meningococcal ACWY Vaccine Aged Out N o longer eligible based on patient's age to complete this topic Meningococcal B Vacine Aged Out No lo nger eligible based on patient's age to complete this topic Pneumococcal Vaccine: Pediat rics (0 to 5 Years) and At-Risk Patients (6 to 64 Years) Aged Out No longer eligible b ased on patient's age to complete this topic RSV Immunization Patients Un missael 20 months Aged Out No longer eligible b ased on patient's age to complete this topic Varicella Vaccines Aged Out No longer eligible based on patient's age to complete this topic
--- OUTSIDE RECORDS SUMMARY | 2025-02-20 12:18 | XMS_ITS | Encounter Summary ---
Author Organization [facility] Address [address] [place] [address] Care Team Providers Care Outside Sales Name Role Phone Gina Sousa DENIS Primary Care Provider [phone] Encounter Details Date Type Department Care Team (Late st Contact Info) Description 04/20/2022 Dental Interim [address] [facility] [facility] Dental [address] [place] [phone] Jimena Loya, ENA [address] [place] [address] Social History Tobacco Use Types Packs/Day Years [...] suspected to have Coronavirus/COVID-19? No / Unsure 04/21/2022 4:11 PM EDT documented as of this encounter Plan of Treatment Not on file documented as of this encounter Visit Diagnoses Not on filedocumented in this encounter Care Teams Outside Sales Relationship Specialty Start Date End Date Gina Sousa FNP [address] [place] [address] PCP - General 12/21/19 06/11/22 documented as of this encounter
== END 2025-02-20 11:05 | disposition home or self-care (01) ==
LOC: HO.HMCC 10:43
PROVIDERS: PCP Internal Medicine; Visit Provider Internal Medicine
DX: K52.9 Noninfective gastroenteritis and colitis, unspecified (principal); I95.89 Other hypotension; R42 Dizziness and giddiness; Z98.84 Bariatric surgery status; Z90.49 Acquired absence of other specified parts of digestive tract

== ENCOUNTER → 2025-02-20 10:42 | Outpatient (BNVA) | payer OTHER, SELFPAY | PROVIDERS: PCP Internal Medicine; Visit Provider Internal Medicine | DX: K52.9 Noninfective gastroenteritis and colitis, unspecified (principal); I95.89 Other hypotension; R42 Dizziness and giddiness; Z90.49 Acquired absence of other specified parts of digestive tract; Z98.84 Bariatric surgery status | CPT/HCPCS: 96127; 99212 ==

== ENCOUNTER 2025-04-03 11:50 | Outpatient (AMB) | payer OTHER, SELFPAY ==
--- OUTSIDE RECORDS SUMMARY | 2025-04-03 11:57 | XMS_ITS | Clinical Summary ---
Author Organization [facility] ity Address [address] [place] [address] Care Team Providers Care Cuff Cutter Name Role Phone Unavailable Primary Care Provider [...] - 2023-2 5 season) 2024 Influenza Vaccine (Season Ended) 2025 HIB Vaccines Aged Out No longer eligi [...] age to complete this topic Meningococcal B Vaccine Aged Out No l onger eligible based on patient's age to complete [...]
--- OUTSIDE RECORDS SUMMARY | 2025-04-03 11:57 | XMS_ITS | Encounter Summary ---
Author Organization [facility] Address [address] [place] [address] Care Team Providers Care Bacteriology Research Assistant Name Role Phone Gina Sousa DENIS Primary Care Provider [phone] Encounter Details Date Type Department Care Team (Late st Contact Info) Description 04/20/2022 Dental Interim Note Caring [facility] Dental [address] [place] [phone] Jimena Loya, ENA [address] [place] [address] Social History Tobacco Use Types Packs/Day Years [...] on filedocumented in this encounter Care Teams Bacteriology Research Assistant Relationship Specialty Start Date End Date Gina Sousa FNP [address] [place] [address] PCP - General 12/21/19 06/11/22 documented as of this encounter
--- OUTSIDE RECORDS SUMMARY | 2025-04-03 11:57 | XMS_ITS | Encounter Summary ---
Author Organization [facility] Address [address] [place] [address] Care Team Providers Care Manager Functional Name Role Phone Unavailable Primary Care Provider Unavailabl e Encounter Details Date Type Department Care Team ([facility] st Contact Info) Description 06/21/2023 Dental Interim Note Caring [facility] Dental [address] [place] [phone] Quintin Biggs [address] [place] [address] Social History Tobacco Use Types Packs/Day Years [...]
--- OUTSIDE RECORDS SUMMARY | 2025-04-03 11:57 | XMS_ITS | Encounter Summary ---
Author Organization [facility] Address [address] [place] [address] Care Team Providers Care Production Checker Name Role Phone Gina Sousa DENIS Primary Care Provider [phone] Encounter Details Date Type Department Care Team (Late st Contact Info) Description 03/22/2022 Dental Interim Note Caring [facility] Dental [address] [place] [phone] Lolita Vaz, JORGE [address] [place] [address] Social History Tobacco Use Types Packs/Day Years [...] on filedocumented in this encounter Care Teams Production Checker Relationship Specialty Start Date End Date Gina Sousa FNP [address] [place] [address] PCP - General 12/21/19 06/11/22 documented as of this encounter
--- OUTSIDE RECORDS SUMMARY | 2025-04-03 11:57 | XMS_ITS | Clinical Summary ---
Author Organization [facility] Address [address] [place] [address] Care Team Providers Care Audio Visual Specialist Name Role Phone Unavailable Primary Care Provider [...] without aura and without status migrainosus, not intractable,Hospice Massage Therapist yudy midline low back pain without sciatica Take 1 Tab by mouth every 6 (six) hours as needed for pain. 30 Tab 2 05/02/2016 Active sodium chloride 0.65 % nasal solutionIndicati ons:Nasal congestion Place 1 Tarzan into the nostril(s) every 4 (four) hours [...] Date Diagnosed Date 30 weeks gestation of ([facility]) 2015 Overview (05/02/2016): Following OB at [facility]. Migraine without aura and wi thout status [...] Charting 12/23/2023 12/21/2022 Dental Prophy 12/23/2023 12/21/2022 [id number] () 07/20/2024 Imm-Influenza (#1) 2024 09/03/2016 Alcohol [...] Most Recently Relevant to Health Maintenance Insurance [place] DENT[place]
--- NOTE | 2025-04-03 12:00 | A.OFFPC_ITS ---
Vital Signs 04/03/25 12:01 Height 5 ft 5 in Weight 152 lb BMI 25.3 BP 112/70 Blood Pressure Location Rt brachial Position Sitting Pulse 95 Pulse Source Pulse Oximeter Pulse Oximetry (%) 98 Oxygen Delivery Method Room Air Intake Visit Reasons: PE Allergies lactose Allergy (Severe, Verified 04/03/25 12:01) Diarrhea diclofenac [Voltaren] Allergy (Intermediate, Verified 04/03/25 12:01) Hives/itchiness Medication List - Last Reconciled 04/03/25 by Bobo Turner MD cholestyramine (with sugar) 4 gram 4 grams PO TID 30 days thiamine HCl (vitamin B1) 100 mg PO DAILY Tobacco use date assessed: 04/03/25 Dental Screening Dental Screen Date: 04/03/25 Did you have a dental visit in the last 12 months?: Yes Did you have a dental problem in the last 6 months where you did not have access to dental care?: No Was dental information given to patient?: Patient has dentist HPI PE HPI Details Physical exam appointment - The patient is a 34-year-old female pr esenting with dizziness and lightheadedness after exercise. - Reports experiencing palpitations, diz ziness, and cold sweats. - Describes episodes as feeling like a dipping in sugar condition. - Blood pressure was recorded at 98 syst olic in February, with a recent recording of 112/70. - Exercises regularly, reports dizziness and extreme lightheadedness post- workout. - Experiences bruising after workouts wi thout clear cause. - Vitamin B1 levels were very low, suspe cted to be related to past bariatric surgery; takes vitamin B1 supplementation without noticeable impact. - History of chronic diarrhea started af ter cholecystectomy managed with cholestyramine medication leading to improved symptoms. Health Maintenance - Monitoring and management for hypotens ion advised, including regular hydration and electrolyte intake. - B complex vitamins suggested - Recommendations on monitoring blood pr essure at home. - Previous lab results include normal ki dney functions, normal electrolytes, and fasting blood sugar of 92. - History of bariatric surgery affecting vitamin absorption. - Diarrhea cessation noted, alleviating dehydration symptoms. - drink Gatorade if plan on exercising - return for lab review Patient Instructions - Monitor blood pressure regularly at [facility]. - Increase hydration and include electro lytes like Gatorade. - Consider switching from Vitamin B1 to a complete B complex vitamin. - Schedule follow-up appointments after labs. Review of Systems - General: No fever no chills - Neurological: No headaches - Ear nose throat: No sore throat no hearing difficulty no ear pain - Cardiovascular: No syncope, no chest pain, no palpitations - Gastrointestinal: No nausea vomiting or diarrhea - Endocrine: No polyuria polydipsia no heat intolerance - Genitourinary: No dysuria - Skin: No new complaints Physical Exam General: Cooperative, healthy appearing, comfortable, no acute distress Orientation: Patient oriented x3 Head: Normal to inspection Ears: Within normal limit visually Nose: Normal external nose present Face and sinus: Normal facial exam Eyes: Appearance normal, extraocular movement intact pupils reactive Neck: Normal visual inspection and supple Respiratory: Normal respiratory effort and able to speak in complete sentences. Clear to auscultation, no stridor Cardiovascular: S1 and S2 RRR, blood pressure 112/70 Breast exam through OBGYN Back: Right trapezius soreness secondary to strain GI: Normal to inspection. Soft to palpation and nontender Skin: Turgor normal, no acute findings, bruises present Neuro: Patient oriented x3, motor sensory intact, balance intact, tandem pass Extremities: Normal to inspection, range of motion intact [facility] Medical History Excess skin Cholelithiasis Right upper quadrant abdominal pain GERD (gastroesophageal reflux disease) Obesity Diastasis recti Morbid obesity Oligomenorrhea Hot flashes Irregular menses Confusion, postoperative Dizziness, nonspecific Difficulty swallowing pills Abrasion Large breasts Obesity Post depression Vitamin D deficiency Vitamin B1 deficiency Vitamin A deficiency Preoperative testing Knee pain Depression Low back strain Gynecomastia, female Tired Excessive thirst Difficulty concentrating Lack of adequate sleep Headache syndrome Surgical History S/P laparoscopic cholecystectomy S/P panniculectomy History of esophagogastroduodenoscopy (EGD) History of cholecystectomy S/P laparoscopic sleeve gastrectomy (~05/2021) History of eye surgery Family History Father No problems noted. 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) Do you presently have visiting nurse or other home services: No Alcohol intake: never Comment: medicated for pain, see MAR Patient Tobacco Use Status: Never used Tobacco e-Cigarette/Vaping Use: Never Used Advance Directives Date on File: 05/30/21 service: No Current occupational status: employed Sexual orientation: Straight/Heterosexual Gender identity: Female Cognitive needs: No Hearing needs: No Vision needs: No Questionnaire Thrive Questionnaire Date Thrive assessed: 04/03/25 I am a: Patient What is your living situation today?: I have a steady place to live Within the past 12 months, did the food you bought not last and you didn't have the money to get more?: Never true Within the past 12 months, did you worry whether your food would run out before you got money to buy more?: Never true Do you have trouble paying for medicines?: No Do you have trouble getting transportation to medical appointments?: No Do you have trouble paying your heating and electricity bill?: No Do you have trouble taking care of your child, family member or friend?: No Do you have trouble with day-to-day activities such as bathing, preparing meals, shopping, managing finances, etc.?: No Are you currently unemployed and looking for a job?: No Are you interested in more education?: No Please select the resources that you would like help with: None Currently or been in a relationship where the following occur: No concerns reported THRIVE Score: 0 AUDIT C Alcohol Use Questionnaire (AUDIT-C) 1. How often do you have a drink containing alcohol?: Never 3. How often do you have six or more drinks on one occasion?: Never Total Score: 0 Score Reviewed/Action Taken: Yes BRYCE-7 AMB Questionnaire BRYCE-7 Date BRYCE - 7 assessed: 02/20/25 Source: Developed by Drs. Raffy Madrid, Cyndi Thompson, Leopoldo Schulte and colleagues, with an educational jr from [employer]. Physical exam (Primary Care) Vital Signs: Last Vital Signs Pulse 95 04/03/25 12:01 BP 112/70 04/03/25 12:01 Pulse Ox 98 04/03/25 12:01 Oxygen Delivery Method Room Air 04/03/25 12:01 BMI result Body Mass Index 25.3 Tobacco/Smoking Status: Tobacco use Status Tobacco use date assessed 04/03/25 04/03/25 12:02 Patient Tobacco Use Status Never used Tobacco 04/03/25 12:02 e-Cigarette/Vaping Use Never Used 04/03/25 12:02 Thrive Assessment: Date of Thrive Assessment Date Thrive assessed 04/03/25 04/03/25 12:02 Currently or been in a relationship where the following occur: No concerns reported Coding Level of Care Code Est Pt Level 4 (82892) Est Pt Prev Care 18-39y(86535) Diagnoses Encounter for general adult medical examination with abnormal findings Z00.01 Dizziness R42 Easy bruising R23.3 Weakness R53.1 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 Strain of right trapezius muscle, initial encounter S46.811A Encounter type: initial encounter Vitamin D deficiency E55.9 Other specified hypotension I95.89 Hypotension type: other hypotension type Assessment & Plan Assessment & Plan (1) Encounter for general adult medical examination with abnormal findings: Code(s): Z00.01 - Encounter for general adult medical examination with abnormal findings Category: Medical (2) Dizziness: Code(s): R42 - Dizziness and giddiness Category: Medical (3) Easy bruising: Code(s): R23.3 - Spontaneous ecchymoses Category: Medical (4) Weakness: Code(s): R53.1 - Weakness Category: Medical (5) Post-cholecystectomy syndrome: Code(s): K91.5 - Postcholecystectomy syndrome Category: Medical (6) Strain of right trapezius muscle: Code(s): S46.811A - Strain of other muscles, fascia and tendons at shoulder and upper arm level, right arm, initial encounter Category: Medical Qualifiers: Encounter type: initial encounter Qualified Code(s): S46.811A - Strain of other muscles, fascia and tendons at shoulder and upper arm level, right arm, initial encounter (7) Vitamin D deficiency: Code(s): E55.9 - Vitamin D deficiency, unspecified Category: Medical (8) Low blood pressure: Code(s): I95.9 - Hypotension, unspecified Category: Medical Qualifiers: Hypotension type: other hypotension type Qualified Code(s): I95.89 - Other hypotension Plan Physical exam appointment - The patient is a 34-year-old female presenting with dizziness and lightheadedness after exercise. - Reports experiencing palpitations, dizziness, and cold sweats. - Describes episodes as feeling like a dipping in sugar condition. - Blood pressure was recorded at 98 systolic in February, with a recent recording of 112/70. - Exercises regularly, reports dizziness and extreme lightheadedness post- workout. - Experiences bruising after workouts without clear cause. - Vitamin B1 levels were very low, suspected to be related to past bariatric surgery; takes vitamin B1 supplementation without noticeable impact. - History of chronic diarrhea started after cholecystectomy managed with cholestyramine medication leading to improved symptoms. Health Maintenance - Monitoring and management for hypotension advised, including regular hydration and electrolyte intake. - B complex vitamins suggested - Recommendations on monitoring blood pressure at home. - Previous lab results include normal kidney functions, normal electrolytes, and fasting blood sugar of 92. - History of bariatric surgery affecting vitamin absorption. - Diarrhea cessation noted, alleviating dehydration symptoms. - drink Gatorade if plan on exercising - return for lab review Patient Instructions - Monitor blood pressure regularly at home. - Increase hydration and include electrolytes like Gatorade. - Consider switching from Vitamin B1 to a complete B complex vitamin. - Schedule follow-up appointments after labs. Orders: Orders Complete Blood Count Auto Diff Today E55.9 - Vitamin D deficiency, unspecified, I95.89 - Other hypotension, K91.5 - Postcholecystectomy syndrome, R42 - Dizziness and giddiness, R53.1 - Weakness, Z00.01 - Encounter for general adult medical examination with abnormal findings Comprehensive [place]. Panel Fast Today E55.9 - Vitamin D deficiency, unspecified, I95.89 - Other hypotension, K91.5 - Postcholecystectomy syndrome, R42 - Dizziness and giddiness, R53.1 - Weakness, Z00.01 - Encounter for general adult medical examination with abnormal findings Vitamin D 25-OH (D2 and D3) Today E55.9 - Vitamin D deficiency, unspecified, I95.89 - Other hypotension, K91.5 - Postcholecystectomy syndrome, R42 - Dizziness and giddiness, R53.1 - Weakness, Z00.01 - Encounter for general adult medical examination with abnormal findings Vitamin B12 Today E55.9 - Vitamin D deficiency, unspecified, I95.89 - Other hypotension, K91.5 - Postcholecystectomy syndrome, R42 - Dizziness and giddiness, R53.1 - Weakness, Z00.01 - Encounter for general adult medical examination with abnormal findings UA CC w/rflx Micro + Cult Today E55.9 - Vitamin D deficiency, unspecified, I95.89 - Other hypotension, K91.5 - Postcholecystectomy syndrome, R42 - Dizziness and giddiness, R53.1 - Weakness, Z00.01 - Encounter for general adult medical examination with abnormal findings Prothrombin Time INR Today E55.9 - Vitamin D deficiency, unspecified, I95.89 - Other hypotension, K91.5 - Postcholecystectomy syndrome, R42 - Dizziness and giddiness, R53.1 - Weakness, Z00.01 - Encounter for general adult medical examination with abnormal findings Lipid Panel Today E55.9 - Vitamin D deficiency, unspecified, I95.89 - Other hypotension, K91.5 - Postcholecystectomy syndrome, R42 - Dizziness and giddiness, R53.1 - Weakness, Z00.01 - Encounter for general adult medical examination with abnormal findings TSH reflex Free T4 Today E55.9 - Vitamin D deficiency, unspecified, I95.89 - Other hypotension, K91.5 - Postcholecystectomy syndrome, R42 - Dizziness and giddiness, R53.1 - Weakness, Z00.01 - Encounter for general adult medical examination with abnormal findings Partial Thromboplastin Time Today E55.9 - Vitamin D deficiency, unspecified, I 95.89 - Other hypotension, K91.5 - Postcholecystectomy syndrome, R42 - Dizziness and giddiness, R53.1 - Weakness, Z00.01 - Encounter for general adult medical examination with abnormal findings
[2025-04-03 12:01] VITALS: BP 112/70; PULSE 95; O2SAT 98; BMI 25.3
== END 2025-04-03 12:34 | disposition home or self-care (01) ==
LOC: HO.HMCC 11:50
PROVIDERS: PCP Internal Medicine; Visit Provider Internal Medicine
DX: Z00.01 Encounter for general adult medical examination with abnormal findings (principal); R42 Dizziness and giddiness; R23.3 Spontaneous ecchymoses; R53.1 Weakness; K91.5 Postcholecystectomy syndrome; S46.811A Strain of other muscles, fascia and tendons at shoulder and upper arm level, right arm, initial encounter; E55.9 Vitamin D deficiency, unspecified; I95.89 Other hypotension

== ENCOUNTER → 2025-04-03 11:50 | Outpatient (BNVA) | payer OTHER, SELFPAY | PROVIDERS: PCP Internal Medicine; Visit Provider Internal Medicine | DX: Z00.01 Encounter for general adult medical examination with abnormal findings (principal); R42 Dizziness and giddiness; R23.3 Spontaneous ecchymoses; R53.1 Weakness; K91.5 Postcholecystectomy syndrome; E55.9 Vitamin D deficiency, unspecified; I95.89 Other hypotension; S46.811A Strain of other muscles, fascia and tendons at shoulder and upper arm level, right arm, initial encounter; X58.XXXA Exposure to other specified factors, initial encounter; Y93.9 Activity, unspecified; Y92.9 Unspecified place or not applicable; Y99.9 Unspecified external cause status | CPT/HCPCS: 99212; 99395 ==

== ENCOUNTER 2025-04-07 09:21 | Outpatient (REF) | payer OTHER, SELFPAY ==
--- OUTSIDE RECORDS SUMMARY | 2025-04-07 10:09 | XMS_ITS | Encounter Summary ---
Author Organization [facility] Address [address] [place] [address] Care Team Providers Care Director Emergency Department Name Role Phone Gina Sousa DENIS Primary Care Provider [phone] Encounter Details Date Type Department Care Team (Late st Contact Info) Description 03/22/2022 Dental Interim Note Caring [facility] [address] [place] [phone] Lolita Vaz, JORGE [address] [place] [address] Social History Tobacco Use Types Packs/Day Years [...] on filedocumented in this encounter Care Teams Director Emergency Department Relationship Specialty Start Date End Date Gina Sousa FNP [address] [place] [address] PCP - General 12/21/19 06/11/22 documented as of this encounter
--- OUTSIDE RECORDS SUMMARY | 2025-04-07 10:09 | XMS_ITS | Encounter Summary ---
Author Organization [facility] Address [address] [place] [address] Care Team Providers Care Vacuum Extractor Operator Name Role Phone Unavailable Primary Care Provider Unavailabl e Encounter Details Date Type Department Care Team ([facility] st Contact Info) Description 06/21/2023 Dental Interim Note Caring [facility] Dental [address] [place] [phone] Quintin Biggs [address] [place] [address] Social History Tobacco Use Types Packs/Day Years [...]
--- OUTSIDE RECORDS SUMMARY | 2025-04-07 10:09 | XMS_ITS | Encounter Summary ---
Author Organization [facility] Address [address] [place] [address] Care Team Providers Care Recruiter Specialist Name Role Phone Gina Sousa DENIS Primary Care Provider [phone] Encounter Details Date Type Department Care Team (Late st Contact Info) Description 04/20/2022 Dental Interim Note Caring [facility] [address] [place] [phone] Jimena Loya, ENA [address] [place] [address] Social History Tobacco Use Types Packs/Day Years [...] on filedocumented in this encounter Care Teams Recruiter Specialist Relationship Specialty Start Date End Date Gina Sousa FNP [address] [place] [address] PCP - General 12/21/19 06/11/22 documented as of this encounter
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
--- OUTSIDE RECORDS SUMMARY | 2025-04-07 10:09 | XMS_ITS | Clinical Summary ---
Author Organization [facility] ity Address [address] [place] [address] Care Team Providers Care Twisting Frame Operator Name Role Phone Unavailable Primary Care [...]
[2025-04-07 13:08] LABS: MANUAL DIFF FLAG NO
[2025-04-07 13:20] LABS: Partial Thromboplastin Time 33.2 SEC (26.0-36.8)
[2025-04-07 13:21] LABS: Basophils Absolute Auto 0.1 X10*3/uL (0.0-0.2); Basophils Percent Auto 1.2 % (0-2); Eosinophils Percent Auto 0.4 % (0-4); Hematocrit 36.2 % (37.0-47.0); Hemoglobin 11.9 g/dl (12.0-16.0); Imm Gran Abs Auto 0.01 X10*3/uL (0.00-0.03); Imm Gran Pct Auto 0.2 % (0.0-0.4); Lymphocytes Absolute Auto 1.7 X10*3/uL (1.2-4.9); Mean Corpuscular HGB Conc 32.9 g/dl (31.0-35.0); Mean Corpuscular Hemoglobin 27.7 pg (27.0-33.0); Mean Corpuscular Volume 84.4 fL (80.0-98.0); Monocytes Absolute Auto 0.3 X10*3/uL (0.1-1.2); Monocytes Percent Auto 6.8 % (2-11); Neutrophils Absolute Auto 2.8 x10*3/uL (2.0-8.3); Neutrophils Percent Auto 57.4 % (45-73); Platelet Count 263 X10*3/uL (160-400); Red Blood Count 4.29 X10*6/uL (4.20-5.50); Red Cell Distribution Width 13.1 % (11.0-16.0); White Blood Count 4.9 X10*3/uL (4.8-10.8)
[2025-04-07 13:28] LABS: Appearance Urine Clear; Color Urine Yellow; Glucose Urine UA Negative (Negative); Leukocyte Esterase Urine Negative (Negative); Nitrite Urine Negative (Negative); PH 7.5 (5.0-9.0); Urine Blood Negative (Negative); Urine Ketones Negative (Negative); Urine Protein Negative (Neg-Trace)
[2025-04-07 13:56] LABS: Alanine Aminotransferase 14 U/L (0-31); Alkaline Phosphatase 54 U/L (39-117); Anion Gap 10 (12-20); Aspartate Amino Transferase 31 U/L (5-31); Bilirubin Total 0.4 mg/dL (0.0-1.0); Blood Urea Nitrogen 12 mg/dL (9-16); Calcium 9.1 mg/dL (8.4-10.2); Carbon Dioxide 27 mmol/L (22-29); Chloride 105 mmol/L (96-108); Cholesterol 155 mg/dL (<200); Estimated Glomerular Filt Rate > 60; Glucose Fasting 78 mg/dL (60-99); HDL Cholesterol 58 mg/dL (>40); LDL Cholesterol Calculated 89 mg/dL (<100); Sodium 138 mmol/L (135-145); Total Protein 7.4 g/dL (6.5-8.0); Triglycerides 41 mg/dL (<150)
[2025-04-07 14:15] LABS: TSH reflex Free T4 0.49 uIU/mL (0.32-4.0)
[2025-04-07 14:19] LABS: Vitamin B12 686 pg/mL (200-900)
[2025-04-11 17:33] LABS: Vitamin D 25-OH, D2 <4 ng/mL; Vitamin D 25-OH, D3 30 ng/mL; Vitamin D 25-OH, Total 30 ng/mL (30-100)
== END 2025-04-07 09:22 | disposition home or self-care (01) ==
LOC: HO.HMGCLDS 09:21
PROVIDERS: PCP Internal Medicine; Visit Provider Internal Medicine
DX: Z00.01 Encounter for general adult medical examination with abnormal findings (principal); K91.5 Postcholecystectomy syndrome; E55.9 Vitamin D deficiency, unspecified; I95.89 Other hypotension; R42 Dizziness and giddiness; R53.1 Weakness
CPT/HCPCS: 36415; 80053; 80061; 81003; 82306; 82607; 84443; 85025; 85610; 85730

== ENCOUNTER 2025-04-08 11:21 | Outpatient (AMB) | payer OTHER, SELFPAY ==
--- NOTE | 2025-04-08 11:06 | A.OFFVIS_ITS ---
VS Expanded 04/08/25 11:11 Height 5 ft 5 in Weight 152 lb BMI 25.3 Intake Visit Reasons: TELEPHONE PO LSG 05/26/21 Allergies lactose Allergy (Severe, Verified 04/03/25 12:01) Diarrhea diclofenac [Voltaren] Allergy (Intermediate, Verified 04/03/25 12:01) Hives/itchiness Medication List - Last Reconciled 04/08/25 by ROSANA Navarro cholestyramine (with sugar) 4 gram 4 grams PO TID 90 days thiamine HCl (vitamin B1) 100 mg PO DAILY HPI Comments Details: Pt is s/p 05/26/2021. At last visit 6mo ago- pt reports her diarrhea has stopped. Found a good probiotic/prebiotic. Weight has not changed- 158lbs. Works out 5x/week. Thinks she is having issues with dairy/yogurt now, milk products. Was taking flaxseed oil but realized this was also causing diarrhea. Protein intake comes from meat mostly. Has not seen GI. I recommended she follow up with GI. Today, pt reports she had seen PCP for ongoing dizziness/ cold sweats . Having low BP, being worked up, having labs done. Has lost about 6 lbs since last OV 6mo ago, but states this fluctuates. Trying to incorporate more electrolytes. Trying to incorporate more foods even if they give her some diarrhea. Does still try to work out although she does not feel well after. Reports nausea but is going a long time between meals (5 hours). [facility] Medical History Excess skin Cholelithiasis Right upper quadrant abdominal pain GERD (gastroesophageal reflux disease) Obesity Diastasis recti Morbid obesity Oligomenorrhea Hot flashes Irregular menses Confusion, postoperative Dizziness, nonspecific Difficulty swallowing pills Abrasion Large breasts Obesity Post depression Vitamin D deficiency Vitamin B1 deficiency Vitamin A deficiency Preoperative testing Knee pain Depression Low back strain Gynecomastia, female Tired Excessive thirst Difficulty concentrating Lack of adequate sleep Headache syndrome Surgical History S/P laparoscopic cholecystectomy S/P panniculectomy History of esophagogastroduodenoscopy (EGD) History of cholecystectomy S/P laparoscopic sleeve gastrectomy (~05/2021) History of eye surgery Family History Father No problems noted. 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) Do you presently have visiting nurse or other home services: No Alcohol intake: never Comment: medicated for pain, see MAR Patient Tobacco Use Status: Never used Tobacco e-Cigarette/Vaping Use: Never Used Advance Directives Date on File: 05/30/21 service: No Current occupational status: employed Sexual orientation: Straight/Heterosexual Gender identity: Female Cognitive needs: No Hearing needs: No Vision needs: No Telehealth Telehealth Telehealth Platform: Telephone Location of provider rendering services: other Location of patient: address on file Patient Identification confirmed using: Name, : Yes Telehealth method: voice only Patient verbally consented to treatment: Yes Patient verbally consented to billing insurance company: Yes Patient informed of any privacy concerns related to visit: Yes Minutes spent on Phone/Video with Pt.: 22 Assessment & Plan Assessment & Plan (1) Overweight: Code(s): E66.3 - Overweight Category: Medical (2) S/P laparoscopic sleeve gastrectomy: Onset Date: ~05/2021 Code(s): Z98.84 - Bariatric surgery status Category: Surgical Plan Has an appt with GI later this month. Gave info on [facility] as pt is interested in a better nutrition plan considering all of her preferences and difficulty with certain proteins. Needs to take in nutrition more frequently than q5 hours, recommended snack of protein or perhaps small portion cheese/fruit. Vitamin labs ordered. RTC 6mo. Orders: Orders Zinc Today Z98.84 - Bariatric surgery status Vitamin A Today Z98.84 - Bariatric surgery status Vitamin D 25-OH Total Today Z98.84 - Bariatric surgery status Vitamin B1 Today Z98.84 - Bariatric surgery status Vitamin B12 and Folate Today Z98.84 - Bariatric surgery status
[2025-04-08 11:11] VITALS: BMI 25.3
--- OUTSIDE RECORDS SUMMARY | 2025-04-08 12:38 | XMS_ITS | Clinical Summary ---
Author Organization [facility] Address [address] [place] [address] Care Team Providers Care Pipe Fitter Supervisor Name Role Phone Unavailable Primary Care Provider [...] without aura and without status migrainosus, not intractable,Hog Buyer yudy midline low back pain without sciatica Take 1 Tab by mouth every 6 (six) hours as needed for pain. 30 Tab 2 05/02/2016 Active sodium chloride 0.65 % nasal solutionIndicati ons:Nasal congestion Place 1 [place] into the nostril(s) every 4 (four) hours [...] Date Diagnosed Date 30 weeks gestation of ([facility]) 2015 Overview (05/02/2016): [facility] OB [facility]. Migraine without aura and wi thout status migrainosus, not intractable 05/02/2016 Overview (07/27/2016): Dx since she was 13yo. B/l [place], some times lasts weeks and resolves. Says that she was treated with prophylactic medication while in [facility] Following [facility] neurology, visit on 06/27/16. Suggest Fioricet during sparingly. Tylenol. PT. F/u in Aug. Gastroesophageal reflux disease with esophagitis 05/02/2016 Overview (05/02/2016): Had EGD in 2011 in [facility]. No ulcer but pt says acute [...] Charting 12/23/2023 12/21/2022 Dental Prophy 12/23/2023 12/21/2022 [id number] () 07/20/2024 Imm-Influenza (#1) 2024 09/03/2016 Alcohol [...] Most Recently Relevant to Health Maintenance Insurance [place]
--- OUTSIDE RECORDS SUMMARY | 2025-04-08 12:38 | XMS_ITS | Encounter Summary ---
Author Organization [facility] Address [address] [place] [address] Care Team Providers Care Engine Oiler Name Role Phone Unavailable Primary Care Provider Unavailabl e Encounter Details Date Type Department Care Team ([facility] st Contact Info) Description 06/21/2023 Dental Interim Note Caring [facility] Dental [address] [place] [phone] Quintin Biggs [address] [place] [address] Social History Tobacco Use Types Packs/Day Years [...]
--- OUTSIDE RECORDS SUMMARY | 2025-04-08 12:38 | XMS_ITS | Encounter Summary ---
Author Organization [facility] Address [address] [place] [address] Care Team Providers Care Traffic Control Supervisor Name Role Phone Gina Sousa DENIS Primary Care Provider [phone] Encounter Details Date Type Department Care Team (Late st Contact Info) Description 04/20/2022 Dental Interim Note Caring [facility] Dental [address] [place] [phone] Jimena Loya, ENA [address] [place] [address] Social History Tobacco Use Types Packs/Day Years [...] on filedocumented in this encounter Care Teams Traffic Control Supervisor Relationship Specialty Start Date End Date Gina Sousa FNP [address] [place] [address] PCP - General 12/21/19 06/11/22 documented as of this encounter
--- OUTSIDE RECORDS SUMMARY | 2025-04-08 12:38 | XMS_ITS | Clinical Summary ---
Author Organization [facility] ity Address [address] [place] [address] Care Team Providers Care Advertising Account Manager Name Role Phone Unavailable Primary Care Provider [...]
--- OUTSIDE RECORDS SUMMARY | 2025-04-08 12:38 | XMS_ITS | Encounter Summary ---
Author Organization [facility] Address [address] [place] [address] Care Team Providers Care Tobacco Packer Name Role Phone Gina Sousa DENIS Primary Care Provider [phone] Encounter Details Date Type Department Care Team (Late st Contact Info) Description 03/22/2022 Dental Interim Note [facility] [address] [place] [phone] Lolita Vaz, JORGE [address] [place] [address] Social History Tobacco Use Types Packs/Day Years [...] on filedocumented in this encounter Care Teams Tobacco Packer Relationship Specialty Start Date End Date Gina Sousa FNP [address] [place] [address] PCP - General 12/21/19 06/11/22 documented as of this encounter
== END 2025-04-08 11:31 | disposition home or self-care (01) ==
LOC: HO.HBS 11:21
PROVIDERS: PCP Internal Medicine; Visit Provider Physician Assistant Surgical
DX: E66.3 Overweight (principal); Z98.84 Bariatric surgery status
CPT/HCPCS: 99214; G2211

== ENCOUNTER 2025-04-17 08:09 | Outpatient (AMB) | payer OTHER, SELFPAY ==
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
--- NOTE | 2025-04-17 09:22 | MHC.PC.OV ---
Intake Visit Reasons: 2 week follow up Allergies lactose Allergy (Severe, Verified 04/17/25 11:41) Diarrhea diclofenac [Voltaren] Allergy (Intermediate, Verified 04/17/25 11:41) Hives/itchiness Medication List - Last Reconciled 04/17/25 by Bobo Turner MD cholestyramine (with sugar) 4 gram 4 grams PO TID 90 days thiamine HCl (vitamin B1) 100 mg PO DAILY Tobacco use date assessed: 04/03/25 Dental Screening Dental Screen Date: 04/03/25 HPI 2 week follow up HPI Details History - The patient is a 34-year-old female presenting for a routine follow-up and discussion of laboratory test results. - The patient reports feeling better and only experienced some dizziness previously, which improved with increased fluid intake. - Laboratory tests show normal levels in electrolytes, kidney function, blood sugar, liver enzymes, cholesterol, Vitamin B12, and thyroid function. - The patient has mild anemia with hemoglobin recorded at 11.9, compared to the normal range of 12-16. - Historical fluctuations in hemoglobin levels noted: 11.6 in 2021 and 13.3 in April 2023. - The patient denies heavy menstrual periods or gastrointestinal symptoms that could explain iron deficiency. - Vitamin D level is at the lower limit of normal at 30, and the patient is considering supplementation. Problem List - Mild Anemia - Vitamin D Deficiency Patient Instructions - Increase intake of iron-rich foods such as red meat, chicken, fish, and dates. - Consider taking a multivitamin with iron and Vitamin D. - Be aware that iron supplements may cause constipation; laxatives can be taken if needed. - Avoid calcium supplements due to potential risk of kidney stones, but vitamin D alone is recommended. - Check for any symptoms like constipation or any significant changes in health, and report them if they occur. Review of Systems - General: No fever no chills - Neurological: No headaches no dizziness - Ear nose throat: No sore throat no hearing difficulty no ear pain - Cardiovascular: No syncope, no chest pain, no palpitations - Gastrointestinal: No nausea vomiting or diarrhea - Endocrine: No polyuria polydipsia no heat intolerance - Genitourinary: No dysuria , no blood in urine [facility] Medical History Diarrhea Chronic diarrhea Encounter for well woman exam with routine gynecological exam Upper respiratory tract infection Abrasion Elevated parathyroid hormone Excess skin Panniculitis Diarrhea Gastritis Disorder of ear, right Encounter for routine gynecological examination Overweight Diaphragmatic hernia Encounter for general adult medical examination with abnormal findings Excess skin Cholelithiasis Right upper quadrant abdominal pain GERD (gastroesophageal reflux disease) Obesity Diastasis recti Morbid obesity Oligomenorrhea Hot flashes Irregular menses Confusion, postoperative Dizziness, nonspecific Difficulty swallowing pills Large breasts Obesity Post depression Vitamin D deficiency Vitamin B1 deficiency Vitamin A deficiency Preoperative testing Knee pain Depression Low back strain Gynecomastia, female Tired Excessive thirst Difficulty concentrating Lack of adequate sleep Headache syndrome Surgical History S/P laparoscopic cholecystectomy S/P laparoscopic sleeve gastrectomy (~05/2021) Status post repair of paraesophageal diaphragmatic hernia S/P panniculectomy History of eye surgery Family History Father No problems noted. Mother Fibromyalgia Asthma Anxiety High cholesterol FH: HTN (hypertension) Other Mental health disorder Social History Housing: Apartment Are you a primary daytime caregiver to a significant other at home: Yes Do you presently have visiting nurse or other home services: No Alcohol intake: never Comment: medicated for pain, see MAR Patient Tobacco Use Status: Never used Tobacco e-Cigarette/Vaping Use: Never Used Advance Directives Date on File: 05/30/21 service: No Current occupational status: employed Sexual orientation: Straight/Heterosexual Gender identity: Female Cognitive needs: No Hearing needs: No Vision needs: No Questionnaire Thrive Questionnaire Date Thrive assessed: 04/03/25 BRYCE-7 AMB Questionnaire BRYCE-7 Date BRYCE - 7 assessed: 02/20/25 Source: Developed by Drs. Raffy Madrid, Cyndi Thompson, Leopoldo Schulte and colleagues, with an educational jr from [employer]. Physical exam (Primary Care) Tobacco/Smoking Status: Tobacco use Status Tobacco use date assessed 04/03/25 04/17/25 09:23 Patient Tobacco Use Status Never used Tobacco 04/17/25 09:23 e-Cigarette/Vaping Use Never Used 04/17/25 09:23 Thrive Assessment: Date of Thrive Assessment Date Thrive assessed 04/03/25 04/17/25 09:23 Telehealth Telehealth Telehealth Platform: [facility] Location of provider rendering services: practice address Location of patient: address on file Patient Identification confirmed using: Name, : Yes Telehealth method: video Patient verbally consented to treatment: Yes Patient verbally consented to billing insurance company: Yes Patient informed of any privacy concerns related to visit: Yes Minutes spent on Phone/Video with Pt.: 13 Coding Level of Care Code Tele Est Pt Level 3 (98763) Diagnoses Mild anemia D64.9 Assessment & Plan Assessment & Plan (1) Mild anemia: Code(s): D64.9 - Anemia, unspecified Category: Medical Plan History - The patient is a 34-year-old female presenting for a routine follow-up and discussion of laboratory test results. - The patient reports feeling better and only experienced some dizziness previously, which improved with increased fluid intake. - Laboratory tests show normal levels in electrolytes, kidney function, blood sugar, liver enzymes, cholesterol, Vitamin B12, and thyroid function. - The patient has mild anemia with hemoglobin recorded at 11.9, compared to the normal range of 12-16. - Historical fluctuations in hemoglobin levels noted: 11.6 in 2021 and 13.3 in April 2023. - The patient denies heavy menstrual periods or gastrointestinal symptoms that could explain iron deficiency. - Vitamin D level is at the lower limit of normal at 30, and the patient is considering supplementation. Problem List - Mild Anemia - Vitamin D Deficiency Patient Instructions - Increase intake of iron-rich foods such as red meat, chicken, fish, and dates. - Consider taking a multivitamin with iron and Vitamin D. - Be aware that iron supplements may cause constipation; laxatives can be taken if needed. - Avoid calcium supplements due to potential risk of kidney stones, but vitamin D alone is recommended. - Check for any symptoms like constipation or any significant changes in health, and report them if they occur. Medications: On Hold cholestyramine (with sugar) 4 gram Hold Comment: Doctor's Order 4 grams PO TID 90 days 378 grams 3RF Diarrhea
== END 2025-04-17 09:54 | disposition home or self-care (01) ==
LOC: HO.HMCC 08:09
PROVIDERS: PCP Internal Medicine; Visit Provider Internal Medicine
DX: D64.9 Anemia, unspecified (principal)

== ENCOUNTER → 2025-04-17 08:09 | Outpatient (BNVA) | payer OTHER, SELFPAY | PROVIDERS: PCP Internal Medicine; Visit Provider Internal Medicine | DX: K58.0 Irritable bowel syndrome with diarrhea (principal); R11.2 Nausea with vomiting, unspecified; K91.2 Postsurgical malabsorption, not elsewhere classified; Z90.3 Acquired absence of stomach [part of]; D64.9 Anemia, unspecified | CPT/HCPCS: 99212 ==

== ENCOUNTER 2025-04-17 11:31 | Outpatient (AMB) | payer OTHER, SELFPAY ==
[2025-04-17 11:41] VITALS: BP 111/69; PULSE 86; BMI 26.4
--- NOTE | 2025-04-17 11:41 | A.OFFVIS_ITS ---
Vital Signs 04/17/25 11:41 Height 5 ft 5 in Weight 158 lb 11.725 oz BMI 26.4 BP 111/69 Blood Pressure Location Lt brachial Position Sitting Pulse 86 Intake Visit Reasons: Follow up Diarrhea Intake Note: Ciara presents in the office as a follow up for diarrhea. CC: She states that she needs help and that is why she is here. After removing gall bladder she states that she has a lot of sensitivty to foods. 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: No Allergies lactose Allergy (Severe, Verified 04/17/25 11:41) Diarrhea diclofenac [Voltaren] Allergy (Intermediate, Verified 04/17/25 11:41) Hives/itchiness PFSH Medical History Diarrhea Chronic diarrhea Encounter for well woman exam with routine gynecological exam Upper respiratory tract infection Abrasion Elevated parathyroid hormone Excess skin Panniculitis Diarrhea Gastritis Disorder of ear, right Encounter for routine gynecological examination Overweight Diaphragmatic hernia Encounter for general adult medical examination with abnormal findings Excess skin Cholelithiasis Right upper quadrant abdominal pain GERD (gastroesophageal reflux disease) Obesity Diastasis recti Morbid obesity Oligomenorrhea Hot flashes Irregular menses Confusion, postoperative Dizziness, nonspecific Difficulty swallowing pills Large breasts Obesity Post depression Vitamin D deficiency Vitamin B1 deficiency Vitamin A deficiency Preoperative testing Knee pain Depression Low back strain Gynecomastia, female Tired Excessive thirst Difficulty concentrating Lack of adequate sleep Headache syndrome Surgical History S/P laparoscopic cholecystectomy S/P laparoscopic sleeve gastrectomy (~05/2021) Status post repair of paraesophageal diaphragmatic hernia S/P panniculectomy History of eye surgery Family History Father No problems noted. Mother Fibromyalgia Asthma Anxiety High cholesterol FH: HTN (hypertension) Other Mental health disorder Social History Housing: Apartment Are you a primary child care giver to a significant other at home: Yes Do you presently have visiting nurse or other home services: No Alcohol intake: never Comment: medicated for pain, see MAR Patient Tobacco Use Status: Never used Tobacco e-Cigarette/Vaping Use: Never Used Advance Directives Date on File: 05/30/21 service: No Current occupational status: employed Sexual orientation: Straight/Heterosexual Gender identity: Female Cognitive needs: No Hearing needs: No Vision needs: No Coding
--- NOTE | 2025-04-17 11:41 | MHC.OFFVIS ---
Vital Signs 04/17/25 11:41 Height 5 ft 5 in Weight 158 lb 11.725 oz BMI 26.4 BP 111/69 Blood Pressure Location Lt brachial Position Sitting Pulse 86 Intake Visit Reasons: Follow up Diarrhea Allergies lactose Allergy (Severe, Verified 04/17/25 11:41) Diarrhea diclofenac [Voltaren] Allergy (Intermediate, Verified 04/17/25 11:41) Hives/itchiness HPI HPI Follow up Diarrhea: Details: Assessment & Plan (1) Post-cholecystectomy syndrome: ?Code(s): K91.5 - Postcholecystectomy syndrome ?Plan: The carafate did not work at all for her she even tried a full liquid diet and had copious diarrhea. So, she has failed OTC Imodium, fiber, carafate and choelstyramine. We will progress to Creon and Lotronex 0.5mg bid. ROV weeks. (2) GERD (gastroesophageal reflux disease): ?Code(s): K21.9 - Gastro-esophageal reflux disease without esophagitis (3) Irritable bowel syndrome with diarrhea: ?Code(s): K58.0 - Irritable bowel syndrome with diarrhea ? ? ? Orders: Orders Pancreatic Elastase-1 06/07/22 K58.0 - Irritable bowel syndrome with diarrhea ? C Reactive Protein 06/07/22 K58.0 - Irritable bowel syndrome with diarrhea ? Rast Allergen 06/07/22 K58.0 - Irritable bowel syndrome with diarrhea ? Transglutaminase IgA 06/07/22 K58.0 - Irritable bowel syndrome with diarrhea ? Transglutaminase Ab IgG 06/07/22 K58.0 - Irritable bowel syndrome with diarrhea ? Leukocytes Stool Qualitative 06/07/22 K58.0 - Irritable bowel syndrome with diarrhea ? Medications: New [id number]-bjdoryf 24,000-76,000 -120,000 unit (Creon) ?? administer with meals and/or snacks 1 cap? PO QID 30 days 120 caps 1RF K58.9 - Irritable bowel syndrome without diarrhea ? alosetron (Lotronex) 0.5 mg? PO BID 60 tabs 3RF K58.0 - Irritable bowel syndrome with diarrhea, K91.5 - Postcholecystectomy syndrome ? On Hold sucralfate (Carafate) ?? Hold Comment:? Doctor's Order 2 grams (2 x 1 gram) PO BEDTIME 60 tabs 3RF K91.5 - Postcholecystectomy syndrome ? LABS: Laboratory Tests 06/09/22 06/13/22 13:20 12:05 Stool Leukocytes, Qual NEGATIVE Stool Pancreat Elastase >500 Tiss Transglutamin IgG <1.0 Tiss Transglutamin IgA <1.0 LOOKING FOR RAST AND CRP they do not appear to have been performed. TODAYS VISIT This patient has been lost to follow-up since 06/08/2022. It appears that she was hospitalized several times with dehydration and her primary care provider recently gave her a trial of cholestyramine She confirms that she did not come back because she was tired of trying medicines that were working for her. She wanted to focus on trying to find dietary triggers to control her symptoms but unfortunately she was unable to figure this out. She has had progressively worsening watery diarrhea that has also now expanded to include multiple food intolerances related to severe nausea. In the past she has had trouble tolerating medications due to nausea. While I think there may be a bile overproduction problem that is irritating and probably causing gastritis at this point I think we need to get an upper endoscopy to see what is going on in her stomach. I also think a colonoscopy would be valuable in diagnosis of the diarrhea. She was unable to tolerate Carafate or cholestyramine because of the nausea. She has used [id number] Imodium but even if she takes 8 mg all at once this will only delay her bowel movement until the next day and will still be diarrhea. She has a somewhat complicated patient in that she is status post cholecystectomy and status post gastric bypass. She likely has post cholecystectomy syndrome but may have some other problem layered on top of this such as food allergies, gastric motility problems/gastroparesis, or hopefully not inflammatory bowel disease. She never received the Lotronex and I will try to get this approved. She will be a poor candidate for Viberzi as it is contraindicated status post cholecystectomy. She does not do well on Zofran as seems to make her more nauseated so will give her a trial of Reglan and if this is not a good fit for her we may need to progress her to something like Compazine or Phenergan. I hesitate to give these because she has a very busy mother who can not afford to be drowsy. Depending on her response to the medications and how quickly we can get the EGD/colonoscopy we may need to revisit stool testing and food allergy testing. I do not want to overwhelm her right now. Return office visit in 4 weeks [facility] Medical History (Updated 04/17/25 @ 13:57 by FARHEEN Styles) Nausea & vomiting Diarrhea Chronic diarrhea Encounter for well woman exam with routine gynecological exam Upper respiratory tract infection Abrasion Elevated parathyroid hormone Excess skin Panniculitis Diarrhea Gastritis Disorder of ear, right Encounter for routine gynecological examination Overweight Diaphragmatic hernia Encounter for general adult medical examination with abnormal findings Excess skin Cholelithiasis Right upper quadrant abdominal pain GERD (gastroesophageal reflux disease) Obesity Diastasis recti Morbid obesity Oligomenorrhea Hot flashes Irregular menses Confusion, postoperative Dizziness, nonspecific Difficulty swallowing pills Large breasts Obesity Post depression Vitamin D deficiency Vitamin B1 deficiency Vitamin A deficiency Preoperative testing Knee pain Depression Low back strain Gynecomastia, female Tired Excessive thirst Difficulty concentrating Lack of adequate sleep Headache syndrome Surgical History S/P laparoscopic cholecystectomy S/P laparoscopic sleeve gastrectomy (~05/2021) Status post repair of paraesophageal diaphragmatic hernia S/P panniculectomy History of eye surgery Family History Father No problems noted. Mother Fibromyalgia Asthma Anxiety High cholesterol FH: HTN (hypertension) Other Mental health disorder Social History Housing: Apartment Are you a primary day care home provider to a significant other at home: Yes Do you presently have visiting nurse or other home services: No Alcohol intake: never Comment: medicated for pain, see MAR Patient Tobacco Use Status: Never used Tobacco e-Cigarette/Vaping Use: Never Used Advance Directives Date on File: 05/30/21 service: No Current occupational status: employed Sexual orientation: Straight/Heterosexual Gender identity: Female Cognitive needs: No Hearing needs: No Vision needs: No Review of Systems Const Denies fatigue, Denies fever(s), Denies night sweats, Denies poor appetite and Denies weight loss ENT Reports Normal hearing present, Denies dental pain, Denies dysphagia, Denies hearing loss, Denies mouth pain, Denies odynophagia, Denies throat swelling, Denies tongue swelling and Reports other (Dentition adequate) Card Reports no additional complaints Resp Reports no additional complaints GI Details: Reports abdominal pain, Denies melena, Denies bloating, Denies hematochezia, Denies constipation, Reports GI cramping, Denies dysphagia, Denies excessive flatus, Denies early satiety, Denies heartburn, Reports diarrhea, Reports nausea, Denies odynophagia, Denies vomiting and Denies hematemesis Skin/Breast Denies pruritus, Denies lesions, Denies rash and Denies jaundice Neuro Reports Normal hearing present and Denies Abnormal speech present Endo Denies fatigue Aller/Immun Denies throat swelling and Denies tongue swelling Physical Exam Vital Signs: Last Vital Signs Pulse 86 04/17/25 11:41 BP 111/69 04/17/25 11:41 BMI result Body Mass Index 26.4 Const General: cooperative, no acute distress, well developed and well groomed Nutritional Appearance: average body habitus and well nourished Orientation/consciousness: oriented to person, oriented to place and oriented to time Limitations: No language barrier HEENT Head: Yes normocephalic and Yes atraumatic Eyes General: appearance normal, both eyes and all related structures Pupils: Equal, round and reactive pupils present Neck Neck: Yes normal visual inspection and Yes no lymphadenopathy Thyroid: Thyroid normal Resp Effort & Inspection: normal respiratory effort and able to speak in complete sentences Auscultation: clear to auscultation bilaterally Cardio Rate: regular rate Rhythm: regular rhythm Heart sounds: Normal, physiologic split S2 sound present Peripheral pulses: radial pulses present and posterior tibial pulses present GI Inspection: No distended, No Abdominal panniculus present, Yes scar and Yes striae Palpation (GI): Soft to palpation, nontender, no guarding, not rigid and No hepatosplenomegaly present Percussion: Yes normal to percussion Auscultation: normal bowel sounds Rectal Exam - Female: deferred Skin General skin exam: no rashes or lesions noted, turgor normal, skin not dry, no jaundice, No spider nevi and no striae Rashes: no rashes Nails: normal Neuro General: oriented to person, oriented to place and oriented to time Cranial nerves: Yes Equal, round and reactive pupils present and Yes Normal hearing present Speech: No Abnormal speech present Extrem General: Yes normal to inspection, No clubbing, No cyanosis and No edema Psych Appearance: grossly normal and well kempt Mental Status: mental status grossly normal Speech and movement: Normal speech and movement present Affect: normal affect Attitude: cooperative Thought process: Normal thought process present and not confabulating Thought content: Normal thought content present Insight: Limited insight present (Psych) Judgement: Limited judgement present (Psych) Assessment & Plan Assessment & Plan (1) Irritable bowel syndrome with diarrhea: Code(s): K58.0 - Irritable bowel syndrome with diarrhea Category: Medical (2) Nausea & vomiting: Code(s): R11.2 - Nausea with vomiting, unspecified Category: Medical (3) Postgastrectomy malabsorption: Code(s): K91.2 - Postsurgical malabsorption, not elsewhere classified; Z90.3 - Acquired absence of stomach [part of] Category: Medical Plan This patient has been lost to follow-up since 06/08/2022. It appears that she was hospitalized several times with dehydration and her primary care provider recently gave her a trial of cholestyramine She confirms that she did not come back because she was tired of trying medicines that were working for her. She wanted to focus on trying to find dietary triggers to control her symptoms but unfortunately she was unable to figure this out. She has had progressively worsening watery diarrhea that has also now expanded to include multiple food intolerances related to severe nausea. In the past she has had trouble tolerating medications due to nausea. While I think there may be a bile overproduction problem that is irritating and probably causing gastritis at this point I think we need to get an upper endoscopy to see what is going on in her stomach. I also think a colonoscopy would be valuable in diagnosis of the diarrhea. She was unable to tolerate Carafate or cholestyramine because of the nausea. She has used [id number] Imodium but even if she takes 8 mg all at once this will only delay her bowel movement until the next day and will still be diarrhea. She has a somewhat complicated patient in that she is status post cholecystectomy and status post gastric bypass. She likely has post cholecystectomy syndrome but may have some other problem layered on top of this such as food allergies, gastric motility problems/gastroparesis, or hopefully not inflammatory bowel disease. She never received the Lotronex and I will try to get this approved. She will be a poor candidate for Viberzi as it is contraindicated status post cholecystectomy. She does not do well on Zofran as seems to make her more nauseated so will give her a trial of Reglan and if this is not a good fit for her we may need to progress her to something like Compazine or Phenergan. I hesitate to give these because she has a very busy mother who can not afford to be drowsy. Depending on her response to the medications and how quickly we can get the EGD/colonoscopy we may need to revisit stool testing and food allergy testing. I do not want to overwhelm her right now. She denies any cardiac or respiratory problems. There are no prior problems with anesthesia or sedation. There are no infectious disease problems. Return office visit in 4 weeks Orders: Orders H Pylori Breath Test Today K58.0 - Irritable bowel syndrome with diarrhea, R11.2 - Nausea with vomiting, unspecified EGD/Zimmerman Combo - GI Use Only Today K58.0 - Irritable bowel syndrome with diarrhea, R11.2 - Nausea with vomiting, unspecified Medications: New alosetron (Lotronex) 0.5 mg PO BID 60 tabs 12RF K58.0 - Irritable bowel syndrome with diarrhea metoclopramide HCl (Reglan) 5 mg PO QIDACHS PRN 90 tabs 3RF nausea and vomiting R11.2 - Nausea with vomiting, unspecified sodium,potassium,mag sulfates 17.5-3.13-1.6 gram (Suprep Bowel Prep Kit) 480 mL orally; FOR COLONOSCOPY PREP 354 mL 0RF On Hold cholestyramine (with sugar) 4 gram Hold Comment: Doctor's Order 4 grams PO TID 90 days 378 grams 3RF Diarrhea Coding Level of Care Code Est Pt Level 4 (70445) Diagnoses Irritable bowel syndrome with diarrhea K58.0 Nausea & vomiting R11.2 Postgastrectomy malabsorption K91.2; Z90.3 Time Spent (min) 40
== END 2025-04-17 12:56 | disposition home or self-care (01) ==
LOC: HO.HGI 11:32
PROVIDERS: PCP Internal Medicine; Visit Provider Nurse Practitioner
DX: K58.0 Irritable bowel syndrome with diarrhea (principal); R11.2 Nausea with vomiting, unspecified; K91.2 Postsurgical malabsorption, not elsewhere classified; Z90.3 Acquired absence of stomach [part of]
CPT/HCPCS: 99214

== ENCOUNTER 2025-04-20 15:48 | Outpatient (REF) | payer OTHER, SELFPAY ==
--- OUTSIDE RECORDS SUMMARY | 2025-04-20 16:54 | XMS_ITS | Clinical Summary ---
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 30 Tab 2 05/02/2016 Active sodium chloride 0.65 % nasal solutionIndicati ons:Nasal congestion Place 1 [place] into the nostril(s) every 4 (four) hours [...] Date Diagnosed Date 30 weeks gestation of ([facility]) 2015 Overview (05/02/2016): Following OB at [facility]. Migraine without aura and wi thout status migrainosus, not intractable 05/02/2016 Overview (07/27/2016): Dx since she was 13yo. B/l [place], some times lasts weeks and resolves. Says that she was treated with prophylactic medication while in [facility] Following [facility] neurology, visit on 06/27/16. Suggest Fioricet during sparingly. Tylenol. PT. F/u in Aug. Gastroesophageal reflux disease with esophagitis 05/02/2016 Overview (05/02/2016): Had EGD in 2011 in [facility]. No ulcer but pt says acute [...] Charting 12/23/2023 12/21/2022 Dental Prophy 12/23/2023 12/21/2022 [id number] () 07/20/2024 Imm-Influenza (#1) 2024 09/03/2016 Alcohol [...] Most Recently Relevant to Health Maintenance Insurance [place]
[2025-04-22 09:45] LABS: H Pylori Breath Test Negative (Negative)
== END 2025-04-20 15:49 | disposition home or self-care (01) ==
LOC: HO.LNP 15:48
PROVIDERS: Visit Provider Nurse Practitioner
DX: K58.0 Irritable bowel syndrome with diarrhea (principal); R11.2 Nausea with vomiting, unspecified
CPT/HCPCS: 83013

== ENCOUNTER 2025-07-22 09:21 | Outpatient (AMB) | payer OTHER, SELFPAY ==
[2025-07-22 09:29] VITALS: BP 104/66; PULSE 78; TEMP 37.1; O2SAT 98; BMI 28.3
--- NOTE | 2025-07-22 09:29 | MHC.OFFWIV ---
Intake Vital Signs 07/22/25 09:29 Height 5 ft 5 in Weight 170 lb BMI 28.3 BP 104/66 Blood Pressure Location Lt brachial Position Sitting Pulse 78 Pulse Source Pulse Oximeter Temp 98.8 F Temp Source Oral Pulse Oximetry (%) 98 Oxygen Delivery Method Room Air Intake Visit Reasons: EP- test Patient Tobacco Use Status: Never used Tobacco Allergies lactose Allergy (Severe, Verified 04/17/25 11:41) Diarrhea diclofenac (Voltaren) Allergy (Intermediate, Verified 04/17/25 11:41) Hives/itchiness Medication List - Last Reconciled 07/22/25 by Bobo Turner MD alosetron (Lotronex) 0.5 mg PO BID cholestyramine (with sugar) 4 gram 4 grams PO TID 90 days Held on 04/17/25. Instructions: Doctor's Order metoclopramide HCl (Reglan) 5 mg PO QIDACHS PRN [id number] 4.5 mg iron- 120 mcg-60 mcg (Alive Women's Multivitamin) tabs PO sodium,potassium,mag sulfates 17.5-3.13-1.6 gram (Suprep Bowel Prep Kit) 480 mL orally; FOR COLONOSCOPY PREP thiamine HCl (vitamin B1) 100 mg PO DAILY Do you need a note to return to daycare/school/sports/work: No HPI EP- test HPI Details Interval History The patient is a 34-year-old female presenting with missed menstrual period and positive urine test. Missed menstrual period: - Reported a missed menstrual period for June. - Last menstrual period began on June 15. - Not trying to conceive. Positive urine test: - Urine test results were positive at this visit. - Expressed surprise at being , as it was unplanned. - Previous mentions of using condoms as a contraceptive method. - Query about LOADING UNIT OPERATOR SEATING followed, with preference for [facility] Social History: - Mother with two children; youngest child turning five years old. - Using barrier contraception method (condoms). - Uses [facility] for OBGYN Diagnostic Results: - Urine test: Positive. Problem List - Missed menstrual period. - Positive urine test. Patient Instructions - Contact your LOADING UNIT OPERATOR SEATING - Discuss and plan next steps with the LOADING UNIT OPERATOR SEATING for ultrasound and blood test. - Report any complications or issues promptly. - Avoid picking/changing medications without consulting healthcare providers. - try not to take any medications Review of Systems - General: No fever no chills - Neurological: No headaches no dizziness - Ear nose throat: No sore throat no hearing difficulty no ear pain - Cardiovascular: No syncope, no chest pain, no palpitations - Gastrointestinal: No vomiting or diarrhea Physical Exam General: No acute distress HEENT: No acute findings Neck: Supple Respiratory system: Able to talk in full sentences, no audible wheeze Cardiovascular: S1-S2 regular in rate and rhythm Gastrointestinal: No pain Extremities: No new findings DELI BAKERY CLERK: Alert awake oriented x3 motor intact Skin: Normal turgor PFSH Medical History Nausea & vomiting Diarrhea Chronic diarrhea Encounter for well woman exam with routine gynecological exam Upper respiratory tract infection Abrasion Elevated parathyroid hormone Excess skin Panniculitis Diarrhea Gastritis Disorder of ear, right Encounter for routine gynecological examination Overweight Diaphragmatic hernia Encounter for general adult medical examination with abnormal findings Excess skin Cholelithiasis Right upper quadrant abdominal pain GERD (gastroesophageal reflux disease) Obesity Diastasis recti Morbid obesity Oligomenorrhea Hot flashes Irregular menses Confusion, postoperative Dizziness, nonspecific Difficulty swallowing pills Large breasts Obesity Post depression Vitamin D deficiency Vitamin B1 deficiency Vitamin A deficiency Preoperative testing Knee pain Depression Low back strain Gynecomastia, female Tired Excessive thirst Difficulty concentrating Lack of adequate sleep Headache syndrome Surgical History S/P laparoscopic cholecystectomy S/P laparoscopic sleeve gastrectomy (~05/2021) Status post repair of paraesophageal diaphragmatic hernia S/P panniculectomy History of eye surgery Family History Father No problems noted. Mother Fibromyalgia Asthma Anxiety High cholesterol FH: HTN (hypertension) Other Mental health disorder Social History Housing: Apartment Are you a primary career development facilitator to a significant other at home: Yes Do you presently have visiting nurse or other home services: No Alcohol intake: never Comment: medicated for pain, see MAR Patient Tobacco Use Status: Never used Tobacco e-Cigarette/Vaping Use: Never Used Advance Directives Date on File: 05/30/21 service: No Current occupational status: employed Sexual orientation: Straight/Heterosexual Gender identity: Female Cognitive needs: No Hearing needs: No Vision needs: No Physical Exam Vital Signs: Last Vital Signs Temp 98.8 F 07/22/25 09:29 Pulse 78 07/22/25 09:29 BP 104/66 07/22/25 09:29 Pulse Ox 98 07/22/25 09:29 Oxygen Delivery Method Room Air 07/22/25 09:29 BMI result Body Mass Index 28.3 Results AMB Test Urine AMB Test Urine Positive Last Edit by Angelina Szymanski CMA on 07/22/25 09:55 AMB Urinalysis, Automated UA Leukoctes 0 Nichole/uL Last Edit by Angelina Szymanski CMA on 07/22/25 09:58 UA Nitrite Negative Last Edit by Angelina Szymanski CMA on 07/22/25 09:58 UA Urobilinogen 0.2 mg/dL Last Edit by Angelina Szymanski CMA on 07/22/25 09:58 UA Protein 0 mg/dL Last Edit by Angelina Szymanski CMA on 07/22/25 09:58 UA pH 6.5 Last Edit by Angelina Szymanski CMA on 07/22/25 09:58 UA Blood 0 Mehdi/uL Last Edit by Angelina Szymanski CMA on 07/22/25 09:58 UA Specific [place] 1.005 Last Edit by Angelina Szymanski CMA on 07/22/25 09:58 UA Ketone Negative Last Edit by Angelina Szymanski CMA on 07/22/25 09:58 UA Bilirubin 0 mg/dL Last Edit by Angelina Szymanski CMA on 07/22/25 09:58 UA Glucose 0 mg/dL Last Edit by Angelina Szymanski CMA on 07/22/25 09:58 AMB Test Urine AMB Test Urine Positive Last Edit by Slava Galvan CMA on 07/22/25 10:44 AMB Test Urine previously reported as Negative Slava Galvan 07/22/25 10:44 Results Reviewed Results Reviewed: Laboratory Last Values Urine pH (Auto) 6.5 07/22/25 09:54 Specific [place] (Auto) 1.005 07/22/25 09:54 Urine Protein (Auto) 0 mg/dL 07/22/25 09:54 Glucose (UA)(Auto) 0 mg/dL 07/22/25 09:54 Urine Ketones (Auto) Negative 07/22/25 09:54 Urine Blood (Auto) 0 Mehdi/uL 07/22/25 09:54 Urine Nitrite (Auto) Negative 07/22/25 09:54 Urine Bilirubin (Auto) 0 mg/dL 07/22/25 09:54 Urine Urobilinogen (Auto) 0.2 mg/dL 07/22/25 09:54 Leukocyte Esterase (Auto) 0 Nichole/uL 07/22/25 09:54 [facility] Positive 07/22/25 09:57 Assessment & Plan Assessment & Plan (1) Missed menses: Code(s): N92.6 - Irregular menstruation, unspecified (2) : Code(s): Z34.90 - Encounter for supervision of normal , unspecified, unspecified trimester Qualifiers: Weeks of gestation: unspecified Qualified Code(s): Z34.90 - Encounter for supervision of normal , unspecified, unspecified trimester Plan Interval History The patient is a 34-year-old female presenting with missed menstrual period and positive urine test. Missed menstrual period: - Reported a missed menstrual period for June. - Last menstrual period began on June 15. - Not trying to conceive. Positive urine test: - Urine test results were positive at this visit. - Expressed surprise at being , as it was unplanned. - Previous mentions of using condoms as a contraceptive method. - Query about LOADING UNIT OPERATOR SEATING followed, with preference for [facility] Social History: - Mother with two children; youngest child turning five years old. - Using barrier contraception method (condoms). - Uses [facility] for OBGYN Diagnostic Results: - Urine test: Positive. Problem List - Missed menstrual period. - Positive urine test. Patient Instructions - Contact your LOADING UNIT OPERATOR SEATING - Discuss and plan next steps with the LOADING UNIT OPERATOR SEATING for ultrasound and blood test. - Report any complications or issues promptly. - Avoid picking/changing medications without consulting healthcare providers. - try not to take any medications Orders: Orders AMB HCG Urine Test Today Z32.01 - Encounter for test, result positive AMB HCG Urine Test Today Z13.9 - Encounter for screening, unspecified AMB Urinalysis Automated Today Z13.9 - Encounter for screening, unspecified Coding Level of Care Code Est Pt Level 3 (28780) Diagnoses Missed menses N92.6 , unspecified gestational age Z34.90 Weeks of gestation: unspecified
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
--- OUTSIDE RECORDS SUMMARY | 2025-07-22 10:05 | XMS_ITS | Encounter Summary ---
Author Organization [facility] Address [address] [place] [address] Care Team Providers Care Log Peeler Name Role Phone Gina Sousa DENIS Primary Care Provider Encounter Details Date Type Department Care Team (Late st Contact Info) Description 04/20/2022 Dental Interim Note [facility] [address] [place] [phone] Jimena Loya, ENA [address] [place] [address] Social History Tobacco Use Types Packs/Day Years [...] on filedocumented in this encounter Care Teams Log Peeler Relationship Specialty Start Date End Date Gina Sousa FNP [address] [place] [address] PCP - General 12/21/19 06/11/22 documented as of this encounter
--- OUTSIDE RECORDS SUMMARY | 2025-07-22 10:05 | XMS_ITS | Encounter Summary ---
Author Organization [facility] Address [address] [place] [address] Care Team Providers Care Supervisor Waterproofing Name Role Phone Unavailable Primary Care Provider Unavailabl e Encounter Details Date Type Department Care Team ([facility] st Contact Info) Description 06/21/2023 Dental Interim Note [facility] [address] [place] [phone] Quintin Biggs [address] [place] [address] Social History Tobacco Use Types Packs/Day Years [...]
--- OUTSIDE RECORDS SUMMARY | 2025-07-22 10:05 | XMS_ITS | Encounter Summary ---
Author Organization [facility] Address [address] [facility] [address] [place] [address] Phone Care Team Providers Care Paper Steamer Name Role Phone Bobo Turner MD Primary Care Provider [phone] Encounter Details Date Type Department Care Team (Late Contact Info) Description 08/20/2020 Procedure Pass [facility], Ct Scan - [address] [address] Social History Tobacco Use Types Packs/Day Years Used Date Smoking Tobacco: Never Smokeless Tobacco: Never Alcohol Use Standard Drinks/Week Comments Never 0 (1 standard drink = 0.6 oz pur e alcohol) Comments No Sex and Gender Information Value Date Recorded Sex Assigned at Female 08/05/2020 3:54 PM EDT Legal Sex Female 1:29 PM EDT Gender Identity Female 08/05/2020 3:54 PM EDT Sexual Orientation Straight 08/05/2020 3: 54 PM EDT 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 Not on file Not on file N ot on file documented as of this encounter Plan of Treatment Upcoming Encounters Date Type Department Care Team (Late st Contact Info) Description 07/28/2025 11:00 AM EDT Office Visit [facility] [address] [place] [address] Nemo Bowser, BRYAN [address] [place] [address] [email or web address] [place] [facility] 08/04/2025 1:00 PM EDT Telephone [facility] [address] [place] [address] Kiana Gonzalez, ANGELA [address] [facility], [address] [place] [address] [email or web address] documented as of this encounter Visit Diagnoses Not on filedocumented in this encounter Care Teams Paper Steamer Relationship Specialty Start Date End Date Bobo Turner MD [address] [place] [address] PCP - General Internal Medicine 05/02/19 documented as of this encounter Additional Source Comments The information contained in this document represents components of the legal health record. It is not the complete legal health record.[facility]
--- OUTSIDE RECORDS SUMMARY | 2025-07-22 10:05 | XMS_ITS | Encounter Summary ---
Author Organization [facility] Address [address] [place] [address] Care Team Providers Care Laundry Aid Name Role Phone Gina Sousa DENIS Primary Care Provider [phone] Encounter Details Date Type Department Care Team (Late st Contact Info) Description 03/22/2022 Dental Interim Note [facility] [address] [place] [phone] Lolita Vaz, JORGE [address] [place] [address] Social History Tobacco Use Types Packs/Day Years [...] on filedocumented in this encounter Care Teams Laundry Aid Relationship Specialty Start Date End Date Gina Sousa FNP [address] [place] [address] PCP - General 12/21/19 06/11/22 documented as of this encounter
--- OUTSIDE RECORDS SUMMARY | 2025-07-22 10:05 | XMS_ITS | Clinical Summary ---
Author Organization [facility] Address [address] [facility] [address] [place] [phone] Phone Care Team Providers Care Transmission Specialist Name Role Phone Bobo Turner MD Primary Care Provider [phone] Allergies Active Allergy Reactions Criticality Noted Date Comments Milk Containing Products (Dairy) GI Upset 02/24/2020 Lactose Intolerance Medications ACETAMINOPHEN ORAL Take by mouth. Active olopatadine (PATADAY) 0.2 % Drop Place 1 drop into each eye daily. 5 mL 6 04/17/2024 Active Active Problems Problem Noted Date Diagnosed Date Disorder of sacrum 01/12/2021 Assessment & Plan (01/12/2021 11:12 AM EST): Right sided SI joint pain worse with walking, standing and bending at the hip. Referral to physiatry. Diastasis of rectus abdominis 12/20/2020 Overview (01/13/2021): Post , large bulging midline abdominal diastasis measuring approximately 25 cm x 15 cm wide Assessment & Plan (01/13/2021 9:55 AM EST): Difficulty doing crunches, lifting, bending at the waist. inqiured re surgery, recommend first Trying PT or the measures advised by credit review manager before consult with surgeon Referral to physiatry for strengthening and physical therapy. depression associated with second pre gnancy 09/09/2020 Overview (01/13/2021): Seeing both therapist and psychiatrist, tapered off zoloft due to meds Some thoughts of self-harm , states both clinicians are aware Assessment & Plan (01/13/2021 9:57 AM EST): Continue pysch f/u, and Recommend she let both know of ongoing occ thoughts of self harm Anxiety 08/20/2020 Vitamin D deficiency 02/04/2020 Overview (02/04/2020): Please review low vitamin D at next visit and recommendation for supplementing Resolved Problems Problem Noted Date Diagnosed Date Resolved Date care following vaginal delivery 08/20/2020 01/12/2021 Overview (08/20/2020): 08/20/20 SVB: female, 1st degree (DCR) Chest pain 08/20/2020 10/01/2020 Assessment & Plan (08/21/2020 1:09 PM EDT): Patient notes that she still has some chest tightness but it is better this morning -CTA unremarkable, troponins flat and EKG without significant change -Patient notes that she did have a sense of overwhelming doom has had anxiety in the past and is very anxious about dealing with her and her 4-year-old -I discussed with her that costochondritis may be contributing recommended Baron also talked about benzodiazepines for anxiety which she would like to hold off on at this point We will sign off at this point please reconsult if needed Normal labor 08/19/2020 10/01/2020 Assessment & Plan (08/19/2020 7:40 PM EDT): A: - Term - Active labor - Intact membranes - GBS pos - FHR overall reassuring, despite loss of info P: - Admit to L&D - Insert peripheral IV and start PCN HILLARY - CBC, Type & Screen - Pt consents to Covid 19 testing - Nitrous when Covid test back - Intermittent monitoring after a reactive strip - MD in house and available PRN Unstable lie of fetus 08/17/20202019 Assessment & Plan (08/17/2020 5:26 PM EDT): Pendulous abdomen. Difficult to ascertain position. Presenting part not palpable in pelvis US ordered. Positive GBS test 07/25/2020 10/01/2020 Overview (07/25/2020): Plan abx in labor Assessment & Plan (07/31/2020 11:31 AM EDT): Reviewed GBS positive. Patient upset as she had GBS in her last that was not detected until baby became ill. Reassured that now that we know she is a carrier we can treat her during labor and prevent infection. History of group B Streptoco ccus (GBS) infection 06/09/2020 01/12/2021 Overview (07/21/2020): Reports testing neg for GBS at 37 weeks. Had fever for four days PP before they determined it was GBS. Developed GBS + chorio. Daughter needed 11 days of antibiotics Depression affecting pregnan cy in second trimester, antepartum 02/24/2020 10/01/2020 Overview (08/22/2020): Patient with history of significant depression after last . Initially started in first 3 months of with worsening depression. She then felt much better until 8 months of . She had significant depression. She did not seek therapy or medical care. It lasted for 1 to 2 years. History of suicidal attempt several times. States her mother who previously worked as a doctor in a psychiatric unit was able to provide some help and support to the patient. Started Zoloft 07/31/20 increased to 50mg po qd for increased depression/anxiety with si while inpatient pp. Inpatient psych consult ordered. Medical workup for chest pain was negative with a dx of panic/anxiety. Assessment & Plan (08/11/2020 4:43 PM EDT): Maria Isabel feels that the zoloft is working well for her. She is feeling less upset by things and is able to control her emotions more. Does not want to increase dose at this time. Assessment & Plan (08/04/2020 3:23 PM EDT): Maria Isabel started zoloft this week. Feels it is helping already. Her mother is also feeling better and she is feeling relieved. Will continue taking through the period. Will check in in a couple of weeks to determine if dose increase is necessarey. Assessment & Plan (07/31/2020 11:40 AM EDT): Again discussed depression symptoms with Maria Isabel. Her mother is currently admitted to the hospital and she doesn't have anyone to care for her daughter. We discussed that her daughter will not be allowed into the hospital. Options for friends watching daughter or hiring a java web architect reviewed. She will look into options. She feels she has less support and is more depressed now than she was before. We discussed options of therapy and medication. She has always been nervous to try medication because she doesn't want it to affect the baby. We discussed small risk to fetus and even small risk to from SSRI therapy. We also discussed risks of PP depression on personal health and family health. I recommended considering starting zoloft now. She will do some research and let us know if she would like a prescription. Assessment & Plan (06/28/2020 12:41 PM EDT): Maria Isabel scored 18 again today- she continues to be very up front about her depression. Has good coping skills and does not feel like she needs any additional support at this time. Assessment & Plan (06/01/2020 5:23 PM EDT): EPDS 18 with hardly ever to question about self harm. Maria Isabel reports feeling safe currently. She has decided not to start prozac, was feeling too anxious about taking meds during . She will consider taking in the period. She is speaking with a therapist weekly which she plans to continue. We spoke at length about the stress she is experiencing at home- states everyone relies on her for everything . Assessment & Plan (04/26/2020 5:07 PM EDT): Still feeling significant depression and for her it is related to arguing with her 63 year old mom who lives with her and she helps to care for. Maria Isabel does identify some coping skills that help (getting outside, exercise, staying busy). Reviewed significant h/o depression including suicidal ideation and attempts in past. Currently denies suicidal ideation. Meeting with therapist still, sometimes feels worse after discussion. Has appt with psychiatrist tomorrow but is still feeling worried about meds. I recommended starting with eval and finding out options - she agrees. Assessment & Plan (03/30/2020 2:00 PM EDT): EPDS 20, answered sometimes to question 10. Maria Isabel states depression has been severe this , similar to first (and in period). Symptoms are present but severe when she is not . Symptoms as reported with patient more c/w anxiety and potentially bipolar disorder. States she cannot stop herself from thinking of worst-case scenarios and feels intrusive and unwelcome thoughts most of the time. Oriented to reality, calm and pleasant in appointment today. Feels heart racing, feeling of dread. Has significant difficulty sleeping, which exacerbates symptoms. States she goes 3-4 days without sleeping sometimes, intrusive thoughts all night. No compulsive behaviors, does not feel heightened energy. No suicidal thoughts, no self-harm but does sometimes think about it. She has been working with a therapist Ame Romano x 2 weeks, using telephone visits, unsure if it is a good fit. Therapist has recommended psychiatric eval and started referral process. Very resistant to medications. I advised Maria Isabel I think she needs psychiatric evaluation hillary and might benefit from medication. We discussed McPap for mom evaluation if referral is not successful or if there is a delay in appt. She denies need for crisis services today. Plan to f/u in 2-4 weeks by phone. TSH added to 28wk labs due to h/o insomnia and heightened mood. Assessment & Plan (02/24/2020 2:27 PM EDT): Patient starting to notice increasing symptoms of depression. Had a very difficult time following her first with suicidal ideations and many suicidal attempts. She is scared she is going to get there again. Many depressive thoughts. Denies any suicidal ideations. Does not and has not had a therapist or medical treatment for depression. States she prefers to do things naturally. I have discussed with her the risks and benefits of proceeding with therapy and medical intervention. Resources provided. Phone number for family connections given. I have also suggested she contact her PCP in [place]. Advised patient to call should she have any worsening of her symptoms or thoughts of harm. Obesity affecting in first trimester 12/29/2019 10/01/2020 Overview (12/29/2019): Obesity in BMI > 55 consider transfer BMI at any time during > 55 consider transfer (bring to group) BMI 45-55 high risk list o If BMI with high BMI disc policy w patient - will need at 1st ob (obesity discussed at intake - brought up by pt - tack puller consult ordered). Hgb A1C or glucose tolerance test - Hgb AIC ordered at intake o Nutr counseling o 11-15lb weight gain o Growth sono q 4 wks if fundal height not reliable, after 28 weeks o Induction only if indicated o PP lovenox according to guidelines High-risk in third trimester 12/29/2019 10/01/2020 Overview (07/25/2020): CNM care Rh POS GC/Chlam neg Tdap 06/23/2020 Flu - 12/29/19 Hgb 11.3 GTT 103 GBS pos PPBC * screening - NT scheduled Assessment & Plan (08/17/2020 5:18 PM EDT): Maria Isabel is here doing ok. Has had lots of irregular ctxs daily but they have not gotten closer together. Denies VB/LOF. + FM. Maria Isabel has concerns about childcare for older daughter as she has limited support. Her mother who usually watches her 4 year old, is supposed to have surgery on 08/20 but is seeing if she can push it back. Her is supposed to go to [place] to work for 2 weeks on 08/19. She has been asking about induction. I reviewed that even with an induction, she needs to have someone to be able to help her and to watch her 4 year old if she is in the hospital. As that is only 2-3 days away, the chance that she will be delivered and discharged is unlikely. I also reviewed the importance of support. Recommended she see if one of both of those things could change to help allow for another adult to be present to help with the older child. We did talk about IOL this week. We reviewed that the cervix is closed and the baby's head is not in the pelvis. We reviewed the risks of induction include prolonged induction, failed induction or risk for distress. We also discussed that sometimes the induction process does progress smoothly but it is hard to predict. Reviewed that we need to ascertain the baby's position (U/S ordered and scheduled for tomorrow A.M) and that I wanted to review with the other CNMs. Will call back this afternoon and hopefully she will have more information on her family's plans. Assessment & Plan (08/11/2020 4:45 PM EDT): Maria Isabel is feeling well. Baby is moving well. She is ready for baby. Asking about induction. Would like visit and cervical exam next week and would like induction prior to 41 weeks if cervix is favorable. Risks, benefits and timeline and potential induction methods reviewed in detail. Continues to request induction. Feels comfortable with labor warnings and when to call. Assessment & Plan (08/04/2020 3:23 PM EDT): Maria Isabel just came from an ultrasound for position confirmation, baby is vertex. Denies s/s of labor/VB/LOF. Discussed started Sertraline 25mg two days ago and plan to reassess in 4-6 weeks for efficacy and/or dose adjustment. Is feeling well today and is coping with ongoing depression, advised to RTO in 1 week for follow up visit, to call with any concerns. SUAD Pardo I evaluated this patient in conjunction with the student and agree with the above assessment and plan. Autumn Nagel CNM Assessment & Plan (07/31/2020 11:41 AM EDT): Maria Isabel is feeling ok. Baby is moving well. She is having carpal tunnel symptoms. Comfort measures reviewed. She will try comfort measures and get wrist braces. Feels comfortable with labor warnings and when to call. Unsure of position today. Will have ultrasound next week. Assessment & Plan (07/21/2020 4:06 PM EDT): Maria Isabel is doing well, no concerns. Having heartburn and low back pain - comfort strategies and safe meds reviewed. GBS collected. U/s today for lie showed vertex, FRAN 12, growth 35th. Discussed FM, PTL, PEC, and labor precautions. +FM. Denies LOF, VB, UCs. NV in one week. Assessment & Plan (06/28/2020 12:38 PM EDT): Maria Isabel is doing well today. She is feeling regular movement. Tdap given. No questions/concerns today. Assessment & Plan (06/09/2020 3:34 PM EDT): A virtual visit was used during the COVID-[address] of an in-person visit. This real-time interactive virtual clinical encounter was conducted using telephone-only technology from clinic or home office. The patient participated in the visit from home/temporary residence or other location as specified below. Consent for virtual care, including informing the patient that insurance will be billed, and that in-person care is available in case of emergencies or as needed otherwise, was discussed at the time of scheduling. Maria Isabel is doing ok. She is feeling that her baby is moving a little less than before. We reviewed movement counts and how to do them and when to call practice. She feels relieved to have a way to check on her baby. She is also having sciatic pain. She had it in her last as well. support belt and chiropractor recommended. She will try these things. What to expect at the hospital and [facility] policies reviewed. Questions about labor and timing of epidural reviewed. Had a difficulty labor and experience at [facility]. We reviewed our commitment to shared decision making and patient participation in care. She is very relieved to hear this. Has in person visit 06/23. Assessment & Plan (06/01/2020 5:14 PM EDT): Maria Isabel is doing well today. She plans to do labs after this visit. She is feeling regular movement, denies PTL signs. Assessment & Plan (04/26/2020 4:54 PM EDT): Maria Isabel is here doing ok. Denies VB/LOF/Ctxs. + FM. Several concerns - leg cramps and back pain. Recommended Magnesium supplement and Spinning Babies Daily Exercises. Recommended GTT/CBC/TSH at 28 wks with in person visit. Assessment & Plan (03/30/2020 1:53 PM EDT): Just had normal anatomy scan. Limited views of profile, discussed repeating in 2-4 weeks vs deferring this exam to minimize in person appts. Pt is anxious and feels strongly she would like repeat, so this was ordered. Discussed schedule of visits w/r/t Covid-19, discussed current hospital policies. Reviewed online CBE and support groups. Visit focused on mental health today, see problem list. Assessment & Plan (02/24/2020 2:29 PM EDT): Patient initially states she is fine but then admits to her increasing symptoms of depression when questioned. She has had problems sleeping and increased headaches. Patient encouraged to seek care for depression. Sleep and headaches may be related. May try 2 extra strength Tylenol twice daily as needed headache. Patient also concerned she is not getting enough calcium in her diet as she does not tolerate milk products. I have suggested a 600 mg Ca/400IU Vit D supplement daily in addition to PNV. Plan 1 week follow-up mood check. Irregular menses 08/15/2019 07/21/2020 Assessment & Plan (08/15/2019 10:01 AM EDT): Plan US given heavy flow, will check day 21 progesterone and day 3 labs given variations in cycle. F/u after eval is complete. Immunizations Immunization Administration Dates Next Due INFLUENZA, SPLIT VIRUS, TRIVALENT PF 07/26/2017 Influenza Quadrivalent Preservative Free IM 07/21,12/29/2019 Influenza Trivalent MDCK Preservative Free IM PPD Test 05/01/2017 Tdap 06/23/2020 Family History Medical History Relation Comments Anxiety disorder Brother 1 Hypertension Brother 1 hepatitis c Father 2000 Anxiety disorder Mother Arthritis Mother Hyperlipidemia Mother Hypertension Mother Post-traumatic stress disorder Mother Rheumatoid arthritis Mother Depression Sister Relation Status Comments Brother 1 Alive Brother 2 Alive Daughter Alive Father Mother Alive Sister Alive Social History Tobacco Use Types Packs/Day Years Used Date Smoking Tobacco: Never Smokeless Tobacco: Never Alcohol Use Standard Drinks/Week Comments Never 0 (1 standard drink = 0.6 oz pur e alcohol) Education Answer Date Recorded Are you interested in more education? Not on andrew e 03/16/2023 Are you concerned about learning? Not on file 03/16/2023 No 03/16/2023 No 03/16/2023 Digital Access Answer Date Recorded No 04/14/2023 No 04/14/2023 No 04/14/2023 Reliable internet access at home? Not on file 04/14/2023 Device with a working camera? 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 Not on file Not on file N ot on file Last Filed Vital Signs Vital Sign Reading Time Taken Comments Blood Pressure 118/70 10/01/2020 11:57 AM EST Pulse 75 08/21/2020 11:45 PM EDT Temperature 36.7 C (98.1 F) 08/22/2020 10:30 AM EDT Respiratory Rate 18 08/22/2020 10:3 0 AM EDT Oxygen Saturation 97% 08/22/2020 10: 30 AM EDT Inhaled Oxygen Concentration - - Weight 117.1 kg (258 lb 3.2 oz) 021 11:13 AM EDT Height 168.5 cm (5' 6.34 ) 02/01/2021 1 1:13 AM EDT Body Mass Index 41.25 02/01/2021 11:13 AM EDT Plan of Treatment Upcoming Encounters Date Type Department Care Team (Late st Contact Info) Description 07/28/2025 11:00 AM EDT Office Visit [facility] [address] [facility] [address] [place] [address] Nemo Bowser OD [address] [place] [address] [email or web address] 08/04/2025 1:00 PM EDT Telephone [facility] [address] [place] [id number] Kiana Gonzalez, [facility] [address] [facility], [address] [place] [address] [email or web address] Transmit & Receive Health Maintenance Due Date Last Done Comments DEPRESSION SCREENING 2001 PAP SMEAR 01/12/2024 01/12/2021 INFLUENZA VACCINE (#1) 2025 0, 12/29/2019, 07/26/2017, Additional history exists COVID-19 VACCINE (2023- season) 2025 Adult Td,Tdap Booster 06/23/2032 06/23/2022, 020 HEPATITIS C SCREENING Completed 12/29/2019 HIV ONE-TIME SCREENING (18-65 YEARS) Completed 12/29/2019 SMOKING STATUS SCREENING (Once After 26 Yrs) Completed 01/12/2021 HEPATITIS A VACCINES Aged Out No long er eligible based on patient's age to complete this topic HIB VACCINES Aged Out No longer eligi ble based on patient's age to complete this topic MENINGOCOCCAL VACCINES (ACWY) Aged Out No longer eligible based on patient's age to complete this topic MENINGOCOCCAL VACCINES (B) Aged Out N o longer eligible based on patient's age to complete this topic PNEUMOCOCCAL VACCINES (0-49 years) Aged Out No longer eligible based on patient's age to complete this topic Medical Devices Not on file Procedures Procedure Name Priority Date/Time Associated Diagnosis Comments PAP TEST Routine 01/12/2021 12:00 AM EST HEPATITIS C ANTIBODY, QUALITATIVE Routine 12/29/2019 10:59 AM EST Encounter for supervision of other normal in first trimester from Last 3 Months or Most Recently Relevant to Health Maintenance Results * Pap Smear (01/12/2021 12:00 AM EST) 01/12/2021 01/13/2021 8:3 3 AM EST Narrative SEE NARRATIVE - 01/18/2021 12:12 PM EST [address] [address] Chiropractic Practice Manager: Gilda Diaz MD PROGRAMMING COORDINATOR Cytology Report FINAL DIAGNOSIS A. PAP SMEAR (SUREPATH) CE: SPECIMEN ADEQUACY: Satisfactory for evaluation; transformation zone present. INTERPRETATION: NEGATIVE FOR INTRAEPITHELIAL LESION OR MALIGNANCY. Electronically Signed Out By: JONATHAN Santiago(ASCP) The Pap test is a screening test primarily for squamous cancers and precursors and has associated false-negative and false-positive results. New technologies such as liquid-based preparations may decrease but will not eliminate all false-negative results. Regular sampling and follow-up of unexplained clinical signs and symptoms are recommended to minimize false negative results. PROCEDURES/ADDENDA HPV Testing (Requested) Ordered Date: 01/13/2021 A. PAP SMEAR (SUREPATH) CE: Human Papilloma Virus Test Negative for high-risk human papillomavirus types 16, 18, 45 and the Other high risk probe set (Includes 31, 33, 35, 39, 51, 52, 56, 58, 59, 66, 68) by [employer] HR-HPV analysis. Clinical correlation is advised. This HPV test was performed at [facility], [address] [place] [address]. This test has been FDA approved for SurePath cervical cytology specimens. The accuracy and precision of this test for all other specimen sources has been verified in the Cytopathology Laboratory of the [facility] and has not been cleared or approved by the U.S. Food and Drug Administration. Clinical correlation is advised. CLINICAL HISTORY Date of Last Menstrual Period: Not Provided Menstrual History: Unknown Other Clinical Conditions: Screening Pap SPECIMEN SOURCE A: PAP SMEAR (SUREPATH) CE Patient Name: MARIA ISABEL JIMENEZ : 1990 (Age: 30) Sex: F Institution: [facility] Location: [facility] Date of Collection: 01/12/2021 Date of Reported: 01/18/2021 12:12 Results to: Toya Patiño MD us Toya Patiño MD CYTOLOGY ORDERABLES Final Result SEE NARRATIVE * Hepatitis C antibody, qualitative (12/29/2019 10:59 AM EST) HCV NON-REACTIV E NON-REACTI VE [facility] Blood 12/29/2019 10:5 9 AM EST 12/29/2019 11:03 AM EST us Ava Ring GLASS BLOWING INSTRUCTOR LAB BLOOD ORDERABLES Final Res ult [address] [id number] from Last 3 Months or Most Recently Relevant to Health Maintenance Insurance ACO ACO ACO [employer] [place] [address] [place] [address] ALLIANCE ACO ACO ACO ACO Care Teams Transmission Specialist Relationship Specialty Start Date End Date Bobo Turner MD [facility] [place] [address] PCP - General Internal Medicine 05/02/19 Additional Source Comments The information contained in this document represents components of the legal health record. It is not the complete legal health record.[facility]
--- OUTSIDE RECORDS SUMMARY | 2025-07-22 10:06 | XMS_ITS | Clinical Summary ---
Author Organization [facility] ity Address [address] [place] [address] Care Team Providers Care Hand Patcher Name Role Phone Unavailable Primary Care Provider [...] Cervical Cancer Screening: P ap Smear 2010 Depression Screening 11/19/2024 COVID-19 Vaccine (1 - 2023-2 5 season) 2025 Influenza Vaccine (#1) 2025 HIB Vaccines Aged Out No longer [...] 5 Years) and At-Risk Patients (6 to 49 Years) Aged Out No longer eligible b ased on patient's age to complete this topic RSV Immunization Patients Un missael 20 months Aged Out No longer eligible b ased on patient's age to complete this topic Varicella Vaccines Aged Out No longer eligible based on patient's age to complete this topic
== END 2025-07-22 10:39 | disposition home or self-care (01) ==
PROVIDERS: PCP Internal Medicine; Visit Provider Internal Medicine
DX: N92.6 Irregular menstruation, unspecified (principal); Z34.90 Encounter for supervision of normal pregnancy, unspecified, unspecified trimester; Z32.01 Encounter for pregnancy test, result positive

== ENCOUNTER → 2025-07-22 09:21 | Outpatient (BNVA) | payer OTHER, SELFPAY | PROVIDERS: PCP Internal Medicine; Visit Provider Internal Medicine | DX: Z32.01 Encounter for pregnancy test, result positive (principal); N92.6 Irregular menstruation, unspecified | CPT/HCPCS: 81003; 81025; 99212 ==

== ENCOUNTER 2025-10-05 10:14 | Outpatient (AMB) | payer OTHER, SELFPAY ==
--- NOTE | 2025-10-05 10:18 | A.OFFVIS_ITS ---
VS Expanded 10/05/25 10:24 Height 5 ft 5 in Weight 179 lb BMI 29.8 Intake Visit Reasons: (PHONE) PO LSG 05/26/21 Allergies lactose Allergy (Severe, Verified 04/17/25 11:41) Diarrhea diclofenac (Voltaren) Allergy (Intermediate, Verified 04/17/25 11:41) Hives/itchiness Medication List - Last Reconciled 10/05/25 by ROSANA Navarro alosetron (Lotronex) 0.5 mg PO BID cholestyramine (with sugar) 4 gram 4 grams PO TID 90 days Held on 04/17/25. Instructions: Doctor's Order metoclopramide HCl (Reglan) 5 mg PO QIDACHS PRN wq-vw-skdm-gbhnk-D5-gicgpk 352 4.5 mg iron- 120 mcg-60 mcg (Alive Women's Multivitamin) tabs PO sodium,potassium,mag sulfates 17.5-3.13-1.6 gram (Suprep Bowel Prep Kit) 480 mL orally; FOR COLONOSCOPY PREP thiamine HCl (vitamin B1) 100 mg PO DAILY HPI Comments Details: Pt is s/p 05/26/2021. At last visit 6mo ago- pt reported she had seen PCP for ongoing dizziness/ cold sweats . Having low BP, being worked up, having labs done. Has lost about 6 lbs since last OV 6mo ago, but states this fluctuates. Trying to incorporate more electrolytes. Trying to incorporate more foods even if they give her some d iarrhea. Does still try to work out although she does not feel well after. Reports nausea but is going a long time between meals (5 hours). Today- pt reports some improvement in diarrhea after seeing GI. However, before undergoing any more testing she found out she was . Bowel habits worsened during this time. This is her 3rd . She did undergo panniculectomy previously. She hasn't changed her meal plan much since becoming . She tried a natalie MVI but this gave her diarrhea; she tried a regular and tolerated this. Also taking vit D and omega 3. [facility] Medical History Nausea & vomiting Diarrhea Chronic diarrhea Encounter for well woman exam with routine gynecological exam Upper respiratory tract infection Abrasion Elevated parathyroid hormone Excess skin Panniculitis Diarrhea Gastritis Disorder of ear, right Encounter for routine gynecological examination Overweight Diaphragmatic hernia Encounter for general adult medical examination with abnormal findings Excess skin Cholelithiasis Right upper quadrant abdominal pain GERD (gastroesophageal reflux disease) Obesity Diastasis recti Morbid obesity Oligomenorrhea Hot flashes Irregular menses Confusion, postoperative Dizziness, nonspecific Difficulty swallowing pills Large breasts Obesity Post depression Vitamin D deficiency Vitamin B1 deficiency Vitamin A deficiency Preoperative testing Knee pain Depression Low back strain Gynecomastia, female Tired Excessive thirst Difficulty concentrating Lack of adequate sleep Headache syndrome Surgical History S/P laparoscopic cholecystectomy S/P laparoscopic sleeve gastrectomy (~05/2021) Status post repair of paraesophageal diaphragmatic hernia S/P panniculectomy History of eye surgery Family History Father No problems noted. Mother Fibromyalgia Asthma Anxiety High cholesterol FH: HTN (hypertension) Other Mental health disorder Social History Housing: Apartment Are you a primary intensive care ambulance paramedic to a significant other at home: Yes Do you presently have visiting nurse or other home services: No Alcohol intake: never Comment: medicated for pain, see MAR Patient Tobacco Use Status: Never used Tobacco e-Cigarette/Vaping Use: Never Used Advance Directives Date on File: 05/30/21 service: No Current occupational status: employed Sexual orientation: Straight/Heterosexual Gender identity: Female Cognitive needs: No Hearing needs: No Vision needs: No Telehealth Telehealth Telehealth Platform: Telephone Location of provider rendering services: practice address Location of patient: address on file Patient Identification confirmed using: Name, : Yes Telehealth method: voice only Patient verbally consented to treatment: Yes Patient verbally consented to billing insurance company: Yes Patient informed of any privacy concerns related to visit: Yes Minutes spent on Phone/Video with Pt.: 19 Assessment & Plan Assessment & Plan (1) History of sleeve gastrectomy: Code(s): Z90.3 - Acquired absence of stomach [part of] Category: Medical Plan Discussed protein goal of 70g per day, sent after bariatric surgery handout. Discussed after panniculectomy and slightly increased risk of wound complications if she has to have a C section. Labs ordered. Pt will continue current MVI and we will check vitamin levels. RTC January or February for TV visit. 30 min.
[2025-10-05 10:24] VITALS: BMI 29.8
== END 2025-10-05 10:50 | disposition home or self-care (01) ==
LOC: HO.HBS 10:14
PROVIDERS: PCP Internal Medicine; Visit Provider Physician Assistant Surgical
DX: Z71.3 Dietary counseling and surveillance (principal); Z90.3 Acquired absence of stomach [part of]; Z98.84 Bariatric surgery status
CPT/HCPCS: 98013

== ENCOUNTER 2025-10-19 09:41 | Outpatient (REF) | payer OTHER, SELFPAY ==
--- OUTSIDE RECORDS SUMMARY | 2025-10-14 08:15 | XMS_ITS | Encounter Summary ---
Author Organization [facility] Address [address] [place] [address] Phone Care Team Providers Care Director Of Physical Security Name Role Phone Bobo Turner MD Primary Care Provider [phone] Reason for Referral * - New Request Specialty Diagnoses / Procedures Referred By Bhupinder t Referred To Contact Diagnoses Palpitations Procedures Event Monitor Looping up to 30 Days Daren Abel DO [address] [address] Phone: tel: fax: mailto:[email or web address] Referral ID Status Reason Start Date Expiration Date V isits Requested Visits Authorized New Request 10/14/2025 1 1 * Outpatient Procedure - New Request Specialty Diagnoses / Procedures Referred By Contac t Referred To Contact Diagnoses Palpitations Procedures Adult Echo TTE Daren Abel DO [address] [address] Phone: tel: fax: mailto:[email or web address] Referral ID Status Reason Start Date Expiration Date V isits Requested Visits Authorized New Request 10/14/2025 1 1 Reason for Visit * Consultation (Within 1 month) - New Request Specialty Diagnoses / Procedures Referred By Contac t Referred To Contact Cardiology Autumn Nagel CNM [address] [facility], [address] [place] [address] Phone: tel: fax: mailto: [facility] [address] [place] [address] Phone: tel: Referral ID Status Reason Start Date Expiration Date V isits Requested Visits Authorized [id number] New Request 08/18/2025 08/18/2026 1 1 Encounter Details Date Type Department Care Team (Latest Contact Info) Description 10/14/2025 8:15 AM EST Office Visit [facility] [address] 3rd Floor, [address] [place] [address] Daren Abel DO [address] [place] [address] [email or web address] Shortness of breath (Primary Dx); Palpitations; depression associated with second ; Anxiety Social History Tobacco Use Types Packs/Day Years [...] Answer Date Recorded No 04/14/2023 No 04/14/2023 Reliable internet access at home? Not on file 04/14/2023 Device with a working camera? 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 As you know she is and would like a simple cardiovascular evaluation she has been getting some shortness of breath and palpitations my take is that her testing will be very reassuring and normal I have ordered her a monitor for 5 to 7 days to evaluate her palpitations and an echocardiogram as well 12 point systems otherwise were reviewed and are negative she is not a patient with coronary artery disease and never had a history of CAD in her family at early ages. Blood pressure today is well-controlled heart rate is 81 bpm ECG shows normal sinus rhythm with that heart rate of 81 bpm. I will see her in 4 to 6 months time after her testing is done or sooner if there is a significant abnormality. GENERAL ROS: General Negative for:, fever, chills. HEENT Negative for: headache, sore throat, congestion. Cardiovascular Negative for:, chest pain. Respiratory Negative for: cough, shortness of breath. GI/ Negative for: abdominal pain, nausea, vomiting, diarrhea. Musculoskeletal Negative for:, joint pain, muscle pain. Extremities Negative for, edema. Skin Negative for: rash, Negative. Neurological negative for headaches. Psychiatric Negative for, anxiety, depression. Endocrinology negative for: polyuria, polydipsia, polyphagia, weight loss. Discussed importance of leading heart healthy lifestyle with regular exercise of 30 minutes daily, Mediterranean diet, restriction of sodium intake, and maintenance of ideal body weight. Details of office evaluation below. Ciara Jimenez is a 34 y.o. female 34 y.o. Shortness of breath [R06.02] Current Outpatient Medications Medication Sig Dispense Refill Last Dispense mbmpyen-E6-qgdskmuji-C-K2-min 166.6 mg-4.15 mcg-83.3 mg Tab Unknown (patient-reported) olopatadine (PATANOL) 0.1 % ophthalmic solution Place 1 drop into each eye 2 (two) times a day. 5 mL 12 Unknown (outside pharmacy) omega 1-fxj-tiw-fish oil 1,000 (120-180) mg Cap Take 1 capsule by mouth daily. Unknown (patient-reported) PNV no.492-axdb-cmxcv acid ( VITAMIN) 28 mg iron- 800 mcg Tab Take 1 tablet by mouth daily.Unknown (patient-reported) No current facility-administered medications for this visit. Milk containing products (dairy) Past Medical History: Diagnosis Date Diastasis of rectus abdominis 12/2020 Encounter for Papanicolaou smear for cervical cancer screening 01/12/2021 Negative/Negative History of depression did not seek care; first trimester bad' depression Migraines Pap smear for cervical cancer screening 01/2018 per pt Past Surgical History: Procedure Laterality Date CHOLECYSTECTOMY N/A 2021 DIAPHRAGMATIC HERNIA REPAIR 2022 EYE SURGERY Bilateral 2010 gastric sleeve N/A 05/2021 PANNICULECTOMY 2022, repair of diastasis recti at same time. Family History Problem Relation Age of Onset Glaucoma Maternal Grandmother hepatitis c Father 2000 Heart disease Father Hypertension Mother Arthritis Mother Anxiety disorder Mother Rheumatoid arthritis Mother Hyperlipidemia Mother Post-traumatic stress disorder Mother Asthma Mother Anxiety disorder Brother Hypertension Brother No Known Problems Brother Depression Sister No Known Problems Daughter Social History Tobacco Use Smoking status: Never Smokeless tobacco: Never Vaping Use Vaping status: never used Substance Use Topics Alcohol use: Never Drug use: Never Examination BP 112/64 Pulse 81 Ht 168.5 cm (5' 6.34 ) LMP 06/15/2025 BMI 27.64 kg/m?? GENERAL APPEARANCE: NAD. HEENT: NC/AT, EOMI, PERRL, nose clear and TMs WNL. CAROTID UPSTROKE: normal. JVD: normal. HEART SOUNDS: LUNGS: clear to auscultation. ABDOMEN: no hepatomegaly; no hepato-jugular reflux. EXTREMITIES: no leg edema. PERIPHERAL PULSES: intact. NEUROLOGIC: grossly intact. Assessment and Plan: Palpitations As mentioned I ordered a 7-day MCT monitor and an echocardiogram to evaluate this I am hoping that she is going to have very normal testing depression associated with second This seems to be stable Anxiety This is present but seems to be well-controlled Daren Abel DO . 10/14/2025 documented in this encounter Miscellaneous Notes * Assessment & Plan Note - Daren Abel DO - 10/14/2025 8:53 AM EST Associated Problem(s): Anxiety This is present but seems to be well-controlled * Assessment & Plan Note - Daren Abel DO - 10/14/2025 8:52 AM EST Associated Problem(s): depression associated with second This seems to be stable * Assessment & Plan Note - Daren Abel DO - 10/14/2025 8:52 AM EST Associated Problem(s): Palpitations As mentioned I ordered a 7-day MCT monitor and an echocardiogram to evaluate this I am hoping that she is going to have very normal testing documented in this encounter Plan of Treatment Upcoming Encounters Date Type Department Care Team (Late st Contact Info) Description 10/14/2025 Procedure Pass Event Monitor [address] [place] [address] 10/14/2025 Procedure Pass Echo Lab [place] [place] [address] 11/02/2025 10:30 AM EST Appointment Event Monitor [address] [place] [place] [address] Daren Abel DO [address] [facility] [address] [place] [address] 11/04/2025 12:00 PM EST Office Visit [facility] [address] [place] [address] Mark Alberto, OD [address] [place] [address] [email or web address] 11/06/2025 9:10 AM EST Office Visit [facility] [address] [place] [address] [place] [address] Kiana Gonzalez CNM [address] [facility], [address] [place] [address] 12/14/2025 9:30 AM EST Appointment Echo Lab [address] [place] [address] Daren Abel, DO [address] [place] [address] [address] [place] [address] 04/27/2026 12:00 PM EDT Office Visit [facility] [address] [place] [address] 3rd Floor, [address] [place] [address] Daren Abel, DO [address] [place] [address] [place] [address] Scheduled Orders Name Type Priority Associated Diagnoses Orde r Schedule ECG 12-LEAD ECG Routine Shortness of breath Ordered: 10/14/2025 Adult Echo TTE Echocardiography Routine Palpitations Expected: 11/13/2025, Expires: 01/14/2026 Event Monitor Looping up to 30 Days Cardiac Monitors Routine Palpitations Expected: 10/21/2025, Expires: 10/14/2026 documented as of this encounter Visit Diagnoses Diagnosis Shortness of breath- Primary Palpitations depression associated with second Anxiety Anxiety state, unspecified documented in this encounter Care Teams Director Of Physical Security Relationship Specialty Start Date End Date Bobo Turner MD [facility] [place] [address] PCP - General Internal Medicine 05/02/19 documented as of this encounter Additional Source Comments The information contained in this document represents components of the legal health record. It is not the complete legal health record.[facility]
--- OUTSIDE RECORDS SUMMARY | 2025-10-14 08:50 | XMS_ITS | Encounter Summary ---
Author Organization [facility] Address [address] [place] [address] [place] [phone] Phone Care Team Providers Care Support Analyst Name Role Phone Bobo Turner MD Primary Care Provider [phone] Reason for Visit * Reason Comments Routine Visit Encounter Details Date Type Department Care Team (Late st Contact Info) Description 10/14/2025 8:50 AM EST Routine [facility] [address] [place] [address] Kira Hull MD [address] [facility], [address] [place] [address] [email or web address] Social History Tobacco Use Types Packs/Day Years [...] 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 * screening cfDNA Baby ASA Yes, please discuss at 13 week visit Rh + GC/Chlam Neg/Neg PAP Reviewed on patient phone, NILM HPV negative 2021 Flu 10/14 COVID-19 * Hgb * GTT * Repeat RPR * Tdap * EPDS * PPBC * GBS * Feeding Plan * History of PPD Advanced maternal age. 2017 - Previous at [facility] had seizures during delivery with high fever. Patient was in hospital 4 days. Baby 11 days. Patient states that GBS+ was not detected. Gastric sleeve. Current Assessment & Plan Patient doing well. Denies VB/cramping. Having some reflux/heartburn. Rx for famotidine sent. msAFP ordered. Flu vaccine given. Level 2 anatomy US scheduled at [facility]. Warning signs/symptoms reviewed. Relevant Orders Influenza Vaccine 6MO+ Trivalent Preservative Free IM Alpha-Fetoprotein (AFP), Maternal * Reema Craven [place] - 10/14/2025 8:50 AM EST Patient received Influenza in left deltoid & tolerated well. documented in this encounter Miscellaneous Notes * Assessment & Plan Note - Kira Hull MD - 10/14/2025 10:04 AM ESTAssociated Problem(s): Supervision of high risk in first trimester Patient doing well. Denies VB/cramping. Having some reflux/heartburn. Rx for famotidine sent. msAFP ordered. Flu vaccine given. Level 2 anatomy US scheduled at [facility]. Warning signs/symptoms reviewed. documented in this encounter Plan of Treatment Upcoming Encounters Date Type Department Care Team (Late st Contact Info) Description 10/14/2025 Procedure Pass Event Monitor [address] [place] [address] [place] [address] 10/14/2025 Procedure Pass Echo Lab [address] [place] [address] 11/02/2025 10:30 AM EST Appointment Event Monitor [address] [place] [address] [place] [address] Daren Abel, [address] [address] [place] [address] 11/04/2025 12:00 PM EST Office Visit [facility] [place] [address] [place] [address] Mark Alberto, OD [address] [place] [address] [email or web address] 11/06/2025 9:10 AM EST Office Visit [facility] [address] [place] [address] Kiana Gonzalez, ANGELA [address] [facility], [address] [place] [address] [email or web address] 12/14/2025 9:30 AM EST Appointment Echo Lab [address] [place] [address] Daren Abel, DO [address] [facility] [address] [place] [address] 04/27/2026 12:00 PM EDT Office Visit [facility] [address] [place] [address] [address]rd Floor, [address] [place] [address] Daren Abel, DO [address] [facility] [address] [place] [address] Pending Results Name Type Priority Associated Diagnoses Date /Time Alpha-Fetoprotein (AFP), Maternal Lab Today Supervision of high risk in first trimester 10/14/2025 10:49 AM EST Scheduled Orders Name Type Priority Associated Diagnoses Orde r Schedule Alpha-Fetoprotein (AFP), Maternal Lab Routine Supervision of high risk in first trimester Expected: 10/14/2025, Expires: 10/14/2026 documented as of this encounter Visit Diagnoses Diagnosis Supervision of high risk in first trimester- Primary documented in this encounter Care Teams Support Analyst Relationship Specialty Start Date End Date Bobo Turner MD [address] [place] [address] PCP - General Internal Medicine 05/02/19 documented as of this encounter Additional Source Comments The information contained in this document represents components of the legal health record. It is not the complete legal health record.[facility]
--- OUTSIDE RECORDS SUMMARY | 2025-10-19 11:40 | XMS_ITS | Clinical Summary ---
Author Organization [facility] Address [address] [place] [address] Phone Care Team Providers Care Morphologist Name Role Phone Bobo Turner MD Primary Care Provider [phone] Allergies Active Allergy Reactions Criticality Noted Date Comments Milk Containing Products (Dairy) GI Upset 02/24/2020 Lactose Intolerance Medications PNV [id number] ic acid ( VITAMIN) 28 mg iron- 800 mcg Tab Take 1 tablet by mouth daily. Active omega 2-xhe-dhj-fish oil 1,000 (120-180) mg Cap Take 1 capsule by mouth daily. Active ssjzhbp-W9-aijb qwrhx-E-E4-min 166.6 mg-4.15 mcg-83.3 mg Tab Acti ve olopatadine (PATANOL) 0.1 % ophthalmic solution Place 1 drop into each eye 2 (two) times a day. 5 mL 12 09/09/2025 Active famotidine (PEPCID) 20 MG tablet Take 1 tablet (20 mg total) by mouth 2 (two) times a day. 180 tablet 3 10/14/2025 Active Active Problems Problem Noted Date Diagnosed Date Palpitations 10/14/2025 Assessment & Plan (10/14/2025 8:52 AM EST): As mentioned I ordered a 7-day MCT monitor and an echocardiogram to evaluate this I am hoping that she is going to have very normal testing H/O gastric sleeve 08/18/2025 Overview (08/18/2025): Stress importance of vitamin and continuing with any vitamin supplementation recommended by bariatric surgeon. Screen for micronutrient deficiencies at first visit and q trimester CBC, Ferritin, Iron, Vitamin B12, Thiamine, Folate, Calcium, Vitamin D [*Vitamin B12 required to use nitrous oxide] Consider serial growth ultrasounds in third trimester, ravin for patients with poor weight gain or who conceive within 2 years of surgery Avoid 50g glucose tolerance test due to risk of dumping syndrome. Refer patient to [facility] for QID testing x 2 weeks as an alternative. First trimester screening can be performed with HgbA1C as indicated Low threshold for abdominal imaging in patients with abdominal pain due to risk of bowel obstruction, cholelithiasis Timing and mode of delivery based on standard obstetric indications See Up-To-Date article F ertility and after bariatric surgery . [email or web address]%[email or web address]&source=search_result&selectedTitle=1~150& usage _type=default&display_rank=1 Assessment & Plan (09/15/2025 11:01 AM EDT): Micronutrient levels are normal. Having some diarrhea. Will reach out to GI doctor. Assessment & Plan (08/20/2025 10:32 AM EDT): Taking supplements. Nutrient panel ordered with labs Supervision of high risk in first trim [place] 08/04/2025 Overview (10/14/2025): [facility] Group PN care? * screening cfDNA Baby ASA Yes, please discuss at 13 week visit Rh + GC/Chlam Neg/Neg PAP Reviewed on patient phone, NILM HPV negative 2021 Flu 10/14 COVID-19 * Hgb * GTT * Repeat RPR * Tdap * EPDS * PPBC * GBS * Infant Feeding Plan * History of PPD Advanced maternal age. 2017 - Previous at [facility] had seizures during delivery with high fever. Patient was in hospital 4 days. Baby 11 days. Patient states that GBS+ was not detected. Gastric sleeve. Assessment & Plan (10/14/2025 10:06 AM EST): Patient doing well. Denies VB/cramping. Having some reflux/heartburn. Rx for famotidine sent. msAFP ordered. Flu vaccine given. Level 2 anatomy US scheduled at [place]. Warning signs/symptoms reviewed. Assessment & Plan (09/15/2025 11:05 AM EDT): Ciara is doing fairly well. Nausea is improved. Is still having some nausea while eating but is able to eat well. Able to confirm today that she had a normal pap with HPV negative in 2021. Due in 2026. Has level 2 scheduled at [place]. Happy to hear heart today. No other concerns. Assessment & Plan (08/20/2025 10:34 AM EDT): Ciara is struggling with nausea but feels that VB6 is helping. Will do labs including cfDNA today. Disorder of sacrum 01/12/2021 Assessment & Plan (01/12/2021 11:12 AM EST): Right sided SI joint pain worse with walking, standing and bending at the hip. Referral to physiatry. depression associated with second pre gnancy 09/09/2020 Overview (01/13/2021): Seeing both therapist and psychiatrist, tapered off zoloft due to meds Some thoughts of self-harm , states both clinicians are aware Assessment & Plan (10/14/2025 8:52 AM EST): This seems to be stable Assessment & Plan (01/13/2021 9:57 AM EST): Continue pysch f/u, and Recommend she let both know of ongoing occ thoughts of self harm Anxiety 08/20/2020 Assessment & Plan (10/14/2025 8:53 AM EST): This is present but seems to be well-controlled Vitamin D deficiency 02/04/2020 Overview (02/04/2020): Please review low vitamin D at next visit and recommendation for supplementing Estimated Date of Delivery Comme nts Yes 03/22/2026 Based on last me nstrual period of 06/15/2025 Resolved Problems Problem Noted Date Diagnosed Date Resolved Date Diastasis of rectus abdominis 12/20/2020 08/20/2025 Overview (01/13/2021): Post , large bulging midline abdominal diastasis measuring approximately 25 cm x 15 cm wide Assessment & Plan (01/13/2021 9:55 AM EST): Difficulty doing crunches, lifting, bending at the waist. inqiured re surgery, recommend first Trying PT or the measures advised by reinforcing iron worker helper before consult with surgeon Referral to physiatry for strengthening and physical therapy. care following vaginal delivery 08/20/2020 01/12/2021 Overview [...] Assessment & Plan (08/11/2020 4:43 PM EDT): Ciara feels that the zoloft is working well for her. She is feeling less upset by things and is able to control her emotions more. Does not want to increase dose at this time. Assessment & Plan (08/04/2020 3:23 PM EDT): Ciara started zoloft this week. Feels it is helping already. Her mother is also feeling better and she is feeling relieved. Will continue taking through the period. Will check in in a couple of weeks to determine if dose increase is necessarey. Assessment & Plan (07/31/2020 11:40 AM EDT): Again discussed depression symptoms with Ciara. Her mother is currently admitted to the hospital and she doesn't have anyone to care for her daughter. We discussed that her daughter will not be allowed into the hospital. Options for friends watching daughter or hiring a rib chopper reviewed. She will look into options. She [...] Assessment & Plan (06/28/2020 12:41 PM EDT): Ciara scored 18 again today- she continues to be very up front about her depression. Has good coping skills and does not feel like she needs any additional support at this time. Assessment & Plan (06/01/2020 5:23 PM EDT): EPDS 18 with hardly ever to question about self harm. Ciara reports feeling safe currently. She has decided [...] her and she helps to care for. Ciara does identify some coping skills that help [...] EPDS 20, answered sometimes to question 10. Ciara states depression has been severe this , [...] process. Very resistant to medications. I advised Ciara I think she needs psychiatric evaluation hillary [...] also suggested she contact her PCP in [place]. Advised patient to call should she have [...] intake - brought up by pt - physicist solid state consult ordered). Hgb A1C or glucose tolerance [...] Assessment & Plan (08/17/2020 5:18 PM EDT): Ciara is here doing ok. Has had lots of irregular ctxs daily but they have not gotten closer together. Denies VB/LOF. + FM. Ciara has concerns about childcare for older daughter as she has limited support. Her mother who usually watches her 4 year old, is supposed to have surgery on 08/20 but is seeing if she can push it back. Her is supposed to go to [place] to work for 2 weeks on 08/19. [...] Assessment & Plan (08/11/2020 4:45 PM EDT): Ciara is feeling well. Baby is moving well. [...] Assessment & Plan (08/04/2020 3:23 PM EDT): Ciara just came from an ultrasound for position [...] Assessment & Plan (07/31/2020 11:41 AM EDT): Ciara is feeling ok. Baby is moving well. She is having carpal tunnel symptoms. Comfort measures reviewed. She will try comfort measures and get wrist braces. Feels comfortable with labor warnings and when to call. Unsure of position today. Will have ultrasound next week. Assessment & Plan (07/21/2020 4:06 PM EDT): Ciara is doing well, no concerns. Having heartburn and low back pain - comfort strategies and safe meds reviewed. GBS collected. U/s today for lie showed vertex, FRAN 12, growth 35th. Discussed FM, PTL, PEC, and labor precautions. +FM. Denies LOF, VB, UCs. NV in one week. Assessment & Plan (06/28/2020 12:38 PM EDT): Ciara is doing well today. She is feeling [...] was discussed at the time of scheduling. Ciara is doing ok. She is feeling that [...] What to expect at the hospital and [facility] policies reviewed. Questions about labor and timing of epidural reviewed. Had a difficulty labor and experience at [facility]. We reviewed our commitment to shared decision making and patient participation in care. She is very relieved to hear this. Has in person visit 06/23. Assessment & Plan (06/01/2020 5:14 PM EDT): Ciara is doing well today. She plans to do labs after this visit. She is feeling regular movement, denies PTL signs. Assessment & Plan (04/26/2020 4:54 PM EDT): Ciara is here doing ok. Denies VB/LOF/Ctxs. + [...] in cycle. F/u after eval is complete. Encounters Date Type Department Care Team Description 10/14/2025 8:50 AM EST Routine [facility] [address] [place] [address] Kira Steel MD [place]: 17w2d 10/14/2025 8:15 AM EST Office Visit [facility] [address] Floor, [address] [place] [address] Daren Abel, Shortness of breath (Primary Dx); Palpitations; depression associated with second ; Anxiety 09/30/2025 Telephone [facility] [address] [place] [address] [place] [address] Dru-Chart ier, Mali Mack, AUTOMOTIVE SERVICE CONSULTANT OB Letter 09/23/2025 Telephone [facility] [address] [place] [address] [place] [address] Autumn Nagel CNM Forms & Paperwork 09/15/2025 10:30 AM EDT [facility] [address] [place] [address] [place] [address] Autumn Nagel CNM [place]: 13w1d 09/09/2025 1:40 PM EDT Office Visit [facility] [address] [place] [address] Quintin Panda MD Keratoconus of both eyes (Primary Dx); Corneal scar; Irregular astigmatism of both eyes; Allergic conjunctivitis of both eyes 09/09/2025 Telephone [facility] [address] [place] [address] Mark Alberto, OD 08/27/2025 Telephone [facility] [address] [place] [address] [place] [address] Carline Gray RN myriad foresight results 08/25/[address] [facility] Obstetrics - Virtual Department [address] [place] [address] Autumn Nagel CNM Level 2 08/25/2025 Telephone [facility] [address] [place] [address] [place] [address] Carline Gray RN Myriad prequel results 08/18/2025 11:25 AM EDT - 08/18/2025 11:59 PM EDT Hospital Encounter [facility] [address] [place] [address] Autumn Nagel CNM Discharge Disposition: Home or Self Care 08/18/2025 10:50 AM EDT Office Visit [facility] [address] [place] [address] Autumn Nagel CNM Supervision of high risk in first trimester (Primary Dx); H/O gastric sleeve 08/18/2025 10:07 AM EDT - 08/18/2025 11:24 AM EDT Hospital Encounter [facility] [place] [place] [address] [place] [address] Kiana Gonzalez CNM Discharge Disposition: Home or Self Care 08/04/2025 1:00 PM EDT Telephone [facility] [address] [place] [address] Kiana Gonzalez CNM OB phone intake 07/28/2025 11:00 AM EDT Office Visit [facility] [address] [place] [address] Nemo Bowser, OD Keratoconus of both eyes (Primary Dx); Bilateral dry eyes; Hyperopia of both eyes with astigmatism from Last 3 Months Immunizations Immunization Administration Dates Next Due INFLUENZA, SPLIT VIRUS, TRIVALENT PF 10/14/2025, 07/26/2017 Influenza Quadrivalent Preservative Free IM 07/21,12/29/2019 Influenza Trivalent MDCK Preservative Free IM PPD Test 05/01/2017 Tdap 06/23/2020 Family History Medical History Relation Comments Anxiety disorder Brother 1 Hypertension Brother 1 No Known Problems Brother 2 No Known Problems Daughter Heart disease Father hepatitis c Father 2000 Glaucoma Maternal Grandmother Anxiety disorder Mother Arthritis Mother Asthma Mother Hyperlipidemia Mother Hypertension Mother Post-traumatic stress disorder Mother Rheumatoid arthritis Mother Depression Sister Relation Status Comments Brother 1 Alive Brother 2 Alive Daughter Alive Father Maternal Grandfather Maternal Grandmother Mother Alive Paternal Grandfather Paternal Grandmother Sister Alive Social History Tobacco Use Types [...] 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 Not on file Not on file N ot on file Last Filed Vital Signs Vital Sign Reading Time Taken Comments Blood Pressure 92/62 10/14/2025 9:02 AM EST Pulse 81 10/14/2025 8:22 AM EST Temperature 36.7 C (98.1 F) 08/22/2020 10:30 AM EDT Respiratory Rate 18 08/22/2020 10:30 AM EDT Oxygen Saturation 97% 08/22/2020 10:30 AM EDT Inhaled Oxygen Concentration - - Weight 82.6 kg (182 lb) 10/14/2025 9:02 AM EST Height 168.5 cm (5' 6.34 ) 10/14/2025 8:22 AM ES T Body Mass Index 29.08 10/14/2025 8:22 AM EST Plan of Treatment Upcoming Encounters Date Type Department Care Team (Late st Contact Info) Description 10/14/2025 Procedure Pass [facility] [address] [place] [address] 10/14/2025 Procedure Pass [facility] [place] [place] [address] 11/02/2025 10:30 AM EST Appointment [facility] [address] [place] [address] [place] [address] Daren Abel DO [address] [facility] [address] [place] [address] 11/04/2025 12:00 PM EST Office Visit [facility] [place] [address] [place] [address] Mark Alberto, OD [address] [place] [address] [email or web address] 11/06/2025 9:10 AM EST Office Visit [facility] [address] [place] [address] [place] [address] Kiana Gonzalez CNM [address] [place] [address], [address] [place] [address] 12/14/2025 9:30 AM EST Appointment [facility] [address] [place] [address] Daren Abel DO [address] [place] [address] [place] [address] 04/27/2026 12:00 PM EDT Office Visit [facility] [address] [place] [address] 3rd Floor, [address] [place] [address] Daren Abel DO [address] [place] [address] Health Maintenance Due Date Last Done Comments DEPRESSION SCREENING 2001 SCREENING FOR DIABETES 2024 08/20/2020 PAP SMEAR 02/08/2025 02/08/2022, 01/12/2021 COVID-19 VACCINE ( season) 2025 Adult Td,Tdap Booster 06/23/2032 06/23/2022, 020 HEPATITIS C SCREENING Completed 08/18/2025 , 08/18/2025, 12/29/2019, Additional history exists HIV ONE-TIME SCREENING (18-65 YEARS) Completed 08/18/2025 SMOKING STATUS SCREENING (Once After 26 Yrs) Completed 09/15/2025 INFLUENZA VACCINE Completed 10/14/2025, , 08/17/2020, Additional history exists HEPATITIS A VACCINES Aged Out No long [...] patient's age to complete this topic RSV VACCINE (No Doses Required) Completed Medical Devices Not on file Procedures Procedure Name Priority Date/Time Associated Diagnosis Comments FERRITIN Routine 08/18/2025 11:30 AM EDT H/O gastric sleeve IRON AND IRON BINDING CAPACITY Routine 08/18/2025 11:30 AM EDT H/O gastric sleeve VITAMIN B12 Routine 08/18/2025 11:30 AM EDT H/O gastric sleeve VITAMIN B1 (THIAMINE) Routine 08/18/2025 11:30 AM EDT H/O gastric sleeve FOLATE Routine 08/18/2025 11:30 AM EDT H/O gastric sleeve CALCIUM Routine 08/18/2025 11:30 AM EDT H/O gastric sleeve 25-OH VITAMIN D Routine 08/18/2025 11:30 AM EDT H/O gastric sleeve MISCELLANEOUS LAB TEST Routine 11:30 AM EDT Supervision of high-risk Need for hepatitis B screening test CBC Routine 08/18/2025 11:30 AM EDT Supervision of high-risk Need for hepatitis B screening test SYPHILIS ANTIBODY SCREEN ASSAY Routine 08/18/2025 11:30 AM EDT Supervision of high-risk Need for hepatitis B screening test CYSTIC FIBROSIS MUTATION CARRIER SCREEN Routine 08/18/2025 11:30 AM EDT Supervision of high-risk Need for hepatitis B screening test MISCELLANEOUS LAB TEST Routine 11:30 AM EDT Supervision of high-risk Need for hepatitis B screening test ALANINE AMINOTRANSFERASE (ALT) Routine 08/18/2025 11:30 AM EDT Supervision of high-risk Need for hepatitis B screening test ASPARTATE AMINOTRANSFERASE (AST) Routine 08/18/2025 11:30 AM EDT Supervision of high-risk Need for hepatitis B screening test CREATININE WITH ESTIMATED GLOMERULAR FILTRATION RATE (EGFR) Routine 08/18/2025 11:30 AM EDT Supervision of high-risk Need for hepatitis B screening test SCREEN Routine 08/18/2025 11:30 AM EDT Supervision of high-risk Need for hepatitis B screening test RUBELLA ANTIBODY, IGG Routine 08/18/2025 11:30 AM EDT Supervision of high-risk Need for hepatitis B screening test VARICELLA-ZOSTER (VZV) ANTIBODY, IGG Routine 08/18/2025 11:30 AM EDT Supervision of high-risk Need for hepatitis B screening test HIV-1/2 ANTIGEN/ANTIBODY Routine 025 11:30 AM EDT Supervision of high-risk Need for hepatitis B screening test HEPATITIS B SURFACE ANTIGEN Routine 08/18/2025 11:30 AM EDT Need for hepatitis B screening test HEPATITIS C ANTIBODY, QUALITATIVE Routine 08/18/2025 11:30 AM EDT Supervision of high-risk Need for hepatitis B screening test URINE CULTURE Routine 08/18/2025 11:19 AM EDT Supervision of high risk in first trimester CHLAMYDIA TRACHOMATIS AND NEISSERIA GONORRHOEAE NUCLEIC ACID DETECTION Routine 08/18/2025 11:06 AM EDT Supervision of high risk in first trimester US OB LESS THAN 14 WEEKS TRANSABDOMINAL Routine 08/18/2025 10:38 AM EDT Supervision of high-risk PAP TEST Routine 02/08/2022 from Last 3 Months or Most Recently Relevant to Health Maintenance Results * Creatinine/eGFR (08/18/2025 11:30 AM EDT) Pathologist [facility] CREATININE 0.60 0.5 - 1.5 mg/dL [facility] EGFR 120 >59 mL/min/1.7 3m2 [facility] Comment:Estimated glomerular filtration rate calculated using the CKD-EPI refit equation. Blood 08/18/2025 11:3 0 AM EDT 08/18/2025 11:46 AM EDT Autumn MALDONADO LAB BLOOD BKR ORDERABL ES Final Result [address] [id number] * CYSTIC FIBROSIS MUTATION CARRIER SCREEN (08/18/2025 11:30 AM EDT) Pathologist [facility] CFTR Gene analysis SEE NOTE 01:08 PM [facility] DPT OF LAB MED AND PAT+ Comment: (NOTE) Test Result Flag Unit RefValue Cystic Fibrosis (CF) Mutation Panel Result Summary NEGATIVE Result SEE NOTE No pathogenic variants tested by this assay were identified. Interpretation SEE NOTE This result indicates a reduced carrier risk for cystic fibrosis (CF). This screening panel includes the most common pathogenic variants in CFTR; however, it does not comprehensively rule out all known disease-causing pathogenic variants in this gene. An individual's residual risk for CF carrier status varies by ancestry. The table below lists the residual risk of being a carrier based on ancestry. Ancestry Prior Risk Residual Risk Grenadian 12/13 Ashkenazi Orthodoxy 12/1348 Grenadian Grenadian* General [place] Population *Does not apply to individuals of Albanian ancestry Residual risk after negative carrier screen We are unable to provide a revised risk assessment for ancestries other than those listed above as there is insufficient information available about the carrier frequency and variant detection rates in other populations. These calculations are based on the variant detection rates and population carrier frequencies noted in the chart. If the patient has a family history of CF, contact our laboratory for a revised risk assessment. If there is a suspected diagnosis of CF, correlation between other laboratory tests and clinical history is recommended. Additional genetic testing strategies, such as full gene analysis of the CFTR gene (CFTRN / CFTR Gene, Full Gene Analysis), should be considered for identifying pathogenic variants that are not detected by this assay. Contact the [facility] at [phone] for further discussion regarding this option. A genetic consultation may be of benefit. ADDITIONAL INFORMATION CAUTIONS This assay will not detect all known pathogenic variants causing cystic fibrosis (CF) or CFTR-related disorders. Therefore, the absence of a detectable variant does not rule out the possibility that an individual is a carrier of or affected with this disease. A negative result does not eliminate the risk of carrier status for any of the included conditions, due to the possibility that the patient carries a variant that is not interrogated with this assay or the rare chance of a false-negative result for a tested variant. For tested variants, the negative predictive value of this screen is greater than 98%. The patient's residual risk to be a carrier after a negative screen is dependent on ethnic background and family history. A positive control was not available for all variants targeted on this panel. For more information regarding availability of a positive control for each variant see Targeted Variants Interrogated by Expanded Carrier Screen Panels in Special Instructions. The negative predictive value of these targets is unknown. Rare polymorphisms exist that could lead to false-negative or false-positive results. If results obtained do not match the clinical findings, additional testing should be considered. All detected variants are evaluated according to [employer] recommendations. This assay was designed to specifically target known pathogenic or likely pathogenic variants. In rare cases, DNA variants of undetermined significance may be identified. The laboratory encourages health care providers to contact the laboratory at any time to learn how the status of a particular variant may have changed over time. Multiple in-silico evaluation tools may have been used to assist in the interpretation of these results. Of note, the sensitivity and specificity of these tools for the determination of pathogenicity is currently unvalidated. Test results should be interpreted in the context of clinical findings, family history, and other laboratory data. Misinterpretation of results may occur if the information provided is inaccurate or incomplete. Bone Marrow transplants from allogenic donors will interfere with testing. Call [facility] for instructions for testing patients who have received a bone marrow transplant. An online research opportunity called [employer] ([email or web address]), a project of [employer], is available for the recipient of this genetic test. This patient registry collects deidentified genetic and health information to advance the knowledge of genetic variants. [facility] is a collaborator of [employer]. This may not be applicable for all tests. TEST CLASSIFICATION This test was developed and its performance characteristics determined by [facility] in a manner consistent with CLIA requirements. This test has not been cleared or approved by the U.S. Food and Drug Administration. Additional Information SEE NOTE A portion of the testing process was performed at [facility] site [id number]. Method SEE NOTE Targeted genotyping array (build GRCh37 (hg19)) was performed to test for the presence of select variants within the CFTR gene (GenBank accession number [id number]). Targeted DNA sequence analysis of the CFTR gene is used to clarify results of the initial analysis when appropriate. See [email or web address].com (Test ID [email or web address]) for additional information about this test, including variants assessed by this assay. Specimen WB Whole Blood Released By Ame Grigsby M.D., Ph.D. Blood 08/18/2025 11:3 0 AM EDT 08/18/2025 11:46 AM EDT Autumn Nagel [facility] LAB BLOOD BKR ORDERABL ES Final Result [facility] DPT OF LAB MED AND PAT+ [address] [place] [address] * Screen (08/18/2025 11:30 AM EDT) ABO/Rh A Positive [facility] Antibody Screen Negative [facility] Resulting Agency [facility] Blood 08/18/2025 11:3 0 AM EDT 08/18/2025 11:46 AM EDT [facility] LAB BLOOD BANK TEST OR DERABLES Final Result Performing Organization Address [facility]/ZIP Co de Phone Number [address] [address] * Rubella antibody, IgG (08/18/2025 11:30 AM EDT) Rubella Ab, IgG Positive Positive [facility] Blood (Blood) 08/18/2025 11: 30 AM EDT 08/18/2025 11:46 AM EDT Autumn Nagel [facility] LAB BLOOD BKR ORDERABL ES Final Result Performing Organization Address [facility]/ZIP Co de Phone Number [address] [address] * Varicella-zoster (VZV) antibody, IgG (08/18/2025 11:30 AM EDT) Varicella Ab(s) Positive Positive [facility] Blood (Blood) 08/18/2025 11: 30 AM EDT 08/18/2025 11:46 AM EDT Autumn Nagel [facility] LAB BLOOD BKR ORDERABL ES Final Result Performing Organization Address City/[facility]/ZIP Co de Phone Number [address] [address] * HIV-1/2 antigen/antibody (08/18/2025 11:30 AM EDT) HIV-1/2 Antigen/Antibo dy NON-REACTI VE NON-REACTI VE [facility] Blood 08/18/2025 11:3 0 AM EDT 08/18/2025 11:46 AM EDT Autumn Latifno [facility] LAB BLOOD BKR ORDERABL ES Final Result Performing Organization Address City/[facility]/ZIP Co de Phone Number [address] [address] * Hepatitis C antibody, qualitative (08/18/2025 11:30 AM EDT) HCV NON-REACTIV E NON-REACTI VE [facility] Blood 08/18/2025 11:3 0 AM EDT 08/18/2025 11:46 AM EDT Autumn Nagel [facility] LAB BLOOD BKR ORDERABL ES Final Result Performing Organization Address City/[facility]/ZIP Co de Phone Number [address] [address] * Iron and iron binding capacity (08/18/2025 11:30 AM EDT) IRON 148 30 - 160 ug/dL [facility] IRON BINDING CAPACITY 414 228 - 428 ug/dL [facility] TRANSFERRIN SATURAT. 36 15 - 50 % [facility] Blood 08/18/2025 11:3 0 AM EDT 08/18/2025 11:46 AM EDT Autumn Nagel [facility] LAB BLOOD BKR ORDERABL ES Final Result Performing Organization Address [facility]/ZIP Co de Phone Number [address] [address] * Syphilis antibody screen (08/18/2025 11:30 AM EDT) RPR NON-REACTIV E NON-REACTI VE [facility] Blood 08/18/2025 11:3 0 AM EDT 08/18/2025 11:46 AM EDT Autumn Nagel [facility] LAB BLOOD BKR ORDERABL ES Final Result Performing Organization Address [facility] Co de Phone Number [address] [address] * 25-OH vitamin D (08/18/2025 11:30 AM EDT) 25 [place] VIT D (TOTAL) 39 30 - 60 ng/mL [facility] Blood 08/18/2025 11:3 0 AM EDT 08/18/2025 11:46 AM EDT Autumn Nagel [facility] LAB BLOOD BKR ORDERABL ES Final Result Performing Organization Address City/[facility]/ZIP Co de Phone Number [address] [address] * Hepatitis B surface antigen (08/18/2025 11:30 AM EDT) HBV SURFACE ANTIGEN NON-REACTI VE NON-REACTI VE [facility] Blood 08/18/2025 11:3 0 AM EDT 08/18/2025 11:46 AM EDT Autumn Nagel [facility] LAB BLOOD BKR ORDERABL ES Final Result Performing Organization Address [facility]/ZIP Co de Phone Number [address] [address] * CBC (08/18/2025 11:30 AM EDT) WBC 9.92 4.00 - 11.00 K/uL [facility] RBC 4.38 4.00 - 5.20 M/uL [facility] HGB 12.5 12.0 - 16.0 g/dL [facility] HCT 38.3 36.0 - 46.0 % [facility] PLT 279 150 - 450 K/uL [facility] MCV 87.4 80.0 - 100.0 fL [facility] MCH 28.5 27.0 - 31.0 pg [facility] MCHC 32.6 32.0 - 36.0 g/dL [facility] RDW 12.8 11.5 - 14.5 % [facility] MPV 10.5 8.4 - 12.0 fL [facility] NRBC 0.00 0.00 /100 WBCs [facility] ABSOLUTE NRBC 0.00 0.00 K/uL [facility] Blood 08/18/2025 11:3 0 AM EDT 08/18/2025 11:46 AM EDT us Autumn Nagel [facility] LAB BLOOD BKR ORDERABL ES Final Result Performing Organization Address [facility] Co de Phone Number [address] [address] * Alanine aminotransferase (ALT) (08/18/2025 11:30 AM EDT) ALT 7 0 - 40 U/L [facility] Blood 08/18/2025 11:3 0 AM EDT 08/18/2025 11:46 AM EDT Autumn Nagel [facility] LAB BLOOD BKR ORDERABL ES Final Result Performing Organization Address City/[facility]/ZIP Co de Phone Number [address] [place] [address] * Aspartate aminotransferase (AST) (08/18/2025 11:30 AM EDT) AST 22 0 - 37 U/L [facility] Blood 08/18/2025 11:3 0 AM EDT 08/18/2025 11:46 AM EDT Autumn Nagel [facility] LAB BLOOD BKR ORDERABL ES Final Result Performing Organization Address [facility] de Phone Number [address] [address] * Vitamin B1 (thiamine) (08/18/2025 11:30 AM EDT) VITAMIN B1 102 70 - 180 nmol/L [facility] Comment: (NOTE) ADDITIONAL INFORMATION This test was developed and its performance characteristics determined by [facility] in a manner consistent with CLIA requirements. This test has not been cleared or approved by the U.S. Food and Drug Administration. Blood 08/18/2025 11:3 0 AM EDT 08/18/2025 11:46 AM EDT Autumn Nagel [facility] LAB BLOOD ORDERABLES F inal Result Performing Organization Address [facility]/ZIP Co de Phone Number [facility] [address] [place] [address] * Folate (08/18/2025 11:30 AM EDT) FOLIC ACID 19.6 4.2 - 19.9 ng/mL [facility] Blood 08/18/2025 11:3 0 AM EDT 08/18/2025 11:46 AM EDT Autumn Nagel [facility] LAB BLOOD BKR ORDERABL ES Final Result Performing Organization Address City/[facility]/ZIP Co de Phone Number [address] [address] * Ferritin (08/18/2025 11:30 AM EDT) FERRITIN 53 13 - 150 ug/L [facility] Blood 08/18/2025 11:3 0 AM EDT 08/18/2025 11:46 AM EDT Autumn Nagel [facility] LAB BLOOD BKR ORDERABL ES Final Result Performing Organization Address [facility] Co de Phone Number [address] [address] * Vitamin B12 (08/18/2025 11:30 AM EDT) VITAMIN B12 985 232 - 1,245 pg/mL [facility] Blood 08/18/2025 11:3 0 AM EDT 08/18/2025 11:46 AM EDT Autumn Nagel [facility] LAB BLOOD BKR ORDERABL ES Final Result Performing Organization Address [facility]/ZIP Co de Phone Number [address] [address] * Calcium (08/18/2025 11:30 AM EDT) CALCIUM 9.5 8.4 - 10.3 mg/dL [facility] Blood 08/18/2025 11:3 0 AM EDT 08/18/2025 11:46 AM EDT Autumn Nagel [facility] LAB BLOOD BKR ORDERABL ES Final Result Performing Organization Address [facility]/ZIP Co de Phone Number [address] [address] * (ABNORMAL) Urine Culture (08/18/2025 11:19 AM EDT) Special Requests None 08/18/2025 11:19 AM EDT [facility] Urine Culture 10,000 to 100,000 colony forming units per mL NONHEMOLYTIC STREPTOCOCCUS GROUP B(A) 08/21/2025 9:36 AM EDT [facility] Urine (Urine) 08/18/2025 11: 19 AM EDT 08/18/2025 6:15 PM EDT Autumn Nagel [facility] LAB MICROBIOLOGY CULTU RE ORDERABLES Final Result Performing Organization Address [facility]/ZIP Co de Phone Number [address] [address] * Chlamydia Trachomatis and Neisseria Gonorrhoeae Nucleic Acid Detection (08/18/2025 11:06 AM EDT) CHLAMYDIA TRACHOMATIS Not Detected Not Detected [facility] NEISERIA GONORRHOEAE Not Detected Not Detected [facility] SPECIMEN TYPE URINE [facility] Urine (Urine) 08/18/2025 11: 06 AM EDT 08/18/2025 6:10 PM EDT Autumn Nagel [facility] LAB GENERAL ORDERABLES Final Result Performing Organization Address [facility]/ZIP Co de Phone Number [address] [address] * US OB LESS THAN 14 WEEKS TRANSABDOMINAL (08/18/2025 10:38 AM EDT) Anatomical Region Laterality Modality Abdomen, Pelvis, Uterus/Adnexa U ltrasound 08/18/2025 10:3 9 AM EDT Impressions 08/18/2025 11:07 AM EDT 1. Single live IUP with CRL measurements consistent with menstrual dating. 2. The ovaries appear grossly normal. Narrative 08/18/2025 11:07 AM EDT Procedure: US OB LESS THAN 14 WEEKS TRANSABDOMINAL 08/18/2025 10:17 AM US Indications: Uncertain Dates dating/viability. Comparison: No relevant recent comparisons. Maternal age: 34 years. Technique: Transabdominal scan was performed. M-mode imaging was performed to assess cardiac activity. FINDINGS: Gestational sac and number: 1. Gestational sac shape and size: Normal. FHR: 170.0 bpm CRL: 2.65 cm Yolk Sac: 0.45 cm Reported LMP: [id number] Gestational Age by LMP: 9 weeks 1 day(s) Ultrasound EGA: 9 weeks 4 day(s) Ultrasound CÉSAR: [id number] Established CÉSAR: 9 weeks 1 day(s) Uterus and ovaries: The myometrium is homogeneous. The ovaries are unremarkable. No adnexal masses seen. Cervical Length: 3.69 cm Tech Comments: Single live IUP. S=D. Procedure Note Lauro Link MD - 08/18/2025 Procedure: US OB LESS THAN 14 WEEKS TRANSABDOMINAL 08/18/2025 10:17 AM US Indications: Uncertain Dates dating/viability. Comparison: No relevant recent comparisons. Maternal age: 34 years. Technique: Transabdominal scan was performed. M-mode imaging wasperformed to assess cardiac activity. FINDINGS: Gestational sac and number: 1. Gestational sac shape and size: Normal. FHR: 170.0 bpm CRL: 2.65 cm Yolk Sac: 0.45 cm Reported LMP: [id number] Gestational Age by LMP: 9 weeks 1 day(s) Ultrasound EGA: 9 weeks 4 day(s) Ultrasound CÉSAR: [id number] Established CÉSAR: 9 weeks 1 day(s) Uterus and ovaries: The myometrium is homogeneous. The ovaries areunremarkable. No adnexal masses seen. Cervical Length: 3.69 cm Tech Comments: Single live IUP. S=D. IMPRESSION: 1. Single live IUP with CRL measurements consistent with menstrualdating. 2. The ovaries appear grossly normal. Kiana Gonzalez CNM [facility] US OBSTETRIC Final Result * Pap Test (02/08/2022) PAP - EXTERNAL NILM HPV NEG Historical Provider CYTOLOGY ORDERABLES Final Result from Last 3 Months or Most Recently Relevant to Health Maintenance Insurance Care Teams Morphologist Relationship Specialty Start Date End Date Bobo Turner MD 1962 [facility] [address] PCP - General Internal Medicine 05/02/19 Additional Source Comments The information contained in this document represents components of the legal health record. It is not the complete legal health record.[facility]
--- OUTSIDE RECORDS SUMMARY | 2025-10-19 11:40 | XMS_ITS | Encounter Summary ---
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 Not on file N ot on file documented as of this encounter Progress Notes * Vick Luther - 09/09/2025 2:42 PM EDT I rescheduled for Nov 04 but it says a PA was needed for CL and they haven't been ordered documented in this encounter Plan of Treatment Upcoming Encounters Date Type Department Care Team (Late st Contact Info) Description 10/14/2025 Procedure Pass Event Monitor [address] [place] [address] [place] [address] 10/14/2025 Procedure Pass [facility] [address] [place] [address] 11/02/2025 10:30 AM EST Appointment Event Monitor [address] [place] [address] [place] [address] Daren Abel DO [address] [facility] [address] [place] [address] 11/04/2025 12:00 PM EST Office Visit [facility] [address] [place] [address] Mark Alberto, OD [address] [place] [address] [email or web address] 11/06/2025 9:10 AM EST Office Visit [facility] [address] [place] [address] [place] [address] Kiana Gonzalez CNM [address] [facility], [address] [place] [address] 12/14/2025 9:30 AM EST Appointment Echo Lab [address] [place] [address] Daren Abel, DO [address] [facility] [address] [place] [address] 04/27/2026 12:00 PM EDT Office Visit [facility] [address] Floor, [address] [place] [address] Daren Abel, DO [address] [address] documented as of this encounter Visit Diagnoses Not on filedocumented in this encounter Care Teams Mapping Editor Relationship Specialty Start Date End Date Bobo Turner MD [facility] [place] [address] PCP - General Internal Medicine 05/02/19 documented as of this encounter Additional Source Comments The information contained in this document represents components of the legal health record. It is not the complete legal health record.[facility]
--- OUTSIDE RECORDS SUMMARY | 2025-10-19 11:40 | XMS_ITS | Clinical Summary ---
Author Organization [facility] [address] [facility] Address [address] [place] [address] Phone Care Team Providers Care Electric Sealing Machine Operator Name Role Phone Unavailable Primary Care Provider Unavailabl e Social History Tobacco Use Types Packs/Day Years Used Date Smoking Tobacco: Never Assessed Comments Unknown Sex and Gender Information Value Date Recorded Sex Assigned at Not on file Legal Sex Female 12:47 AM EST Gender Identity Not on file Sexual Orientation Not on file Plan of Treatment Upcoming Encounters Date Type Department Care Team ([facility] st Contact Info) Description 11/03/2025 10:00 AM EST Ancillary Procedure Maternal Medicine - [address] [phone] Health Maintenance Due Date Last Done Comments Hepatitis B Vaccines (1 of 3 - 19+ 3-dose series) 2008 Cervical Cancer Screening: Pap Smear 2010 HPV Vaccines (1 - 3-dose SCDM series) 2016 Depression Screening 11/19/2024 COVID-19 Vaccine ( - season) 2025 Influenza Vaccine (#1) 2025 , 12/29/2019, 07/26/2017, Additional history exists HIV Screening 08/27/2025 Social Influencers of Health Screening 08/27/2025 DTaP,Tdap,and Td Vaccines (4 - Td or Tdap) 06/23/2032 06/23/2022, 06/23/2020, 01/28/2017 RSV Immunization Adult Patients (1 - 1-dose 75+ series) 2064 Hepatitis C Screening Completed 08/18/2025 HIB Vaccines Aged Out No longer eligi [...] age to complete this topic Pneumococcal Vaccine: Pediatrics (0 to 5 Years) and At-Risk Patients (6 to 49 Years) Aged Out No longer eligible based on patient's age to complete this topic RSV Immunization Patients Under 20 months Aged Out No longer eligible based on patient's age to complete this topic Varicella Vaccines Aged Out No longer eligible based on patient's age to complete this topic Insurance
--- OUTSIDE RECORDS SUMMARY | 2025-10-19 11:40 | XMS_ITS | Encounter Summary ---
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 on file N ot on file documented as of this encounter Plan of Treatment Upcoming Encounters Date Type Department Care Team (Late st Contact Info) Description 10/14/2025 Procedure Pass Event Monitor [address] [place] [address] 10/14/2025 Procedure Pass Echo [facility] [address] [place] [address] 11/02/2025 10:30 AM EST Appointment Event Monitor [address] [place] [address] Daren Abel, DO 22 [facility] [address] [place] [address] 11/04/2025 12:00 PM EST Office Visit [facility] [address] [facility] [address] [place] [address] Mark Alberto, OD [address] [place] [address] [email or web address] 11/06/2025 9:10 AM EST Office Visit [facility] [address] [place] [address] [place] [address] Kiana Gonzalez, ANGELA [address] [place] [address], [address] [place] [address] 12/14/2025 9:30 AM EST Appointment Echo Lab [address] [place] [address] Daren Abel DO [address] [place] [address] [place] [address] 04/27/2026 12:00 PM EDT Office Visit [facility] [address] [place] [address] Dr [address] Floor, [address] [place] [address] Daren Abel DO [address] [place] [address] documented as of this encounter Visit Diagnoses Not on filedocumented in this encounter Care Teams Principal Systems Architect Relationship Specialty Start Date End Date Bobo Turner MD [address] [facility] [place] [address] PCP - General Internal Medicine 05/02/19 documented as of this encounter Additional Source Comments The information contained in this document represents components of the legal health record. It is not the complete legal health record.[facility]
[2025-10-19 13:23] LABS: MANUAL DIFF FLAG NO
[2025-10-19 13:36] LABS: Hematocrit 34.4 % (37.0-47.0); Hemoglobin 11.4 g/dl (12.0-16.0); Imm Gran Abs Auto 0.05 X10*3/uL (0.00-0.03); Imm Gran Pct Auto 0.6 % (0.0-0.4); Lymphocytes Absolute Auto 1.9 X10*3/uL (1.2-4.9); Mean Corpuscular HGB Conc 33.1 g/dl (31.0-35.0); Mean Corpuscular Hemoglobin 28.8 pg (27.0-33.0); Mean Corpuscular Volume 86.9 fL (80.0-98.0); NRBC Abs Auto 0.000 X10*3/uL (0.0-0.012); NRBC Pct Auto 0.0 /100WBC (0.0-0.2); Platelet Count 232 X10*3/uL (160-400); Red Blood Count 3.96 X10*6/uL (4.20-5.50); White Blood Count 9.0 X10*3/uL (4.8-10.8)
[2025-10-19 14:16] LABS: Alanine Aminotransferase 9 U/L (0-31); Albumin Level 3.8 g/dL (3.5-5.0); Alkaline Phosphatase 48 U/L (39-117); Anion Gap 8 (12-20); Aspartate Amino Transferase 24 U/L (5-31); Blood Urea Nitrogen 7 mg/dL (9-16); Calcium 8.7 mg/dL (8.4-10.2); Carbon Dioxide 25 mmol/L (22-29); Chloride 108 mmol/L (96-108); Cholesterol 207 mg/dL (<200); Estimated Glomerular Filt Rate > 60; Ferritin 19 ng/mL (10-122); HDL Cholesterol 74 mg/dL (>40); Iron 109 mcg/dL (30-160); Percent Iron Saturation 31 % (15-50); Potassium 3.8 mmol/L (3.3-5.1); Sodium 137 mmol/L (135-145); Total Iron Binding Capacity 348 mcg/dL (228-428); Total Protein 6.8 g/dL (6.5-8.0); Triglycerides 91 mg/dL (<150); Unsaturated Iron Binding 239 ug/dL
== END 2025-10-19 09:42 | disposition home or self-care (01) ==
LOC: HO.HMGCLDS 09:41
PROVIDERS: PCP Internal Medicine; Visit Provider Physician Assistant Surgical
DX: Z34.90 Encounter for supervision of normal pregnancy, unspecified, unspecified trimester (principal); K91.2 Postsurgical malabsorption, not elsewhere classified; Z90.3 Acquired absence of stomach [part of]
CPT/HCPCS: 36415; 80053; 80061; 82728; 83036; 83540; 84443; 85025; 86140